=== PATIENT | female | born 1950 | race Caucasian/White ===

== ENCOUNTER 2016-03-14 15:09 | Emergency (ER) | payer MEDICAID ==
[~2016-03-14] VITALS: Wt 61.5 kg
[2016-03-14] MEDS ORDERED: BENA20TA48 PO (17:09)
[2016-03-14] MEDS ORDERED: GLIM2TAB47 PO (17:09)
[2016-03-14] MEDS ORDERED: GABA300C16 PO (17:09)
[2016-03-14] MEDS ORDERED: MTF1000T PO (17:09)
[2016-03-14] MEDS ORDERED: AZIT250T94 PO (17:09)
[2016-03-14] MEDS ORDERED: ACET500C5 PO (17:09)
[2016-03-14] MEDS ORDERED: D-ME473S18 PO (17:09)
--- NOTE | 2016-03-14 17:14 | ERD ---
ER Documentation Chief Complaint Date/Time DATE: 03/14/16 TIME: 17:12 Chief Complaint COUGH, FEVER, BODYPAINS, HEADACHE, ONSET 2 DAYS HPI This 65-year-old male complains of 3 day history of productive cough, subjective fever and body aches. She is also requesting a refill on her diabetes and hypertension medication. She has shortness of breath or chest pain , vomiting, abdominal pain ROS All systems reviewed and are negative except as per history of present illness. Medications Home Meds Active Scripts Acetaminophen* (Tylophen*) 500 Mg Capsule, 1 CAP PO Q6H Y for PAIN AND OR ELEVATED TEMP, #15 CAP Prov:ROYAL HADLEY MD 03/14/16 Dextromethorphan Hb-Promethazine Hcl (Promethazine DM Syrup) 473 Ml Syrup, 5 ML PO Q6H Y for COUGH, #4 OZ Prov:ROYAL HADLEY MD 03/14/16 Azithromycin* (Zithromax*) 250 Mg Tablet, 250 MG PO .ZPACK DIRECTED, #6 TAB TAKE 500 MG (2 TABS) THE FIRST DAY THEN 250 MG (1 TAB) DAYS 2-5 Prov:ROYAL HADLEY MD 03/14/16 Gabapentin* (Gabapentin*) 300 Mg Capsule, 300 MG PO TID, #90 CAP Prov:ROYAL HADLEY MD 03/14/16 Glimepiride* (Amaryl*) 2 Mg Tablet, 2 MG PO WITH BREAKFAST DINNE, #30 TAB Prov:ROYAL HADLEY MD 03/14/16 Metformin* (Glucophage*) 1,000 Mg Tablet, 1000 MG PO BID, #60 TAB Prov:ROYAL HADLEY MD 03/14/16 Benazepril Hcl* (Benazepril Hcl*) 20 Mg Tablet, 20 MG PO DAILY, #30 TAB Prov:ROYAL HADLEY MD 03/14/16 PMhx/Soc History of Surgery: No Anesthesia Reaction: No Hx Neurological Disorder: No Hx Respiratory Disorders: No Hx Cardiac Disorders: Yes (HTN) Hx Psychiatric Problems: No Hx Miscellaneous Medical Probl: Yes (DM) Hx Alcohol Use: No Hx Substance Use: No Hx Tobacco Use: No Smoking Status: Never smoker Physical Exam Vitals Vital Signs Date Time Temp Pulse Resp B/P Pulse Ox O2 Delivery O2 Flow Rate FiO2 03/14/16 15:19 98.6 92 18 180/77 97 Physical Exam Const: [] Alert, [id number]. Head: Atraumatic Eyes: Normal Conjunctiva ENT: Normal External Ears, Nose and Mouth. Neck: Full range of motion..~ No meningismus. Resp: Clear to auscultation bilaterally. Slight rhonchi without rales, wheezing. Cardio: Regular rate and rhythm, no murmurs Abd: Soft, non tender, non distended. Normal bowel sounds Skin: No petechiae or rashes Back: No midline or flank tenderness Ext: No cyanosis, or edema Neur: Awake and alert Psych: Normal Mood and Affect Procedures/MDM This patient presents with URI symptoms without evidence of hypoxemia, respiratory distress, sepsis. She has history of diabetes and hypertension as well and should follow-up with primary doctor for further evaluation and management. She was given prescription for Zithromax, promethazine and Tylenol for her URI and refills of her Glucophage, Amaryl and benazepril for her hypertension and diabetes. She will be given a prescription of her gabapentin as well. The patient was stable with no new complaints during the ER course. Clinically, there is no current evidence to suggest meningitis, sepsis, acute abdomen, pneumonia, acute coronary syndrome, pulmonary embolism, or any other emergent condition appearing to require further evaluation or hospitalization. The patient should certainly return for any new or worsening symptoms per the aftercare instructions. They should otherwise follow-up with her primary care doctor for reevaluation this week. Departure Diagnosis: Primary Impression: Hypertension Hypertension type: essential hypertension Qualified Code: I10 - Essential hypertension Additional Impressions: Upper respiratory infection URI type: unspecified URI Qualified Code: J06.9 - Upper respiratory tract infection, unspecified type Diabetes Diabetes mellitus type: type 2 Diabetes mellitus complication status: without complication Diabetes mellitus custodial insulin use: without long term acute care registered nurse use Qualified Code: E11.9 - Type 2 diabetes mellitus without complication , without long-term current use of insulin Condition: Stable Patient Instructions: Acute Bronchitis, High Blood Pressure (Hypertension), DIABETES, General Info Referrals: [facility] Usted se coronado hecho un examen mdico de control que le indica que no est en ary condicin que requiera tratamiento urgente en el Departamento de Emergencia. Un estudio ms profundo y el tratamiento de goldman condicin pueden esperar sin ningn riesgo hasta que usted sea atendida/o en el consultorio de goldman mdico o ary cl tiara. Es responsabilidad suya arreglar ary lety para el seguimiento del anayeli. MANEJO DE CONDICIONES NO URGENTES EN EL FUTURO 1) Si usted tiene un mdico de atencin primaria: Usted debera llamar a goldman mdico de atencin primaria antes de venir al departamento de emergencia. Despus de las horas de consultorio, goldman doctor o goldman asociado/a est disponible por telfono. El mdico o enfermero de ronak en el servicio telefnico puede asesorarle por jeremi medio para atender el problema, o anayeli contrario se puede programar ary lety. 2) Si usted no tiene un mdico de atencin primaria: Llame al mdico o clnica de referencia que aparece abajo [place] las horas de consultorio para hacer ary lety para que le vean. CLINICAS: [facility] [phone] [facility] [phone] [facility] [phone] [facility] [phone] [place] [phone] [facility] [address] [phone] [address] Additional Instructions: Cheque otro vez con goldman doctor primario en el proximo peña or regresa para mas o nueva simptomas. ROYAL HADLEY MD Mar 14, 2016 17:14
[2016-03-14 17:35] VITALS: BP 175/77; PULSE 88; RESP 18; TEMP 98.6
== END 2016-03-14 17:58 | disposition home or self-care (01) ==
LOC: FTE 15:09
DX: I10 Essential (primary) hypertension (principal); J06.9 Acute upper respiratory infection, unspecified; E11.9 Type 2 diabetes mellitus without complications; Z79.84 Long term (current) use of oral hypoglycemic drugs
CPT/HCPCS: 99284

== ENCOUNTER 2016-05-15 14:49 | Emergency (ER) | payer MEDICAID ==
[~2016-05-15] VITALS: Ht 157.5 cm; Wt 61.0 kg
[~2016-05-15 14:49] MED LIST: ACET500C5 PO; AZIT250T94 PO; BENA20TA48 PO; D-ME473S18 PO; GABA300C16 PO; GLIM2TAB47 PO; MTF1000T PO
[2016-05-15 14:54] VITALS: Ht 157.5 cm; Wt 61.0 kg
[2016-05-15] MEDS ORDERED: GLIM2TAB PO (15:51)
[2016-05-15] MEDS ORDERED: CEPH-443 PO (15:57)
[2016-05-15] MEDS ORDERED: BACTDS PO (16:01)
--- NOTE | 2016-05-15 17:12 | ERD ---
ER Documentation Chief Complaint Date/Time DATE: 05/15/16 TIME: 17:08 Chief Complaint rt leg injury , abrasion , fell on stairs HPI Patient is a 66-year-old female who presents to the ED with an abrasion on her right leg after sustaining an injury 3 days ago. She states that she fell on her stairs and scraped her leg. She denies hitting her head, passing out, blacking out or losing consciousness. She denies headache or dizziness. She denies pain in her feet, knees or hips. She states that she does not have difficulty walking and she does not have weakness. She states that she is here for a refill of 1 of her diabetes medications. She states that she only has 3 more pills left. She also states that she would like wound care for her leg. No other complaints. Denies polyuria, polydipsia or polyphagia. States that her sugars are within normal limits. ROS All systems reviewed and are negative except as per history of present illness. Medications Home Meds Active Scripts Sulfamethoxazole-Trimethoprim* (Bactrim* DS) 800-160 Mg Tab, 1 TAB PO BID for 5 Days, TAB Prov:HERMESTARIWALE LUGO PA-C 05/15/16 Cephalexin* (Keflex*) 500 Mg Capsule, 500 MG PO QID for 5 Days, CAP Prov:SHOTERESOTARIANWALE PA-C 05/15/16 Glimepiride* (Glimepiride*) 2 Mg Tablet, 2 MG PO WITH BREAKFAST for 30 Days, TAB Prov:SHOTERESOTARIANJOHNAZ PA-C 05/15/16 Acetaminophen* (Tylophen*) 500 Mg Capsule, 1 CAP PO Q6H Y for PAIN AND OR ELEVATED TEMP, #15 CAP Prov:ROYAL HADLEY MD 03/14/16 Dextromethorphan Hb-Promethazine Hcl (Promethazine DM Syrup) 473 Ml Syrup, 5 ML PO Q6H Y for COUGH, #4 OZ Prov:ROYAL HADLEY MD 03/14/16 Azithromycin* (Zithromax*) 250 Mg Tablet, 250 MG PO .ZPACK DIRECTED, #6 TAB TAKE 500 MG (2 TABS) THE FIRST DAY THEN 250 MG (1 TAB) DAYS 2-5 Prov:ROYAL HADLEY MD 03/14/16 Gabapentin* (Gabapentin*) 300 Mg Capsule, 300 MG PO TID, #90 CAP Prov:ROYAL HADLEY MD 03/14/16 Glimepiride* (Amaryl*) 2 Mg Tablet, 2 MG PO WITH BREAKFAST DINNE, #30 TAB Prov:ROYAL HADLEY MD 03/14/16 Metformin* (Glucophage*) 1,000 Mg Tablet, 1000 MG PO BID, #60 TAB Prov:ROYAL HADLEY MD 03/14/16 Benazepril Hcl* (Benazepril Hcl*) 20 Mg Tablet, 20 MG PO DAILY, #30 TAB Prov:ROYAL HADLEY MD 03/14/16 PMhx/Soc History of Surgery: No Anesthesia Reaction: No Hx Neurological Disorder: No Hx Respiratory Disorders: No Hx Cardiac Disorders: Yes (HTN) Hx Psychiatric Problems: No Hx Miscellaneous Medical Probl: Yes (DM) Hx Alcohol Use: No Hx Substance Use: No Hx Tobacco Use: No Physical Exam Vitals Vital Signs Date Time Temp Pulse Resp B/P Pulse Ox O2 Delivery O2 Flow Rate FiO2 05/15/16 14:54 98.3 90 18 176/78 99 Physical Exam GENERAL: Well-developed, well-nourished female. Appears in no acute distress. HEAD: Normocephalic, atraumatic. EYES: Pupils are equally reactive bilaterally. EOMs grossly intact. No conjunctival erythema. ENT: Moist mucous membranes. No uvula deviation. No kissing tonsils. No exudates. NECK: Supple. No lymphadenopathy or thyromegaly. No meningismus. negative kernig. negative brudinski. LUNG: Clear to auscultation bilaterally. No rhonchi, wheezing, rales or coarse breath sounds. HEART: Regular rate and rhythm. No murmurs, rubs or gallops. Extremities: Equal pulses bilaterally. No peripheral clubbing, cyanosis or edema. No unilateral leg swelling. Nontender to knee, ankle. No proximal fibular pain. Pulses intact bilaterally. No hip pain. NEUROLOGIC: Alert and oriented. Moving all four extremities. 5/5 strength in all extremities. Normal speech. Steady gait. SKIN: Normal color. Warm and dry. Right leg has abrasion with slight surrounding erythema. No drainage. No active bleeding. No ecchymosis. No step-offs or deformities. Capillary refill < 2 seconds Procedures/MDM ER COURSE: I kept the patient and/or family informed of laboratory and diagnostic imaging results throughout the emergency room course. PROCEDURES: wound dressing. tolerated well with no adverse reaction. MEDICAL DECISION MAKING: This is a 66-year-old female who presents with abrasion after sustaining a fall 3 days ago. Vital signs were reviewed. Patient is afebrile. Patient is not hypoxic. Patient is not toxic or ill-appearing. Patient has an abrasion to her right knee with slight cellulitis. Since patient is diabetic and there is slight erythema I will be treating the patient with antibiotics out patiently. I will also be filling her glimepiride. Low suspicion for necrotizing fasciitis , SJS, toxic epidermal necrolysis, Kawasaki, erythema multiforme, gangrene, scarlet fever, meningococcemia, sepsis, anaphylaxis, sepsis, deep space infection, or foreign body. I have low suspicion for DKA, HON K DISCHARGE: At this time, patient is stable for discharge and outpatient management with no new complaints during the ER course. Patient was sent home with Keflex, Bactrim and a refill of her glimepiride advised patient that she needs to follow-up with her primary care provider for diabetes management and prescription refills.. Patient will be discharged home with instructions to recheck for new or worsening symptoms such as fever, nausea, weakness, LOC and to follow up with primary care in the next 1-2 days. Patient was advised to return to the ER for any new or worsening symptoms. Plan was discussed and patient and/or family understands and agrees. Home instructions were given. Departure Diagnosis: Primary Impression: Abrasion Condition: Stable Patient Instructions: Abrasion Additional Instructions: Llame al doctor MAANA y devang ary NIMCO PARA DENTRO DE 1-2 ESPINOZA.Dgale a la secretaria que nosotros le instruimos hacer esta nimco.Avise o llame si goldman condicin se empeora antes de la nimco. Regresa aqui si peor o no mejor. WALE HICKMAN PA-C May 15, 2016 17:12
== END 2016-05-15 16:30 | disposition home or self-care (01) ==
LOC: FTE 14:49
DX: S80.811A Abrasion, right lower leg, initial encounter (principal); I10 Essential (primary) hypertension; E11.9 Type 2 diabetes mellitus without complications; W10.9XXA Fall (on) (from) unspecified stairs and steps, initial encounter; Y92.9 Unspecified place or not applicable; Z79.84 Long term (current) use of oral hypoglycemic drugs
CPT/HCPCS: 99284

== ENCOUNTER 2016-06-07 08:57 | Emergency (ER) | payer MEDICAID ==
[~2016-06-07] VITALS: Ht 157.5 cm; Wt 60.0 kg
[~2016-06-07 08:57] MED LIST changes: +BACTDS PO; +CEPH-443 PO; +GLIM2TAB PO
[2016-06-07 09:00] VITALS: Ht 157.5 cm; Wt 60.0 kg
[2016-06-07] MEDS ORDERED: BAC30OI TOP (09:34)
[2016-06-07 09:52] VITALS: BP 185/84; PULSE 94; RESP 20; TEMP 97.8
--- NOTE | 2016-06-07 11:11 | ERD ---
DATE OF SERVICE: 06/07/2016 HISTORY OF PRESENT ILLNESS: The patient is a 66-year-old female complaining of a healing wound on h er right alaniz. Patient fell 1 month ago. She sustained an abrasions to her right alaniz which she wa nted to have evaluated. She is diabetic and was concerned about possible infection. PAST MEDICAL HISTORY: Diabetes, non-insulin dependent. ALLERGIES TO MEDICATIONS: Denies. HOSPITALIZATIONS: Denies. SOCIAL HISTORY: Denies. REVIEW OF SYSTEMS: A 12-point review of systems was done. Refer to HPI for positives, all other sy stems negative. PHYSICAL EXAMINATION VITAL SIGNS: Temperature is 97.9, pulse 93, blood pressure is 112/74, respiratory rate 20, O2 satur ation 100% on room air. Pain intensity 8/10. GENERAL: The patient is well-appearing, well-nourished, in no acute distress. HEENT: Atraumatic. Conjunctivae are pink. Pupils equal, round, and reactive to light. There is no s cleral icterus. Tympanic membranes clear bilaterally. Oropharynx clear. No nystagmus or photophobia . CHEST: Clear to auscultation bilaterally. There are no rales, wheezes or rhonchi. HEART: Regular rate and rhythm. No murmurs, clicks, rubs or gallops. No S3 or S4. EXTREMITIES: Equal pulses bilaterally. There is no peripheral clubbing, cyanosis or edema. No focal swelling or erythema. Full range of motion. Grossly neurovascularly intact. SKIN: There is a healing abrasion noted to the right alaniz with no surrounding erythema, no fluctuan ce, no purulence, no streaking. DIAGNOSIS: Healing wound. MEDICAL DECISION MAKING: Patient does not have any signs of infection noted to the healing abrasion . I did not feel that there was indication for intervention at this time. Patient does not require antibiotic treatment. DISCHARGE: The patient is stable. Patient is told to continue cleaning wound with soap and water. I did write a prescription for bacitracin and patient was recommended to follow up with primary car e. The patient was told that it was a deep abrasion and will take some time to granulate in, but I did not feel there is any indication for debridement or suturing at this time. The patient is discharged stable. All other questions answered at time of discharge. Discharge sum chloé given at the time of departure. DISCHARGE MEDICATIONS: Patient given prescription for bacitracin. Dictated By: BA LEVINE for JASON IGNACIO/KULWINDER Conf#: [id number] DID#: [id number]
== END 2016-06-07 09:54 | disposition home or self-care (01) ==
LOC: FTE 08:57
DX: S80.811D Abrasion, right lower leg, subsequent encounter (principal); E11.9 Type 2 diabetes mellitus without complications; W19.XXXD Unspecified fall, subsequent encounter
CPT/HCPCS: 99283

== ENCOUNTER 2016-06-08 10:50 | Emergency (ER) | payer MEDICAID ==
[~2016-06-08 10:50] MED LIST changes: +BAC30OI TOP
== END 2016-06-08 11:30 | disposition left against medical advice (07) ==
LOC: E/R 10:50
DX: Z53.21 Procedure and treatment not carried out due to patient leaving prior to being seen by health care provider (principal)

== ENCOUNTER 2016-12-26 09:18 | Emergency (ER) | payer MEDICAID ==
[~2016-12-26] VITALS: Ht 160 cm; Wt 80.0 kg
[~2016-12-26 09:18] MED LIST changes: -BAC30OI TOP; +BACI28.34 TOP
[2016-12-26 09:20] VITALS: Ht 160 cm; Wt 80.0 kg
--- NOTE | 2016-12-26 10:42 | ERD ---
ER Documentation Chief Complaint Date/Time DATE: 12/26/16 TIME: 10:38 Chief Complaint has LEFT SHOULDER/AXILLA PAIN HPI 66-year-old female history of diabetes, shingles 2 years ago presents with left axillary left shoulder burning pain for 2 days. Patient states that she has had this before, she describes as sharp and burning and tender to touch, and painful when she moves her left shoulder. She has had constant pain without any presentation of rash. She has not had any chest pain, dizziness, nausea, diaphoresis with this. Denies trauma to the shoulder. ROS All systems reviewed and are negative except as per history of present illness. Medications Home Meds Active Scripts Tramadol HCl (Tramadol HCl) 50 Mg Tablet, 50 MG PO Q4 Y for PAIN, #20 TAB Prov:ERWIN COBOS PA-C 12/26/16 Acyclovir* (Zovirax*) 800 Mg Tablet, 800 MG PO 5 TIMES DAILY for 7 Days, TAB Prov:ERWIN COBOS PA-C 12/26/16 Bacitracin* (Bacitracin Zinc Oint*) 28.35 Gm Oint, 1 APPLIC TOP DAILY, #1 TUB APPLI TO Prov:RICK COLE PA-C 06/07/16 Sulfamethoxazole-Trimethoprim* (Bactrim* DS) 800-160 Mg Tab, 1 TAB PO BID for 5 Days, TAB Prov:WALE HICKMAN PA-C 05/15/16 Cephalexin* (Keflex*) 500 Mg Capsule, 500 MG PO QID for 5 Days, CAP Prov:WALE HICKMAN PA-C 05/15/16 Glimepiride* (Glimepiride*) 2 Mg Tablet, 2 MG PO WITH BREAKFAST for 30 Days, TAB Prov:WALE HICKMAN PA-C 05/15/16 Acetaminophen* (Tylophen*) 500 Mg Capsule, 1 CAP PO Q6H Y for PAIN AND OR ELEVATED TEMP, #15 CAP Prov:ROYAL HADLEY MD 03/14/16 Dextromethorphan Hb-Promethazine Hcl (Promethazine DM Syrup) 473 Ml Syrup, 5 ML PO Q6H Y for COUGH, #4 OZ Prov:ROYAL HADLEY MD 03/14/16 Azithromycin* (Zithromax*) 250 Mg Tablet, 250 MG PO .ZPACK DIRECTED, #6 TAB TAKE 500 MG (2 TABS) THE FIRST DAY THEN 250 MG (1 TAB) DAYS 2-5 Prov:ROYAL HADLEY MD 03/14/16 Gabapentin* (Gabapentin*) 300 Mg Capsule, 300 MG PO TID, #90 CAP Prov:ROYAL HADLEY MD 03/14/16 Glimepiride* (Amaryl*) 2 Mg Tablet, 2 MG PO WITH BREAKFAST DINNE, #30 TAB Prov:ROYAL HADLEY MD 03/14/16 Metformin* (Glucophage*) 1,000 Mg Tablet, 1000 MG PO BID, #60 TAB Prov:ROYAL HADLEY MD 03/14/16 Benazepril Hcl* (Benazepril Hcl*) 20 Mg Tablet, 20 MG PO DAILY, #30 TAB Prov:ROYAL HADLEY MD 03/14/16 Allergies Allergies: Coded Allergies: No Known Allergy (Unverified , 06/07/16) PMhx/Soc History of Surgery: No Anesthesia Reaction: No Hx Neurological Disorder: No Hx Respiratory Disorders: No Hx Cardiac Disorders: Yes (HTN) Hx Psychiatric Problems: No Hx Miscellaneous Medical Probl: Yes (DM) Hx Alcohol Use: No Hx Substance Use: No Hx Tobacco Use: No Smoking Status: Never smoker Physical Exam Vitals Vital Signs Date Time Temp Pulse Resp B/P Pulse Ox O2 Delivery O2 Flow Rate FiO2 12/26/16 09:20 98.1 94 18 150/78 99 Physical Exam General: Well-developed, well-nourished. The patient appears in no acute distress. HEENT: Head is normocephalic, atraumatic. No scleral icterus. Neck: Supple. Nontender. Lungs: Clear to auscultation. Normal air movement. Heart: Regular rate and rhythm. S1 and S2 are normal. No murmurs, gallops, or rubs. Abdomen: Soft, nontender, nondistended. Bowel sounds are normoactive. Extremities: Left shoulder is atraumatic, no rashes, patient has full range of motion, no warmth or erythema. She has tenderness to palpation in the left axilla, there is no abscess, no rashes. Neurologic: Alert and oriented 3. No focal deficits. Skin: Normal turgor. No rash or lesions. Results 24 hrs 12-lead EKG(interpreted by supervising physician): Dr. Ballard Rate/Rhythm: Normal Sinus Rhythm, rate of 85 QRS, ST, T-waves: No changes consistent w/ acute ischemia, no intervals, no dysrhythmias, no ectopy Impression: No evidence of ischemia or arrhythmia Procedures/MDM 66-year-old female presents to the ER with left-sided axillary pain, she describes the pain as burning, it is tender to palpation, and states that this pain is the same as 2 years ago when she developed shingles. I suspect that her presentation is most likely shingles given the tenderness to palpation, and the pain is reproduced when manipulating the shoulder. EKG also shows normal sinus rhythm without any ischemic changes. Pain is most likely shingles versus neuropathic pain, most consistent with peripheral neuropathy. There are no signs of any stroke symptoms, TIA. Other differentials considered include acute coronary syndrome however unlikely, additionally there is no evidence of skin changes, there is no abscess, no cellulitis, and no musculoskeletal injury , shoulder dislocation, no signs of it trauma to indicate fracture. Patient's blood pressure was elevated (>120/80) but appears stable without evidence of hypertension emergency or urgency. The patient was counseled about the risks of hypertension and urged to pursue outpatient monitoring and therapy within a week with their primary care physician. Departure Diagnosis: Primary Impression: Shoulder pain Condition: ERWIN Escalera PA-C Dec 26, 2016 10:42
[2016-12-26] MEDS ORDERED: TRAM50TA2 PO (10:50)
[2016-12-26] MEDS ORDERED: ACYC800T57 PO (10:50)
== END 2016-12-26 11:07 | disposition home or self-care (01) ==
LOC: FTE 09:18
DX: M25.512 Pain in left shoulder (principal); I10 Essential (primary) hypertension; E11.9 Type 2 diabetes mellitus without complications; Z79.84 Long term (current) use of oral hypoglycemic drugs
CPT/HCPCS: 93005; Z7502

== ENCOUNTER 2017-02-22 10:22 | Emergency (ER) | payer MEDICAID ==
[~2017-02-22] VITALS: Ht 160 cm; Wt 78.0 kg
[~2017-02-22 10:22] MED LIST changes: +ACYC800T57 PO; +TRAM50TA2 PO
[2017-02-22 10:25] VITALS: Ht 160 cm; Wt 78.0 kg
[2017-02-22] MEDS ORDERED: ONDANSETRON (ODT) 4 MG TAB ODT STA (12:52)
[2017-02-22] MEDS ORDERED: HYDROCODONE/APAP (5/325) TAB PO ONE (13:00)
[2017-02-22] MEDS ORDERED: NICARDipine HCL 30 MG CAPSULE PO ONE (13:00)
--- NOTE | 2017-02-22 13:18 | ERD ---
ER Documentation Chief Complaint Chief Complaint right leg pain x 3 days, off meds x 3 days, also refill meds HPI This is a 66-year-old Sudanese-speaking female. An aerial photograph interpreter was used. The patient has a history of diabetes, hypertension. The patient states that she has been out of her medications for 3 days. She also describes chronic peripheral neuropathy secondary to diabetes. She regularly has pain in her left lower extremity but has been expressing pain in the right lower extremity worsening around the thigh. She states the pain is kept her up at night. She denies any falls or trauma, no injury, no numbness or tingling. She denies any unilateral swelling, no abdominal pain or mid back pain. The patient states that she has been ambulatory. She does not know the name of any of her medications at the dosing of any of her medications. She only gets her medications refilled in the emergency department and does not have a primary care physician. The patient states that she takes 1 tablet for her pain 1 tablet for her high blood pressure and 1 tablet for her diabetes. ROS All systems reviewed and are negative except as per history of present illness. Medications Home Meds Active Scripts Gabapentin* (Gabapentin*) 300 Mg Capsule, 300 MG PO TID, #90 CAP Prov:ROYAL HADLEY MD 03/14/16 Glimepiride* (Amaryl*) 2 Mg Tablet, 2 MG PO WITH BREAKFAST DINNE, #30 TAB Prov:ROYAL HADLEY MD 03/14/16 Metformin* (Glucophage*) 1,000 Mg Tablet, 1000 MG PO BID, #60 TAB Prov:ROYAL HADLEY MD 03/14/16 Benazepril Hcl* (Benazepril Hcl*) 20 Mg Tablet, 20 MG PO DAILY, #30 TAB Prov:ROYAL HADLEY MD 03/14/16 Discontinued Scripts Tramadol HCl (Tramadol HCl) 50 Mg Tablet, 50 MG PO Q4 Y for PAIN, #20 TAB Prov:ERWIN COBOS PA-C 12/26/16 Acyclovir* (Zovirax*) 800 Mg Tablet, 800 MG PO 5 TIMES DAILY for 7 Days, TAB Prov:ERWIN COBOS PA-C 12/26/16 Bacitracin* (Bacitracin Zinc Oint*) 28.35 Gm Oint, 1 APPLIC TOP DAILY, #1 TUB APPLI TO Prov:RICK COLE PA-C 06/07/16 Sulfamethoxazole-Trimethoprim* (Bactrim* DS) 800-160 Mg Tab, 1 TAB PO BID for 5 Days, TAB Prov:WALE HICKMAN PA-C 05/15/16 Cephalexin* (Keflex*) 500 Mg Capsule, 500 MG PO QID for 5 Days, CAP Prov:WALE HICKMAN-Inessa 05/15/16 Glimepiride* (Glimepiride*) 2 Mg Tablet, 2 MG PO WITH BREAKFAST for 30 Days, TAB Prov:WALE HICKMAN PA-C 05/15/16 Acetaminophen* (Tylophen*) 500 Mg Capsule, 1 CAP PO Q6H Y for PAIN AND OR ELEVATED TEMP, #15 CAP Prov:ROYAL HADLEY MD 03/14/16 Dextromethorphan Hb-Promethazine Hcl (Promethazine DM Syrup) 473 Ml Syrup, 5 ML PO Q6H Y for COUGH, #4 OZ Prov:ROYAL HADLEY MD 03/14/16 Azithromycin* (Zithromax*) 250 Mg Tablet, 250 MG PO .ZPACK DIRECTED, #6 TAB TAKE 500 MG (2 TABS) THE FIRST DAY THEN 250 MG (1 TAB) DAYS 2-5 Prov:ROYAL HADLEY MD 03/14/16 Allergies Allergies: Coded Allergies: No Known Allergy (Unverified , 06/07/16) PMhx/Soc History of Surgery: No Anesthesia Reaction: No Hx Neurological Disorder: No Hx Respiratory Disorders: No Hx Cardiac Disorders: Yes (HTN) Hx Psychiatric Problems: No Hx Miscellaneous Medical Probl: Yes (DM) Hx Alcohol Use: No Hx Substance Use: No Hx Tobacco Use: No Smoking Status: Never smoker FmHx Family History: diabetes Physical Exam Vitals Vital Signs Date Time Temp Pulse Resp B/P Pulse Ox O2 Delivery O2 Flow Rate FiO2 02/22/17 10:25 98.2 90 18 234/102 99 Physical Exam General: Well developed, well nourished, no acute distress Head: Normocephalic, atraumatic. Eyes: Pupils equally reactive, EOM intact ENT: Moist mucous membranes Neck: Supple, no lymphadenopathy Respiratory: Lungs clear bilaterally, no distress Cardiovascular: RRR, no murmurs, rubs, or gallops Abdominal: Soft, non-tender, non-distended, no peritoneal signs : Deferred MSK: Bilateral lower extremities with evidence of chronic venous insufficiency with venous stasis dermatitis, no significant unilateral swelling, very slight pitting edema around the ankles with 2+ dorsalis pedis and posterior tibial pulses. Mild soft tissue tenderness along the right thigh with soft compartments. No bony abnormalities. Neurologic: Alert and oriented, moving all extremities, normal speech, no focal weakness, no cerebellar signs Skin: No rash Psych: Normal mood Results 24 hrs Current Medications Medications (Trade) Dose Ordered Sig/Leonel Route PRN Reason Start Time Stop Time Status Last Admin Dose Admin Nicardipine HCl (Cardene) 30 mg ONCE ONCE PO 02/22/17 13:00 02/22/17 13:01 DC 02/22/17 13:55 Acetaminophen/ Hydrocodone Bitart ([place] (5/325)) 1 tab ONCE ONCE PO 02/22/17 13:00 02/22/17 13:01 DC 02/22/17 13:55 Ondansetron HCl (Zofran Odt) 4 mg ONCE STAT ODT 02/22/17 12:52 02/22/17 12:53 DC 02/22/17 12:52 Procedures/MDM Lower extremity duplex of the right leg negative for DVT per radiology LAB INTERPRETATION: Patient did not stay for her Accu-Chek MEDICAL DECISION MAKING: The patient is in the emergency room today for multiple issues that appear to be mostly primary care issues. The patient is unsure of which medication she takes, she only knows how many pills she takes. She does not know the names or dosing. She is not receiving primary care medicine she is only coming to emergency room's. I advised her that this is a significant issue and a significant danger to her. The patient absolutely needs to establish a primary care physician to get these issues under control. Patient's leg pain appears to be consistent with her chronic diabetic neuropathy. The patient has not been taking her gabapentin for 3 days. I have a very low pretest probability for DVT but I believe a duplex would be appropriate. The patient has no signs or symptoms concerning for acute vascular event such as thromboembolic process or dissection. No evidence of lumbar radiculopathy. Soft compartments no evidence of rhabdomyolysis. No evidence of fracture. The patient states that she thinks she is taking something to thin her blood but she is not sure. She does not recognize any of the names of anticoagulant such as Coumadin, warfarin, Xarelto etc. She thinks may be this is not accurate but is unsure. She states "just look in the record ". Reviewing the patient's electronic medical record there is no history of the patient requiring anticoagulant or having a disease process requiring anticoagulant. I am only able to see that the patient has been listed to be taking gabapentin, tramadol, benazepril, metformin in several sulfonylureas. However, the patient states that she only takes 1 pill for each disease process. I believe the safest thing would be to refill her prescriptions for gabapentin, benazepril and metformin. ER COURSE: The patient was given 30 mg of p.o. cardene. No evidence of DVT. Unfortunately the patient did not wait for reassessment of her blood pressure, she did not wait for an Accu-Chek and she left without receiving her prescriptions. I am unsure why this occurred but we looked for the family and the cannot be found. The patient eloped prior to completion of care in the emergency department. DISPOSITION PLAN: Patient eloped Outpatient referral: [None required] Discharge Medications: Gabapentin 300 mg 3 times daily Benazepril 20 mg once daily Metformin 1000 mg twice daily *patient did not receive because she left prior to receiving discharge paperwork Departure Diagnosis: Primary Impression: Asymptomatic hypertension Additional Impressions: Myalgia Diabetic neuropathy Diabetes mellitus type: type 2 Diabetes mellitus complication detail: diabetic polyneuropathy Qualified Code: E11.42 - Diabetic polyneuropathy associated with type 2 diabetes mellitus Noncompliance with medication regimen Condition: Stable RUDOLPH DANG MD Feb 22, 2017 13:18 RUDOLPH DANG MD Feb 22, 2017 13:18
--- NOTE | 2017-02-22 13:28 | RADRPT ---
PROCEDURE: US Lower extremity Venous. CLINICAL INDICATION: Pain and swelling TECHNIQUE: Multiple sonographic images of the right lower extremity deep venous system was obtaine d utilizing grayscale, color-flow, compressive sonography and doppler imaging with augmentation. Th e images were reviewed on a PACS workstation. COMPARISON: None. FINDINGS: There is normal compressibility and flow within the right common femoral, deep femoral, superficial femoral and popliteal veins. Normal respiratory variation and augmentation is seen. There is normal color flow and compressibility of right posterior tibial and peroneal veins IMPRESSION: No sonographic evidence for right lower extremity deep venous thrombosis. RPTAT: HH .Humberto Man MD, MD Date Time Electronically viewed and signed by .Humberto Man MD, on 02/22/2017 13:27 .W/
[2017-02-22] MEDS ORDERED: SOD CHLORIDE 0.9% 1,000 ML IV STA (15:57)
[2017-02-22 16:38] LABS: BASOPHILS % 0.5 % (0.0-2.0); EOSINOPHILS # 0.2 10^3/ul (0.0-0.5); EOSINOPHILS % 2.3 % (0.0-7.0); HEMATOCRIT 30.4 % (37.0-47.0); HEMOGLOBIN 10.5 g/dl (12.0-16.0); LYMPHOCYTES # 2.3 10^3/ul (0.8-2.9); LYMPHOCYTES % 29.6 % (15.0-51.0); MEAN CORPUSCULAR HEMOGLOBIN 30.1 pg (29.0-33.0); MEAN CORPUSCULAR HGB CONC 34.5 g/dl (32.0-37.0); MEAN CORPUSCULAR VOLUME 87.1 fl (82.0-101.0); MEAN PLATELET VOLUME 11.1 fl (7.4-10.4); MONOCYTE # 0.5 10^3/ul (0.3-0.9); MONOCYTES % 6.2 % (0.0-11.0); NEUTROPHIL # 4.8 10^3/ul (1.6-7.5); NEUTROPHILS % 61.3 % (39.0-77.0); PLATELET COUNT 308 10^3/UL (140-415); RED BLOOD COUNT 3.49 10^6/ul (4.20-5.40); RED CELL DISTRIBUTION WIDTH 13.1 % (11.5-14.5); WHITE BLOOD COUNT 7.9 10^3/ul (4.8-10.8)
[2017-02-22 17:12] LABS: CALCIUM 8.9 mg/dl (8.4-10.2); CREATININE 1.02 mg/dl (0.44-1.00)
[2017-02-22] MEDS ORDERED: GABA300C16 PO (17:47)
[2017-02-22] MEDS ORDERED: MTF1000T PO (17:47)
[2017-02-22] MEDS ORDERED: BENA20TA48 PO (17:47)
[2017-02-22 18:08] VITALS: BP 139/85; PULSE 70; RESP 18; TEMP 97.9
== END 2017-02-22 18:12 | disposition home or self-care (01) ==
LOC: E/R 10:22
DX: I10 Essential (primary) hypertension (principal); E11.42 Type 2 diabetes mellitus with diabetic polyneuropathy; M79.1 Myalgia; Z79.84 Long term (current) use of oral hypoglycemic drugs; Z91.14 Patient's other noncompliance with medication regimen
CPT/HCPCS: 80048; 82962; 85025; 93971; J7030; Z7502; Z7610

== ENCOUNTER 2017-03-27 15:03 | Emergency (ER) | END 2017-03-27 17:28 | disposition left against medical advice (07) ==

== ENCOUNTER 2017-03-28 08:40 | Emergency (ER) | END 2017-03-28 16:00 | disposition left against medical advice (07) ==

== ENCOUNTER 2017-10-19 16:29 | Emergency (ER) | END 2017-10-19 20:40 | disposition home or self-care (01) ==

== ENCOUNTER 2018-03-20 08:10 | Emergency (ER) | payer MEDICAID ==
[~2018-03-20] VITALS: Ht 152.4 cm; Wt 65.4 kg
[~2018-03-20 08:10] MED LIST changes: -ACET500C5 PO; -ACYC800T57 PO; -AZIT250T94 PO; -BACI28.34 TOP; +BACITUD TOP; -BACTDS PO; +BENA20TA4 PO; -BENA20TA48 PO; -CEPH-443 PO; -D-ME473S18 PO; -GLIM2TAB PO
[2018-03-20 08:14] VITALS: Ht 152.4 cm; Wt 65.4 kg
[2018-03-20] MEDS ORDERED: NICARDipine HCL 30 MG CAPSULE PO ONE (09:00)
[2018-03-20] MEDS ORDERED: BENA20TA4 PO (10:31)
[2018-03-20] MEDS ORDERED: MTF1000T PO (10:31)
[2018-03-20] MEDS ORDERED: GLIM2TAB PO (10:31)
[2018-03-20 10:45] VITALS: BP 179/89; PULSE 89; RESP 20
--- NOTE | 2018-03-20 11:31 | ERD ---
ER Documentation Chief Complaint Chief Complaint "i might have swallowed something when i was sleeping" HPI She is a 67-year-old female with hypertension who presents with a feeling like she swallowed a foreign body. She ran out of her hypertension and diabetes medicines as well. She said that while she was sleeping last night she might of swallowed something. She does not know what it would have been. Upon review of old medical records this is the patient's 10th visit to the ER since 2017. She has had no treatment as of yet. ROS All systems reviewed and are negative except as per history of present illness. Medications Home Meds Active Scripts Benazepril Hcl* (Benazepril Hcl*) 20 Mg Tablet, 20 MG PO DAILY for 30 Days, TAB Prov:ARMANDO DONOVAN MD 03/20/18 Metformin* (Glucophage*) 1,000 Mg Tablet, 1000 MG PO BID for 30 Days, TAB Prov:ARMANDO DONOVAN MD 03/20/18 Glimepiride* (Glimepiride*) 2 Mg Tablet, 2 MG PO WITH BREAKFAST DINNE for 30 Days, TAB Prov:ARMANDO DONOVAN MD 03/20/18 Benazepril Hcl* (Benazepril Hcl*) 20 Mg Tablet, 20 MG PO DAILY, #30 TAB Prov:RUDOLPH DANG MD 02/22/17 Metformin* (Glucophage*) 1,000 Mg Tablet, 1000 MG PO BID, #60 TAB Prov:RUDOLPH DANG MD 02/22/17 Gabapentin* (Gabapentin*) 300 Mg Capsule, 300 MG PO TID, #90 CAP Prov:ROYAL HADLEY MD 03/14/16 Glimepiride* (Amaryl*) 2 Mg Tablet, 2 MG PO WITH BREAKFAST DINNE, #30 TAB Prov:ROYAL HADLEY MD 03/14/16 Discontinued Scripts Bacitracin* (Bacitracin Oint (UD)*) 1 Applic Oint, 1 APPLIC TOP ONCE PRN for BID, #10 PKT APPLY TO Prov:DARIN REDDY PA-C 10/19/17 Tramadol HCl (Tramadol HCl) 50 Mg Tablet, 50 MG PO Q4 PRN for PAIN, #20 TAB Prov:DARIN REDDY PA-C 10/19/17 Gabapentin* (Gabapentin*) 300 Mg Capsule, 300 MG PO TID, #90 CAP Prov:RUDOLPH DANG MD 02/22/17 Metformin* (Glucophage*) 1,000 Mg Tablet, 1000 MG PO BID, #60 TAB Prov:ROYAL HADLEY MD 03/14/16 Benazepril Hcl* (Benazepril Hcl*) 20 Mg Tablet, 20 MG PO DAILY, #30 TAB Prov:ROYAL HADLEY MD 03/14/16 Allergies Allergies: Coded Allergies: No Known Allergy (Unverified , 06/07/16) PMhx/Soc History of Surgery: No Anesthesia Reaction: No Hx Neurological Disorder: No Hx Respiratory Disorders: No Hx Cardiac Disorders: Yes (HTN) Hx Psychiatric Problems: No Hx Miscellaneous Medical Probl: Yes (DM) Hx Alcohol Use: No Hx Substance Use: No Hx Tobacco Use: No Smoking Status: Never smoker FmHx Family History: diabetes Physical Exam Vitals Vital Signs Date Temp Pulse Resp B/P (MAP) Pulse Ox O2 O2 Flow FiO2 Time Delivery Rate 03/20/18 89 20 179/89 99 Room Air 10:45 (119) 03/20/18 89 20 179/89 99 Room Air 09:00 (119) 03/20/18 97.6 85 20 239/104 100 08:14 (149) Physical Exam Const: No acute distress Head: Atraumatic Eyes: Normal Conjunctiva ENT: Normal External Ears, Nose and Mouth. Neck: Full range of motion. No meningismus. Resp: Clear to auscultation bilaterally Cardio: Regular rate and rhythm, no murmurs Abd: Soft, non tender, non distended. Normal bowel sounds Skin: No petechiae or rashes Back: No midline or flank tenderness Ext: No cyanosis, or edema Neur: Awake and alert Psych: Normal Mood and Affect Results 24 hrs Current Medications Medications Dose Sig/Leonel Start Time Status Last (Trade) Ordered Route PRN Stop Time Admin Dose Reason Admin Nicardipine 30 mg ONCE ONCE 03/20/18 DC 03/20/18 HCl PO 09:00 03/20/18 09:00 (Cardene) 09:01 Procedures/MDM Chest x-ray negative for foreign body per radiology. Patient is a 67-year-old female who presents with a foreign body sensation. T here is no foreign body on x-ray that can be seen. Her blood pressure was elevated and she was given Cardene. She will be given a prescription for hypertension and diabetes medications as she is out of them. She can follow-up with her primary doctor within 2-3 days. She can return for any worsening symptoms. Departure Diagnosis: Primary Impression: HTN (hypertension) Hypertension type: essential hypertension Qualified Codes: I10 - Essential (primary) hypertension Condition: Fair Patient Instructions: High Blood Pressure (Hypertension) Referrals: Your doctor Additional Instructions: Llame al doctor MAANA y devang ary NIMCO PARA DENTRO DE 1-2 ESPINOZA.Dgale a la secretaria que nosotros le instruimos hacer esta nimco.Avise o llame si goldman condicin se empeora antes de la nimco. Regresa aqui si peor o no mejor. ARMANDO DONOVAN MD Mar 20, 2018 11:31
== END 2018-03-20 10:56 | disposition home or self-care (01) ==
LOC: E/R 08:10
DX: I10 Essential (primary) hypertension (principal); E11.9 Type 2 diabetes mellitus without complications; Z79.84 Long term (current) use of oral hypoglycemic drugs
CPT/HCPCS: 71045; Z7502; Z7610

== ENCOUNTER 2018-07-01 09:22 | Inpatient (IN) | payer MEDICAID ==
[~2018-07-01] VITALS: Ht 149.9 cm; Wt 70.5 kg
[~2018-07-01 09:22] MED LIST changes: -BACITUD TOP; +GLIM2TAB PO; -TRAM50TA2 PO
--- NOTE | 2018-07-01 12:37 | ERD ---
ER Documentation Chief Complaint Chief Complaint FACE/LEG SWELLING X 8 DAYS HPI This is 68-year-old female with a history of hypertension who is here because of 8 days of facial swelling and lower extremity swelling with easy fatigability when she walks with some mild dyspnea on exertion. No orthopnea. No chest pain. She says she has good urine output. No chest pain no cough no fever no history of liver or kidney disease in the past other than a kidney stone ROS All systems reviewed and are negative except as per history of present illness. Medications Home Meds Active Scripts Benazepril Hcl* (Benazepril Hcl*) 20 Mg Tablet, 20 MG PO DAILY for 30 Days, TAB Prov:ARMANDO DONOVAN MD 03/20/18 Metformin* (Glucophage*) 1,000 Mg Tablet, 1000 MG PO BID for 30 Days, TAB Prov:ARMANDO DONOVAN MD 03/20/18 Glimepiride* (Glimepiride*) 2 Mg Tablet, 2 MG PO WITH BREAKFAST DINNE for 30 Days, TAB Prov:ARMANDO DONOVAN MD 03/20/18 Benazepril Hcl* (Benazepril Hcl*) 20 Mg Tablet, 20 MG PO DAILY, #30 TAB Prov:RUDOLPH DANG MD 02/22/17 Metformin* (Glucophage*) 1,000 Mg Tablet, 1000 MG PO BID, #60 TAB Prov:RUDOLPH DANG MD 02/22/17 Gabapentin* (Gabapentin*) 300 Mg Capsule, 300 MG PO TID, #90 CAP Prov:ROYAL HADLEY MD 03/14/16 Glimepiride* (Amaryl*) 2 Mg Tablet, 2 MG PO WITH BREAKFAST DINNE, #30 TAB Prov:ROYAL HADLEY MD 03/14/16 Allergies Allergies: Coded Allergies: No Known Allergy (Unverified , 06/07/16) PMhx/Soc History of Surgery: No Anesthesia Reaction: No Hx Neurological Disorder: No Hx Respiratory Disorders: No Hx Cardiac Disorders: Yes (HTN) Hx Psychiatric Problems: No Hx Miscellaneous Medical Probl: Yes (DM) Hx Alcohol Use: No Hx Substance Use: No Hx Tobacco Use: No FmHx Family History: No coronary disease Physical Exam Vitals Vital Signs Date Temp Pulse Resp B/P (MAP) Pulse Ox O2 O2 Flow FiO2 Time Delivery Rate 07/01/18 72 17 195/75 100 Room Air 12:44 (115) 07/01/18 98.1 84 18 201/86 98 09:29 (124) Physical Exam Const: Well-developed, well-nourished Head: Atraumatic, normocephalic Eyes: Normal Conjunctiva, PERRLA, EOMI, normal sclera, no nystagmus ENT: Normal External Ears, Nose and Mouth, moist mucus membranes, bit of a subramanian face but I do not know her baseline. Neck: Full range of motion. No meningismus, no lymphadenopathy. Resp: Clear to auscultation bilaterally, no wheezing, rhonchi, rales Cardio: Regular rate and rhythm, no murmurs, S1 S2 present Abd: Soft, non tender x 4, non distended. Normal bowel sounds, no guarding or rebound, no pulsitile abdominal masses or bruits Skin: No petechiae or rashes, no ecchymosis , no maculopapular rash Back: No midline or flank tenderness Ext: No cyanosis, +2 edema, FROM x 4, normal inspection, neurovascularly intact x 4 Neur: Awake and alert, STR 5/5 x 4, sensation intact x 4, no focal findings, cerebellum intact Psych: Normal Mood and Affect Result Diagram: 07/01/18 1243 07/01/18 1243 Results 24 hrs Laboratory Tests Test 07/01/18 12:43 White Blood Count 8.9 10^3/ul Red Blood Count 3.49 10^6/ul Hemoglobin 9.7 g/dl Hematocrit 30.5 % Mean Corpuscular Volume 87.4 fl Mean Corpuscular Hemoglobin 27.8 pg Mean Corpuscular Hemoglobin Concent 31.8 g/dl Red Cell Distribution Width 13.2 % Platelet Count 333 10^3/UL Mean Platelet Volume 10.0 fl Immature Granulocytes % 0.200 % Neutrophils % 58.2 % Lymphocytes % 32.0 % Monocytes % 6.1 % Eosinophils % 2.9 % Basophils % 0.6 % Nucleated Red Blood Cells % 0.0 /100WBC Immature Granulocytes # 0.020 10^3/ul Neutrophils # 5.2 10^3/ul Lymphocytes # 2.9 10^3/ul Monocytes # 0.5 10^3/ul Eosinophils # 0.3 10^3/ul Basophils # 0.1 10^3/ul Nucleated Red Blood Cells # 0.0 10^3/ul Sodium Level 140 mmol/L Potassium Level 5.6 mmol/L Chloride Level 109 mmol/L Carbon Dioxide Level 24 mmol/L Anion Gap 7 Blood Urea Nitrogen 34 mg/dl Creatinine 1.49 mg/dl Est Glomerular Filtrat Rate mL/min 35 mL/min Glucose Level 226 mg/dl Calcium Level 9.2 mg/dl Total Bilirubin 0.4 mg/dl Direct Bilirubin 0.00 mg/dl Indirect Bilirubin 0.4 mg/dl Aspartate Amino Transf (AST/SGOT) 14 IU/L Alanine Aminotransferase (ALT/SGPT) < 6 IU/L Alkaline Phosphatase 113 IU/L Troponin I < 0.012 ng/ml B-Type Natriuretic Peptide 304 PG/ML Total Protein 8.4 g/dl Albumin 3.9 g/dl Globulin 4.50 g/dl Albumin/Globulin Ratio 0.86 Procedures/MDM MR #: [id number] DOS: 07/01/18 1235 Ordering MD: SHAYNA PHAM DO Location: E/R Room/Bed: PROCEDURE: XR Chest. CLINICAL INDICATION: Chest pain TECHNIQUE: Single frontal view of the chest was obtained COMPARISON: None FINDINGS: The heart is enlarged. The thoracic aorta is calcified. The lungs are clear. There is no pleural effusion or pneumothorax. RPTAT: AA IMPRESSION: Mild cardiomegaly. Calcified aorta consistent with atherosclerotic disease. .Austin Robins MD, MD Date Time Electronically viewed and signed by .Austin Robins MD, on 07/01/2018 13:01 .S/ CC: SHAYNA PHAM DO [id number] Treat her with the hyperkalemic cocktail here. Will admit for potassium correction, echo probably, correct the prerenal azotemia. Departure Diagnosis: Primary Impression: Hyperkalemia Additional Impressions: Pedal edema Prerenal azotemia Condition: Stable SHAYNA PHAM A. DO Jul 01, 2018 12:37
[2018-07-01] MEDS ORDERED: ONDANSETRON 4 MG INJ IV PRN (14:30)
[2018-07-01] MEDS ORDERED: ACETAMINOPHEN 325 MG TAB PO PRN (14:30)
--- NOTE | 2018-07-01 16:43 | HP ---
Date/Time of Note Date/Time of Note DATE: 07/01/18 TIME: 16:39 Assessment/Plan VTE Prophylaxis SCD applied (from Nsg): Yes Pharmacological prophylaxis: heparin Lines/Catheters IV Catheter Type (from Nrsg): Saline Lock Assessment/Plan Hospital Course This is a 68-year-old female with a history of hypertension, CKD 2, and diabetes type 2 who presents with complaint of swelling in her face that occurs only when she wakes up in the morning as well as swelling in her feet -Does not appear to have any symptoms of allergic reaction to cause facial swelling or angioedema. Does not have any new meds that she is taking. She does have very high blood pressures and CKD which raises the question of fluid retention but unclear to me why this would occur only in the morning -We will check a TTE Hypertension: -Patient does not know what her home medications are. She says her family will bring them into the hospital. We will need to add to her current regimen as her pressure is out of control CKD with mild hyperkalemia -Monitor Diabetes type 2: -Is on bolus insulin Can likely be discharged tomorrow Result Diagram: 07/01/18 1243 07/01/18 1243 Results 24hrs Laboratory Tests Test 07/01/18 12:43 White Blood Count 8.9 Red Blood Count 3.49 L Hemoglobin 9.7 L Hematocrit 30.5 L Mean Corpuscular Volume 87.4 Mean Corpuscular Hemoglobin 27.8 L Mean Corpuscular Hemoglobin Concent 31.8 L Red Cell Distribution Width 13.2 Platelet Count 333 Mean Platelet Volume 10.0 Immature Granulocytes % 0.200 Neutrophils % 58.2 Lymphocytes % 32.0 Monocytes % 6.1 Eosinophils % 2.9 Basophils % 0.6 Nucleated Red Blood Cells % 0.0 Immature Granulocytes # 0.020 Neutrophils # 5.2 Lymphocytes # 2.9 Monocytes # 0.5 Eosinophils # 0.3 Basophils # 0.1 Nucleated Red Blood Cells # 0.0 Sodium Level 140 Potassium Level 5.6 H Chloride Level 109 Carbon Dioxide Level 24 Anion Gap 7 Blood Urea Nitrogen 34 H Creatinine 1.49 H Est Glomerular Filtrat Rate mL/min 35 L Glucose Level 226 H Calcium Level 9.2 Total Bilirubin 0.4 Direct Bilirubin 0.00 Indirect Bilirubin 0.4 Aspartate Amino Transf (AST/SGOT) 14 L Alanine Aminotransferase (ALT/SGPT) < 6 L Alkaline Phosphatase 113 Troponin I < 0.012 B-Type Natriuretic Peptide 304 H Total Protein 8.4 H Albumin 3.9 Globulin 4.50 H Albumin/Globulin Ratio 0.86 HPI/ROS Admit Date/Time Admit Date/Time Hx of Present Illness 68-year-old female with a history of diabetes, CKD 2, and hypertension who presents with complaint of facial swelling and feet swelling Patient says that for the last 1 week she wakes up in the morning her face is swollen. It resolves shortly thereafter. Also notices that her feet swell. She denies any other symptoms. No itching no joint pains no rash. No shortness of breath. No cough. No chest pains or palpitation. Only facial swelling that resolves after she wakes up and foot swelling. Currently she is asymptomatic at rest ROS Constitutional: no complaints, improved Eyes: no complaints ENT: no complaints Respiratory: no complaints Cardiovascular: no complaints Gastrointestinal: no complaints Genitourinary: no complaints Musculoskeletal: no complaints Skin: no complaints Neurologic: no complaints Endocrine: no complaints Lymphatic: no complaints Psychological: no complaints, nl mood/affect Immunologic: no complaints PMH/Family/Social Past Medical History Medical History: diabetes, hypertension, renal disease Medications Current Medications Ondansetron HCl (Zofran Inj) 4 mg BRIDGE ORDER PRN IV NAUSEA/VOMITING; Start 07/01/18 at 14:30; Stop 07/02/18 at 14:29 Acetaminophen (Tylenol Tab) 650 mg ER BRIDGE PRN PO .MILD PAIN 1-3 OR TEMP; Start 07/01/18 at 14:30; Stop 07/02/18 at 14:29 Coded Allergies: No Known Allergy (Unverified , 06/07/16) Past Surgical History Past Surgical Hx: no surgical history Family History Significant Family History: no pertinent family hx Social History Alcohol Use: none Smoking Status: Never smoker Drug Use: none Exam/Review of Systems Vital Signs Vitals Vital Signs Date Temp Pulse Resp B/P (MAP) Pulse Ox O2 O2 Flow FiO2 Time Delivery Rate 07/01/18 72 17 195/75 100 Room Air 12:44 (115) 07/01/18 98.1 09:29 Exam Exam Well-appearing and in no acute distress Face appears grossly normal without any swelling No oral lesions. No neck adenopathy Neck veins are flat Regular rate and rhythm Lungs clear bilaterally Perhaps very trace pedal edema. Ankles normal. Full range of motion. No signs of inflammation TESS RUIZ MD Jul 01, 2018 16:43
[2018-07-01] MEDS ORDERED: NACL 0.9% 3 ML SYG IV SCH (17:00)
[2018-07-01] MEDS ORDERED: DEXTROSE 50% 50 ML SYRINGE IV PRN ×4 (17:00)
[2018-07-01] MEDS ORDERED: GLUCOSE GEL 15 GRAM TUBE BUCCAL PRN ×2 (17:00)
[2018-07-01] MEDS ORDERED: GLUCAGON 1 MG INJ IM PRN ×2 (17:00)
[2018-07-01] MEDS ORDERED: GLUCOSE GEL 15 GRAM TUBE PO PRN ×4 (17:00)
[2018-07-01] MEDS ORDERED: OXYCODONE/ACETAMINOPHEN (5/325) TAB PO PRN (17:00)
[2018-07-01] MEDS ORDERED: AMLO-147 PO (17:06)
[2018-07-01] MEDS ORDERED: LISI10TA2 PO (17:06)
[2018-07-01] MEDS: FUROSEMIDE 20 MG INJ IV SCH (19:09)
[2018-07-01] MEDS ORDERED: hydrALAzine 20 MG INJ IV ONE (19:30)
[2018-07-01 20:00] VITALS: BP 164/70; PULSE 97; RESP 18
[2018-07-01 20:11] VITALS: Ht 149.9 cm; Wt 70.5 kg
[2018-07-01] MEDS: HEPARIN 5,000 UNIT/1 ML VIAL SC SCH (21:19)
[2018-07-01] MEDS: INSULIN ASPART [NOVOLOG] 3 ML PEN SC SCH ×2 (21:35→21:36)
[2018-07-01] MEDS: INSULIN GLARGINE [LANTus] (100 UNITS/ML) SYG SC SCH (21:35)
[2018-07-02 02:00] VITALS: BP 161/72; PULSE 83; RESP 18
[2018-07-02] MEDS: FUROSEMIDE 20 MG INJ IV SCH ×2 (05:47→17:28)
[2018-07-02] MEDS: INSULIN ASPART [NOVOLOG] 3 ML PEN SC SCH ×7 (08:00→20:12)
[2018-07-02] MEDS: HEPARIN 5,000 UNIT/1 ML VIAL SC SCH ×2 (08:08→20:13)
[2018-07-02 08:56] VITALS: BP 163/68; PULSE 78; RESP 18
--- NOTE | 2018-07-02 12:58 | PN ---
Date/Time of Note Date/Time of Note DATE: 07/02/18 TIME: 12:55 Assessment/Plan VTE Prophylaxis Risk score (from Ns)>0 risk: 6 SCD applied (from [facility] [place] Yes Pharmacological prophylaxis: other Pharm contraindication: other Lines/Catheters IV Catheter Type (from [facility]): Saline Lock Assessment/Plan Assessment/Plan 1. Facial swelling, likely benazepril related angioedema, no GELY inhibitors 2. HTN, resume norvasc 3. DM, newly started on insulin on this admission, DM education 4. CKD, stage 3, follow up with BMP 5. DVT prophylaxis: SCDs Result Diagram: 07/02/1852607/02/18526 Results 24hrs Laboratory Tests Test 07/01/18 18:52 07/01/18 21:16 07/02/18 01:59 07/02/18 05:27 POC Venous Lactate 0.8 Bedside Glucose 220 185 White Blood Count 7.0 # Red Blood Count 3.11 L Hemoglobin 8.6 L Hematocrit 27.2 L Mean Corpuscular 87.5 Volume Mean Corpuscular 27.7 L Hemoglobin Mean Corpuscular 31.6 L Hemoglobin Concent Red Cell 13.6 Distribution Width Platelet Count 316 Mean Platelet Volume 10.5 H Immature 0.300 Granulocytes % Neutrophils % 62.8 Lymphocytes % 28.1 Monocytes % 6.1 Eosinophils % 2.0 Basophils % 0.7 Nucleated Red Blood 0.0 Cells % Immature 0.020 Granulocytes # Neutrophils # 4.4 Lymphocytes # 2.0 Monocytes # 0.4 Eosinophils # 0.1 Basophils # 0.1 Nucleated Red Blood 0.0 Cells # Sodium Level 144 Potassium Level 4.9 Chloride Level 110 Carbon Dioxide Level 26 Anion Gap 8 Blood Urea Nitrogen 38 H Creatinine 1.60 H Est Glomerular 32 L Filtrat Rate mL/min Glucose Level 148 # Hemoglobin A1c 9.0 H Calcium Level 8.9 Total Bilirubin 0.3 Direct Bilirubin 0.00 Indirect Bilirubin 0.3 Aspartate Amino 14 L Transf (AST/SGOT) Alanine < 6 L Aminotransferase (AL T/SGPT) Alkaline Phosphatase 90 Total Protein 7.0 # Albumin 3.3 Globulin 3.70 H Albumin/Globulin 0.89 Ratio Test 07/02/18 08:03 07/02/18 12:19 Bedside Glucose 111 123 Subjective 24 Hr Interval Summary Free Text/Dictation no edema or facial swelling Exam/Review of Systems Exam Vitals Vital Signs Date Temp Pulse Resp B/P (MAP) Pulse Ox O2 O2 Flow FiO2 Time Delivery Rate 07/02/18 98.8 78 18 163/68 97 08:56 (99) 07/01/18 Room Air 19:39 Intake and Output 07/01/18 07/01/18 07/02/18 1515:00 23:00 07:00 IntakeIntake Total 100 ml 240 ml BalanceBalance 100 ml 240 ml Constitutional: alert, oriented, well developed Psych: no complaints, nl mood/affect Head: normocephalic, atraumatic Eyes: nl conjunctiva, EOMI, nl lids ENMT: nl external ears & nose, nl lips & teeth, nl nasal mucosa & septum Neck: supple, non-tender Respiratory: clear to auscultation, normal air movement; No congested cough, No crackles/rales, No diminished breath sounds, No intercostal retraction, No labored breathing, No respirations, No tactile fremit us, No wheezing, No other Cardiovascular: regular rate and rhythm, nl pulses; No bruits, No diastolic murmur, No edema, No gallop, No irregular rhythm, No jugular venous distention (JVD), No murmurs/extra sounds, No rub, No systolic murmur, No S3, No S4, No other Gastrointestinal: soft, nl liver, spleen, non-tender Musculoskeletal: nl extremities to inspection Extremities: normal pulses; No calf tenderness, No cyanosis, No clubbing, No edema, No pitting pedal edema, No palpable cord, No tenderness, No other Neurological: DAMAGE CUTTER II-XII intact, nl mental status, nl speech, nl strength Skin: nl turgor Results Results 24hrs Laboratory Tests Test 07/01/18 18:52 07/01/18 21:16 07/02/18 01:59 07/02/18 05:27 POC Venous Lactate 0.8 Bedside Glucose 220 185 White Blood Count 7.0 # Red Blood Count 3.11 L Hemoglobin 8.6 L Hematocrit 27.2 L Mean Corpuscular 87.5 Volume Mean Corpuscular 27.7 L Hemoglobin Mean Corpuscular 31.6 L Hemoglobin Concent Red Cell 13.6 Distribution Width Platelet Count 316 Mean Platelet Volume 10.5 H Immature 0.300 Granulocytes % Neutrophils % 62.8 Lymphocytes % 28.1 Monocytes % 6.1 Eosinophils % 2.0 Basophils % 0.7 Nucleated Red Blood 0.0 Cells % Immature 0.020 Granulocytes # Neutrophils # 4.4 Lymphocytes # 2.0 Monocytes # 0.4 Eosinophils # 0.1 Basophils # 0.1 Nucleated Red Blood 0.0 Cells # Sodium Level 144 Potassium Level 4.9 Chloride Level 110 Carbon Dioxide Level 26 Anion Gap 8 Blood Urea Nitrogen 38 H Creatinine 1.60 H Est Glomerular 32 L Filtrat Rate mL/min Glucose Level 148 # Hemoglobin A1c 9.0 H Calcium Level 8.9 Total Bilirubin 0.3 Direct Bilirubin 0.00 Indirect Bilirubin 0.3 Aspartate Amino 14 L Transf (AST/SGOT) Alanine < 6 L Aminotransferase (AL T/SGPT) Alkaline Phosphatase 90 Total Protein 7.0 # Albumin 3.3 Globulin 3.70 H Albumin/Globulin 0.89 Ratio Test 07/02/18 08:03 07/02/18 12:19 Bedside Glucose 111 123 Medications Medication Current Medications Ondansetron HCl (Zofran Inj) 4 mg BRIDGE ORDER PRN IV NAUSEA/VOMITING; Start 07/01/18 at 14:30; Stop 07/02/18 at 14:29 Acetaminophen (Tylenol Tab) 650 mg ER BRIDGE PRN PO .MILD PAIN 1-3 OR TEMP; Start 07/01/18 at 14:30; Stop 07/02/18 at 14:29 IV Flush (NS 3 ml) 3 ml PER PROTOCOL IV ; Start 07/01/18 at 17:00 Oxycodone/ Acetaminophen (Percocet (5/ 325)) 2 tab Q6H PRN PO .SEVERE PAIN 7-10 Last administered on 07/01/18at 19:25; Admin Dose 2 TAB; Start 07/01/18 at 17:00 Heparin Sodium (Porcine) (Heparin (5000 Units/1ml)) 5,000 unit Q12 SC Last administered on 07/02/18at 08:08; Admin Dose 5,000 UNIT; Start 07/01/18 at 21:00 Insulin Glargine (Lantus) 15 units DAILY@2000 SC Last administered on 07/01/18at 21:35; Admin Dose 15 UNITS; Start 07/01/18 at 20:00 Insulin Aspart (Novolog Insulin Pen) 4 unit WITH MEALS SC Last administered on 07/02/18at 12:21; Admin Dose 4 UNIT; Start 07/01/18 at 18:00 Insulin Aspart (Novolog Insulin Pen) NOVOLOG *MILD* ALGORITHM WITH MEALS BEDTIME SC Last administered on 07/01/18at 21:35; Admin Dose 1 UNIT; Start 07/01/18 at 18:00 Furosemide (Lasix) 20 mg BID DIURETICS IV Last administered on 07/02/18at 05:47; Admin Dose 20 MG; Start 07/01/18 at 18:00 Carvedilol (Coreg) 6.25 mg BID PO Last administered on 07/02/18at 08:07; Admin Dose 6.25 MG; Start 07/01/18 at 21:00 Miscellaneous Information 1 ea NOTE XX ; Start 07/01/18 at 17:00 Glucose (Glutose) 15 gm Q15M PRN PO DECREASED GLUCOSE; Start 07/01/18 at 17:00 Glucose (Glutose) 22.5 gm Q15M PRN PO DECREASED GLUCOSE; Start 07/01/18 at 17:00 Dextrose (D50w Syringe) 25 ml Q15M PRN IV DECREASED GLUCOSE; Start 07/01/18 at 17:00 Dextrose (D50w Syringe) 50 ml Q15M PRN IV DECREASED GLUCOSE; Start 07/01/18 at 17:00 Glucagon (Glucagen) 1 mg Q15M PRN IM DECREASED GLUCOSE; Start 07/01/18 at 17:00 Glucose (Glutose) 15 gm Q15M PRN BUCCAL DECREASED GLUCOSE; Start 07/01/18 at 17:00 Miscellaneous Information 1 ea NOTE XX ; Start 07/01/18 at 17:00 Glucose (Glutose) 15 gm Q15M PRN PO DECREASED GLUCOSE; Start 07/01/18 at 17:00 Glucose (Glutose) 22.5 gm Q15M PRN PO DECREASED GLUCOSE; Start 07/01/18 at 17:00 Dextrose (D50w Syringe) 25 ml Q15M PRN IV DECREASED GLUCOSE; Start 07/01/18 at 17:00 Dextrose (D50w Syringe) 50 ml Q15M PRN IV DECREASED GLUCOSE; Start 07/01/18 at 17:00 Glucagon (Glucagen) 1 mg Q15M PRN IM DECREASED GLUCOSE; Start 07/01/18 at 17:00 Glucose (Glutose) 15 gm Q15M PRN BUCCAL DECREASED GLUCOSE; Start 07/01/18 at 17:00 Amlodipine Besylate (Norvasc) 10 mg DAILY PO ; Start 07/02/18 at 13:00 JIMMIE KLEIN MD Jul 02, 2018 12:58
[2018-07-02 14:00] VITALS: BP 167/69; PULSE 78; RESP 18
[2018-07-02] MEDS: AMLODIPINE 10 MG TAB PO SCH (14:38)
[2018-07-02 15:36] VITALS: BP 148/67; PULSE 81; RESP 18
[2018-07-02 19:52] VITALS: BP 149/70; PULSE 76; RESP 18
--- NOTE | 2018-07-02 20:01 | RADRPT ---
Echocardiogram Report Patient Name: TEETEE IVANatient ID: [id number] : 1950 (68y 3m)Study Date: 07/02/2018 7:21:14 AM Gender: FAccession #: [id number] Tech: CA Location: Ref.Physician: TESS RUIZ Height(Cm): BSA: Weight(Kg): Quality: GoodAccount #: Procedures: Echocardiographic Report: Transthoracic echocardiogram with complete 2D, M-Mode, and doppler examination. Indications: Congestive Heart Failure. Measurements: 2D/M Mode Doppler Measurement Value Normal Range Measurement Value Normal Range LVIDd 2D 4.3 [ 3.8 - 5.2 ] cm AV Peak Noble 1.8 [ 100.0 - 170.0 ] cm/sec LVIDs 2D 3.2 [ 2.2 - 3.5 ] cm AV Peak PG 12.0 [ 2.0 - 9.0 ] mmHg LVPWd 2D 1.4 [ 0.6 - 0.9 ] cm LVOT Peak Noble 1.0 [ 70.0 - 110.0 ] cm/sec IVSd 2D 1.4 [ 0.6 - 0.9 ] cm LVOT Peak PG 4.0 [ 2.0 - 6.0 ] mmHg IVS/LVPW 2D 1.0 ratio MV E Peak Noble 0.8 [ 60.0 - 130.0 ] cm/sec AoR Diam 2D 2.5 [ 2.3 - 3.1 ] cm MV A Peak Noble 0.9 [ 100.0 - 120.0 ] cm/sec LA/Ao 2D 1 ratio MV E/A 0.9 [ 0.8 - 1.5 ] ratio LA Dimen 2D 3.2 [ 2.7 - 3.8 ] cm MV Decel Time 162 [ 104 - 258 ] msec Lat E` Noble 0.1 [ 10.0 - 15.0 ] cm/sec MV E/A 0.9 [ 0.8 - 1.5 ] ratio TR Peak Noble 1.9 [ 100.0 - 280.0 ] cm/sec TR Peak PG 15.0 mmHg RVSP 18.0 [ 10.0 - 36.0 ] mmHg RA Pressure 3.0 mmHg Findings: Left Ventricle: Normal left ventricular systolic function. Normal left ventricular cavity size. Moderate concentric left ventricular hypertrophy. Ejection fraction is visually estimated at 65 %. Tissue Doppler/Mitral Doppler indices are consistent with impaired relaxation (Stage I diastolic dysfunction). Right Ventricle: Normal right ventricular size. Normal right ventricular systolic function. Left Atrium: The left atrium is normal in size. Right Atrium: The right atrium is normal in size. Mitral Valve: Normal appearance of the mitral valve. Mild mitral annular calcification. Trace mitral regurgitation. Aortic Valve: No hemodynamically significant aortic stenosis by doppler. Aortic cusps appear mildly calcified. Trace to mild aortic valve regurgitation. Tricuspid Valve: Normal appearance and function of the tricuspid valve with trace physiologic regurgitation. Normal right ventricular systolic pressure. Pulmonic Valve: Pulmonic valve not well visualized. Pericardium: Normal pericardium with no significant pericardial effusion. Aorta: Normal aortic root. IVC: Normal size and normal respiratory collapse consistent with normal right atrial pressure. Conclusions: Moderate concentric left ventricular hypertrophy with normal systolic function. Grade 1 diastolic dysfunction. Trace mitral regurgitation. Trace-mild aortic regurgitation, with calcified leaflets. Trace tricuspid regurgitation and normal pulmonary pressures. Electronically Signed By: Kaylin Werner 2018-07-02 20:00:56 PDT
[2018-07-02] MEDS: INSULIN GLARGINE [LANTus] (100 UNITS/ML) SYG SC SCH (20:13)
[2018-07-03 01:43] VITALS: BP 132/63; PULSE 73; RESP 18
[2018-07-03] MEDS: FUROSEMIDE 20 MG INJ IV SCH (05:36)
[2018-07-03 07:57] VITALS: BP 145/65; PULSE 69; RESP 18
[2018-07-03] MEDS: INSULIN ASPART [NOVOLOG] 3 ML PEN SC SCH ×7 (08:00→20:01)
[2018-07-03] MEDS: AMLODIPINE 10 MG TAB PO SCH (08:35)
[2018-07-03] MEDS: HEPARIN 5,000 UNIT/1 ML VIAL SC SCH ×2 (08:38→20:07)
--- NOTE | 2018-07-03 11:39 | PN ---
Date/Time of Note Date/Time of Note DATE: 07/03/18 TIME: 11:37 Assessment/Plan VTE Prophylaxis Risk score (from Ns)>0 risk: 6 [place] [facility] [place] Pharmacological prophylaxis: other Pharm contraindication: low risk/ambulating Lines[facility] Assessment/Plan Assessment/Plan 1. Facial swelling, benazepril related angioedema, no GELY inhibitors 2. HTN, resume norvasc, increase coreg 3. DM, newly started on insulin on this admission, DM education 4. Acute on CKD, stage 3, worsening, stop lasix, IVF, follow up with BMP 5. DVT prophylaxis: SCDs Result Diagram: 07/03/1852207/03/18522 Results 24hrs Laboratory Tests Test 07/02/18 12:19 07/02/18 17:27 07/02/18 20:10 07/03/18 05:23 Bedside Glucose 123 147 112 White Blood Count 7.7 Red Blood Count 3.33 L Hemoglobin 9.3 L Hematocrit 30.0 L Mean Corpuscular 90.1 Volume Mean Corpuscular 27.9 L Hemoglobin Mean Corpuscular 31.0 L Hemoglobin Concent Red Cell 13.7 Distribution Width Platelet Count 291 Mean Platelet Volume 10.5 H Immature 0.300 Granulocytes % Neutrophils % 55.1 Lymphocytes % 34.8 Monocytes % 7.0 Eosinophils % 2.2 Basophils % 0.6 Nucleated Red Blood 0.0 Cells % Immature 0.020 Granulocytes # Neutrophils # 4.2 Lymphocytes # 2.7 Monocytes # 0.5 Eosinophils # 0.2 Basophils # 0.1 Nucleated Red Blood 0.0 Cells # Sodium Level 144 Potassium Level 4.7 Chloride Level 111 H Carbon Dioxide Level 28 Anion Gap 5 Blood Urea Nitrogen 43 H Creatinine 1.99 H Est Glomerular 25 L Filtrat Rate mL/min Glucose Level 84 # Calcium Level 9.2 Test 07/03/18 08:23 Bedside Glucose 81 Subjective 24 Hr Interval Summary Free Text/Dictation no edema or swelling Exam/Review of Systems Exam Vitals Vital Signs Date Temp Pulse Resp B/P (MAP) Pulse Ox O2 O2 Flow FiO2 Time Delivery Rate 07/03/18 98.2 69 18 145/65 96 07:57 (91) 07/02/18 Room Air 15:36 Intake and Output 4/07/02/18 07/03/18 1515:00 23:00 07:00 IntakeIntake Total 720 ml 480 ml BalanceBalance 720 ml 480 ml Constitutional: alert, oriented, well developed, obese Psych: no complaints, nl mood/affect Head: normocephalic, atraumatic Eyes: nl conjunctiva, EOMI, nl lids, PERRL ENMT: nl external ears & nose, nl lips & teeth, nl nasal mucosa & septum Neck: supple, non-tender Respiratory: clear to auscultation, normal air movement; No congested cough, No crackles/rales, No diminished breath sounds, No inte rcostal retraction, No labored breathing, No respirations, No tactile fremitus, No wheezing, No other Cardiovascular: regular rate and rhythm, nl pulses Gastrointestinal: soft, nl liver, spleen, non-tender Musculoskeletal: nl extremities to inspection Extremities: normal pulses; No calf tenderness, No cyanosis, No clubbing, No edema, No pitting pedal edema, No palpable cord, No tenderness, No other Neurological: VP COMPLIANCE II-XII intact, nl mental status, nl speech, nl strength Results Results 24hrs Laboratory Tests Test 07/02/18 12:19 07/02/18 17:27 07/02/18 20:10 07/03/18 05:23 Bedside Glucose 123 147 112 White Blood Count 7.7 Red Blood Count 3.33 L Hemoglobin 9.3 L Hematocrit 30.0 L Mean Corpuscular 90.1 Volume Mean Corpuscular 27.9 L Hemoglobin Mean Corpuscular 31.0 L Hemoglobin Concent Red Cell 13.7 Distribution Width Platelet Count 291 Mean Platelet Volume 10.5 H Immature 0.300 Granulocytes % Neutrophils % 55.1 Lymphocytes % 34.8 Monocytes % 7.0 Eosinophils % 2.2 Basophils % 0.6 Nucleated Red Blood 0.0 Cells % Immature 0.020 Granulocytes # Neutrophils # 4.2 Lymphocytes # 2.7 Monocytes # 0.5 Eosinophils # 0.2 Basophils # 0.1 Nucleated Red Blood 0.0 Cells # Sodium Level 144 Potassium Level 4.7 Chloride Level 111 H Carbon Dioxide Level 28 Anion Gap 5 Blood Urea Nitrogen 43 H Creatinine 1.99 H Est Glomerular 25 L Filtrat Rate mL/min Glucose Level 84 # Calcium Level 9.2 Test 07/03/18 08:23 Bedside Glucose 81 Medications Medication Current Medications IV Flush (NS 3 ml) 3 ml PER PROTOCOL IV ; Start 07/01/18 at 17:00 Oxycodone/ Acetaminophen (Percocet (5/ 325)) 2 tab Q6H PRN PO .SEVERE PAIN 7-10 Last administered on 07/01/18at 19:25; Admin Dose 2 TAB; Start 07/01/18 at 17:00 Heparin Sodium (Porcine) (Heparin (5000 Units/1ml)) 5,000 unit Q12 SC Last administered on 07/03/18at 08:38; Admin Dose 5,000 UNIT; Start 07/01/18 at 21:00 Insulin Glargine (Lantus) 15 units DAILY@2000 SC Last administered on 07/02/18at 20:13; Admin Dose 15 UNITS; Start 07/01/18 at 20:00 Insulin Aspart (Novolog Insulin Pen) 4 unit WITH MEALS SC Last administered on 07/03/18at 08:37; Admin Dose 4 UNIT; Start 07/01/18 at 18:00 Insulin Aspart (Novolog Insulin Pen) NOVOLOG *MILD* ALGORITHM WITH MEALS BEDTIME SC Last administered on 07/02/18at 17:30; Admin Dose 1 UNIT; Start 07/01/18 at 18:00 Miscellaneous Information 1 ea NOTE XX ; Start 07/01/18 at 17:00 Glucose (Glutose) 15 gm Q15M PRN PO DECREASED GLUCOSE; Start 07/01/18 at 17:00 Glucose (Glutose) 22.5 gm Q15M PRN PO DECREASED GLUCOSE; Start 07/01/18 at 17: 00 Dextrose (D50w Syringe) 25 ml Q15M PRN IV DECREASED GLUCOSE; Start 07/01/18 at 17:00 Dextrose (D50w Syringe) 50 ml Q15M PRN IV DECREASED GLUCOSE; Start 07/01/18 at 17:00 Glucagon (Glucagen) 1 mg Q15M PRN IM DECREASED GLUCOSE; Start 07/01/18 at 17:00 Glucose (Glutose) 15 gm Q15M PRN BUCCAL DECREASED GLUCOSE; Start 07/01/18 at 17:00 Miscellaneous Information 1 ea NOTE XX ; Start 07/01/18 at 17:00 Glucose (Glutose) 15 gm Q15M PRN PO DECREASED GLUCOSE; Start 07/01/18 at 17:00 Glucose (Glutose) 22.5 gm Q15M PRN PO DECREASED GLUCOSE; Start 07/01/18 at 17:00 Dextrose (D50w Syringe) 25 ml Q15M PRN IV DECREASED GLUCOSE; Start 07/01/18 at 17:00 Dextrose (D50w Syringe) 50 ml Q15M PRN IV DECREASED GLUCOSE; Start 07/01/18 at 17:00 Glucagon (Glucagen) 1 mg Q15M PRN IM DECREASED GLUCOSE; Start 07/01/18 at 17:00 Glucose (Glutose) 15 gm Q15M PRN BUCCAL DECREASED GLUCOSE; Start 07/01/18 at 17 :00 Amlodipine Besylate (Norvasc) 10 mg DAILY PO Last administered on 07/03/18at 08:35; Admin Dose 10 MG; Start 07/02/18 at 13:00 Carvedilol (Coreg) 12.5 mg BID PO ; Start 07/03/18 at 21:00; Status UNV Sodium Chloride 1,000 ml @ 75 mls/hr [id number] IV ; Start 07/03/18 at 12:00; Status JIMMIE MILTON MD Jul 03, 2018 11:39
[2018-07-03] MEDS: SOD CHLORIDE 0.45% 1,000 ML IV SCH (12:28)
[2018-07-03 13:56] VITALS: BP 143/65; PULSE 71; RESP 16
[2018-07-03 19:50] VITALS: BP 141/65; PULSE 69; RESP 17
[2018-07-03] MEDS: INSULIN GLARGINE [LANTus] (100 UNITS/ML) SYG SC SCH (20:08)
[2018-07-04 02:10] VITALS: BP 147/68; PULSE 74; RESP 20
[2018-07-04] MEDS: SOD CHLORIDE 0.45% 1,000 ML IV SCH ×3 (02:13→17:26)
[2018-07-04 08:00] VITALS: BP 148/66; PULSE 71; RESP 18
[2018-07-04] MEDS: INSULIN ASPART [NOVOLOG] 3 ML PEN SC SCH ×7 (08:00→21:00)
[2018-07-04] MEDS: AMLODIPINE 10 MG TAB PO SCH (08:12)
[2018-07-04] MEDS: HEPARIN 5,000 UNIT/1 ML VIAL SC SCH ×2 (08:12→20:57)
--- NOTE | 2018-07-04 12:43 | PN ---
Date/Time of Note Date/Time of Note DATE: 07/04/18 TIME: 12:40 Assessment/Plan VTE Prophylaxis Risk score (from Nsg)>0 risk: 5 SCD applied (from Ns): Yes Pharmacological prophylaxis: other Pharm contraindication: low risk/ambulating Lines/Catheters IV Catheter Type (from Nrsg): Peripheral IV Assessment/Plan Assessment/Plan 1. Facial swelling, benazepril related angioedema, resolved, no GELY inhibitors 2. HTN, better controlled 3. DM, newly started on insulin on this admission, needs to set up outpatient insulin, patient does not have insurance coverage now 4. Acute on CKD, stage 3, worsening, stop lasix, IVF, follow up with BMP 5. 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 Result Diagram: 07/03/18 0523 07/04/18 0550 Results 24hrs Laboratory Tests Test 07/03/18 17:58 07/03/18 19:57 07/04/18 05:50 07/04/18 08:03 Bedside Glucose 89 104 73 Sodium Level 141 Potassium Level 5.0 Chloride Level 109 Carbon Dioxide Level 27 Anion Gap 5 Blood Urea Nitrogen 50 H Creatinine 1.89 H Est Glomerular 27 L Filtrat Rate mL/min Glucose Level 76 Calcium Level 8.8 Subjective 24 Hr Interval Summary Free Text/Dictation no event Exam/Review of Systems Exam Vitals Vital Signs Date Temp Pulse Resp B/P (MAP) Pulse Ox O2 O2 Flow FiO2 Time Delivery Rate 07/04/18 97.9 71 18 148/66 96 Room Air 08:00 (93) Intake and Output 07/03/18 07/03/18 07/04/18 1515:00 23:00 07:00 IntakeIntake Total 1775 ml 450 ml BalanceBalance 1775 ml 450 ml Constitutional: alert, oriented, well developed, obese Psych: no complaints, nl mood/affect Head: normocephalic, atraumatic Eyes: nl conjunctiva, EOMI, nl lids, PERRL ENMT: nl external ears & nose, nl lips & teeth, nl nasal mucosa & septum Neck: supple, non-tender Respiratory: clear to auscultation, normal air movement; No congested cough, No crackles/rales, No diminished breath sounds, No intercostal retraction, No labored breathing, No respirations, No tactile fremitus, No wheezing, No other Cardiovascular: regular rate and rhythm, nl pulses; No bruits, No diastolic murmur, No edema, No gallop, No irregular rhythm, No jugular venous distention (JVD), No murmurs/extra sounds, No rub, No systolic murmur, No S3, No S4, No other Gastrointestinal: soft, nl liver, spleen, non-tender Musculoskeletal: nl extremities to inspection Extremities: normal pulses; No calf tenderness, No cyanosis, No clubbing, No edema, No pitting pedal edema, No palpable cord, No tenderness, No other Neurological: COLLECTION SYSTEMS TECHNICIAN II-XII intact, nl mental status, nl speech, nl strength Results Results 24hrs Laboratory Tests Test 07/03/18 17:58 07/03/18 19:57 07/04/18 05:50 07/04/18 08:03 Bedside Glucose 89 104 73 Sodium Level 141 Potassium Level 5.0 Chloride Level 109 Carbon Dioxide Level 27 Anion Gap 5 Blood Urea Nitrogen 50 H Creatinine 1.89 H Est Glomerular 27 L Filtrat Rate mL/min Glucose Level 76 Calcium Level 8.8 Medications Medication Current Medications IV Flush (NS 3 ml) 3 ml PER PROTOCOL IV ; Start 07/01/18 at 17:00 Oxycodone/ Acetaminophen (Percocet (5/ 325)) 2 tab Q6H PRN PO .SEVERE PAIN 7-10 Last administered on 07/01/18at 19:25; Admin Dose 2 TAB; Start 07/01/18 at 17:00 Heparin Sodium (Porcine) (Heparin (5000 Units/1ml)) 5,000 unit Q12 SC Last administered on 07/04/18 08:12; Admin Dose 5,000 UNIT; Start 07/01/18 at 21:00 Insulin Glargine (Lantus) 15 units DAILY@2000 SC Last administered on 07/03/18 20:08; Admin Dose 15 UNITS; Start 07/01/18 at 20:00 Insulin Aspart (Novolog Insulin Pen) 4 unit WITH MEALS SC Last administered on 07/04/18 12:13; Admin Dose 4 UNIT; Start 07/01/18 at 18:00 Insulin Aspart (Novolog Insulin Pen) NOVOLOG *MILD* ALGORITHM WITH MEALS BEDTIME SC Last administered on 07/03/18 12:30; Admin Dose 1 UNIT; Start 07/01/18 at 18:00 Miscellaneous Information 1 ea NOTE XX ; Start 07/01/18 at 17:00 Glucose (Glutose) 15 gm Q15M PRN PO DECREASED GLUCOSE; Start 07/01/18 at 17:00 Glucose (Glutose) 22.5 gm Q15M PRN PO DECREASED GLUCOSE; Start 07/01/18 at 17:00 Dextrose (D50w Syringe) 25 ml Q15M PRN IV DECREASED GLUCOSE; Start 07/01/18 at 17:00 Dextrose (D50w Syringe) 50 ml Q15M PRN IV DECREASED GLUCOSE; Start 07/01/18 at 17:00 Glucagon (Glucagen) 1 mg Q15M PRN IM DECREASED GLUCOSE; Start 07/01/18 at 17:00 Glucose (Glutose) 15 gm Q15M PRN BUCCAL DECREASED GLUCOSE; Start 07/01/18 at 17:00 Miscellaneous Information 1 ea NOTE XX ; Start 07/01/18 at 17:00 Glucose (Glutose) 15 gm Q15M PRN PO DECREASED GLUCOSE; Start 07/01/18 at 17:00 Glucose (Glutose) 22.5 gm Q15M PRN PO DECREASED GLUCOSE; Start 07/01/18 at 17:00 Dextrose (D50w Syringe) 25 ml Q15M PRN IV DECREASED GLUCOSE; Start 07/01/18 at 17:00 Dextrose (D50w Syringe) 50 ml Q15M PRN IV DECREASED GLUCOSE; Start 07/01/18 at 17:00 Glucagon (Glucagen) 1 mg Q15M PRN IM DECREASED GLUCOSE; Start 07/01/18 at 17:00 Glucose (Glutose) 15 gm Q15M PRN BUCCAL DECREASED GLUCOSE; Start 07/01/18 at 17:00 Amlodipine Besylate (Norvasc) 10 mg DAILY PO Last administered on 07/04/18at 08:12; Admin Dose 10 MG; Start 07/02/18 at 13:00 Carvedilol (Coreg) 12.5 mg BID PO Last administered on 07/04/18at 08:12; Admin Dose 12.5 MG; Start 07/03/18 at 21:00 Sodium Chloride 1,000 ml @ 75 mls/hr [id number] IV Last administered on 07/04/18at 02:13; Admin Dose 75 MLS/HR; Start 07/03/18 at 12:00 JIMMIE KLEIN MD Jul 04, 2018 12:42
[2018-07-04 14:00] VITALS: BP 145/65; PULSE 70; RESP 17
[2018-07-04 20:00] VITALS: BP 144/63; PULSE 65; RESP 18
[2018-07-04] MEDS: INSULIN GLARGINE [LANTus] (100 UNITS/ML) SYG SC SCH (20:58)
[2018-07-05 02:00] VITALS: BP 153/68; PULSE 73; RESP 18
[2018-07-05] MEDS: SOD CHLORIDE 0.45% 1,000 ML IV SCH ×2 (07:09→22:14)
[2018-07-05 07:50] VITALS: BP 144/64; PULSE 68; RESP 18
[2018-07-05] MEDS: INSULIN ASPART [NOVOLOG] 3 ML PEN SC SCH ×7 (08:00→21:00)
[2018-07-05] MEDS: HEPARIN 5,000 UNIT/1 ML VIAL SC SCH ×2 (08:38→21:04)
[2018-07-05] MEDS: AMLODIPINE 10 MG TAB PO SCH (08:39)
--- NOTE | 2018-07-05 13:32 | PN ---
Date/Time of Note Date/Time of Note DATE: 07/05/18 TIME: 13:30 Assessment/Plan VTE Prophylaxis Risk score (from Ns)>0 risk: 4 SCD applied (from Ns): Yes Pharmacological prophylaxis: other Pharm contraindication: low risk/ambulating Lines/Catheters IV Catheter Type (from Nrsg): Peripheral IV Assessment/Plan Assessment/Plan 1. Facial swelling, benazepril related angioedema, resolved, no GELY inhibitors 2. HTN, better controlled 3. DM, newly started on insulin on this admission, needs to set up outpatient insulin, patient does not have insurance coverage now 4. Acute on CKD, stage 3, improving, follow up with BMP 5. 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 Result Diagram: 07/03/18 0523 07/05/18 0622 Results 24hrs Laboratory Tests Test 07/04/18 17:25 07/04/18 20:49 07/05/18 06:22 07/05/18 08:00 Bedside Glucose 159 112 83 Sodium Level 139 Potassium Level 4.9 Chloride Level 107 Carbon Dioxide Level 24 Anion Gap 8 Blood Urea Nitrogen 50 H Creatinine 1.66 H Est Glomerular 31 L Filtrat Rate mL/min Glucose Level 86 Calcium Level 8.4 Test 07/05/18 12:08 Bedside Glucose 102 Subjective 24 Hr Interval Summary Free Text/Dictation no event Exam/Review of Systems Exam Vitals Vital Signs Date Temp Pulse Resp B/P (MAP) Pulse Ox O2 O2 Flow FiO2 Time Delivery Rate 07/05/18 98.1 68 18 144/64 98 Room Air 07:50 (90) Intake and Output 07/04/18 07/04/18 07/05/18 1414:59 22:59 06:59 IntakeIntake Total 240 ml 950 ml BalanceBalance 240 ml 950 ml Constitutional: alert, oriented, well developed, obese Psych: no complaints, nl mood/affect Head: normocephalic, atraumatic Eyes: nl conjunctiva, EOMI, nl lids, PERRL ENMT: nl external ears & nose, nl lips & teeth, nl nasal mucosa & septum Neck: supple, non-tender Respiratory: clear to auscultation, normal air movement; No congested cough, No crackles/rales, No diminished breath sounds, No intercostal retraction, No labored breathing, No respirations, No tactile fremitus, No wheezing, No other Cardiovascular: regular rate and rhythm, nl pulses; No bruits, No diastolic murmur, No edema, No gallop, No irregular rhythm, No jugular venous distention (JVD), No murmurs/extra sounds, No rub, No systolic murmur, No S3, No S4, No other Gastrointestinal: soft, nl liver, spleen, non-tender Musculoskeletal: nl extremities to inspection Extremities: normal pulses; No calf tenderness, No cyanosis, No clubbing, No edema, No pitting pedal edema, No palpable cord, No tenderness, No other 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, nl mental status, nl speech, nl strength Results Results 24hrs Laboratory Tests Test 07/04/18 17:25 07/04/18 20:49 07/05/18 06:22 07/05/18 08:00 Bedside Glucose 159 112 83 Sodium Level 139 Potassium Level 4.9 Chloride Level 107 Carbon Dioxide Level 24 Anion Gap 8 Blood Urea Nitrogen 50 H Creatinine 1.66 H Est Glomerular 31 L Filtrat Rate mL/min Glucose Level 86 Calcium Level 8.4 Test 07/05/18 12:08 Bedside Glucose 102 Medications Medication Current Medications IV Flush (NS 3 ml) 3 ml PER PROTOCOL IV ; Start 07/01/18 at 17:00 Oxycodone/ Acetaminophen (Percocet (5/ 325)) 2 tab Q6H PRN PO .SEVERE PAIN 7-10 Last administered on 07/01/18at 19:25; Admin Dose 2 TAB; Start 07/01/18 at 17:00 Heparin Sodium (Porcine) (Heparin (5000 Units/1ml)) 5,000 unit Q12 SC Last administered on 07/05/18at 08:38; Admin Dose 5,000 UNIT; Start 07/01/18 at 21:00 Insulin Aspart (Novolog Insulin Pen) 4 unit WITH MEALS SC Last administered on 07/05/18at 12:12; Admin Dose 4 UNIT; Start 07/01/18 at 18:00 Insulin Aspart (Novolog Insulin Pen) NOVOLOG *MILD* ALGORITHM WITH MEALS BEDTIME SC Last administered on 07/04/18at 17:27; Admin Dose 1 UNIT; Start 07/01/18 at 18:00 Miscellaneous Information 1 ea NOTE XX ; Start 07/01/18 at 17:00 Glucose (Glutose) 15 gm Q15M PRN PO DECREASED GLUCOSE; Start 07/01/18 at 17:00 Glucose (Glutose) 22.5 gm Q15M PRN PO DECREASED GLUCOSE; Start 07/01/18 at 17:00 Dextrose (D50w Syringe) 25 ml Q15M PRN IV DECREASED GLUCOSE; Start 07/01/18 at 17:00 Dextrose (D50w Syringe) 50 ml Q15M PRN IV DECREASED GLUCOSE; Start 07/01/18 at 17:00 Glucagon (Glucagen) 1 mg Q15M PRN IM DECREASED GLUCOSE; Start 07/01/18 at 17:00 Glucose (Glutose) 15 gm Q15M PRN BUCCAL DECREASED GLUCOSE; Start 07/01/18 at 17:00 Miscellaneous Information 1 ea NOTE XX ; Start 07/01/18 at 17:00 Glucose (Glutose) 15 gm Q15M PRN PO DECREASED GLUCOSE; Start 07/01/18 at 17:00 Glucose (Glutose) 22.5 gm Q15M PRN PO DECREASED GLUCOSE; Start 07/01/18 at 17:00 Dextrose (D50w Syringe) 25 ml Q15M PRN IV DECREASED GLUCOSE; Start 07/01/18 at 17:00 Dextrose (D50w Syringe) 50 ml Q15M PRN IV DECREASED GLUCOSE; Start 07/01/18 at 17:00 Glucagon (Glucagen) 1 mg Q15M PRN IM DECREASED GLUCOSE; Start 07/01/18 at 17:00 Glucose (Glutose) 15 gm Q15M PRN BUCCAL DECREASED GLUCOSE; Start 07/01/18 at 17:00 Amlodipine Besylate (Norvasc) 10 mg DAILY PO Last administered on 07/05/18at 08:39; Admin Dose 10 MG; Start 07/02/18 at 13:00 Carvedilol (Coreg) 12.5 mg BID PO Last administered on 07/05/18at 08:39; Admin Dose 12.5 MG; Start 07/03/18 at 21:00 Sodium Chloride 1,000 ml @ 75 mls/hr [id number] IV Last administered on 07/05/18at 07:09; Admin Dose 75 MLS/HR; Start 07/03/18 at 12:00 Insulin Glargine (Lantus) 14 units DAILY@2000 SC Last administered on 07/04/18at 20:58; Admin Dose 14 UNITS; Start 07/04/18 at 20:00 JIMMIE KLEIN MD Jul 05, 2018 13:31
[2018-07-05 14:25] VITALS: BP 150/90; PULSE 73; RESP 16
[2018-07-05 20:00] VITALS: BP 158/70; PULSE 72; RESP 18
[2018-07-05] MEDS: INSULIN GLARGINE [LANTus] (100 UNITS/ML) SYG SC SCH (21:05)
[2018-07-06 02:00] VITALS: BP 120/54; PULSE 68; RESP 18
[2018-07-06 07:50] VITALS: BP 132/89; PULSE 67; RESP 16
[2018-07-06] MEDS: INSULIN ASPART [NOVOLOG] 3 ML PEN SC SCH ×4 (08:00→11:56)
[2018-07-06] MEDS: HEPARIN 5,000 UNIT/1 ML VIAL SC SCH (08:37)
[2018-07-06] MEDS: AMLODIPINE 10 MG TAB PO SCH (08:38)
[2018-07-06] MEDS: SOD CHLORIDE 0.45% 1,000 ML IV SCH (10:54)
[2018-07-06] MEDS ORDERED: CARV12.579 PO (13:41)
[2018-07-06] MEDS ORDERED: Insulin Glargine SC (13:41)
--- NOTE | 2018-07-06 13:48 | DS ---
Date/Time of Note Date/Time of Note DATE: 07/06/18 TIME: 13:42 Discharge Summary Admission/Discharge Info Admit Date/Time Jul 03, 2018 at 11:30 Discharge Date/Time Discharge Diagnosis 1. Facial swelling, benazepril related angioedema, resolved, no GELY inhibitors 2. HTN, controlled 3. DM, lantus, follow up with PCP 4. Acute on CKD, stage 3, stable, follow up with PCP Patient Condition: Stable Hospital Course 68 years old female with HTN and DM on benazepril came in with facial swelling that is considered GELY inhibitor related angioedema. Benazepril is stopped on admission, no facial swelling there after. Patient was taking metformin and amaryl for DM but HbA1c is 9 and meformin is not appropriate due to renal failure. Patient is started on lantus that has controlled her blood glucose well. I will keep her on lantus 12 units daily and have her follow up with PCP to adjust the dosage. Hypertension is well controlled with norvasc and coreg. BUN/Cr were 43/1.99 on 07/03/2018, down to 54/1.71 on 07/06/2018, considered chronic, from diabetic nephropathy. Home Meds Active Scripts [Insulin Glargine] 100 UNITS/ML SOLN No Conflict Check, 12 UNITS SC DAILY@2000 for 30 Days Prov:JIMMIE KLEIN MD 07/06/18 Carvedilol* (Carvedilol*) 12.5 Mg Tablet, 12.5 MG PO BID for 30 Days, TAB Prov:JIMMIE KLEIN MD 07/06/18 Gabapentin* (Gabapentin*) 300 Mg Capsule, 300 MG PO TID, #90 CAP Prov:ROYAL HADLEY MD 03/14/16 Reported Medications Amlodipine Besylate* (Amlodipine Besylate*) 10 Mg Tablet, 10 MG PO DAILY, #30 TAB 07/01/18 Discontinued Reported Medications Lisinopril* (Lisinopril*) 10 Mg Tablet, 10 MG PO DAILY, #30 TAB 07/01/18 Discontinued Scripts Benazepril Hcl* (Benazepril Hcl*) 20 Mg Tablet, 20 MG PO DAILY for 30 Days, TAB Prov:ARMANDO DONOVAN MD 03/20/18 Metformin* (Glucophage*) 1,000 Mg Tablet, 1000 MG PO BID, #60 TAB Prov:RUDOLPH DANG MD 02/22/17 Glimepiride* (Amaryl*) 2 Mg Tablet, 2 MG PO WITH BREAKFAST DINNE, #30 TAB Prov:ROYAL HADLEY MD 03/14/16 Metformin* (Glucophage*) 1,000 Mg Tablet, 1000 MG PO BID for 30 Days, TAB Prov:ARMANDO DONOVAN MD 03/20/18 Glimepiride* (Glimepiride*) 2 Mg Tablet, 2 MG PO WITH BREAKFAST DINNE for 30 Days, TAB Prov:ARMANDO DONOVAN MD 03/20/18 Benazepril Hcl* (Benazepril Hcl*) 20 Mg Tablet, 20 MG PO DAILY, #30 TAB Prov:RUDOLPH DANG MD 02/22/17 Follow-up Plan PCP in one week Primary Care Provider Care Physician No Primary Pending Labs Laboratory Tests Test 07/05/18 17:30 07/05/18 20:59 07/06/18 06:01 07/06/18 08:07 Bedside 129 88 67 Glucose mg/dL (70-220) mg/dL (70-220) mg/dL (70-220) Sodium Level 140 mmol/L (135-14 4) Potassium 5.1 Level mmol/L (3.5-5. 1) Chloride Level 112 mmol/L (97-110 ) Carbon Dioxide 23 Level mmol/L (21-31) Anion Gap 5 (5-13) Blood Urea 54 Nitrogen mg/dl (7-20) Creatinine 1.71 mg/dl (0.44-1. 00) Est Glomerular 30 Filtrat mL/min (>60) Rate mL/min Glucose Level 78 mg/dl (70-220) Calcium Level 8.6 mg/dl (8.4-10. 2) Test 07/06/18 08:33 07/06/18 08:55 07/06/18 11:54 Bedside 97 106 97 Glucose mg/dL (70-220) mg/dL (70-220) mg/dL (70-220) JIMMIE KLEIN MD Jul 06, 2018 13:48
[2018-07-06 14:18] VITALS: BP 146/65; PULSE 61; RESP 18
== END 2018-07-06 16:22 | disposition home or self-care (01) | DRG 916 ==
LOC: E/R 09:22 → PP2 14:24 → SUATTDRO 16:25 → OBSVTOIN 07-03 11:30
PROVIDERS: ADMIT Internal Medicine; ATTEND Internal Medicine
DX: T78.3XXA Angioneurotic edema, initial encounter (principal); N17.9 Acute kidney failure, unspecified; T46.4X5A Adverse effect of angiotensin-converting-enzyme inhibitors, initial encounter; E87.5 Hyperkalemia; E11.22 Type 2 diabetes mellitus with diabetic chronic kidney disease; I12.9 Hypertensive chronic kidney disease with stage 1 through stage 4 chronic kidney disease, or unspecified chronic kidney disease; N18.3 Chronic kidney disease, stage 3 (moderate); Z79.84 Long term (current) use of oral hypoglycemic drugs
CPT/HCPCS: 36415; 71045; 76775; 80048; 80053; 82962; 83036; 83605; 83880; 84484; 85025; 93005; 93306; G0378; J0360; J1644; J1815; J1940

== ENCOUNTER 2018-07-10 16:13 | Inpatient (IN) | payer MEDICAID ==
[~2018-07-10] VITALS: Ht 152.4 cm; Wt 68.0 kg
[~2018-07-10 16:13] MED LIST changes: +AMLO-147 PO; -BENA20TA4 PO; +CARV12.579 PO; -GLIM2TAB PO; -GLIM2TAB47 PO; +Insulin Glargine SC; -MTF1000T PO
[2018-07-10 16:36] VITALS: Ht 152.4 cm; Wt 68.0 kg
[2018-07-10] MEDS ORDERED: NA PHOSPHATE/BIPHOS 133 ML ENEMA PR ONE (18:30)
--- NOTE | 2018-07-10 19:02 | ERD ---
ER Documentation Chief Complaint Chief Complaint no bm in 4 days HPI 68-year-old female who is here because she has no bowel movement for 4 days. Patient has a history of stage III renal failure she was admitted to the hospital here about 10 days ago. She was admitted for hyperkalemia with renal insufficiency. She was having swelling to her face and extremities. The face swelling was thought to be due to GELY inhibitor angioedema which apparently resolved once her GELY inhibitor was stopped. Family is here stating that the sw elling in her face is back and she is having some swelling to her ankles and lower shins bilaterally. No shortness of breath chest pain fever ROS All systems reviewed and are negative except as per history of present illness. Medications Home Meds Active Scripts [Insulin Glargine] 100 UNITS/ML SOLN No Conflict Check, 12 UNITS SC DAILY@1999 for 30 Days Prov:JIMMIE KLEIN MD 07/06/18 Carvedilol* (Carvedilol*) 12.5 Mg Tablet, 12.5 MG PO BID for 30 Days, TAB Prov:JIMMIE KLEIN MD 07/06/18 Gabapentin* (Gabapentin*) 300 Mg Capsule, 300 MG PO TID, #90 CAP Prov:ROYAL HADLEY MD 03/14/16 Reported Medications Amlodipine Besylate* (Amlodipine Besylate*) 10 Mg Tablet, 10 MG PO DAILY, #30 TAB 07/01/18 Discontinued Reported Medications Lisinopril* (Lisinopril*) 10 Mg Tablet, 10 MG PO DAILY, #30 TAB 07/01/18 Discontinued Scripts Benazepril Hcl* (Benazepril Hcl*) 20 Mg Tablet, 20 MG PO DAILY for 30 Days, TAB Prov:ARMANDO DONOVAN MD 03/20/18 Metformin* (Glucophage*) 1,000 Mg Tablet, 1000 MG PO BID, #60 TAB Prov:RUDOLPH DANG MD 02/22/17 Glimepiride* (Amaryl*) 2 Mg Tablet, 2 MG PO WITH BREAKFAST DINNE, #30 TAB Prov:ROYAL HADLEY MD 03/14/16 Allergies Allergies: Coded Allergies: No Known Allergy (Unverified , 07/01/18) PMhx/Soc History of Surgery: Yes (Tubal ligation ) Anesthesia Reaction: No Hx Neurological Disorder: No Hx Respiratory Disorders: No Hx Cardiac Disorders: Yes (HTN) Hx Psychiatric Problems: No Hx Miscellaneous Medical Probl: Yes (DM) Hx Alcohol Use: No Hx Substance Use: No Hx Tobacco Use: No Smoking Status: Never smoker FmHx Family History: No coronary disease Physical Exam Vitals Vital Signs Date Temp Pulse Resp B/P (MAP) Pulse Ox O2 O2 Flow FiO2 Time Delivery Rate 07/10/18 63 16 161/74 95 Room Air 18:44 (103) 07/10/18 97.9 62 18 153/65 97 16:36 (94) Physical Exam Const: Well-developed, well-nourished Head: Atraumatic, normocephalic Eyes: Normal Conjunctiva, PERRLA, EOMI, normal sclera, no nystagmus ENT: Normal External Ears, Nose and Mouth, moist mucus membranes. Neck: Full range of motion. No meningismus, no lymphadenopathy. Resp: Clear to auscultation bilaterally, no wheezing, rhonchi, rales Cardio: Regular rate and rhythm, no murmurs, S1 S2 present Abd: Soft, non tender x 4, non distended. Normal bowel sounds, no guarding or rebound, no pulsitile abdominal masses or bruits Skin: No petechiae or rashes, no ecchymosis , no maculopapular rash Back: No midline or flank tenderness Ext: No cyanosis, edema to both ankles and distal shins, FROM x 4, normal inspection, neurovascularly intact x 4 Neur: Awake and alert, STR 5/5 x 4, sensation intact x 4, no focal findings, cerebellum intact Psych: Normal Mood and Affect Result Diagram: 07/10/18182007/10/18 1821 Results 24 hrs Laboratory Tests Test 07/10/18 18:21 White Blood Count 10.2 10^3/ul Red Blood Count 2.93 10^6/ul Hemoglobin 8.3 g/dl Hematocrit 25.4 % Mean Corpuscular Volume 86.7 fl Mean Corpuscular Hemoglobin 28.3 pg Mean Corpuscular Hemoglobin Concent 32.7 g/dl Red Cell Distribution Width 13.4 % Platelet Count 283 10^3/UL Mean Platelet Volume 10.9 fl Immature Granulocytes % 0.300 % Neutrophils % 75.2 % Lymphocytes % 13.5 % Monocytes % 9.0 % Eosinophils % 1.5 % Basophils % 0.5 % Nucleated Red Blood Cells % 0.0 /100WBC Immature Granulocytes # 0.030 10^3/ul Neutrophils # 7.6 10^3/ul Lymphocytes # 1.4 10^3/ul Monocytes # 0.9 10^3/ul Eosinophils # 0.2 10^3/ul Basophils # 0.1 10^3/ul Nucleated Red Blood Cells # 0.0 10^3/ul Sodium Level 133 mmol/L Potassium Level 6.6 mmol/L Chloride Level 104 mmol/L Carbon Dioxide Level 21 mmol/L Anion Gap 8 Blood Urea Nitrogen 65 mg/dl Creatinine 1.78 mg/dl Est Glomerular Filtrat Rate mL/min 29 mL/min Glucose Level 131 mg/dl Calcium Level 9.5 mg/dl B-Type Natriuretic Peptide 762 PG/ML Current Medications Medications Dose Sig/Leonel Start Time Status Last (Trade) Ordered Route PRN Stop Time Admin Dose Reason Admin Sodium 133 ml ONCE ONCE 07/10/18 DC 07/10/18 Biphosphate/ MO 18:30 19:10 Sodium 07/10/18 18:31 Phosphate (Fleet Enema) Sodium 30 gm ONCE STAT 07/10/18 DC Polystyrene PO 19:14 Sulfonate 07/10/18 19:16 (Kayexelate 15 Gm Kit (Powder+Sorbi ira)) Sodium 50 ml ONCE STAT 07/10/18 DC Bicarbonate IV 19:14 (Na Bicarb 07/10/18 19:16 8.4% Syg) Insulin 10 unit ONCE STAT 07/10/18 DC Human IVP 19:14 Regular 07/10/18 19:16 (Humulin R) Dextrose 50 ml ONCE ONCE 07/10/18 (D50w IV 19:30 Syringe) 07/10/18 19:31 Dextrose ONCE PRN 07/10/18 (D50w IV DECREASED 19:30 Syringe) GLUCOSE Procedures/MDM The patient was given a Fleet enema and had a large bowel movement with success. The patient does show an elevated potassium of 6.6. She does also show wo rsening of her renal condition. She is given the hyperkalemia cocktail of insulin, sodium bicarb, D50 W. We will have to readmit her back in the hospital for hyperkalemia and renal insufficiency this worse. Critical Care Time: 30 minutes Treatments/Evaluations: Close monitoring and treatment of unstable vital signs, cardiorespiratory, and neurologic status, while maintaining tight balance of fluid, respiratory, and cardiac interventions. This time includes discussing the case with the patient and the patient's family. This time does not include all procedures stated elsewhere in this record. This time also includes reviewing old records, labs and radiological studies. This time includes examining and re- examining the patient. Additionally, this time also includes arranging care with admitting and consulting physicians. Departure Diagnosis: Primary Impression: Hyperkalemia Additional Impressions: Renal insufficiency Constipation Constipation type: unspecified constipation type Qualified Codes: K59.00 - Constipation, unspecified Condition: Stable SHAYNA PHAM DO Jul 10, 2018 19:02
[2018-07-10] MEDS ORDERED: INSULIN REGULAR, HUMAN 100 UNIT/1 ML 3ML VIAL IVP STA (19:14)
[2018-07-10] MEDS ORDERED: NA BICARBONATE 8.4% 50 ML SYG IV STA (19:14)
[2018-07-10] MEDS ORDERED: SODIUM POLYSTYRENE 15 GM KIT (POWDER + SORBITOL) PO STA (19:14)
[2018-07-10] MEDS ORDERED: DEXTROSE 50% 50 ML SYRINGE IV ONE (19:30)
[2018-07-10] MEDS ORDERED: DEXTROSE 50% 50 ML SYRINGE IV PRN ×3 (19:30→22:30)
[2018-07-10] MEDS ORDERED: ACETAMINOPHEN 325 MG TAB PO PRN ×2 (20:00→21:30)
[2018-07-10] MEDS ORDERED: ONDANSETRON 4 MG INJ IV PRN (20:00)
[2018-07-10] MEDS ORDERED: LORAZEPAM 2 MG INJ IV ONE (20:30)
--- NOTE | 2018-07-10 21:14 | HP ---
Date/Time of Note Date/Time of Note DATE: 07/10/18 TIME: 21:13 Assessment/Plan VTE Prophylaxis SCD applied (from Nsg): Yes Pharmacological prophylaxis: NA/contraindicated Pharm contraindication: low risk/ambulating Lines/Catheters IV Catheter Type (from Nrsg): Saline Lock Assessment/Plan Hospital Course This 68-year-old female being admitted to the telemetry floor for: #1 hyperkalemia: Etiology possibly secondary to underlying chronic kidney disease, reabsorption from GI tract secondary to constipation, diet. Patient did receive treatment in the emergency department with insulin, Kayexalate, albuterol. Repeat BMP showed a potassium of 5.7. We will give her another treatment with insulin and dextrose along with albuterol. Recent renal ultrasound did not show any acute ab normalities. We will check an aldosterone level. Will consult nephrology . #2 Anasarca: Patient does have bilateral lower extremity swelling, she also reports swelling of the face. Originally this was thought to be secondary to angioedema from previous GELY inhibitor use. We will check a urinalysis, microscopic UA. Patient does have an elevated BNP as well check an echocardiogram. #3 constipation: Patient's abdomen is a distended but it is soft. X-ray does show fecal filled colon. Will patient on bowel regimen. We will check a TSH. #5 elevated BNP: We will check echocardiogram #6 acute on chronic kidney disease: We will check urinalysis, avoid nephrotoxic agents. Avoid NSAIDs. Will check urinalysis, microscopic UA. Consult nephrology. #7 diabetes mellitus: Insulin sliding scale, resume home Lantus, #8 normocytic anemia: No signs of bleeding, continue to monitor, further work-up as outpatient #9 hypertension: Resume patient's home blood pressure medications, #10 DVT and GI prophylaxis: SCDs, no GI prophylaxis indicated Further treatment strategy will be implemented as per the clinical course. Result Diagram: 07/10/18 1821 07/10/18 1821 Results 24hrs Laboratory Tests Test 07/10/18 18:21 White Blood Count 10.2 # Red Blood Count 2.93 L Hemoglobin 8.3 L Hematocrit 25.4 L Mean Corpuscular Volume 86.7 Mean Corpuscular Hemoglobin 28.3 L Mean Corpuscular Hemoglobin Concent 32.7 Red Cell Distribution Width 13.4 Platelet Count 283 Mean Platelet Volume 10.9 H Immature Granulocytes % 0.300 Neutrophils % 75.2 Lymphocytes % 13.5 L Monocytes % 9.0 Eosinophils % 1.5 Basophils % 0.5 Nucleated Red Blood Cells % 0.0 Immature Granulocytes # 0.030 Neutrophils # 7.6 H Lymphocytes # 1.4 Monocytes # 0.9 Eosinophils # 0.2 Basophils # 0.1 Nucleated Red Blood Cells # 0.0 Sodium Level 133 L Potassium Level 6.6 *H Chloride Level 104 Carbon Dioxide Level 21 Anion Gap 8 Blood Urea Nitrogen 65 H Creatinine 1.78 H Est Glomerular Filtrat Rate mL/min 29 L Glucose Level 131 Calcium Level 9.5 B-Type Natriuretic Peptide 762 H HPI/ROS Admit Date/Time Admit Date/Time Hx of Present Illness cc: constipation x 4 days This is a 68-year-old female who is here because she has no bowel movement for 4 days. Patient has a history of stage III renal failure she was admitted to the hospital here about 10 days ago. She was admitted for hyperkalemia with renal insufficiency. She was having swelling to her face and extremities. The face swelling was thought to be due to GELY inhibitor angioedema which apparently resolved once her GELY inhibitor was stopped. Family is here stating that the swelling in her face is back and she is having some swelling to her ankles and lower shins bilaterally. No shortness of breath chest pain fever. Allergies: NKDA Medications: See MEENAKSHI Const: As per HPI Eyes : No pain discharge or redness or change in visual acuity ENT: No pain, sore throat, congestion, congestion, dysphagia or discharge Respiratory: No shortness of breath, cough, sputum, wheezing, or pleuritic pain Cardiovascular: No chest pain, palpitation, PND, or edema GI : As per HPI Genitourinary: No dysuria, hematuria, flank pain , discharge or CVA tenderness Musculoskeletal: No joint pain, back pain, neck pain, restricted range of motion in neck or joints Skin: As per HPI Neuro: No headache, dizziness, syncope, seizure, focal weakness Endocrine: No polyuria, polydipsia, temperature intolerance Psych: No hallucination, depression, anxiety or suicidal ideation PMH/Family/Social Past Medical History diabetes mellitus, CKD 2, hypertension Medications Current Medications Dextrose (D50w Syringe) ONCE PRN IV DECREASED GLUCOSE; Start 07/10/18 at 19:30 Ondansetron HCl (Zofran Inj) 4 mg ER BRIDGE PRN IV NAUSEA/VOMITING; Start 07/10/18 at 20:00; Stop 07/11/18 at 19:59 Acetaminophen (Tylenol Tab) 650 mg ER BRIDGE PRN PO .MILD PAIN 1-3 OR TEMP; Start 07/10/18 at 20:00; Stop 07/11/18 at 19:59 Coded Allergies: No Known Allergy (Unverified , 07/01/18) Past Surgical History Past Surgical Hx: no surgical history Family History Significant Family History: no pertinent family hx Social History Alcohol Use: none Smoking Status: Never smoker Drug Use: none Exam/Review of Systems Vital Signs Vitals Vital Signs Date Temp Pulse Resp B/P (MAP) Pulse Ox O2 O2 Flow FiO2 Time Delivery Rate 07/10/18 76 21 158/61 95 Nasal 3.0 20:19 (93) Cannula 07/10/18 97.9 16:36 Exam Exam General: Patient currently lying in bed in no acute distress. HEENT: Atraumatic, normocephalic. The pupils are equal, round and reactive. Extraocular motor are intact Neck: Supple with full range of motion. No rigidity or meningismus Chest: Nontender Lungs: Clear to auscultation bilaterally no crackles rales or wheezing Heart: Normal S1-S2, Regular rhythm and rate. No murmur, S3, or S4 Abdomen: Soft , nontender, distended abdomen, bowel sounds are present. No guarding no rebound tenderness , Extremities: Bilateral lower extremity nonpitting edema Neurologic: Normal mental status, speech normal, cranial nerves II through XII are intact, motor and sensory are intact, no focal weakness Additional Comments PROCEDURE: XR Chest 1 View. CLINICAL INDICATION: Chest pain. TECHNIQUE: Single view of the chest was obtained. COMPARISON: None. FINDINGS: Mediastinum: Heart size within normal limits. Calcified atherosclerosis in the aorta. Lungs: Diffuse mild interstitial prominence in both lungs. Scattered atelectasis in both lungs. No consolidations. No pneumothorax. Osseous structures: Intact. Osteopenia. Degenerative changes in the shoulders. Other: None. IMPRESSION: Calcified atherosclerosis in the aorta. Diffuse mild interstitial prominence in both lungs. Interstitial prominence could be chronic or reflect mild interstitial edema. Scattered atelectasis in both lungs. Elevated right hemidiaphragm. RPTAT: AA .Héctor Orozco MD, MD Date Time Electronically viewed and signed by .Héctor Orozco MD, MD on 07/10/2018 21:00 .P/ CC: SHAYNA PHAM DO [id number] PROCEDURE: Renal US. CLINICAL INDICATION: Abnormal renal function TECHNIQUE: Multiple sonographic images of the kidneys were obtained. The images were reviewed on a PACS workstation. COMPARISON: No prior studies are available for comparison. FINDINGS: Both kidneys are normal in echogenicity. There is normal renal cortical thickness without focal thinning or scarring. No solid renal masses are identified. There is no evidence of renal calculi or obstructive uropathy. The right kidney measures 8.6 cm, and the left kidney measures 9.8 cm. Spot images of the pelvis demonstrating decompressed bladder IMPRESSION: 1. Unremarkable renal ultrasound. No evidence of renal calculi or obstructive uropathy RPTAT: HH .Humberto Man MD, MD Date Time Electronically viewed and signed by .Humberto Man MD, MD on 07/03/2018 13:51 .W/ CC: JIMMIE KLEIN MD [id number] PROCEDURE: XR Abdomen. CLINICAL INDICATION: Abdominal pain TECHNIQUE: Single frontal abdomen x-ray was obtained. COMPARISON: None. FINDINGS: The bowel gas pattern is normal. The colon is fecal filled. There is no evidence of bowel obstruction. There are no abnormal calcifications overlying the urinary tracts. The osseus structures are unremarkable. RPTAT: AA IMPRESSION: Fecal filled colon. .Austin Robins MD, Date Time Electronically viewed and signed by .Austin Robins MD, MD on 07/10/2018 22:07 .S/ CC: CARLOS MALCOLM [id number] CARLOS MALCOLM Jul 10, 2018 21:13
[2018-07-10] MEDS ORDERED: NACL 0.9% 3 ML SYG IV SCH (21:30)
[2018-07-10] MEDS ORDERED: ONDANSETRON 4 MG TAB PO PRN (21:30)
[2018-07-10] MEDS ORDERED: BISACODYL (EC) 5 MG TAB PO PRN (21:30)
[2018-07-10] MEDS ORDERED: DOCUSATE SODIUM 100 MG CAP PO PRN (21:30)
[2018-07-10] MEDS ORDERED: GLUCOSE GEL 15 GRAM TUBE BUCCAL PRN (22:30)
[2018-07-10] MEDS ORDERED: GLUCAGON 1 MG INJ IM PRN (22:30)
[2018-07-10] MEDS ORDERED: GLUCOSE GEL 15 GRAM TUBE PO PRN ×2 (22:30)
--- NOTE | 2018-07-10 23:04 | QN ---
Documentation Comment Observation Note: Time: 4 hours Family Hx: Negative for diabetes Evaluation: Multiple exams showed improving symptoms and no evidence of clinical decompensation. ARMANDO DONOVAN MD Jul 10, 2018 23:04
[2018-07-11] VITALS (9 sets, daily range): BP systolic 155–182; BP diastolic 69–96; PULSE 71–87; RESP 16–20
[2018-07-11] MEDS ORDERED: POLYETHYLENE GLYCOL 17 GM PACKET PO ONE
[2018-07-11] MEDS ORDERED: DOCUSATE SODIUM 100 MG CAP PO ONE
[2018-07-11] MEDS ORDERED: SOD CHLORIDE 0.9% 250 ML IV ONE
[2018-07-11] MEDS ORDERED: ALBUTEROL 0.083% (NEB) 2.5 MG/3 ML AMP HHN STA (02:28)
[2018-07-11] MEDS ORDERED: INSULIN REGULAR, HUMAN 100 UNIT/1 ML 3ML VIAL IVP STA (02:28)
[2018-07-11] MEDS ORDERED: DEXTROSE 50% 50 ML SYRINGE IV PRN (02:30)
[2018-07-11] MEDS: ACCU-CHEK XX SCH (03:55)
[2018-07-11] MEDS: DOCUSATE SODIUM 100 MG CAP PO SCH ×2 (08:09→20:25)
[2018-07-11] MEDS: AMLODIPINE 10 MG TAB PO SCH (08:09)
[2018-07-11] MEDS: GABAPENTIN 300 MG CAP PO SCH ×3 (08:09→20:25)
[2018-07-11] MEDS: POLYETHYLENE GLYCOL 17 GM PACKET PO SCH ×2 (08:10→20:25)
[2018-07-11] MEDS ORDERED: BISACODYL 30 ML ENEMA PR ONE (09:00)
[2018-07-11] MEDS ORDERED: FUROSEMIDE 20 MG INJ IV ONE (09:30)
--- NOTE | 2018-07-11 09:50 | CONS ---
DATE OF ADMISSION: 07/10/2018 DATE OF CONSULTATION: 07/11/2018 TYPE OF CONSULTATION: Nephrology. REASON FOR CONSULTATION: Hyperkalemia, acute kidney injury. PHYSICIAN REQUESTING CONSULT: Dr. Malcolm. HISTORY OF PRESENT ILLNESS: This is a 68-year-old female with past medical history of chronic kidney disease with previous baseline creatinines between 1.5 to 1.7 mg/dL, history of diabetes, history of hypertension who presents to [facility] with constipation. The patient recently w as admitted to the [facility] with acute angioedema due to GELY inhibitor. The henri ent's symptoms have resolved. The patient since discharge was doing well until the last several days , which patient had increased lower extremity edema and swelling. As a result, she came back to the [facility]. Upon arrival, the patient was noted to be hyperkalemic with a potassiu m level of 6.6. The patient in the emergency room was given Kayexalate, calcium gluconate, insulin a nd admitted to telemetry for evaluation. In terms of patient's renal history, the patient has underlying history of chronic kidney disease wit h previous baseline creatinines around 1.5 mg/dL. The patient has longstanding diabetes. The patien t denies any episodes of hemoptysis, hematemesis, hematochezia, any rashes. The patient does admit t o having frothy urine. PAST MEDICAL HISTORY: History of chronic kidney disease, history of hypertension, history of diabete s. PAST SURGICAL HISTORY: Reviewed. ALLERGIES: THE PATIENT IS ALLERGIC TO GELY INHIBITOR. FAMILY HISTORY: No family history of kidney disease. SOCIAL HISTORY: She does not drink, smoke or do drugs. MEDICATIONS: The patient's medications have been reviewed. REVIEW OF SYSTEMS: A 14-point review of systems was conducted. Pertinent positives stated in HPI, o therwise negative. PHYSICAL EXAMINATION: VITAL SIGNS: Blood pressure is 182/82, respirations 18, pulse 85, temperature 97.5. HEENT: Head is normocephalic. NECK: Supple. HEART: Regular rate. LUNGS: Show diminished breath sounds at the base. ABDOMEN: Soft, nontender to palpation without rebound or guarding. EXTREMITIES: Negative for clubbing, cyanosis. Positive edema. DERMATOLOGIC: No rashes. MUSCULOSKELETAL: No joint effusion. NEUROLOGIC: No focal deficits. MEDICATIONS: Reviewed. LABORATORY DATA: From 07/11/2018 shows sodium 139, potassium 4.5, BUN 59, creatinine 1.55. IMAGING STUDIES: Reviewed. ASSESSMENT AND PLAN: This is a 68-year-old female who presents with: 1. Nonoliguric acute kidney injury on top of chronic kidney disease stage III with previous baseline creatinine of 1.5 to 1.7 mg/dL. Etiology of acute kidney injury is concerning for diabetic nephropa thy. Other possibilities such as tubular injury and interstitial nephritis are consideration. Plan at this point is to do a full evaluation. We will check UA with microanalysis, check urine electroly sonia, quantify patient's proteinuria. Check renal ultrasound. We would recommend to continue current treatment plan, supportive care, renally dose all medicines. Defer any GELY inhibitor or ARB at this time. 2. Volume overload. Etiology is concerning for possible nephrotic syndrome. Also, other possibilit ies including congestive heart failure exacerbation is a consideration. Plan is to check a urinalysi s. We will check urine protein creatinine ratio, urine albumin creatinine ratio. We will consider c hecking 2D echo. We will continue the patient on diuretic therapy, low dose. Monitor electrolytes, a nd renal function closely. 3. Hyperkalemia. Etiology is secondary to acute kidney injury, possibly in conjunction with a dieta ry indiscretion. The possibility of a type 4 RTA is less likely as the patient has no evidence of ac idosis. Plan is to continue to monitor potassium levels closely. Continue low-potassium diet. 4. Anemia. Monitor hemoglobin and hematocrit levels. 5. Mineral bone disorder. Monitor calcium and phosphorus levels. Check PTH, vitamin D25 levels. 6. Constipation. Continue current bowel regimen. 7. Diabetes. Continue current insulin regimen. 8. Hypertension. Continue current blood pressure regimen. We will start the patient on diuretic th erapy and monitor closely. Thank you, Dr. Malcolm, for this interesting consult. It will be a pleasure to follow the patient wi th you throughout the hospital course. Dictated By: MILLY GARZA DO NR/NTS Conf#: [id number] DID#: [id number] CC: CARLOS MALCOLM MD;*EndCC*
--- NOTE | 2018-07-11 10:33 | PN ---
Date/Time of Note Date/Time of Note DATE: 07/11/18 TIME: 10:33 Assessment/Plan VTE Prophylaxis Risk score (from Ns)>0 risk: 4 SCD applied (from Ns): Yes Pharmacological prophylaxis: NA/contraindicated Pharm contraindication: anticoag not tolerated Lines/Catheters IV [facility]from [facility] Saline Lock Urinary Cath still in place: No Assessment/Plan Hospital Course SUBJECTIVE: Complains of abdominal distention. OBJECTIVE: Physical Exam General: Adequately build 68 year-old female lying in bed in no apparent distress. HEENT: Normocephalic, atraumatic. Eyes: Anicteric sclerae, conjunctivae clear. ENT: Nasal septum midline, oral mucosa moist. Neck: Obese with increased neck circumference.. Respiratory: Bilaterally diminished breath sounds. No use of accessory muscles of respiration. No adventitious breath sounds. Cardiovascular: S1, S2 heard. Regular rate and rhythm. Abdomen: Nontender. Distended. Bowel sounds positive in all 4 quadrants. Genitourinary: Deferred. Extremities: No cyanosis, no clubbing. Peripheral pulses palpable. B/L lower extremity 1+ pitting edema Neurologic: Cranial nerves II through XII grossly intact. The patient is awake, alert, and oriented. Skin: Normal skin turgor. No skin rashes. Labs & Vitals per chart ASSESSMENT & PLAN This is a 68-year-old female with comorbidities including diabetes mellitus, chronic kidney disease, and hypertension who came to the emergency room with chief complaint of constipation. The patient was noticed to have underlying hyperkalemia (potassium was 6.6) in the emergency room. The patient underwent a KUB that was showing fecal filled colon. The patient was admitted to inpatient setting for further treatment and evaluation. 1. Hyperkalemia. -Etiology probably secondary to worsening renal function. -Status post potassium exchange resin and insulin IV. -Low potassium diet. -Being followed by nephrology. 2. Acute on chronic kidney disease. -Being followed by nephrology. -Avoid nephrotoxic medications. 3. Constipation. -KUB showed fecal filled colon. -Continue bowel regimen. 4. Diabetes mellitus. -Monitor blood sugar levels closely (hypoglycemic episodes). -Once blood sugars are appropriate, start sliding scale insulin. 5. Hypertension. -Continue antihypertensives. 6. Diabetic neuropathy. -Continue gabapentin. 7. Normocytic anemia. -Most probably anemia of chronic kidney disease -Monitor H&H closely. 8. Anasarca. -Etiology unclear. -Recently was taken off GELY inhibitors for ?angioedema. -Urine studies pending. -Management as per nephrology. 9. Fluids, electrolytes, and nutrition. -Carbohydrate controlled diet. 10. DVT prophylaxis. -Bilateral SCDs. 11. Plan. -Continue to monitor renal function closely. -Continue bowel regimen. The patient was seen in collaboration with Dr. Finney. Result Diagram: 07/11/18 0616 07/11/18 0616 Results 24hrs Laboratory Tests Test 07/10/18 18:21 07/10/18 22:39 07/11/18 03:54 07/11/18 06:16 White Blood Count 10.2 # 9.7 Red Blood Count 2.93 L 2.79 L Hemoglobin 8.3 L 7.8 L Hematocrit 25.4 L 23.9 L Mean Corpuscular 86.7 85.7 Volume Mean Corpuscular 28.3 L 28.0 L Hemoglobin Mean Corpuscular 32.7 32.6 Hemoglobin Concent Red Cell Distribution 13.4 13.3 Width Platelet Count 283 282 Mean Platelet Volume 10.9 H 11.4 H Immature Granulocytes 0.300 0.300 % Neutrophils % 75.2 74.3 Lymphocytes % 13.5 L 14.2 L Monocytes % 9.0 9.9 Eosinophils % 1.5 0.9 Basophils % 0.5 0.4 Nucleated Red Blood 0.0 0.0 Cells % Immature Granulocytes 0.030 0.030 # Neutrophils # 7.6 H 7.2 Lymphocytes # 1.4 1.4 Monocytes # 0.9 1.0 H Eosinophils # 0.2 0.1 Basophils # 0.1 0.0 Nucleated Red Blood 0.0 0.0 Cells # Sodium Level 133 L 136 139 Potassium Level 6.6 *H 5.7 H 4.5 Chloride Level 104 105 108 Carbon Dioxide Level 21 22 22 Anion Gap 8 9 9 Blood Urea Nitrogen 65 H 65 H 59 H Creatinine 1.78 H 1.71 H 1.55 H Est Glomerular Filtrat 29 L 30 L 33 L Rate mL/min Glucose Level 131 124 45 #*L Calcium Level 9.5 9.3 9.0 B-Type Natriuretic 762 H Peptide Bedside Glucose 117 Osmolality 298 H Magnesium Level 2.7 H Total Bilirubin 0.4 Direct Bilirubin 0.00 Indirect Bilirubin 0.4 Aspartate Amino 21 Transf (AST/SGOT) Alanine 20 Aminotransferase (ALT/ SGPT) Alkaline Phosphatase 100 Total Protein 7.6 Albumin 3.6 Globulin 4.00 H Albumin/Globulin Ratio 0.90 Thyroid Stimulating 1.610 Hormone (TSH) Test 07/11/18 07:39 07/11/18 08:14 Bedside Glucose 43 *L 73 Exam/Review of Systems Exam Vitals Vital Signs Date Temp Pulse Resp B/P (MAP) Pulse Ox O2 O2 Flow FiO2 Time Delivery Rate 07/11/18 71 08:08 07/11/18 97.7 18 182/82 98 Room Air 07:50 (115) 07/11/18 21 04:38 07/11/18 3.0 00:45 Intake and Output 07/10/18 07/10/18 07/11/18 1515:00 23:00 07:00 IntakeIntake Total 550 ml BalanceBalance 550 ml Results Results 24hrs Laboratory Tests Test 07/10/18 18:21 07/10/18 22:39 07/11/18 03:54 07/11/18 06:16 White Blood Count 10.2 # 9.7 Red Blood Count 2.93 L 2.79 L Hemoglobin 8.3 L 7.8 L Hematocrit 25.4 L 23.9 L Mean Corpuscular 86.7 85.7 Volume Mean Corpuscular 28.3 L 28.0 L Hemoglobin Mean Corpuscular 32.7 32.6 Hemoglobin Concent Red Cell Distribution 13.4 13.3 Width Platelet Count 283 282 Mean Platelet Volume 10.9 H 11.4 H Immature Granulocytes 0.300 0.300 % Neutrophils % 75.2 74.3 Lymphocytes % 13.5 L 14.2 L Monocytes % 9.0 9.9 Eosinophils % 1.5 0.9 Basophils % 0.5 0.4 Nucleated Red Blood 0.0 0.0 Cells % Immature Granulocytes 0.030 0.030 # Neutrophils # 7.6 H 7.2 Lymphocytes # 1.4 1.4 Monocytes # 0.9 1.0 H Eosinophils # 0.2 0.1 Basophils # 0.1 0.0 Nucleated Red Blood 0.0 0.0 Cells # Sodium Level 133 L 136 139 Potassium Level 6.6 *H 5.7 H 4.5 Chloride Level 104 105 108 Carbon Dioxide Level 21 22 22 Anion Gap 8 9 9 Blood Urea Nitrogen 65 H 65 H 59 H Creatinine 1.78 H 1.71 H 1.55 H Est Glomerular Filtrat 29 L 30 L 33 L Rate mL/min Glucose Level 131 124 45 #*L Calcium Level 9.5 9.3 9.0 B-Type Natriuretic 762 H Peptide Bedside Glucose 117 Osmolality 298 H Magnesium Level 2.7 H Total Bilirubin 0.4 Direct Bilirubin 0.00 Indirect Bilirubin 0.4 Aspartate Amino 21 Transf (AST/SGOT) Alanine 20 Aminotransferase (ALT/ SGPT) Alkaline Phosphatase 100 Total Protein 7.6 Albumin 3.6 Globulin 4.00 H Albumin/Globulin Ratio 0.90 Thyroid Stimulating 1.610 Hormone (TSH) Test 07/11/18 07:39 07/11/18 08:14 Bedside Glucose 43 *L 73 Medications Medication Current Medications Dextrose (D50w Syringe) ONCE PRN IV DECREASED GLUCOSE; Start 07/10/18 at 19:30 Ondansetron HCl (Zofran Inj) 4 mg ER BRIDGE PRN IV NAUSEA/VOMITING; Start 07/10/18 at 20:00; Stop 07/11/18 at 19:59 Amlodipine Besylate (Norvasc) 10 mg DAILY PO Last administered on 07/11/18at 08:09; Admin Dose 10 MG; Start 07/11/18 at 09:00 Carvedilol (Coreg) 12.5 mg BID PO Last administered on 07/11/18at 08:10; Admin Dose 12.5 MG; Start 07/10/18 at 21:30 Gabapentin (Neurontin) 300 mg TID PO Last administered on 07/11/18at 08:09; Admin Dose 300 MG; Start 07/11/18 at 09:00 IV Flush (NS 3 ml) 3 ml PER PROTOCOL IV ; Start 07/10/18 at 21:30 Ondansetron HCl (Zofran Tab) 4 mg Q6H PRN PO NAUSEA/VOMITING; Start 07/10/18 at 21:30 Acetaminophen (Tylenol Tab) 650 mg Q6H PRN PO .PAIN 1-3 OR TEMP; Start 07/10/18 at 21:30 Docusate Sodium (Colace) 100 mg Q12H PRN PO .CONSTIPATION; Start 07/10/18 at 21:30 Bisacodyl (Dulcolax) 5 mg DAILY PRN PO .CONSTIPATION; Start 07/10/18 at 21:30 Diagnostic Test (Pha) (Accu-Chek) 1 ea 02 XX Last administered on 07/11/18at 03:55; Admin Dose 1 EA; Start 07/11/18 at 02:00 Insulin Glargine (Lantus) 12 units DAILY@2000 SC ; Start 07/11/18 at 20:00 Miscellaneous Information 1 ea NOTE XX ; Start 07/10/18 at 22:30 Glucose (Glutose) 15 gm Q15M PRN PO DECREASED GLUCOSE; Start 07/10/18 at 22:30 Glucose (Glutose) 22.5 gm Q15M PRN PO DECREASED GLUCOSE; Start 07/10/18 at 22:30 Dextrose (D50w Syringe) 25 ml Q15M PRN IV DECREASED GLUCOSE; Start 07/10/18 at 22:30 Dextrose (D50w Syringe) 50 ml Q15M PRN IV DECREASED GLUCOSE; Start 07/10/18 at 22:30 Glucagon (Glucagen) 1 mg Q15M PRN IM DECREASED GLUCOSE; Start 07/10/18 at 22:30 Glucose (Glutose) 15 gm Q15M PRN BUCCAL DECREASED GLUCOSE; Start 07/10/18 at 22:30 Docusate Sodium (Colace) 200 mg BID PO Last administered on 07/11/18at 08:09; Admin Dose 200 MG; Start 07/11/18 at 09:00 Polyethylene Glycol (Miralax) 17 gm BID PO Last administered on 07/11/18at 08:10; Admin Dose 17 GM; Start 07/11/18 at 09:00 MINA VASQUEZ NP July 11, 2018 10:33
[2018-07-11] MEDS: INSULIN ASPART [NOVOLOG] 3 ML PEN SC SCH ×3 (12:05→20:24)
[2018-07-11] MEDS ORDERED: MAGNESIUM CITRATE 300 ML BTL PO ONE (15:00)
[2018-07-11] MEDS: hydrALAzine 20 MG INJ IV PRN ×2 (16:34→20:32)
[2018-07-11] MEDS ORDERED: INSULIN GLARGINE [LANTus] (100 UNITS/ML) SYG SC SCH (20:00)
[2018-07-11] MEDS ORDERED: INSULIN GLARGINE 12 UNIT SC SCH (20:00)
[2018-07-12] VITALS (12 sets, daily range): BP systolic 132–166; BP diastolic 61–72; PULSE 66–80; RESP 18–20
[2018-07-12] MEDS: ACCU-CHEK XX SCH (02:00)
[2018-07-12] MEDS: DOCUSATE SODIUM 100 MG CAP PO SCH ×2 (08:03→20:13)
[2018-07-12] MEDS: POLYETHYLENE GLYCOL 17 GM PACKET PO SCH ×2 (08:03→20:13)
[2018-07-12] MEDS: GABAPENTIN 300 MG CAP PO SCH ×3 (08:05→20:13)
[2018-07-12] MEDS: AMLODIPINE 10 MG TAB PO SCH (08:05)
[2018-07-12] MEDS: INSULIN ASPART [NOVOLOG] 3 ML PEN SC SCH ×4 (08:10→20:42)
[2018-07-12] MEDS ORDERED: FUROSEMIDE 40 MG INJ IV SCH (09:30)
--- NOTE | 2018-07-12 10:20 | PN ---
Date/Time of Note Date/Time of Note DATE: 07/12/18 TIME: 10:17 Assessment/Plan VTE Prophylaxis Risk score (from Ns)>0 risk: 2 SCD applied (from [facility]): No SCD contraindicated: other Pharmacological prophylaxis: NA/contraindicated Pharm contraindication: anticoag not tolerated Lines/Catheters IV C[facility]from [facility] Saline Lock Urinary Cath still in place: No Assessment/Plan Hospital Course SUBJECTIVE: Denies any abdominal distention. OBJECTIVE: Physical Exam General: Adequately build 68 year-old female lying in bed in no apparent distress. HEENT: Normocephalic, atraumatic. Eyes: Anicteric sclerae, conjunctivae clear. ENT: Nasal septum midline, oral mucosa moist. Neck: Obese with increased neck circumference.. Respiratory: Bilaterally diminished breath sounds. No use of accessory muscles of respiration. No adventitious breath sounds. Cardiovascular: S1, S2 heard. Regular rate and rhythm. Abdomen: Nontender. Distended. Bowel sounds positive in all 4 quadrants. Genitourinary: Deferred. Extremities: No cyanosis, no clubbing. Peripheral pulses palpable. B/L lower extremity 1+ pitting edema Neurologic: Cranial nerves II through XII grossly intact. The patient is awake, alert, and oriented. Skin: Normal skin turgor. No skin rashes. Labs & Vitals per chart ASSESSMENT & PLAN This is a 68-year-old female with comorbidities including diabetes mellitus, chronic kidney disease, and hypertension who came to the emergency room with chief complaint of constipation. The patient was noticed to have underlying hyperkalemia (potassium was 6.6) in the emergency room. The patient underwent a KUB that was showing fecal filled colon. The patient was admitted to inpatient setting for further treatment and evaluation. 1. Hyperkalemia. -Etiology probably secondary to worsening renal function. -Status post potassium exchange resin and insulin IV. -Low potassium diet. -Being followed by nephrology. 2. Acute on chronic kidney disease. -Being followed by nephrology. -Avoid nephrotoxic medications. 3. Constipation. -KUB showed fecal filled colon. -Continue bowel regimen. -Largely resolved. 4. Diabetes mellitus. -Hemoglobin A1c 8.3. -Continue sliding scale insulin. -Add basal insulin. 5. Hypertension. -Continue antihypertensives. 6. Diabetic neuropathy. -Continue gabapentin. 7. Normocytic anemia. -Most probably anemia of chronic kidney disease -Monitor H&H closely. 8. Anasarca. -Etiology unclear. -Recently was taken off GELY inhibitors for ?angioedema. -Management as per nephrology. 9. Fluids, electrolytes, and nutrition. -Carbohydrate controlled diet. 10. DVT prophylaxis. -Bilateral SCDs. 11. Plan. -Continue to monitor renal function closely. -Continue bowel regimen. The patient was seen in collaboration with Dr. Finney. Result Diagram: 07/12/1858 07/12/1858 Results 24hrs Laboratory Tests Test 07/11/18 10:47 07/11/18 12:00 07/11/18 13:45 07/11/18 17:12 Bedside Glucose 256 H 280 H 266 H Urine Osmolality 230 L Urine Random Creatinine 13.22 L Urine Random Sodium 70 Urine Random Potassium 13.4 L Urine Total Protein 48.0 H Test 07/11/18 20:24 07/12/18 05:58 07/12/18 08:04 Bedside Glucose 152 142 White Blood Count 10.6 Red Blood Count 2.62 L Hemoglobin 7.4 L Hematocrit 22.5 L Mean Corpuscular Volume 85.9 Mean Corpuscular 28.2 L Hemoglobin Mean Corpuscular 32.9 Hemoglobin Concent Red Cell Distribution 13.6 Width Platelet Count 269 Mean Platelet Volume 11.3 H Immature Granulocytes % 0.500 H Neutrophils % 73.1 Lymphocytes % 16.4 Monocytes % 9.2 Eosinophils % 0.4 Basophils % 0.4 Nucleated Red Blood 0.0 Cells % Immature Granulocytes # 0.050 H Neutrophils # 7.8 H Lymphocytes # 1.7 Monocytes # 1.0 H Eosinophils # 0.0 Basophils # 0.0 Nucleated Red Blood 0.0 Cells # Sodium Level 137 Potassium Level 4.5 Chloride Level 101 Carbon Dioxide Level 27 Anion Gap 9 Blood Urea Nitrogen 54 H Creatinine 1.75 H Est Glomerular Filtrat 29 L Rate mL/min Glucose Level 155 # Calcium Level 8.6 Phosphorus Level 4.6 Magnesium Level 2.8 H Iron Level < 10 L Total Iron Binding 313 Capacity Percent Iron Saturation Ferritin 41.8 Triglycerides Level 65 Cholesterol Level 202 H LDL Cholesterol, 154 Calculated HDL Cholesterol 35 Cholesterol/HDL Ratio 5.7 Exam/Review of Systems Exam Vitals Vital Signs Date Temp Pulse Resp B/P (MAP) Pulse Ox O2 O2 Flow FiO2 Time Delivery Rate 07/12/18 78 08:00 07/12/18 97.5 18 146/65 98 Nasal 2.0 07:30 (92) Cannula 07/11/18 21 04:38 Intake and Output 07/11/18 07/11/18 07/12/18 1515:00 23:00 07:00 IntakeIntake Total 900 ml 600 ml OutputOutput Total 900 ml BalanceBalance 0 ml 600 ml Results Results 24hrs Laboratory Tests Test 07/11/18 10:47 07/11/18 12:00 07/11/18 13:45 07/11/18 17:12 Bedside Glucose 256 H 280 H 266 H Urine Osmolality 230 L Urine Random Creatinine 13.22 L Urine Random Sodium 70 Urine Random Potassium 13.4 L Urine Total Protein 48.0 H Test 07/11/18 20:24 07/12/18 05:58 07/12/18 08:04 Bedside Glucose 152 142 White Blood Count 10.6 Red Blood Count 2.62 L Hemoglobin 7.4 L Hematocrit 22.5 L Mean Corpuscular Volume 85.9 Mean Corpuscular 28.2 L Hemoglobin Mean Corpuscular 32.9 Hemoglobin Concent Red Cell Distribution 13.6 Width Platelet Count 269 Mean Platelet Volume 11.3 H Immature Granulocytes % 0.500 H Neutrophils % 73.1 Lymphocytes % 16.4 Monocytes % 9.2 Eosinophils % 0.4 Basophils % 0.4 Nucleated Red Blood 0.0 Cells % Immature Granulocytes # 0.050 H Neutrophils # 7.8 H Lymphocytes # 1.7 Monocytes # 1.0 H Eosinophils # 0.0 Basophils # 0.0 Nucleated Red Blood 0.0 Cells # Sodium Level 137 Potassium Level 4.5 Chloride Level 101 Carbon Dioxide Level 27 Anion Gap 9 Blood Urea Nitrogen 54 H Creatinine 1.75 H Est Glomerular Filtrat 29 L Rate mL/min Glucose Level 155 # Calcium Level 8.6 Phosphorus Level 4.6 Magnesium Level 2.8 H Iron Level < 10 L Total Iron Binding 313 Capacity Percent Iron Saturation Ferritin 41.8 Triglycerides Level 65 Cholesterol Level 202 H LDL Cholesterol, 154 Calculated HDL Cholesterol 35 Cholesterol/HDL Ratio 5.7 Medications Medication Current Medications Dextrose (D50w Syringe) ONCE PRN IV DECREASED GLUCOSE; Start 07/10/18 at 19:30 Amlodipine Besylate (Norvasc) 10 mg DAILY PO Last administered on 07/12/18at 08:05; Admin Dose 10 MG; Start 07/11/18 at 09:00 Carvedilol (Coreg) 12.5 mg BID PO Last administered on 07/12/18at 08:05; Admin Dose 12.5 MG; Start 07/10/18 at 21:30 Gabapentin (Neurontin) 300 mg TID PO Last administered on 07/12/18at 08:05; Admin Dose 300 MG; Start 07/11/18 at 09:00 IV Flush (NS 3 ml) 3 ml PER PROTOCOL IV ; Start 07/10/18 at 21:30 Ondansetron HCl (Zofran Tab) 4 mg Q6H PRN PO NAUSEA/VOMITING; Start 07/10/18 at 21:30 Acetaminophen (Tylenol Tab) 650 mg Q6H PRN PO .PAIN 1-3 OR TEMP; Start 07/10/18 at 21:30 Docusate Sodium (Colace) 100 mg Q12H PRN PO .CONSTIPATION; Start 07/10/18 at 21:30 Bisacodyl (Dulcolax) 5 mg DAILY PRN PO .CONSTIPATION; Start 07/10/18 at 21:30 Diagnostic Test (Pha) (Accu-Chek) 1 ea 02 XX Last administered on 07/11/18at 03:55; Admin Dose 1 EA; Start 07/11/18 at 02:00 Miscellaneous Information 1 ea NOTE XX ; Start 07/10/18 at 22:30 Glucose (Glutose) 15 gm Q15M PRN PO DECREASED GLUCOSE; Start 07/10/18 at 22:30 Glucose (Glutose) 22.5 gm Q15M PRN PO DECREASED GLUCOSE; Start 07/10/18 at 22:30 Dextrose (D50w Syringe) 25 ml Q15M PRN IV DECREASED GLUCOSE; Start 07/10/18 at 22:30 Dextrose (D50w Syringe) 50 ml Q15M PRN IV DECREASED GLUCOSE; Start 07/10/18 at 22:30 Glucagon (Glucagen) 1 mg Q15M PRN IM DECREASED GLUCOSE; Start 07/10/18 at 22:30 Glucose (Glutose) 15 gm Q15M PRN BUCCAL DECREASED GLUCOSE; Start 07/10/18 at 22:30 Docusate Sodium (Colace) 200 mg BID PO Last administered on 07/11/18at 08:09; Admin Dose 200 MG; Start 07/11/18 at 09:00 Polyethylene Glycol (Miralax) 17 gm BID PO Last administered on 07/11/18at 20:25; Admin Dose 17 GM; Start 07/11/18 at 09:00 Insulin Aspart (Novolog Insulin Pen) NOVOLOG *MILD* ALGORITHM WITH MEALS BEDTIME SC Last administered on 07/12/18at 08:10; Admin Dose 1 UNIT; Start 07/11/18 at 11:50 Hydralazine HCl (Apresoline) 10 mg Q6H PRN IV SBP>160 Last administered on 07/11/18at 20:32; Admin Dose 10 MG; Start 07/11/18 at 16:30 Furosemide (Lasix) 20 mg DAILY IV ; Start 07/13/18 at 09:00 Furosemide (Lasix) 40 mg DAILY IV Last administered on 07/12/18at 09:32; Admin Dose 40 MG; Start 07/12/18 at 09:30; Stop 07/12/18 at 16:30 MINA VASQUEZ NP July 12, 2018 10:20
--- NOTE | 2018-07-12 10:34 | PN ---
DATE: 07/12/2018 SUBJECTIVE: The patient is stable. Patient did have diarrhea overnight. No other events noted. OBJECTIVE: VITAL SIGNS: Blood pressure is 146/65, pulse 75, respirations 18, temperature 97.5. HEENT: Head is normocephalic. NECK: Supple. HEART: Regular rate. LUNGS: Show diminished breath sounds at the base. ABDOMEN: Soft, nontender to palpation without rebound or guarding. EXTREMITIES: Negative for clubbing, cyanosis, no edema. DERMATOLOGIC: No rashes. MUSCULOSKELETAL: No joint effusion. NEUROLOGIC: No change in exam. MEDICATIONS: The patient's medications have been reviewed. LABORATORY DATA: Has been reviewed. IMAGING STUDIES: Have been reviewed. ASSESSMENT AND PLAN: 1. Nonoliguric acute kidney injury on top of chronic kidney disease stage III with previous baseline creatinine 1.5 and 1.7 mg/dL. Etiology of IBRAHIMA is secondary to hemodynamics. Renal function appears to be stabilizing around a creatinine of 1.5 to 1.7 mg/dL. At this point, would continue current bigg atment plans, supportive care, renally dose all meds. 2. Chronic kidney disease stage III secondary to diabetic nephropathy. The patient has noted a neph rotic range proteinuria. The patient's urinary protein creatinine ratio is approximately 3.6 grams p er gram of creatinine. Recommendation at this point would be to continue to treat acute kidney injur y as stated above. I would consider starting the patient on GELY inhibitor ARB once the renal function has stabilized. Would also consider serological workup as the patient has underlying nephrotic rang e proteinuria, although a primary glomerulopathy is less likely. 3. Volume overload. Etiology is likely secondary to medications, possible calcium channel effect. Would consider 2D echo to evaluate for ejection fraction. Otherwise, continue current treatment plan s, supportive care, renally dose all meds. Will start patient on low-dose diuretic therapy. 4. Hyperkalemia secondary to acute kidney injury, resolved. 5. Anemia. Monitor hemoglobin and hematocrit levels. 6. Mineral bone disorder. Monitor calcium and phosphorus levels. 7. Constipation, resolved. 8. Diabetes. Continue current insulin regimen. 9. Hypertension. Continue current blood pressure regimen. Dictated By: MILLY URBANO/KULWINDER Conf#: [id number] DID#: [id number] CC: CARLOS MALCOLM MD;*[facility]*
[2018-07-12] MEDS: INSULIN GLARGINE [LANTus] (100 UNITS/ML) SYG SC SCH (20:42)
[2018-07-13] VITALS (9 sets, daily range): BP systolic 130–153; BP diastolic 62–69; PULSE 64–73; RESP 15–20
[2018-07-13] MEDS: ACCU-CHEK XX SCH (02:14)
[2018-07-13] MEDS: hydrALAzine 20 MG INJ IV PRN (02:32)
[2018-07-13] MEDS: INSULIN ASPART [NOVOLOG] 3 ML PEN SC SCH ×4 (07:57→21:49)
[2018-07-13] MEDS: AMLODIPINE 10 MG TAB PO SCH (08:43)
[2018-07-13] MEDS: GABAPENTIN 300 MG CAP PO SCH ×3 (08:43→20:49)
[2018-07-13] MEDS: DOCUSATE SODIUM 100 MG CAP PO SCH ×2 (08:44→20:49)
[2018-07-13] MEDS: POLYETHYLENE GLYCOL 17 GM PACKET PO SCH ×2 (08:44→20:48)
[2018-07-13] MEDS ORDERED: FUROSEMIDE 20 MG INJ IV SCH (09:00)
--- NOTE | 2018-07-13 09:49 | PN ---
DATE: 07/13/2018 SUBJECTIVE: The patient is stable, no events overnight. No fevers, chills, nausea, or vomiting. OBJECTIVE: VITAL SIGNS: Blood pressure is 145/65, respirations 16, pulse 66, temperature 97.1. HEENT: Head is normocephalic. NECK: Supple. HEART: Regular rate. LUNGS: Show diminished breath sounds at the base. ABDOMEN: Soft, nontender to palpation without rebound or guarding. EXTREMITIES: Negative for clubbing, cyanosis, no edema. DERMATOLOGIC: No rashes. MUSCULOSKELETAL: No joint effusion. NEUROLOGIC: No change in exam. MEDICATIONS: Reviewed. LABORATORY DATA: Reviewed. ASSESSMENT AND PLAN: 1. Nonoliguric acute kidney injury on top of chronic kidney disease stage III with previous baseline creatinine of 1.5 to 1.7 mg/dL. Etiology of acute kidney injury is secondary to hemodynamics, diuretics. The patient's renal function declined in last 24 hours, likely due to diuretic therapy. Plan is to hold Lasix. We will continue to monitor renal function closely. Continue supportive care, renally dose all medications. 2. Chronic kidney disease stage III secondary to diabetic nephropathy. The patient has noted nephrotic range proteinuria. The patient is currently in acute kidney injury as stated above. We will continue current medical management. Continue disease factor modification. We would not give any GELY inhibitor or ARB at this time as the patient has had allergic reaction. 3. Volume overload. Etiology may be secondary to medications, calcium channel effect, questionable heart failure. The patient is clinically improved with diuretic therapy. We will hold Lasix at this time in the setting of worsening renal function. Monitor closely. 3. Hyperkalemia, resolved. 4. Anemia with iron deficiency. Start iv iron. Give one dose of epogen. Continue to monitor hemoglobin and hematocrit levels. 5. Mineral bone disorder, monitor calcium and phosphorus levels. 6. Constipation, resolved. 7. Diabetes. Continue current insulin regimen. 8. Hypertension. Continue current blood pressure regimen. Dictated By: MILLY GARZA DO NR/NTS Conf#: [id number] DID#: [id number] CC: CARLOS MALCOLM MD;*EndCC* MTDD
--- NOTE | 2018-07-13 10:37 | PN ---
Date/Time of Note Date/Time of Note DATE: 07/13/18 TIME: 10:33 Assessment/Plan VTE Prophylaxis Risk score (from Ns)>0 risk: 3 SCD applied (from [facility]): No SCD contraindicated: other Pharmacological prophylaxis: NA/contraindicated Pharm contraindication: renal impairment Lines/Catheters IV [facility]ter Type (from [facility]): [place] Urinary Cath still in place: No Assessment/Plan Hospital Course SUBJECTIVE: Denies any abdominal distention. Continues to complain of dyspnea. OBJECTIVE: Physical Exam General: Adequately build 68 year-old female lying in bed in no apparent distress. HEENT: Normocephalic, atraumatic. Eyes: Anicteric sclerae, conjunctivae clear. ENT: Nasal septum midline, oral mucosa moist. Neck: Obese with increased neck circumference.. Respiratory: Bilaterally diminished breath sounds. No use of accessory muscles of respiration. Bibasilar rales. Cardiovascular: S1, S2 heard. Regular rate and rhythm. Abdomen: Nontender. Distended. Bowel sounds positive in all 4 quadrants. Genitourinary: Deferred. Extremities: No cyanosis, no clubbing. Peripheral pulses palpable. B/L lower extremity 1+ pitting edema Neurologic: Cranial nerves II through XII grossly intact. The patient is awake, alert, and oriented. Skin: Normal skin turgor. No skin rashes. Labs & Vitals per chart ASSESSMENT & PLAN This is a 68-year-old female with comorbidities including diabetes mellitus, chronic kidney disease, and hypertension who came to the emergency room with chief complaint of constipation. The patient was noticed to have underlying hyperkalemia (potassium was 6.6) in the emergency room. The patient underwent a KUB that was showing fecal filled colon. The patient was admitted to inpatient setting for further treatment and evaluation. 1. Hyperkalemia. -Resolved. -Etiology probably secondary to worsening renal function. -Status post potassium exchange resin and insulin IV. -Low potassium diet. -Being followed by nephrology. 2. Acute on chronic kidney disease. -Being followed by nephrology. -Avoid nephrotoxic medications. 3. Constipation. -KUB showed fecal filled colon. -Continue bowel regimen. -Largely resolved. 4. Diabetes mellitus. -Hemoglobin A1c 8.3. -Continue sliding scale insulin. -Add basal insulin. 5. Hypertension. -Continue antihypertensives. 6. Diabetic neuropathy. -Continue gabapentin. 7. Normocytic anemia. -Most probably anemia of chronic kidney disease. -Monitor H&H closely. -Start iron supplements. -Epogen as per nephrology. -Obtain stool for OB. 8. Anasarca. -Etiology unclear. -Recently was taken off GELY inhibitors for ?angioedema. -Management (diuresis) as per nephrology. 9. Fluids, electrolytes, and nutrition. -Carbohydrate controlled diet. 10. DVT prophylaxis. -Bilateral SCDs. 11. Plan. -Continue to monitor renal function closely. -Start iron supplements. -Transfer to Med/Surg. The patient was seen in collaboration with Dr. Finney. Result Diagram: 07/13/18 0652 07/13/18 0652 Results 24hrs Laboratory Tests Test 07/12/18 11:37 07/12/18 16:26 07/12/18 20:12 07/13/18 02:00 Bedside Glucose 178 247 H 243 H 189 Test 07/13/18 06:52 07/13/18 07:53 White Blood Count 9.9 Red Blood Count 2.54 L Hemoglobin 7.2 L Hematocrit 22.1 L Mean Corpuscular Volume 87.0 Mean Corpuscular 28.3 L Hemoglobin Mean Corpuscular 32.6 Hemoglobin Concent Red Cell Distribution 13.4 Width Platelet Count 263 Mean Platelet Volume 11.3 H Immature Granulocytes % 0.300 Neutrophils % 68.8 Lymphocytes % 19.4 Monocytes % 10.1 Eosinophils % 1.0 Basophils % 0.4 Nucleated Red Blood 0.0 Cells % Immature Granulocytes # 0.030 Neutrophils # 6.8 Lymphocytes # 1.9 Monocytes # 1.0 H Eosinophils # 0.1 Basophils # 0.0 Nucleated Red Blood 0.0 Cells # Sodium Level 133 L Potassium Level 4.9 Chloride Level 97 Carbon Dioxide Level 27 Anion Gap 9 Blood Urea Nitrogen 61 H Creatinine 2.10 H Est Glomerular Filtrat 24 L Rate mL/min Glucose Level 144 Calcium Level 8.1 L Phosphorus Level 4.8 Magnesium Level 3.1 H Bedside Glucose 163 Exam/Review of Systems Exam Vitals Vital Signs Date Temp Pulse Resp B/P (MAP) Pulse Ox O2 O2 Flow FiO2 Time Delivery Rate 07/13/18 Nasal 1.0 09:00 Cannula 07/13/18 66 08:07 07/13/18 97.1 16 145/65 98 07:32 (91) 07/11/18 21 04:38 Intake and Output 07/12/18 07/12/18 07/13/18 1515:00 23:00 07:00 IntakeIntake Total 900 ml 400 ml BalanceBalance 900 ml 400 ml Results Results 24hrs Laboratory Tests Test 07/12/18 11:37 07/12/18 16:26 07/12/18 20:12 07/13/18 02:00 Bedside Glucose 178 247 H 243 H 189 Test 07/13/18 06:52 07/13/18 07:53 White Blood Count 9.9 Red Blood Count 2.54 L Hemoglobin 7.2 L Hematocrit 22.1 L Mean Corpuscular Volume 87.0 Mean Corpuscular 28.3 L Hemoglobin Mean Corpuscular 32.6 Hemoglobin Concent Red Cell Distribution 13.4 Width Platelet Count 263 Mean Platelet Volume 11.3 H Immature Granulocytes % 0.300 Neutrophils % 68.8 Lymphocytes % 19.4 Monocytes % 10.1 Eosinophils % 1.0 Basophils % 0.4 Nucleated Red Blood 0.0 Cells % Immature Granulocytes # 0.030 Neutrophils # 6.8 Lymphocytes # 1.9 Monocytes # 1.0 H Eosinophils # 0.1 Basophils # 0.0 Nucleated Red Blood 0.0 Cells # Sodium Level 133 L Potassium Level 4.9 Chloride Level 97 Carbon Dioxide Level 27 Anion Gap 9 Blood Urea Nitrogen 61 H Creatinine 2.10 H Est Glomerular Filtrat 24 L Rate mL/min Glucose Level 144 Calcium Level 8.1 L Phosphorus Level 4.8 Magnesium Level 3.1 H Bedside Glucose 163 Medications Medication Current Medications Dextrose (D50w Syringe) ONCE PRN IV DECREASED GLUCOSE; Start 07/10/18 at 19:30 Amlodipine Besylate (Norvasc) 10 mg DAILY PO Last administered on 07/13/18at 08:43; Admin Dose 10 MG; Start 07/11/18 at 09:00 Carvedilol (Coreg) 12.5 mg BID PO Last administered on 07/13/18at 08:43; Admin Dose 12.5 MG; Start 07/10/18 at 21:30 Gabapentin (Neurontin) 300 mg TID PO Last administered on 07/13/18at 08:43; Admin Dose 300 MG; Start 07/11/18 at 09:00 IV Flush (NS 3 ml) 3 ml PER PROTOCOL IV ; Start 07/10/18 at 21:30 Ondansetron HCl (Zofran Tab) 4 mg Q6H PRN PO NAUSEA/VOMITING; Start 07/10/18 at 21:30 Acetaminophen (Tylenol Tab) 650 mg Q6H PRN PO .PAIN 1-3 OR TEMP; Start 07/10/18 at 21:30 Docusate Sodium (Colace) 100 mg Q12H PRN PO .CONSTIPATION; Start 07/10/18 at 21:30 Bisacodyl (Dulcolax) 5 mg DAILY PRN PO .CONSTIPATION; Start 07/10/18 at 21:30 Diagnostic Test (Pha) (Accu-Chek) 1 ea 02 XX Last administered on 07/13/18at 02:14; Admin Dose 1 EA; Start 07/11/18 at 02:00 Miscellaneous Information 1 ea NOTE XX ; Start 07/10/18 at 22:30 Glucose (Glutose) 15 gm Q15M PRN PO DECREASED GLUCOSE; Start 07/10/18 at 22:30 Glucose (Glutose) 22.5 gm Q15M PRN PO DECREASED GLUCOSE; Start 07/10/18 at 22:30 Dextrose (D50w Syringe) 25 ml Q15M PRN IV DECREASED GLUCOSE; Start 07/10/18 at 22:30 Dextrose (D50w Syringe) 50 ml Q15M PRN IV DECREASED GLUCOSE; Start 07/10/18 at 22:30 Glucagon (Glucagen) 1 mg Q15M PRN IM DECREASED GLUCOSE; Start 07/10/18 at 22:30 Glucose (Glutose) 15 gm Q15M PRN BUCCAL DECREASED GLUCOSE; Start 07/10/18 at 22:30 Docusate Sodium (Colace) 200 mg BID PO Last administered on 07/13/18at 08:44; Admin Dose 200 MG; Start 07/11/18 at 09:00 Polyethylene Glycol (Miralax) 17 gm BID PO Last administered on 07/13/18 08:44; Admin Dose 17 GM; Start 07/11/18 at 09:00 Insulin Aspart (Novolog Insulin Pen) NOVOLOG *MILD* ALGORITHM WITH MEALS BEDTIME SC Last administered on 07/13/18at 07:57; Admin Dose 1 UNIT; Start 07/11/18 at 11:50 Hydralazine HCl (Apresoline) 10 mg Q6H PRN IV SBP>160 Last administered on 07/13at 02:32; Admin Dose 10 MG; Start 07/11/18 at 16:30 Insulin Glargine (Lantus) 10 units DAILY@2000 SC Last administered on 07/12/18at 20:42; Admin Dose 10 UNITS; Start 07/12/18 at 20:00 MINA VASQUEZ NP July 13, 2018 10:37
[2018-07-13] MEDS ORDERED: EPOETIN ALFA-EPBX (NON-ESRD 10,000 UNIT/ML VIAL SC ONE (11:00)
[2018-07-13] MEDS ORDERED: SOD FERRIC GLUC COMPLX 125 MG in SOD CHLORIDE 0.9% 100 ML IVPB SCH (13:00)
[2018-07-13] MEDS: INSULIN GLARGINE [LANTus] (100 UNITS/ML) SYG SC SCH (21:49)
[2018-07-14] MEDS: ACCU-CHEK XX SCH (01:25)
[2018-07-14 02:00] VITALS: BP 126/60; PULSE 60; RESP 18
[2018-07-14 08:00] VITALS: BP 144/76; PULSE 84; RESP 18
[2018-07-14] MEDS: INSULIN ASPART [NOVOLOG] 3 ML PEN SC SCH ×4 (08:00→21:57)
[2018-07-14] MEDS: DOCUSATE SODIUM 100 MG CAP PO SCH ×2 (08:11→20:39)
[2018-07-14] MEDS: AMLODIPINE 10 MG TAB PO SCH (08:12)
[2018-07-14] MEDS: GABAPENTIN 300 MG CAP PO SCH ×3 (08:12→20:39)
[2018-07-14] MEDS ORDERED: SOD CHLORIDE 0.9% 250 ML IV* ONE (08:52)
[2018-07-14] MEDS: POLYETHYLENE GLYCOL 17 GM PACKET PO SCH ×2 (08:57→20:40)
[2018-07-14] MEDS ORDERED: CEPASTAT LOZENGE MT PRN (09:00)
--- NOTE | 2018-07-14 10:59 | PN ---
Date/Time of Note Date/Time of Note DATE: 07/14/18 TIME: 10:59 Objective Vitals Vital Signs Date Temp Pulse Resp B/P (MAP) Pulse Ox O2 O2 Flow FiO2 Time Delivery Rate 07/14/18 Nasal 1.0 09:33 Cannula 07/14/18 98.4 84 18 144/76 96 08:00 (98) 07/11/18 21 04:38 Intake and Output 07/13/18 07/13/18 07/14/18 1515:00 23:00 07:00 IntakeIntake Total 1140 ml BalanceBalance 1140 ml Results Result Diagram: 07/14/18 0437 07/14/18 0437 Medications Medications Current Medications Dextrose (D50w Syringe) ONCE PRN IV DECREASED GLUCOSE; Start 07/10/18 at 19:30 Amlodipine Besylate (Norvasc) 10 mg DAILY PO Last administered on 07/14/18 08:12; Admin Dose 10 MG; Start 07/11/18 at 09:00 Carvedilol (Coreg) 12.5 mg BID PO Last administered on 07/14/18at 08:12; Admin Dose 12.5 MG; Start 07/10/18 at 21:30 Gabapentin (Neurontin) 300 mg TID PO Last administered on 07/14/18 08:12; Admin Dose 300 MG; Start 07/11/18 at 09:00 IV Flush (NS 3 ml) 3 ml PER PROTOCOL IV ; Start 07/10/18 at 21:30 Ondansetron HCl (Zofran Tab) 4 mg Q6H PRN PO NAUSEA/VOMITING; Start 07/10/18 at 21:30 Acetaminophen (Tylenol Tab) 650 mg Q6H PRN PO .PAIN 1-3 OR TEMP; Start 07/10/18 at 21:30 Docusate Sodium (Colace) 100 mg Q12H PRN PO .CONSTIPATION; Start 07/10/18 at 21:30 Bisacodyl (Dulcolax) 5 mg DAILY PRN PO .CONSTIPATION Last administered on 07/13/18at 17:40; Admin Dose 5 MG; Start 07/10/18 at 21:30 Diagnostic Test (Pha) (Accu-Chek) 1 ea 02 XX Last administered on 07/13/18at 02:14; Admin Dose 1 EA; Start 07/11/18 at 02:00 Miscellaneous Information 1 ea NOTE XX ; Start 07/10/18 at 22:30 Glucose (Glutose) 15 gm Q15M PRN PO DECREASED GLUCOSE; Start 07/10/18 at 22:30 Glucose (Glutose) 22.5 gm Q15M PRN PO DECREASED GLUCOSE; Start 07/10/18 at 22:30 Dextrose (D50w Syringe) 25 ml Q15M PRN IV DECREASED GLUCOSE; Start 07/10/18 at 22:30 Dextrose (D50w Syringe) 50 ml Q15M PRN IV DECREASED GLUCOSE; Start 07/10/18 at 22:30 Glucagon (Glucagen) 1 mg Q15M PRN IM DECREASED GLUCOSE; Start 07/10/18 at 22:30 Glucose (Glutose) 15 gm Q15M PRN BUCCAL DECREASED GLUCOSE; Start 07/10/18 at 22:30 Docusate Sodium (Colace) 200 mg BID PO Last administered on 07/14/18at 08:11; Admin Dose 200 MG; Start 07/11/18 at 09:00 Polyethylene Glycol (Miralax) 17 gm BID PO Last administered on 07/14/18at 08:57; Admin Dose 17 GM; Start 07/11/18 at 09:00 Insulin Aspart (Novolog Insulin Pen) NOVOLOG *MILD* ALGORITHM WITH MEALS BEDTIME SC Last administered on 07/13/18at 21:49; Admin Dose 1 UNIT; Start 07/11/18 at 11:50 Hydralazine HCl (Apresoline) 10 mg Q6H PRN IV SBP>160 Last administered on 07/13/18 02:32; Admin Dose 10 MG; Start 07/11/18 at 16:30 Insulin Glargine (Lantus) 10 units DAILY@2000 SC Last administered on 07/13/18 21:49; Admin Dose 10 UNITS; Start 07/12/18 at 20:00 Ferric Sodium Gluconate Complex 125 mg/Sodium Chloride 100 ml @ 100 mls/hr DAILY@1300 IVPB Last administered on 07/13/18at 13:26; Admin Dose 100 MLS/HR; Start 07/13/18 at 13:00; Status Hold Phenol (Cepastat Lozenge) 1 lozenge Q2H PRN MT SORE THROAT; Start 07/14/18 at 09 :00 VTE Prophylaxis Risk score (from Nsg)>0 risk: 4 SCD applied (from Nsg): Yes Lines/Catheters IV Catheter Type: Taylor in Place: No Assessment/Plan Hospital Course Subjective Patient still has not had a good bowel movement, still complaining of some throat irritation Objective Physical exam General: Patient is laying in bed and answers questions appropriately Mentation: Patient is alert and oriented 4, Head: Normocephalic atraumatic Eyes: EOMI, pupils reactive to light Neck: Supple, nontender, midline Respiratory: Clear to auscultation bilaterally Cardiovascular: regular rate, no obvious murmurs Gastrointestinal: non-tender to palpation, bowel sounds heard.mildly distended, nontender Neurological: Moves all extremities spontaneously Skin: No new skin lesions ASSESSMENT & PLAN This is a 68-year-old female with comorbidities including diabetes mellitus, chr onic kidney disease, and hypertension who came to the emergency room with chief complaint of constipation. The patient was noticed to have underlying hyperkalemia (potassium was 6.6) in the emergency room. The patient underwent a KUB that was showing fecal filled colon. The patient was admitted to inpatient setting for further treatment and evaluation. 1. Hyperkalemia. -Resolved. -Etiology probably secondary to worsening renal function. -Status post potassium exchange resin and insulin IV. -Low potassium diet. -Being followed by nephrology. 2. Acute on chronic kidney disease., Mild worsening today -Being followed by nephrology. -Avoid nephrotoxic medications. 3. Constipation. -KUB showed fecal filled colon. -Continue bowel regimen. -Largely resolved. Continue bowel regimen 4. Diabetes mellitus. -Hemoglobin A1c 8.3. -Continue sliding scale insulin. -Add basal insulin. 5. Hypertension. -Continue antihypertensives. 6. Diabetic neuropathy. -Continue gabapentin. 7. Normocytic anemia. -Most probably anemia of chronic kidney disease. -Monitor H&H closely. -Start iron supplements. -Epogen as per nephrology. -Obtain stool for OB. -Transfuse as needed, 1 unit transfused so far 8. Anasarca. -Etiology unclear. -Recently was taken off GELY inhibitors for ?angioedema. -Management (diuresis) as per nephrology. 9. Fluids, electrolytes, and nutrition. -Carbohydrate controlled diet. 10. DVT prophylaxis. -Bilateral SCDs. 11. Plan. -Monitor for improvement in renal function, watch hemoglobin AYAKA COBOS July 14, 2018 10:59
--- NOTE | 2018-07-14 12:19 | CONS ---
Assessment/Plan Assessment/Plan Hospital Course (Demo Recall) 1. Nonoliguric acute kidney injury on top of chronic kidney disease stage III with previous baseline creatinine of 1.5 to 1.7 mg/dL. Etiology of acute kidney injury is secondary to hemodynamics, diuretics. last lasix was 07/13. hold further lasix at this time. check urine studies. We will continue to monitor renal function closely. Continue supportive care, renally dose all medications. 2. Chronic kidney disease stage III secondary to diabetic nephropathy. The patient has noted nephrotic range proteinuria. The patient is currently in acute kidney injury as stated above. We will continue current medical management. Continue disease factor modification. We would not give any GELY inhibitor or ARB at this time as the patient has had allergic reaction. 3. Volume overload. Etiology may be secondary to medications, calcium channel effect, questionable heart failure. The patient is clinically improved with diuretic therapy. We will hold Lasix at this time in the setting of worsening renal function. Monitor closely. 3. Hyperkalemia, resolved. 4. Anemia with iron deficiency. IV iron. s/p epogen. ontinue to monitor hemoglobin and hematocrit levels. 5. Mineral bone disorder, monitor calcium and phosphorus levels. 6. Constipation, resolved. 7. Diabetes. Continue current insulin regimen. 8. Hypertension. Continue current blood pressure regimen. Consultation Date/Type/Reason Admit Date/Time Jul 10, 2018 at 19:45 Initial Consult Date Date/Time of Note DATE: 07/14/18 TIME: 12:17 24 HR Interval Summary Free Text/Dictation denies shortness of breath, n/v or urinary issues d/w rn gen nad cv rrr pulm ctab abd soft, nd, nt +bs ext: no edema Exam/Review of Systems Exam Vitals Vital Signs Date Temp Pulse Resp B/P (MAP) Pulse Ox O2 O2 Flow FiO2 Time Delivery Rate 07/14/18 Nasal 1.0 09:33 Cannula 07/14/18 98.4 84 18 144/76 96 08:00 (98) 07/11/18 21 04:38 Intake and Output 07/13/18 07/13/18 07/14/18 1515:00 23:00 07:00 IntakeIntake Total 1140 ml BalanceBalance 1140 ml Results Result Diagram: 07/14/18 0437 07/14/18 0437 Results 24hrs Laboratory Tests Test 07/13/18 17:35 07/13/18 21:43 07/14/18 01:24 07/14/18 04:37 Bedside Glucose 170 201 153 White Blood Count 8.9 Red Blood Count 2.42 L Hemoglobin 6.8 *L Hematocrit 20.8 L Mean Corpuscular Volume 86.0 Mean Corpuscular 28.1 L Hemoglobin Mean Corpuscular 32.7 Hemoglobin Concent Red Cell Distribution 13.1 Width Platelet Count 269 Mean Platelet Volume 11.4 H Immature Granulocytes % 0.300 Neutrophils % 69.8 Lymphocytes % 17.5 Monocytes % 10.9 Eosinophils % 1.2 Basophils % 0.3 Nucleated Red Blood 0.0 Cells % Immature Granulocytes # 0.030 Neutrophils # 6.2 Lymphocytes # 1.6 Monocytes # 1.0 H Eosinophils # 0.1 Basophils # 0.0 Nucleated Red Blood 0.0 Cells # Sodium Level 130 L Potassium Level 4.6 Chloride Level 95 L Carbon Dioxide Level 26 Anion Gap 9 Blood Urea Nitrogen 69 H Creatinine 2.26 H Est Glomerular Filtrat 22 L Rate mL/min Glucose Level 100 # Calcium Level 8.3 L Phosphorus Level 5.7 H Magnesium Level 3.2 H Test 07/14/18 08:09 07/14/18 12:04 Bedside Glucose 108 187 Medications Medication Current Medications Dextrose (D50w Syringe) ONCE PRN IV DECREASED GLUCOSE; Start 07/10/18 at 19:30 Amlodipine Besylate (Norvasc) 10 mg DAILY PO Last administered on 07/14/18at 08:12; Admin Dose 10 MG; Start 07/11/18 at 09:00 Carvedilol (Coreg) 12.5 mg BID PO Last administered on 07/14/18at 08:12; Admin Dose 12.5 MG; Start 07/10/18 at 21:30 Gabapentin (Neurontin) 300 mg TID PO Last administered on 07/14/18at 12:05; Admin Dose 300 MG; Start 07/11/18 at 09:00 IV Flush (NS 3 ml) 3 ml PER PROTOCOL IV ; Start 07/10/18 at 21:30 Ondansetron HCl (Zofran Tab) 4 mg Q6H PRN PO NAUSEA/VOMITING; Start 07/10/18 at 21:30 Acetaminophen (Tylenol Tab) 650 mg Q6H PRN PO .PAIN 1-3 OR TEMP; Start 07/10/18 at 21:30 Docusate Sodium (Colace) 100 mg Q12H PRN PO .CONSTIPATION; Start 07/10/18 at 21:30 Bisacodyl (Dulcolax) 5 mg DAILY PRN PO .CONSTIPATION Last administered on 07/13/18at 17:40; Admin Dose 5 MG; Start 07/10/18 at 21:30 Diagnostic Test (Pha) (Accu-Chek) 1 ea 02 XX Last administered on 07/13/18at 02:14; Admin Dose 1 EA; Start 07/11/18 at 02:00 Miscellaneous Information 1 ea NOTE XX ; Start 07/10/18 at 22:30 Glucose (Glutose) 15 gm Q15M PRN PO DECREASED GLUCOSE; Start 07/10/18 at 22:30 Glucose (Glutose) 22.5 gm Q15M PRN PO DECREASED GLUCOSE; Start 07/10/18 at 22:30 Dextrose (D50w Syringe) 25 ml Q15M PRN IV DECREASED GLUCOSE; Start 07/10/18 at 22:30 Dextrose (D50w Syringe) 50 ml Q15M PRN IV DECREASED GLUCOSE; Start 07/10/18 at 22:30 Glucagon (Glucagen) 1 mg Q15M PRN IM DECREASED GLUCOSE; Start 07/10/18 at 22:30 Glucose (Glutose) 15 gm Q15M PRN BUCCAL DECREASED GLUCOSE; Start 07/10/18 at 22:30 Docusate Sodium (Colace) 200 mg BID PO Last administered on 07/14/18 08:11; Admin Dose 200 MG; Start 07/11/18 at 09:00 Polyethylene Glycol (Miralax) 17 gm BID PO Last administered on 07/14/18at 08:57; Admin Dose 17 GM; Start 07/11/18 at 09:00 Insulin Aspart (Novolog Insulin Pen) NOVOLOG *MILD* ALGORITHM WITH MEALS BEDTIME SC Last administered on 07/14/18 12:06; Admin Dose 2 UNIT; Start 07/11/18 at 11:50 Hydralazine HCl (Apresoline) 10 mg Q6H PRN IV SBP>160 Last administered on 07/13/18at 02:32; Admin Dose 10 MG; Start 07/11/18 at 16:30 Insulin Glargine (Lantus) 10 units DAILY@2000 SC Last administered on 07/13/18at 21:49; Admin Dose 10 UNITS; Start 07/12/18 at 20:00 Ferric Sodium Gluconate Complex 125 mg/Sodium Chloride 100 ml @ 100 mls/hr DAILY@1300 IVPB Last administered on 07/13/18at 13:26; Admin Dose 100 MLS/HR; Start 07/13/18 at 13:00; Status Hold Phenol (Cepastat Lozenge) 1 lozenge Q2H PRN MT SORE THROAT; Start 07/14/18 at 09:00 JUANITA COBOS MD July 14, 2018 12:18
[2018-07-14 14:00] VITALS: BP 136/72; PULSE 72; RESP 18
[2018-07-14 20:00] VITALS: BP 154/64; PULSE 62; RESP 18
[2018-07-14] MEDS: INSULIN GLARGINE [LANTus] (100 UNITS/ML) SYG SC SCH (20:49)
[2018-07-15 02:00] VITALS: BP 154/68; PULSE 66; RESP 18
[2018-07-15] MEDS: ACCU-CHEK XX SCH (02:25)
[2018-07-15] MEDS: INSULIN ASPART [NOVOLOG] 3 ML PEN SC SCH ×4 (08:00→21:11)
[2018-07-15 08:32] VITALS: BP 161/72; PULSE 61; RESP 19
[2018-07-15] MEDS: DOCUSATE SODIUM 100 MG CAP PO SCH ×2 (09:07→20:57)
[2018-07-15] MEDS: POLYETHYLENE GLYCOL 17 GM PACKET PO SCH ×2 (09:08→20:58)
[2018-07-15] MEDS: GABAPENTIN 300 MG CAP PO SCH ×3 (09:08→20:57)
[2018-07-15] MEDS: AMLODIPINE 10 MG TAB PO SCH (09:09)
[2018-07-15] MEDS ORDERED: LACTULOSE 30ML CUP PO PRN (09:30)
--- NOTE | 2018-07-15 09:38 | PN ---
Date/Time of Note Date/Time of Note DATE: 07/15/18 TIME: 09:35 Objective Vitals Vital Signs Date Temp Pulse Resp B/P (MAP) Pulse Ox O2 O2 Flow FiO2 Time Delivery Rate 07/15/18 97.3 61 19 161/72 94 08:32 (101) 07/14/18 Nasal 1.0 20:00 Cannula Intake and Output 07/14/18 07/14/18 07/15/18 1515:00 23:00 07:00 IntakeIntake Total 470 ml 800 ml 350 ml BalanceBalance 470 ml 800 ml 350 ml Results Result Diagram: 07/15/18 0602 07/15/18 0602 Medications Medications Current Medications Dextrose (D50w Syringe) ONCE PRN IV DECREASED GLUCOSE; Start 07/10/18 at 19:30 Amlodipine Besylate (Norvasc) 10 mg DAILY PO Last administered on 07/15/18at 09:09; Admin Dose 10 MG; Start 07/11/18 at 09:00 Carvedilol (Coreg) 12.5 mg BID PO Last administered on 07/15/18at 09:08; Admin Dose 12.5 MG; Start 07/10/18 at 21:30 Gabapentin (Neurontin) 300 mg TID PO Last administered on 07/15/18 09:08; Admin Dose 300 MG; Start 07/11/18 at 09:00 IV Flush (NS 3 ml) 3 ml PER PROTOCOL IV ; Start 07/10/18 at 21:30 Ondansetron HCl (Zofran Tab) 4 mg Q6H PRN PO NAUSEA/VOMITING; Start 07/10/18 at 21:30 Acetaminophen (Tylenol Tab) 650 mg Q6H PRN PO .PAIN 1-3 OR TEMP; Start 07/10/18 at 21:30 Docusate Sodium (Colace) 100 mg Q12H PRN PO .CONSTIPATION; Start 07/10/18 at 21:30 Bisacodyl (Dulcolax) 5 mg DAILY PRN PO .CONSTIPATION Last administered on 07/13/18at 17:40; Admin Dose 5 MG; Start 07/10/18 at 21:30 Diagnostic Test (Pha) (Accu-Chek) 1 ea 02 XX Last administered on 07/15/18at 02:25; Admin Dose 1 EA; Start 07/11/18 at 02:00 Miscellaneous Information 1 ea NOTE XX ; Start 07/10/18 at 22:30 Glucose (Glutose) 15 gm Q15M PRN PO DECREASED GLUCOSE; Start 07/10/18 at 22:30 Glucose (Glutose) 22.5 gm Q15M PRN PO DECREASED GLUCOSE; Start 07/10/18 at 22:30 Dextrose (D50w Syringe) 25 ml Q15M PRN IV DECREASED GLUCOSE; Start 07/10/18 at 22:30 Dextrose (D50w Syringe) 50 ml Q15M PRN IV DECREASED GLUCOSE; Start 07/10/18 at 22:30 Glucagon (Glucagen) 1 mg Q15M PRN IM DECREASED GLUCOSE; Start 07/10/18 at 22:30 Glucose (Glutose) 15 gm Q15M PRN BUCCAL DECREASED GLUCOSE; Start 07/10/18 at 22:30 Docusate Sodium (Colace) 200 mg BID PO Last administered on 07/15/18at 09:07; Admin Dose 200 MG; Start 07/11/18 at 09:00 Polyethylene Glycol (Miralax) 17 gm BID PO Last administered on 07/15/18at 09:08; Admin Dose 17 GM; Start 07/11/18 at 09:00 Insulin Aspart (Novolog Insulin Pen) NOVOLOG *MILD* ALGORITHM WITH MEALS BEDTIME SC Last administered on 07/14/18at 21:57; Admin Dose 1 UNIT; Start 07/11/18 at 11:50 Hydralazine HCl (Apresoline) 10 mg Q6H PRN IV SBP>160 Last administered on 07/13/18 02:32; Admin Dose 10 MG; Start 07/11/18 at 16:30 Insulin Glargine (Lantus) 10 units DAILY@2000 SC Last administered on 07/14/18at 20:49; Admin Dose 10 UNITS; Start 07/12/18 at 20:00 Ferric Sodium Gluconate Complex 125 mg/Sodium Chloride 100 ml @ 100 mls/hr DAILY@1300 IVPB Last administered on 07/13/18at 13:26; Admin Dose 100 MLS/HR; Start 07/13/18 at 13:00; Status Hold Phenol (Cepastat Lozenge) 1 lozenge Q2H PRN MT SORE THROAT; Start 07/14/18 at 09:00 Lactulose (Enulose) 20 gm DAILY PRN PO CONSTIPATION; Start 07/15/18 at 09:30 VTE Prophylaxis Risk score (from [facility])>0 risk: 4 SCD applied (from [facility]): Yes Lines/Catheters IV Catheter Type: Taylor in Place: No Assessment/Plan Hospital Course Subjective Patient still has not had a good bowel movement, facial swelling is still present, patient does complain of some irritation in her throat however no respiratory problems. Objective Physical exam General: Patient is laying in bed and answers questions appropriately Mentation: Patient is alert and oriented 4, Head: Normocephalic atraumatic Eyes: EOMI, pupils reactive to light, mild swelling to the eyelids Face: Mild swelling Neck: Supple, nontender, midline Respiratory: Clear to auscultation bilaterally Cardiovascular: regular rate, no obvious murmurs Gastrointestinal: non-tender to palpation, bowel sounds heard.mildly distended, nontender Neurological: Moves all extremities spontaneously Skin: No new skin lesions ASSESSMENT & PLAN This is a 68-year-old female with comorbidities including diabetes mellitus, chronic kidney disease, and hypertension who came to the emergency room with chief complaint of constipation. The patient was noticed to have underlying hyperkalemia (potassium was 6.6) in the emergency room. The patient underwent a KUB that was showing fecal filled colon. The patient was admitted to inpatient setting for further treatment and evaluation. Facial and neck swelling -No respiratory compromise, monitor closely -We will order CT of the head, face, neck -Also will order carotid ultrasound -We will need to touch base with nephrology as they have been following patient longer, patient has no swelling in the lower extremity and abdomen is likely mildly swollen secondary to fecal filled colon, will give laxatives, unknown etiology is why the face is been swollen at this time. 1. Hyperkalemia. -Resolved. -Etiology probably secondary to worsening renal function. -Status post potassium exchange resin and insulin IV. -Low potassium diet. -Being followed by nephrology. 2. Acute on chronic kidney disease., Mild worsening today -Being followed by nephrology. -Avoid nephrotoxic medications. 3. Constipation. -KUB showed fecal filled colon. -Continue bowel regimen. -Largely resolved. Continue bowel regimen 4. Diabetes mellitus. -Hemoglobin A1c 8.3. -Continue sliding scale insulin. -Add basal insulin. 5. Hypertension. -Continue antihypertensives. 6. Diabetic neuropathy. -Continue gabapentin. 7. Normocytic anemia. -Most probably anemia of chronic kidney disease. -Monitor H&H closely. -Start iron supplements. -Epogen as per nephrology. -Obtain stool for OB. -Transfuse as needed, 1 unit transfused so far 8. Anasarca. -Etiology unclear. -Recently was taken off GELY inhibitors for ?angioedema. -Management (diuresis) as per nephrology. 9. Fluids, electrolytes, and nutrition. -Carbohydrate controlled diet. 10. DVT prophylaxis. -Bilateral SCDs. 11. Plan. -Monitor for improvement in renal function, watch hemoglobin -Follow-up with CT scans. AYAKA COBOS July 15, 2018 09:38
--- NOTE | 2018-07-15 12:16 | CONS ---
Assessment/Plan Assessment/Plan Hospital Course (Demo Recall) 1. Nonoliguric acute kidney injury on top of chronic kidney disease stage III with previous baseline creatinine of 1.5 to 1.7 mg/dL. Etiology of acute kidney injury is secondary to hemodynamics, diuretics. last lasix was 07/13. hold further lasix at this time. renal function improving. We will continue to monitor renal function closely. Continue supportive care, renally dose all medications. 2. Chronic kidney disease stage III secondary to diabetic nephropathy. The patient has noted nephrotic range proteinuria. The patient is currently in acute kidney injury as stated above. We will continue current medical management. Continue disease factor modification. We would not give any GELY inhibitor or ARB at this time as the patient has had allergic reaction. 3. hyponatremia: hold diuretics. will check urine sodium and osmolality 3. Hyperkalemia, resolved. 4. Anemia with iron deficiency. IV iron. s/p epogen. ontinue to monitor hemoglobin and hematocrit levels. 5. Mineral bone disorder, monitor calcium and phosphorus levels. 6. Constipation, resolved. 7. Diabetes. Continue current insulin regimen. 8. Hypertension. Continue current blood pressure regimen. Consultation Date/Type/Reason Admit Date/Time Jul 10, 2018 at 19:45 Initial Consult Date Date/Time of Note DATE: 07/15/18 TIME: 12:15 24 HR Interval Summary Free Text/Dictation still feels swelling in face/neck denies shortness of breath, n/v urinating well without problems gen nad cv rrr pulm ctab abd soft, nd, nt +bs ext: no edema Exam/Review of Systems Exam Vitals Vital Signs Date Temp Pulse Resp B/P (MAP) Pulse Ox O2 O2 Flow FiO2 Time Delivery Rate 07/15/18 97.3 61 19 161/72 94 08:32 (101) 07/15/18 Nasal 1.0 08:00 Cannula Intake and Output 07/14/18 07/14/18 07/15/18 1515:00 23:00 07:00 IntakeIntake Total 470 ml 800 ml 350 ml BalanceBalance 470 ml 800 ml 350 ml Results Result Diagram: 07/15/18 0602 07/15/18 0602 Results 24hrs Laboratory Tests Test 07/14/18 13:29 07/14/18 17:25 07/14/18 20:37 07/15/18 02:03 Urine Random 130.50 Creatinine Urine Random Sodium < 13 L Bedside Glucose 170 215 130 Test 07/15/18 06:02 07/15/18 06:29 07/15/18 08:24 White Blood Count 9.4 Red Blood Count 2.97 #L Hemoglobin 8.6 #L Hematocrit 25.5 #L Mean Corpuscular 85.9 Volume Mean Corpuscular 29.0 Hemoglobin Mean Corpuscular 33.7 Hemoglobin Concent Red Cell 13.4 Distribution Width Platelet Count 293 Mean Platelet 11.5 H Volume Immature 0.400 Granulocytes % Neutrophils % 76.0 Lymphocytes % 13.0 L Monocytes % 9.6 Eosinophils % 0.7 Basophils % 0.3 Nucleated Red Blood 0.0 Cells % Immature 0.040 H Granulocytes # Neutrophils # 7.1 Lymphocytes # 1.2 Monocytes # 0.9 Eosinophils # 0.1 Basophils # 0.0 Nucleated Red Blood 0.0 Cells # Sodium Level 130 L Potassium Level 4.9 Chloride Level 95 L Carbon Dioxide 25 Level Anion Gap 10 Blood Urea Nitrogen 72 H Creatinine 2.02 H Est Glomerular 25 L Filtrat Rate mL/min Glucose Level 103 Calcium Level 8.5 Phosphorus Level 5.8 H Magnesium Level 3.4 H Lab Scanned Report BLOOD TRANSFUSION Bedside Glucose 121 Medications Medication Current Medications Dextrose (D50w Syringe) ONCE PRN IV DECREASED GLUCOSE; Start 07/10/18 at 19:30 Amlodipine Besylate (Norvasc) 10 mg DAILY PO Last administered on 07/15/18at 09:09; Admin Dose 10 MG; Start 07/11/18 at 09:00 Carvedilol (Coreg) 12.5 mg BID PO Last administered on 07/15/18at 09:08; Admin Dose 12.5 MG; Start 07/10/18 at 21:30 Gabapentin (Neurontin) 300 mg TID PO Last administered on 07/15/18at 09:08; Admin Dose 300 MG; Start 07/11/18 at 09:00 IV Flush (NS 3 ml) 3 ml PER PROTOCOL IV ; Start 07/10/18 at 21:30 Ondansetron HCl (Zofran Tab) 4 mg Q6H PRN PO NAUSEA/VOMITING; Start 07/10/18 at 21:30 Acetaminophen (Tylenol Tab) 650 mg Q6H PRN PO .PAIN 1-3 OR TEMP; Start 07/10/18 at 21:30 Docusate Sodium (Colace) 100 mg Q12H PRN PO .CONSTIPATION; Start 07/10/18 at 21:30 Bisacodyl (Dulcolax) 5 mg DAILY PRN PO .CONSTIPATION Last administered on 07/13/18 17:40; Admin Dose 5 MG; Start 07/10/18 at 21:30 Diagnostic Test (Pha) (Accu-Chek) 1 ea 02 XX Last administered on 07/15/18 02:25; Admin Dose 1 EA; Start 07/11/18 at 02:00 Miscellaneous Information 1 ea NOTE XX ; Start 07/10/18 at 22:30 Glucose (Glutose) 15 gm Q15M PRN PO DECREASED GLUCOSE; Start 07/10/18 at 22:30 Glucose (Glutose) 22.5 gm Q15M PRN PO DECREASED GLUCOSE; Start 07/10/18 at 22:30 Dextrose (D50w Syringe) 25 ml Q15M PRN IV DECREASED GLUCOSE; Start 07/10/18 at 22:30 Dextrose (D50w Syringe) 50 ml Q15M PRN IV DECREASED GLUCOSE; Start 07/10/18 at 22:30 Glucagon (Glucagen) 1 mg Q15M PRN IM DECREASED GLUCOSE; Start 07/10/18 at 22:30 Glucose (Glutose) 15 gm Q15M PRN BUCCAL DECREASED GLUCOSE; Start 07/10/18 at 22:30 Docusate Sodium (Colace) 200 mg BID PO Last administered on 07/15/18 09:07; Admin Dose 200 MG; Start 07/11/18 at 09:00 Polyethylene Glycol (Miralax) 17 gm BID PO Last administered on 07/15/18 09:08; Admin Dose 17 GM; Start 07/11/18 at 09:00 Insulin Aspart (Novolog Insulin Pen) NOVOLOG *MILD* ALGORITHM WITH MEALS BEDTIME SC Last administered on 07/14/18 21:57; Admin Dose 1 UNIT; Start 07/11/18 at 11:50 Hydralazine HCl (Apresoline) 10 mg Q6H PRN IV SBP>160 Last administered on 07/13/18 02:32; Admin Dose 10 MG; Start 07/11/18 at 16:30 Insulin Glargine (Lantus) 10 units DAILY@2000 SC Last administered on 5/4/19at 20:49; Admin Dose 10 UNITS; Start 07/12/18 at 20:00 Ferric Sodium Gluconate Complex 125 mg/Sodium Chloride 100 ml @ 100 mls/hr DAILY@1300 IVPB Last administered on 07/13/18at 13:26; Admin Dose 100 MLS/HR; Start 07/13/18 at 13:00; Status Hold Phenol (Cepastat Lozenge) 1 lozenge Q2H PRN MT SORE THROAT; Start 07/14/18 at 09:00 Lactulose (Enulose) 20 gm DAILY PRN PO CONSTIPATION; Start 07/15/18 at 09:30 JUANITA COBOS MD July 15, 2018 12:16
[2018-07-15 14:24] VITALS: BP 138/72; PULSE 54; RESP 19
[2018-07-15 20:00] VITALS: BP 158/77; PULSE 60; RESP 18
[2018-07-15] MEDS: INSULIN GLARGINE [LANTus] (100 UNITS/ML) SYG SC SCH (20:18)
[2018-07-16] VITALS (9 sets, daily range): BP systolic 142–181; BP diastolic 64–73; PULSE 48–64; RESP 16–20
[2018-07-16] MEDS: ACCU-CHEK XX SCH (02:00)
[2018-07-16] MEDS: INSULIN ASPART [NOVOLOG] 3 ML PEN SC SCH ×4 (08:00→20:16)
[2018-07-16] MEDS: POLYETHYLENE GLYCOL 17 GM PACKET PO SCH ×2 (08:23→20:18)
[2018-07-16] MEDS: DOCUSATE SODIUM 100 MG CAP PO SCH ×2 (08:23→20:17)
[2018-07-16] MEDS: GABAPENTIN 300 MG CAP PO SCH ×3 (08:25→20:17)
[2018-07-16] MEDS: AMLODIPINE 10 MG TAB PO SCH (08:25)
--- NOTE | 2018-07-16 10:38 | PN ---
DATE: 07/16/2018 SUBJECTIVE: The patient is stable, no events overnight. No fevers, chills, nausea, or vomiting. OBJECTIVE: VITAL SIGNS: Blood pressure is 147/71, pulse 48, respirations 16, temperature 98.0. HEENT: Head is normocephalic. NECK: Supple. HEART: Regular rate. LUNGS: Show diminished breath sounds at the base. ABDOMEN: Soft, nontender to palpation without rebound or guarding. EXTREMITIES: Negative for clubbing, cyanosis. Trace edema. DERMATOLOGIC: No rashes. MUSCULOSKELETAL: No joint effusion. NEUROLOGIC: No change in exam. MEDICATIONS: Reviewed. LABORATORY DATA: From 07/16/2018 was reviewed. ASSESSMENT AND PLAN: 1. Nonoliguric acute kidney injury on top of chronic kidney disease stage III with previous baseline creatinine of 1.5 to 1.3 mg/dL. Etiology of acute kidney injury is secondary to hemodynamics, diure tics. The patient's last diuretics have been held. Renal function is slowly improving. Continue cu rrent treatment plans, supportive care, renally dose all medicines. 2. Chronic kidney disease, stage III, likely secondary to diabetic nephropathy. The patient has nep hrotic range proteinuria. The patient is currently in acute kidney injury as stated above. Continue current medical management. Continue disease factor modification. Defer any GELY inhibitor or ARB a t this time due to the patient's allergic reaction. 3. Hypernatremia. Continue to monitor. Hold diuretic therapy. Limit free water intake. 4. Hyperkalemia, resolved. 5. Anemia with iron deficiency. The patient is on IV iron. We will continue to monitor hemoglobin and hematocrit levels. 6. Mineral bone disorder, monitor calcium and phosphorus levels. 7. Constipation, resolved. 8. Diabetes. Continue current insulin regimen. 9. Hypertension. Continue current blood pressure regimen. Dictated By: MILLY GARZA DO NR/NTS Conf#: [id number] DID#: [id number] CC: CARLOS MALCOLM MD; AYAKA COBOS MD;*End*
[2018-07-16] MEDS: PIPER-TAZO 2.25 GM (PMX) 50 ML IVPB SCH ×3 (12:03→23:54)
--- NOTE | 2018-07-16 13:33 | PN ---
Date/Time of Note Date/Time of Note DATE: 07/16/18 TIME: 13:29 Objective Vitals Vital Signs Date Temp Pulse Resp B/P (MAP) Pulse Ox O2 O2 Flow FiO2 Time Delivery Rate 07/16/18 97.3 58 18 151/69 92 Room Air 13:23 (96) 07/16/18 1.0 13:15 Intake and Output 07/15/18 07/15/18 07/16/18 1515:00 23:00 07:00 IntakeIntake Total 480 ml 200 ml 120 ml BalanceBalance 480 ml 200 ml 120 ml Results Result Diagram: 07/16/1852207/16/18522 Medications Medications Current Medications Dextrose (D50w Syringe) ONCE PRN IV DECREASED GLUCOSE; Start 07/10/18 at 19:30 Amlodipine Besylate (Norvasc) 10 mg DAILY PO Last administered on 07/16/18 08:25; Admin Dose 10 MG; Start 07/11/18 at 09:00 Carvedilol (Coreg) 12.5 mg BID PO Last administered on 07/15/18at 20:57; Admin Dose 12.5 MG; Start 07/10/18 at 21:30 Gabapentin (Neurontin) 300 mg TID PO Last administered on 07/16/18 12:10; Admin Dose 300 MG; Start 07/11/18 at 09:00 IV Flush (NS 3 ml) 3 ml PER PROTOCOL IV ; Start 07/10/18 at 21:30 Ondansetron HCl (Zofran Tab) 4 mg Q6H PRN PO NAUSEA/VOMITING; Start 07/10/18 at 21:30 Acetaminophen (Tylenol Tab) 650 mg Q6H PRN PO .PAIN 1-3 OR TEMP Last administered on 07/16/18at 02:06; Admin Dose 650 MG; Start 07/10/18 at 21:30 Docusate Sodium (Colace) 100 mg Q12H PRN PO .CONSTIPATION; Start 07/10/18 at 21:30 Bisacodyl (Dulcolax) 5 mg DAILY PRN PO .CONSTIPATION Last administered on 07/13/18 17:40; Admin Dose 5 MG; Start 07/10/18 at 21:30 Diagnostic Test (Pha) (Accu-Chek) 1 ea 02 XX Last administered on 07/15/18 02:2 5; Admin Dose 1 EA; Start 07/11/18 at 02:00 Miscellaneous Information 1 ea NOTE XX ; Start 07/10/18 at 22:30 Glucose (Glutose) 15 gm Q15M PRN PO DECREASED GLUCOSE; Start 07/10/18 at 22:30 Glucose (Glutose) 22.5 gm Q15M PRN PO DECREASED GLUCOSE; Start 07/10/18 at 22:30 Dextrose (D50w Syringe) 25 ml Q15M PRN IV DECREASED GLUCOSE; Start 07/10/18 at 22:30 Dextrose (D50w Syringe) 50 ml Q15M PRN IV DECREASED GLUCOSE; Start 07/10/18 at 22:30 Glucagon (Glucagen) 1 mg Q15M PRN IM DECREASED GLUCOSE; Start 07/10/18 at 22:30 Glucose (Glutose) 15 gm Q15M PRN BUCCAL DECREASED GLUCOSE; Start 07/10/18 at 22:30 Docusate Sodium (Colace) 200 mg BID PO Last administered on 07/15/18 20:57; Admin Dose 200 MG; Start 07/11/18 at 09:00 Polyethylene Glycol (Miralax) 17 gm BID PO Last administered on 07/15/18 20:58; Admin Dose 17 GM; Start 07/11/18 at 09:00 Insulin Aspart (Novolog Insulin Pen) NOVOLOG *MILD* ALGORITHM WITH MEALS BEDTIME SC Last administered on 07/16/18 12:07; Admin Dose 1 UNIT; Start 07/11 at 11:50 Hydralazine HCl (Apresoline) 10 mg Q6H PRN IV SBP>160 Last administered on 07/13/18at 02:32; Admin Dose 10 MG; Start 07/11/18 at 16:30 Insulin Glargine (Lantus) 10 units DAILY@2000 SC Last administered on 07/15/18 20:18; Admin Dose 10 UNITS; Start 07/12/18 at 20:00 Ferric Sodium Gluconate Complex 125 mg/Sodium Chloride 100 ml @ 100 mls/hr DAILY@1300 IVPB Last administered on 07/13/18 13:26; Admin Dose 100 MLS/HR; Start 07/13/18 at 13:00; Status Hold Phenol (Cepastat Lozenge) 1 lozenge Q2H PRN MT SORE THROAT; Start 07/14/18 at 09:00 Lactulose (Enulose) 20 gm DAILY PRN PO CONSTIPATION Last administered on 07/15/18at 20:57; Admin Dose 20 GM; Start 07/15/18 at 09:30 Piperacillin Sod/ Tazobactam Sod 50 ml @ 200 mls/hr Q6 IVPB Last administered on 07/16/18at 12:03; Admin Dose 200 MLS/HR; Start 07/16/18 at 12:00 VTE Prophylaxis Risk score (from [facility])>0 risk: 4 SCD applied (from [facility]): Yes Lines/Catheters IV Catheter Type: Taylor in Place: No Assessment/Plan Hospital Course Subjective Patient had bowel movement yesterday, facial swelling persists Objective Physical exam General: Patient is laying in bed and answers questions appropriately Mentation: Patient is alert and oriented 4, Head: Normocephalic atraumatic Eyes: EOMI, pupils reactive to light, mild swelling to the eyelids Face: Mild swelling Neck: Supple, nontender, midline, mildly swollen, with palpation of small mass Respiratory: Clear to auscultation bilaterally Cardiovascular: regular rate, no obvious murmurs Gastrointestinal: non-tender to palpation, bowel sounds heard.mildly distended, nontender Neurological: Moves all extremities spontaneously Skin: No new skin lesions ASSESSMENT & PLAN This is a 68-year-old female with comorbidities including diabetes mellitus, chronic kidney disease, and hypertension who came to the emergency room with chief complaint of constipation. The patient was noticed to have underlying hyperkalemia (potassium was 6.6) in the emergency room. The patient underwent a KUB that was showing fecal filled colon. The patient was admitted to inpatient setting for further treatment and evaluation. Facial and neck swelling -No respiratory compromise, monitor closely -CT showing salivary stones in the submandibular gland bilaterally and cellulitis with possible retropharyngeal abscess which likely is the cause of patient's facial swelling, [place]-IV antibiotic, broad-spectrum, infectious disease consulted -Follow-up with MRI -Ear nose and throat physician, Dr. Alston also consulted Carotid stenosis abnormality -Found on ultrasound, -Follow-up with MRA Hyperkalemia. -Resolved. -Etiology probably secondary to worsening renal function. -Status post potassium exchange resin and insulin IV. -Low potassium diet. -Being followed by nephrology. Acute on chronic kidney disease., -Being followed by nephrology. -Avoid nephrotoxic medications. Constipation. -KUB showed fecal filled colon. -Continue bowel regimen. -Largely resolved. Continue bowel regimen Diabetes mellitus. -Hemoglobin A1c 8.3. -Continue sliding scale insulin. -Add basal insulin. Hypertension. -Continue antihypertensives. Diabetic neuropathy. -Continue gabapentin. Normocytic anemia. -Most probably anemia of chronic kidney disease. -Monitor H&H closely. -Start iron supplements. -Epogen as per nephrology. -Obtain stool for OB. -Transfuse as needed, 1 unit transfused so far Questionable anasarca. -Patient has no lower extremity swelling and abdominal distention has improved after large bowel movement, swelling is mostly limited to the face which is secondary to above cellulitis. 9. Fluids, electrolytes, and nutrition. -Carbohydrate controlled diet. 10. DVT prophylaxis. -Bilateral SCDs. 11. Plan. -ID and ENT consultation pending, continue antibiotics. AYAKA COBOS July 16, 2018 13:33
--- NOTE | 2018-07-16 16:25 | CONS ---
DATE OF ADMISSION: 07/10/2018 DATE OF CONSULTATION: 07/16/2018 TYPE OF CONSULTATION: Infectious Disease. REASON FOR CONSULTATION: Antibiotic management. HISTORY OF PRESENT ILLNESS: Nicci Linares is a 68-year-old female who was brought in with chief compl aint of no bowel movement for 4 days. She has a history of stage III renal failure and was admitted here 10 days ago for hyperkalemia and renal insufficiency. She also had swelling of her face and ext remities which was thought to be due to an GELY inhibitor and angioedema secondary to that. This reso lved once the GELY inhibitor was stopped. PAST SURGICAL HISTORY: Tubal ligation. She also has a history of hypertension and diabetes. FAMILY HISTORY: Noncontributory. SOCIAL HISTORY: She does not smoke, drink or abuse drugs. ALLERGIES: NONE TO PENICILLIN, SULFA OR FOODS. MEDICATIONS: Per chart. REVIEW OF SYSTEMS: As per HPI. PHYSICAL EXAMINATION: GENERAL: The patient is well-developed, well-nourished female who is awake, responsive, in no acute distress. VITAL SIGNS: Stable. She is afebrile. SKIN: Without generalized rash. HEENT: Within normal limits. NECK: Supple. LYMPH NODES: None palpable. CHEST: Decreased breath sounds at the bases. HEART: Without murmur or gallop. ABDOMEN: Soft and nontender, without organosplenomegaly or masses. EXTREMITIES: Without cyanosis, clubbing, or edema. RECTAL AND GENITAL: Deferred. NEUROLOGICAL: No focal neurological abnormality. HOSPITAL COURSE: On admission, her white count was 10.2, H and H of 8.3 and 25.4, platelet count 283 ,000. BUN and creatinine 65/1.78. HOSPITAL COURSE: The patient was admitted with hyperkalemia, potassium of 6.6. She is anemic, 8.3 a nd 25.4. She had some renal insufficiency. She was seen by the hospitalist with for abdominal diste ntion and a KUB showed fecal filled colon. On the 4th, white count was 8.9. She was seen by Dr. Zabrina thayer. He felt she had diminished breath sounds at the bases today with trace edema, nonoliguric acut e renal failure or insufficiency, baseline 1.5 to 1.3. The patient is currently on Zosyn. CT scan o f the face was done and showed stranding of subcutaneous fat of the submandibular, submental space, p ossibly reflecting cellulitis without evidence of abscess. Punctate submandibular gland calcificatio ns suggests sialolithiasis, acute upon chronic left maxillary sinusitis with mild chronic appearing b ilateral frontal, ethmoid, sphenoid and right maxillary sinus disease. A soft tissue CT scan of the neck showed reactive lymphadenitis of the jugulodigastric chain lymph nodes stranding of the submandi bular and submental fat concerning for cellulitis. The patient is also to be seen by an ear, nose and throat who are treating her for cellulitis and pos sible abscess, although there is no evidence from my perspective of abscess formation. I will dictat e my findings to the hospitalist. Dictated By: HELEN DODSON MD, JD/KULWINDER Conf#: [id number] DID#: [id number]
[2018-07-16] MEDS: INSULIN GLARGINE [LANTus] (100 UNITS/ML) SYG SC SCH (20:24)
[2018-07-17] VITALS (10 sets, daily range): BP systolic 135–156; BP diastolic 67–78; PULSE 52–62; RESP 18–19
[2018-07-17] MEDS: ACCU-CHEK XX SCH (01:48)
[2018-07-17] MEDS: PIPER-TAZO 2.25 GM (PMX) 50 ML IVPB SCH ×4 (05:56→23:54)
[2018-07-17] MEDS: INSULIN ASPART [NOVOLOG] 3 ML PEN SC SCH ×4 (07:55→20:33)
[2018-07-17] MEDS: POLYETHYLENE GLYCOL 17 GM PACKET PO SCH ×2 (08:13→20:32)
[2018-07-17] MEDS: GABAPENTIN 300 MG CAP PO SCH ×3 (08:13→20:32)
[2018-07-17] MEDS: AMLODIPINE 10 MG TAB PO SCH (08:13)
[2018-07-17] MEDS: DOCUSATE SODIUM 100 MG CAP PO SCH ×2 (08:14→20:31)
--- NOTE | 2018-07-17 09:33 | PN ---
DATE: 07/17/2018 SUBJECTIVE: The patient was transferred from med/surg to telemetry due to bradycardia. Overnight, p atient was stable. No other events noted. OBJECTIVE: VITAL SIGNS: Blood pressure is 154/70, pulse 72, respirations 18, temperature 97.5. HEENT: Head is normocephalic. NECK: Supple. HEART: Regular rate. LUNGS: Show diminished breath sounds at the base. ABDOMEN: Soft, nontender to palpation without rebound or guarding. EXTREMITIES: Negative for clubbing, cyanosis, edema. DERMATOLOGIC: No rashes. MUSCULOSKELETAL: No joint effusion. NEUROLOGIC: No change in exam. MEDICATIONS: Reviewed. LABORATORY DATA: Has been reviewed. ASSESSMENT AND PLAN: 1. Nonoliguric acute kidney injury on top of chronic kidney disease stage 3 with previous baseline c reatinine of 1.3 to 1.5 mg/dL. Etiology is secondary to hemodynamics, diuretics. The patient's haily l function has been fluctuating, appears to be stabilizing around a creatinine of 2.0 mg/dL. At this point, continue current treatment plans, supportive care, renally dose all meds. 2. Chronic kidney disease, stage 3, likely secondary to diabetic nephropathy. The patient's nephrot ic range proteinuria. The patient is currently had an acute kidney injury . Continue medical m anagement. Continue disease factor modifications. Defer any GELY inhibitor and ARB due to patient's ALLERGIC REACTION to GELY inhibitor in the past. 3. Hyponatremia, etiology secondary to acute kidney injury causing decreased free water urinary excr etion. The patient is in place with free water restriction 1 liter daily. Continue to monitor. 4. Hyperkalemia, resolved. 5. Anemia, iron deficiency. Continue IV iron. 6. Mineral bone disorder. Monitor calcium and phosphorus levels. 7. Arrhythmia. Continue to monitor on telemetry. Consider cardiology evaluation. 8. Constipation, resolved. 9. Diabetes. Continue current insulin regimen. 10. Hypertension. 11. Questionable retropharyngeal abscess. The patient has noted facial swelling, currently on broad spectrum antibiotics, continue to monitor. Follow up with ENT. Follow up with Infectious Disease. The patient's CT scan of the face was reviewed. Continue to monitor. Dictated By: MILLY URBANO/KULWINDER Conf#: [id number] [facility]#: [id number] CC: CARLOS MALCOLM MD;*End*
--- NOTE | 2018-07-17 13:46 | CONS ---
DATE OF ADMISSION: 07/10/2018 DATE OF CONSULTATION: HISTORY OF PRESENT ILLNESS: Ms. Linares is a 68-year-old female admitted with renal insufficiency an d high potassium level. ENT was consulted to evaluate the submandibular gland stones and possible re tropharyngeal abscess. PHYSICAL EXAMINATION: The patient is not complaining of any pain when swallowing. She has no pain i n the neck when the ears, nose and throat exam was performed. The septum is mildly deviated to the r ight. Mucosa without erythema or edema. Oral cavity and oropharynx showed tongue and mouth normal. Oropharynx is clear. Tonsils are 2+ and soft palate is ptotic, but no lesions are seen nor is there any retropharyngeal fullness noted. The neck reveals no tenderness and no significant evidence of a collection, nor is there any redness of the overlying skin. DIAGNOSTIC DATA: The patient then had an endoscopy performed. This was done through the left nasal cavity. The nasopharynx shows mild bit of adenoid. The base of tongue is symmetric. The vallecula is open. Epiglottis is normal. Vocal cords are moving well. There are no lesions. The airways are excellent. There is no retropharyngeal fullness at all. I will discuss my findings with the hospitalist. If there are any questions or concerns, please feel free to recall at any time. Dictated By: AYAKA LEWIS MD DM/NTS Conf#: [id number] DID#: [id number] CC: AYAKA COBOS MD; CARLOS MALCOLM MD;*EndCC*
--- NOTE | 2018-07-17 14:09 | CONS ---
Assessment/Plan Assessment/Plan Hospital Course (Demo Recall) Patient is alert looks comfortable swelling is better today she is in no distress able to eat. WBC 7.5 no shift no bands BUN 70 creatinine 2.22 Microbiology: Blood cultures negative CT of the brain on admission revealed no acute intracranial findings. Ethmoid and left ethmoid sinus fluid. Facial CT revealed no evidence of abscess punctate submandibular gland calcification suggests sialolithiasis. Acute on chronic left maxillary sinusitis. Please see full report in the chart. Chest x-ray revealed no pneumonia Antimicrobials: Patient is on Zosyn Physical examination: Well-developed elderly woman who is alert in no distress. Head atraumatic normocephalic sclera nonicteric neck is obese chest rise symmetrical breath sounds diminished bases heart S1-S2 abdomen soft bowel sounds present extremities without cyanosis Assessment: 1. Acute on chronic sinusitis with facial and neck swelling, ENT on case, recommendations noted 2. Acute on chronic kidney disease 3. Diabetes 4. Hypertension Plan: Patient is doing better, continue antibiotics Consultation Date/Type/Reason Admit Date/Time Jul 10, 2018 at 19:45 Initial Consult Date Reason for Consultation id Date/Time of Note DATE: 07/17/18 TIME: 14:09 Exam/Review of Systems Exam Vitals Vital Signs Date Temp Pulse Resp B/P (MAP) Pulse Ox O2 O2 Flow FiO2 Time Delivery Rate 07/17/18 98.1 57 19 135/78 99 Nasal 2.5 11:37 (97) Cannula Intake and Output 07/16/18 07/16/18 07/17/18 1515:00 23:00 07:00 IntakeIntake Total 320 ml 1300 ml 500 ml OutputOutput Total 200 ml BalanceBalance 120 ml 1300 ml 500 ml Results Result Diagram: 07/17/18 0702 07/17/18 0702 Results 24hrs Laboratory Tests Test 07/16/18 17:17 07/16/18 20:11 07/17/18 07:02 07/17/18 07:52 Bedside Glucose 103 120 61 L White Blood Count 7.5 Red Blood Count 2.70 L Hemoglobin 7.8 L Hematocrit 23.8 L Mean Corpuscular Volume 88.1 Mean Corpuscular 28.9 L Hemoglobin Mean Corpuscular 32.8 Hemoglobin Concent Red Cell Distribution 13.6 Width Platelet Count 318 Mean Platelet Volume 11.3 H Immature Granulocytes % 0.300 Neutrophils % 72.6 Lymphocytes % 14.5 L Monocytes % 10.8 Eosinophils % 1.3 Basophils % 0.5 Nucleated Red Blood 0.0 Cells % Immature Granulocytes # 0.020 Neutrophils # 5.5 Lymphocytes # 1.1 Monocytes # 0.8 Eosinophils # 0.1 Basophils # 0.0 Nucleated Red Blood 0.0 Cells # Sodium Level 129 L Potassium Level 4.8 Chloride Level 93 L Carbon Dioxide Level 26 Anion Gap 10 Blood Urea Nitrogen 70 H Creatinine 2.22 H Est Glomerular Filtrat 22 L Rate mL/min Glucose Level 54 #L Calcium Level 8.3 L Phosphorus Level 6.2 H Magnesium Level 3.5 H Test 07/17/18 08:36 07/17/18 12:19 Bedside Glucose 129 137 Medications Medication Current Medications Dextrose (D50w Syringe) ONCE PRN IV DECREASED GLUCOSE; Start 07/10/18 at 19:30 Gabapentin (Neurontin) 300 mg TID PO Last administered on 07/17/18at 12:18; Admin Dose 300 MG; Start 07/11/18 at 09:00 IV Flush (NS 3 ml) 3 ml PER PROTOCOL IV ; Start 07/10/18 at 21:30 Ondansetron HCl (Zofran Tab) 4 mg Q6H PRN PO NAUSEA/VOMITING; Start 07/10/18 at 21:30 Acetaminophen (Tylenol Tab) 650 mg Q6H PRN PO .PAIN 1-3 OR TEMP Last administered on 07/16/18at 02:06; Admin Dose 650 MG; Start 07/10/18 at 21:30 Docusate Sodium (Colace) 100 mg Q12H PRN PO .CONSTIPATION; Start 07/10/18 at 21:30 Bisacodyl (Dulcolax) 5 mg DAILY PRN PO .CONSTIPATION Last administered on 07/13/18at 17:40; Admin Dose 5 MG; Start 07/10/18 at 21:30 Diagnostic Test (Pha) (Accu-Chek) 1 ea 02 XX Last administered on 07/15/18at 02:25; Admin Dose 1 EA; Start 07/11/18 at 02:00 Miscellaneous Information 1 ea NOTE XX ; Start 07/10/18 at 22:30 Glucose (Glutose) 15 gm Q15M PRN PO DECREASED GLUCOSE; Start 07/10/18 at 22:30 Glucose (Glutose) 22.5 gm Q15M PRN PO DECREASED GLUCOSE; Start 07/10/18 at 22:30 Dextrose (D50w Syringe) 25 ml Q15M PRN IV DECREASED GLUCOSE; Start 07/10/18 at 22:30 Dextrose (D50w Syringe) 50 ml Q15M PRN IV DECREASED GLUCOSE; Start 07/10/18 at 22:30 Glucagon (Glucagen) 1 mg Q15M PRN IM DECREASED GLUCOSE; Start 07/10/18 at 22:30 Glucose (Glutose) 15 gm Q15M PRN BUCCAL DECREASED GLUCOSE; Start 07/10/18 at 22:30 Docusate Sodium (Colace) 200 mg BID PO Last administered on 07/17/18 08:14; Admin Dose 200 MG; Start 07/11/18 at 09:00 Polyethylene Glycol (Miralax) 17 gm BID PO Last administered on 07/17/18 08:13; Admin Dose 17 GM; Start 07/11/18 at 09:00 Insulin Aspart (Novolog Insulin Pen) NOVOLOG *MILD* ALGORITHM WITH MEALS BEDTIME SC Last administered on 07/16/18 12:07; Admin Dose 1 UNIT; Start 07/11/18 at 11:50 Hydralazine HCl (Apresoline) 10 mg Q6H PRN IV SBP>160 Last administered on 07/13/18 02:32; Admin Dose 10 MG; Start 07/11/18 at 16:30 Insulin Glargine (Lantus) 10 units DAILY@2000 SC Last administered on 07/16/18 20:24; Admin Dose 10 UNITS; Start 07/12/18 at 20:00 Ferric Sodium Gluconate Complex 125 mg/Sodium Chloride 100 ml @ 100 mls/hr DA SOWMYA@1300 IVPB Last administered on 07/13/18 13:26; Admin Dose 100 MLS/HR; Start 07/13/18 at 13:00; Status Hold Phenol (Cepastat Lozenge) 1 lozenge Q2H PRN MT SORE THROAT; Start 07/14/18 at 09:00 Lactulose (Enulose) 20 gm DAILY PRN PO CONSTIPATION Last administered on 07/15/18at 20:57; Admin Dose 20 GM; Start 07/15/18 at 09:30 Piperacillin Sod/ Tazobactam Sod 50 ml @ 200 mls/hr Q6 IVPB Last administered on 07/17/18at 12:19; Admin Dose 200 MLS/HR; Start 07/16/18 at 12:00 Carvedilol (Coreg) 6.125 mg BID PO ; Start 07/17/18 at 21:00 Nifedipine (Procardia Xl) 60 mg DAILY PO ; Start 07/18/18 at 09:00 ANGELICA ENGEL NP July 17, 2018 14:09
--- NOTE | 2018-07-17 14:14 | PN ---
Date/Time of Note Date/Time of Note DATE: 07/17/18 TIME: 14:11 Objective Vitals Vital Signs Date Temp Pulse Resp B/P (MAP) Pulse Ox O2 O2 Flow FiO2 Time Delivery Rate 07/17/18 98.1 57 19 135/78 99 Nasal 2.5 11:37 (97) Cannula Intake and Output 07/16/18 07/16/18 07/17/18 1515:00 23:00 07:00 IntakeIntake Total 320 ml 1300 ml 500 ml OutputOutput Total 200 ml BalanceBalance 120 ml 1300 ml 500 ml Results Result Diagram: 07/17/18 0702 07/17/18 07 Medications Medications Current Medications Dextrose (D50w Syringe) ONCE PRN IV DECREASED GLUCOSE; Start 07/10/18 at 19:30 Gabapentin (Neurontin) 300 mg TID PO Last administered on 07/17/18at 12:18; Admin Dose 300 MG; Start 07/11/18 at 09:00 IV Flush (NS 3 ml) 3 ml PER PROTOCOL IV ; Start 07/10/18 at 21:30 Ondansetron HCl (Zofran Tab) 4 mg Q6H PRN PO NAUSEA/VOMITING; Start 07/10/18 at 21:30 Acetaminophen (Tylenol Tab) 650 mg Q6H PRN PO .PAIN 1-3 OR TEMP Last adm inistered on 07/16/18at 02:06; Admin Dose 650 MG; Start 07/10/18 at 21:30 Docusate Sodium (Colace) 100 mg Q12H PRN PO .CONSTIPATION; Start 07/10/18 at 21:30 Bisacodyl (Dulcolax) 5 mg DAILY PRN PO .CONSTIPATION Last administered on 07/13/18at 17:40; Admin Dose 5 MG; Start 07/10/18 at 21:30 Diagnostic Test (Pha) (Accu-Chek) 1 ea 02 XX Last administered on 07/15/18at 02:25; Admin Dose 1 EA; Start 07/11/18 at 02:00 Miscellaneous Information 1 ea NOTE XX ; Start 07/10/18 at 22:30 Glucose (Glutose) 15 gm Q15M PRN PO DECREASED GLUCOSE; Start 07/10/18 at 22:30 Glucose (Glutose) 22.5 gm Q15M PRN PO DECREASED GLUCOSE; Start 07/10/18 at 22:30 Dextrose (D50w Syringe) 25 ml Q15M PRN IV DECREASED GLUCOSE; Start 07/10/18 at 22:30 Dextrose (D50w Syringe) 50 ml Q15M PRN IV DECREASED GLUCOSE; Start 07/10/18 at 22:30 Glucagon (Glucagen) 1 mg Q15M PRN IM DECREASED GLUCOSE; Start 07/10/18 at 22:30 Glucose (Glutose) 15 gm Q15M PRN BUCCAL DECREASED GLUCOSE; Start 07/10/18 at 22:30 Docusate Sodium (Colace) 200 mg BID PO Last administered on 07/17/18 08:14; Admin Dose 200 MG; Start 07/11/18 at 09:00 Polyethylene Glycol (Miralax) 17 gm BID PO Last administered on 07/17/18 08:13; Admin Dose 17 GM; Start 07/11/18 at 09:00 Insulin Aspart (Novolog Insulin Pen) NOVOLOG *MILD* ALGORITHM WITH MEALS BEDTIME SC Last administered on 07/16/18 12:07; Admin Dose 1 UNIT; Start 07/11/18 at 11:50 Hydralazine HCl (Apresoline) 10 mg Q6H PRN IV SBP>160 Last administered on 07/13/18 02:32; Admin Dose 10 MG; Start 07/11/18 at 16:30 Insulin Glargine (Lantus) 10 units DAILY@2000 SC Last administered on 07/16/18 20:24; Admin Dose 10 UNITS; Start 07/12/18 at 20:00 Ferric Sodium Gluconate Complex 125 mg/Sodium Chloride 100 ml @ 100 mls/hr DAILY@1300 IVPB Last administered on 07/13/18 13:26; Admin Dose 100 MLS/HR; S tart 07/13/18 at 13:00; Status Hold Phenol (Cepastat Lozenge) 1 lozenge Q2H PRN MT SORE THROAT; Start 07/14/18 at 09:00 Lactulose (Enulose) 20 gm DAILY PRN PO CONSTIPATION Last administered on 07/15/18 20:57; Admin Dose 20 GM; Start 07/15/18 at 09:30 Piperacillin Sod/ Tazobactam Sod 50 ml @ 200 mls/hr Q6 IVPB Last administered on 07/17/18 12:19; Admin Dose 200 MLS/HR; Start 07/16/18 at 12:00 Carvedilol (Coreg) 6.125 mg BID PO ; Start 07/17/18 at 21:00 Nifedipine (Procardia Xl) 60 mg DAILY PO ; Start 07/18/18 at 09:00 VTE Prophylaxis Risk score (from [facility])>0 risk: 3 SCD applied (from [facility]): Yes Lines/Catheters IV Catheter Type: Taylor in Place: No Assessment/Plan Hospital Course Subjective Patient still has facial swelling, no shortness of breath. Objective Physical exam General: Patient is laying in bed and answers questions appropriately Mentation: Patient is alert and oriented 4, Head: Normocephalic atraumatic Eyes: EOMI, pupils reactive to light, Face: Mild swelling Neck: Supple, nontender, midline, mildly swollen, with palpation of small hardened area Respiratory: Clear to auscultation bilaterally Cardiovascular: regular rate, no obvious murmurs Gastrointestinal: non-tender to palpation, bowel sounds heard.mildly distended, nontender Neurological: Moves all extremities spontaneously Skin: No new skin lesions ASSESSMENT & PLAN This is a 68-year-old female with comorbidities including diabetes mellitus, chronic kidney disease, and hypertension who came to the emergency room with chief complaint of constipation. The patient was noticed to have underlying hyperkalemia (potassium was 6.6) in the emergency room. The patient underwent a KUB that was showing fecal filled colon. The patient was admitted to inpatient setting for further treatment and evaluation. Facial and neck swelling 2/2 facial cellulitis -No respiratory compromise, monitor closely -CT showing salivary stones in the submandibular gland bilaterally and cellulitis with possible retropharyngeal abscess which likely is the cause of patient's facial swelling, -IV antibiotic, broad-spectrum, infectious disease consulted -Follow-up with MRI, done but not resulted -Ear nose and throat physician, Dr. Wlyie also consulted, upon scope ear nose and throat physician did not see any retropharyngeal fullness to indicate abscess or even a target if abscess is present. salivary stones -conservative tx per ENT -abx -very small and calcifications not obstructive per ENT Carotid stenosis abnormality, only on ultrasound -Found on ultrasound, -MRA not showing any carotid stenosis Hyperkalemia. -Resolved. -Etiology probably secondary to worsening renal function. -Status post potassium exchange resin and insulin IV. -Being followed by nephrology. Acute on chronic kidney disease., -Being followed by nephrology. -Avoid nephrotoxic medications. Constipation. -KUB showed fecal filled colon. -Continue bowel regimen. -Largely resolved. Continue bowel regimen Diabetes mellitus. -Hemoglobin A1c 8.3. -Continue sliding scale insulin. -Add basal insulin. Hypertension. -Continue antihypertensives. Diabetic neuropathy. -Continue gabapentin. Normocytic anemia. -Most probably anemia of chronic kidney disease. -Monitor H&H closely. -Start iron supplements. -Epogen as per nephrology. -Obtain stool for OB. -Transfuse as needed, 1 unit transfused so far Questionable anasarca. -Patient has no lower extremity swelling and abdominal distention has improved after large bowel movement, swelling is mostly limited to the face which is secondary to above cellulitis. 9. Fluids, electrolytes, and nutrition. -Carbohydrate controlled diet. 10. DVT prophylaxis. -Bilateral SCDs. 11. Plan. -cont abx. AYAKA COBOS July 17, 2018 14:14
--- NOTE | 2018-07-17 16:01 | RADRPT ---
Vent Rate: 55 bpm RR Interval: 1080 msec MO Interval: 174 msec QRS Duration: 89 msec QT Interval: 459 msec QTC Interval: 442 msec P-R-T [place]: 55 - 46 - 52 degrees Sinus rhythm...normal P axis, V-rate 50- 99 Electronically Signed By: Uziel Zhao
[2018-07-17] MEDS: INSULIN GLARGINE [LANTus] (100 UNITS/ML) SYG SC SCH (20:31)
[2018-07-18] VITALS (13 sets, daily range): BP systolic 145–185; BP diastolic 63–79; PULSE 59–73; RESP 18–20
[2018-07-18] MEDS: ACCU-CHEK XX SCH (02:43)
[2018-07-18] MEDS: PIPER-TAZO 2.25 GM (PMX) 50 ML IVPB SCH ×3 (05:26→12:06)
[2018-07-18] MEDS: INSULIN ASPART [NOVOLOG] 3 ML PEN SC SCH ×4 (07:55→21:37)
[2018-07-18] MEDS: POLYETHYLENE GLYCOL 17 GM PACKET PO SCH ×2 (08:10→20:54)
[2018-07-18] MEDS: DOCUSATE SODIUM 100 MG CAP PO SCH ×2 (08:10→20:53)
[2018-07-18] MEDS: GABAPENTIN 300 MG CAP PO SCH ×3 (08:11→20:54)
--- NOTE | 2018-07-18 08:49 | PN ---
DATE: 07/18/2018 SUBJECTIVE: The patient is lethargic but stable. No acute events noted overnight. No hemoptysis, h ematemesis or hematochezia. OBJECTIVE: VITAL SIGNS: Blood pressure is 163/70, respiratory rate 20, pulse 62, temperature 98.0. HEENT: Head is normocephalic. NECK: Supple. HEART: Regular rate. LUNGS: Show diminished breath sounds at the base. ABDOMEN: Soft, nontender to palpation without rebound or guarding. EXTREMITIES: Negative for clubbing, cyanosis. Trace edema. DERMATOLOGIC: No rashes. MUSCULOSKELETAL: No joint effusions. NEUROLOGIC: No change in exam. MEDICATIONS: The patient's medications have been reviewed. LABORATORY DATA: Shows sodium 131, potassium 4.6, BUN 69, creatinine 2.47, phosphorus 6.3, magnesium 3.5. White count 8.8, hemoglobin 8.1, platelet count is 349. ASSESSMENT AND PLAN: 1. Nonoliguric acute kidney injury on top of chronic kidney disease stage III with previous baseline creatinine around 1.3 to 1.5 mg/dL. Etiology of acute kidney injury is initially felt to be seconda ry to hemodynamics, diuretic therapy. Renal function, however, has declined in the last 48 hours, co ncerning for possible tubular injury. Acute intraglomerular process is a consideration. Plan at this point is to repeat UA with microanalysis. Will evaluate the urine under microscopy. Will check uri ne electrolytes. Would continue current treatment plan, avoid hemodynamic fluctuations. Continue goldman pportive care, renally dose all meds. No immediate need for renal replacement therapy. 2. Chronic kidney disease, stage III, likely secondary to diabetic nephropathy. The patient has nep hrotic range proteinuria. The patient is currently in acute kidney injury as stated above. Continue current disease factor modification, monitor closely. 3. Hypernatremia secondary to acute kidney injury causing decreased free water urinary excretion. C ontinue free water restriction. Sodium levels have been stable. 5. Hyperkalemia, resolved. 6. Anemia with iron deficiency. Continue IV iron. 7. Mineral bone disorder. Monitor calcium and phosphorus levels. 8. Hypertension. Blood pressure remains elevated, will increase Procardia to 60 mg p.o. b.i.d. Def er GELY inhibitor or ARB as the patient has had an allergic reaction. 9. Constipation, resolved. 10. Diabetes. Continue current insulin regimen. 11. Facial fullness. Questionable retropharyngeal abscess. The patient was seen by ENT. No eviden ce of abscess. Continue to monitor. Continue current antibiotic therapy. The patient is hypophosph atemic. Will start patient on phosphate binders and vitamin D analogs. 12. Hypermagnesemia secondary to acute kidney injury. Continue to monitor. Dictated By: MILLY GARZA DO NR/NTS Conf#: [id number] DID#: [id number] CC: CARLOS MALCOLM MD; AYAKA COBOS MD;*EndCC*
[2018-07-18] MEDS ORDERED: NIFEdipine (XL) 60 MG TAB PO SCH (09:00)
[2018-07-18] MEDS: NIFEdipine (XL) 60 MG TAB PO SCH ×2 (09:00→20:53)
[2018-07-18] MEDS: CHOLECALCIFEROL 1,000 UNIT TAB PO SCH (09:04)
[2018-07-18] MEDS: hydrALAzine 20 MG INJ IV PRN (12:05)
--- NOTE | 2018-07-18 13:56 | CONS ---
Assessment/Plan Assessment/Plan Hospital Course (Demo Recall) Patient is alert feels better nad Microbiology: Blood cultures negative CT of the brain on admission revealed no acute intracranial findings. Ethmoid and left ethmoid sinus fluid. Facial CT revealed no evidence of abscess punctate submandibular gland calcification suggests sialolithiasis. Acute on chronic left maxillary sinusitis. Please see full report in the chart. Chest x-ray revealed no pneumonia Antimicrobials: Zosyn Physical examination: Well-developed elderly woman who is alert in no distress. Head atraumatic normocephalic sclera nonicteric neck is obese chest rise symme trical breath sounds diminished bases heart S1-S2 abdomen soft bowel sounds present extremities without cyanosis Assessment: 1. Acute on chronic sinusitis with facial and neck swelling==> resolving 2. Acute on chronic kidney disease 3. Diabetes 4. Hypertension Plan: Patient is doing better, ok dc on oral Augmentin for 7 more days Consultation Date/Type/Reason Admit Date/Time Jul 10, 2018 at 19:45 Initial Consult Date Type of Consult id Date/Time of Note DATE: 07/18/18 TIME: 13:55 Exam/Review of Systems Exam Vitals Vital Signs Date Temp Pulse Resp B/P (MAP) Pulse Ox O2 O2 Flow FiO2 Time Delivery Rate 07/18/18 70 13:07 07/18/18 97.5 20 165/79 99 Nasal 11:26 (107) Cannula 07/18/18 2.0 08:23 Intake and Output 07/17/18 07/17/18 07/18/18 1515:00 23:00 07:00 IntakeIntake Total 800 ml 400 ml BalanceBalance 800 ml 400 ml Results Result Diagram: 07/18/18 0555 07/18/18 0555 Results 24hrs Laboratory Tests Test 07/17/18 16:58 07/17/18 20:25 07/18/18 02:22 07/18/18 05:55 Bedside Glucose 168 185 159 White Blood Count 8.0 Red Blood Count 2.80 L Hemoglobin 8.1 L Hematocrit 24.4 L Mean Corpuscular Volume 87.1 Mean Corpuscular 28.9 L Hemoglobin Mean Corpuscular 33.2 Hemoglobin Concent Red Cell Distribution 13.7 Width Platelet Count 349 Mean Platelet Volume 10.9 H Immature Granulocytes % 0.400 Neutrophils % 67.0 Lymphocytes % 17.8 Monocytes % 11.8 H Eosinophils % 2.4 Basophils % 0.6 Nucleated Red Blood 0.0 Cells % Immature Granulocytes # 0.030 Neutrophils # 5.4 Lymphocytes # 1.4 Monocytes # 0.9 Eosinophils # 0.2 Basophils # 0.1 Nucleated Red Blood 0.0 Cells # Sodium Level 131 L Potassium Level 4.6 Chloride Level 96 L Carbon Dioxide Level 26 Anion Gap 9 Blood Urea Nitrogen 69 H Creatinine 2.47 H Est Glomerular Filtrat 20 L Rate mL/min Glucose Level 112 # Calcium Level 7.9 L Phosphorus Level 6.3 H Magnesium Level 3.5 H Test 07/18/18 08:09 07/18/18 12:01 Bedside Glucose 96 150 Medications Medication Current Medications Dextrose (D50w Syringe) ONCE PRN IV DECREASED GLUCOSE; Start 07/10/18 at 19:30 Gabapentin (Neurontin) 300 mg TID PO Last administered on 07/18/18at 08:11; Admin Dose 300 MG; Start 07/11/18 at 09:00 IV Flush (NS 3 ml) 3 ml PER PROTOCOL IV ; Start 07/10/18 at 21:30 Ondansetron HCl (Zofran Tab) 4 mg Q6H PRN PO NAUSEA/VOMITING; Start 07/10/18 at 21:30 Acetaminophen (Tylenol Tab) 650 mg Q6H PRN PO .PAIN 1-3 OR TEMP Last administered on 07/16/18at 02:06; Admin Dose 650 MG; Start 07/10/18 at 21:30 Docusate Sodium (Colace) 100 mg Q12H PRN PO .CONSTIPATION; Start 07/10/18 at 21:30 Bisacodyl (Dulcolax) 5 mg DAILY PRN PO .CONSTIPATION Last administered on 07/13/18at 17:40; Admin Dose 5 MG; Start 07/10/18 at 21:30 Diagnostic Test (Pha) (Accu-Chek) 1 ea 02 XX Last administered on 07/18/18at 02:43; Admin Dose 1 EA; Start 07/11/18 at 02:00 Miscellaneous Information 1 ea NOTE XX ; Start 07/10/18 at 22:30 Glucose (Glutose) 15 gm Q15M PRN PO DECREASED GLUCOSE; Start 07/10/18 at 22:30 Glucose (Glutose) 22.5 gm Q15M PRN PO DECREASED GLUCOSE; Start 07/10/18 at 22:30 Dextrose (D50w Syringe) 25 ml Q15M PRN IV DECREASED GLUCOSE; Start 07/10/18 at 22:30 Dextrose (D50w Syringe) 50 ml Q15M PRN IV DECREASED GLUCOSE; Start 07/10/18 at 22:30 Glucagon (Glucagen) 1 mg Q15M PRN IM DECREASED GLUCOSE; Start 07/10/18 at 22:30 Glucose (Glutose) 15 gm Q15M PRN BUCCAL DECREASED GLUCOSE; Start 07/10/18 at 22:30 Docusate Sodium (Colace) 200 mg BID PO Last administered on 07/17/18 20:31; A dmin Dose 200 MG; Start 07/11/18 at 09:00 Polyethylene Glycol (Miralax) 17 gm BID PO Last administered on 07/17/18 20:32; Admin Dose 17 GM; Start 07/11/18 at 09:00 Insulin Aspart (Novolog Insulin Pen) NOVOLOG *MILD* ALGORITHM WITH MEALS BEDTIME SC Last administered on 07/18/18 13:06; Admin Dose 1 UNIT; Start 07/11/18 at 11:50 Hydralazine HCl (Apresoline) 10 mg Q6H PRN IV SBP>160 Last administered on 07/18/18 12:05; Admin Dose 10 MG; Start 07/11/18 at 16:30 Insulin Glargine (Lantus) 10 units DAILY@2000 SC Last administered on 07/17/18 20:31; Admin Dose 10 UNITS; Start 07/12/18 at 20:00 Ferric Sodium Gluconate Complex 125 mg/Sodium Chloride 100 ml @ 100 mls/hr DAILY@1300 IVPB Last administered on 07/13/18 13:26; Admin Dose 100 MLS/HR; Start 07/13/18 at 13:00; Status Hold Phenol (Cepastat Lozenge) 1 lozenge Q2H PRN MT SORE THROAT; Start 07/14/18 at 09:00 Lactulose (Enulose) 20 gm DAILY PRN PO CONSTIPATION Last administered on 07/15/18 20:57; Admin Dose 20 GM; Start 07/15/18 at 09:30 Piperacillin Sod/ Tazobactam Sod 50 ml @ 200 mls/hr Q6 IVPB Last administered on 5/8/19at 12:06; Admin Dose 200 MLS/HR; Start 07/16/18 at 12:00 Carvedilol (Coreg) 6.125 mg BID PO ; Start 07/17/18 at 21:00 Nifedipine (Procardia Xl) 60 mg BID PO ; Start 07/18/18 at 09:00 Cholecalciferol (Vitamin D) 1,000 unit DAILY PO Last administered on 07/18/18at 09:04; Admin Dose 1,000 UNIT; Start 07/18/18 at 09:00 ANGELICA ENGEL NP July 18, 2018 13:56
--- NOTE | 2018-07-18 15:02 | PN ---
Date/Time of Note Date/Time of Note DATE: 07/18/18 TIME: 15:01 Objective Vitals Vital Signs Date Temp Pulse Resp B/P (MAP) Pulse Ox O2 O2 Flow FiO2 Time Delivery Rate 07/18/18 70 13:07 07/18/18 97.5 20 165/79 99 Nasal 11:26 (107) Cannula 07/18/18 2.0 08:23 Intake and Output 07/17/18 07/17/18 07/18/18 1515:00 23:00 07:00 IntakeIntake Total 800 ml 400 ml BalanceBalance 800 ml 400 ml Results Result Diagram: 07/18/18 0555 07/18/18 0555 Medications Medications Current Medications Dextrose (D50w Syringe) ONCE PRN IV DECREASED GLUCOSE; Start 07/10/18 at 19:30 Gabapentin (Neurontin) 300 mg TID PO Last administered on 07/18/18at 14:10; Admin Dose 300 MG; Start 07/11/18 at 09:00 IV Flush (NS 3 ml) 3 ml PER PROTOCOL IV ; Start 07/10/18 at 21:30 Ondansetron HCl (Zofran Tab) 4 mg Q6H PRN PO NAUSEA/VOMITING; Start 07/10/18 at 21:30 Acetaminophen (Tylenol Tab) 650 mg Q6H PRN PO .PAIN 1-3 OR TEMP Last administered on 07/16/18 02:06; Admin Dose 650 MG; Start 07/10/18 at 21:30 Docusate Sodium (Colace) 100 mg Q12H PRN PO .CONSTIPATION; Start 07/10/18 at 21:30 Bisacodyl (Dulcolax) 5 mg DAILY PRN PO .CONSTIPATION Last administered on 07/13/18 17:40; Admin Dose 5 MG; Start 07/10/18 at 21:30 Diagnostic Test (Pha) (Accu-Chek) 1 ea 02 XX Last administered on 07/18/18at 02:43; Admin Dose 1 EA; Start 07/11/18 at 02:00 Miscellaneous Information 1 ea NOTE XX ; Start 07/10/18 at 22:30 Glucose (Glutose) 15 gm Q15M PRN PO DECREASED GLUCOSE; Start 07/10/18 at 22:30 Glucose (Glutose) 22.5 gm Q15M PRN PO DECREASED GLUCOSE; Start 07/10/18 at 22:30 Dextrose (D50w Syringe) 25 ml Q15M PRN IV DECREASED GLUCOSE; Start 07/10/18 at 22:30 Dextrose (D50w Syringe) 50 ml Q15M PRN IV DECREASED GLUCOSE; Start 07/10/18 at 22:30 Glucagon (Glucagen) 1 mg Q15M PRN IM DECREASED GLUCOSE; Start 07/10/18 at 22:30 Glucose (Glutose) 15 gm Q15M PRN BUCCAL DECREASED GLUCOSE; Start 07/10/18 at 22:30 Docusate Sodium (Colace) 200 mg BID PO Last administered on 07/17/18 20:31; Admin Dose 200 MG; Start 07/11/18 at 09:00 Polyethylene Glycol (Miralax) 17 gm BID PO Last administered on 07/17/18 20:32; Admin Dose 17 GM; Start 07/11/18 at 09:00 Insulin Aspart (Novolog Insulin Pen) NOVOLOG *MILD* ALGORITHM WITH MEALS B EDTIME SC Last administered on 07/18/18 13:06; Admin Dose 1 UNIT; Start 07/11/18 at 11:50 Hydralazine HCl (Apresoline) 10 mg Q6H PRN IV SBP>160 Last administered on 07/18/18 12:05; Admin Dose 10 MG; Start 07/11/18 at 16:30 Insulin Glargine (Lantus) 10 units DAILY@2000 SC Last administered on 07/17/18 20:31; Admin Dose 10 UNITS; Start 07/12/18 at 20:00 Ferric Sodium Gluconate Complex 125 mg/Sodium Chloride 100 ml @ 100 mls/hr DAILY@1300 IVPB Last administered on 07/13/18 13:26; Admin Dose 100 MLS/HR; Start 07/13/18 at 13:00; Status Hold Phenol (Cepastat Lozenge) 1 lozenge Q2H PRN MT SORE THROAT; Start 07/14/18 at 09:00 Lactulose (Enulose) 20 gm DAILY PRN PO CONSTIPATION Last administered on 07/15/18 20:57; Admin Dose 20 GM; Start 07/15/18 at 09:30 Piperacillin Sod/ Tazobactam Sod 50 ml @ 200 mls/hr Q6 IVPB Last administered on 5/8/19at 12:06; Admin Dose 200 MLS/HR; Start 07/16/18 at 12:00 Carvedilol (Coreg) 6.125 mg BID PO ; Start 07/17/18 at 21:00 Nifedipine (Procardia Xl) 60 mg BID PO ; Start 07/18/18 at 09:00 Cholecalciferol (Vitamin D) 1,000 unit DAILY PO Last administered on 07/18/18at 09:04; Admin Dose 1,000 UNIT; Start 07/18/18 at 09:00 VTE Prophylaxis Risk score (from Ns)>0 risk: 4 SCD applied (from [facility] [place], [place]): Yes Lines/Catheters IV Catheter Type: Taylor in Place: No Assessment/Plan Hospital Course Subjective Patient's swelling has nearly completely resolved, doing well. Objective Physical exam General: Patient is laying in bed and answers questions appropriately Mentation: Patient is alert and oriented 4, Head: Normocephalic atraumatic Eyes: EOMI, pupils reactive to light, Face: Mild swelling Neck: Supple, nontender, midline, Respiratory: Clear to auscultation bilaterally Cardiovascular: regular rate, no obvious murmurs Gastrointestinal: non-tender to palpation, bowel sounds heard.mildly distended, nontender Neurological: Moves all extremities spontaneously Skin: No new skin lesions ASSESSMENT & PLAN This is a 68-year-old female with comorbidities including diabetes mellitus, chronic kidney disease, and hypertension who came to the emergency room with chief complaint of constipation. The patient was noticed to have underlying hyperkalemia (potassium was 6.6) in the emergency room. The patient underwent a KUB that was showing fecal filled colon. The patient was admitted to inpatient setting for further treatment and evaluation. Facial and neck swelling 2/2 facial cellulitis, resolving -No respiratory compromise, monitor closely -CT showing salivary stones in the submandibular gland bilaterally and cellulitis with possible retropharyngeal abscess which likely is the cause of patient's facial swelling, -IV antibiotic to switch to orals now infectious disease consulted -Follow-up with MRI, done but not resulted -Ear nose and throat physician, Dr. Wylie also consulted, upon scope ear nose and throat physician did not see any retropharyngeal fullness to indicate abscess or even a target if abscess is present. salivary stones -conservative tx per ENT -abx -very small and calcifications not obstructive per ENT Carotid stenosis abnormality, only on ultrasound -Found on ultrasound, -MRA not showing any carotid stenosis Hyperkalemia. -Resolved. -Etiology probably secondary to worsening renal function. -Status post potassium exchange resin and insulin IV. -Being followed by nephrology. Acute on chronic kidney disease., -Being followed by nephrology. -Avoid nephrotoxic medications. -worsening Constipation. -KUB showed fecal filled colon. -Continue bowel regimen. -Largely resolved. Continue bowel regimen Diabetes mellitus. -Hemoglobin A1c 8.3. -Continue sliding scale insulin. -Add basal insulin. Hypertension. -Continue antihypertensives. Diabetic neuropathy. -Continue gabapentin. Normocytic anemia. -Most probably anemia of chronic kidney disease. -Monitor H&H closely. -Start iron supplements. -Epogen as per nephrology. -Transfuse as needed, 1 unit transfused so far Questionable anasarca. -Patient has no lower extremity swelling and abdominal distention has improved after large bowel movement, swelling is mostly limited to the face which is secondary to above cellulitis. 9. Fluids, electrolytes, and nutrition. -Carbohydrate controlled diet. 10. DVT prophylaxis. -Bilateral SCDs. 11. Plan. -cont abx. -nephrology recs for AYAKA BIRCH July 18, 2018 15:02
[2018-07-18] MEDS: AMOXICILLIN/CLAV 875 MG TAB PO SCH (20:54)
[2018-07-18] MEDS: INSULIN GLARGINE [LANTus] (100 UNITS/ML) SYG SC SCH (21:37)
[2018-07-19] VITALS (13 sets, daily range): BP systolic 136–174; BP diastolic 65–74; PULSE 57–70; RESP 16–20
[2018-07-19] MEDS: ACCU-CHEK XX SCH (02:00)
[2018-07-19] MEDS: hydrALAzine 20 MG INJ IV PRN (02:48)
[2018-07-19] MEDS: INSULIN ASPART [NOVOLOG] 3 ML PEN SC SCH ×4 (07:44→21:24)
[2018-07-19] MEDS: NIFEdipine (XL) 60 MG TAB PO SCH ×2 (08:37→20:39)
[2018-07-19] MEDS: AMOXICILLIN/CLAV 875 MG TAB PO SCH ×2 (08:37→20:39)
[2018-07-19] MEDS: GABAPENTIN 300 MG CAP PO SCH ×3 (08:37→20:39)
[2018-07-19] MEDS: CHOLECALCIFEROL 1,000 UNIT TAB PO SCH (08:37)
[2018-07-19] MEDS: DOCUSATE SODIUM 100 MG CAP PO SCH ×2 (08:38→20:38)
[2018-07-19] MEDS: POLYETHYLENE GLYCOL 17 GM PACKET PO SCH ×2 (08:38→20:38)
[2018-07-19] MEDS: SOD CHLORIDE 0.9% 1,000 ML IV SCH (09:12)
--- NOTE | 2018-07-19 09:29 | PN ---
DATE: 07/19/2018 SUBJECTIVE: The patient is stable. No acute events noted overnight. No hemoptysis, hematemesis or hematochezia. OBJECTIVE: VITAL SIGNS: Blood pressure is 147/65, respirations 18, pulse 66, temperature 98.4. HEENT: Head is normocephalic. NECK: Supple. HEART: Regular rate. LUNGS: Show diminished breath sounds at the base. ABDOMEN: Soft, nontender to palpation without rebound or guarding. EXTREMITIES: Negative for clubbing, cyanosis. Trace edema. DERMATOLOGIC: No rashes. MUSCULOSKELETAL: No joint effusion. NEUROLOGIC: No change in exam. MEDICATIONS: Reviewed. LABORATORY DATA: Reviewed. Urinalysis was reviewed. ASSESSMENT AND PLAN: 1. Nonoliguric acute kidney injury with previous baseline creatinine around 1.3 to 1.5 mg/dL. Etiol ogy of acute kidney injury is initially felt to be secondary to hemodynamics possible volume depletio n. The patient's renal function continues to decline. A repeat urinalysis shows FENa less than 1%, consistent with prerenal state. Although clinically appears euvolemic. Plan at this point is to giv e the patient a fluid challenge. We will start patient on normal saline 75 mL/hour. We will monitor renal function closely, monitor vitals and blood pressure and volume status closely. We will repeat renal ultrasound for reevaluation. We will also consider a renal arterial ultrasound to evaluate fo r any signs of renal artery stenosis. 2. Chronic kidney disease, stage III, etiology is secondary to diabetic neuropathy. The patient has nephrotic range proteinuria, currently in acute kidney injury as stated above. Continue current bigg atment plan and monitor closely. 3. Hyponatremia secondary to decreased free water urinary excretion. Continue to limit free water i ntake. Monitor sodium levels closely. 4. Anemia with iron deficiency. Continue IV iron. Monitor hemoglobin and hematocrit levels. 5. Mineral bone disorder. Monitor calcium and phosphorus levels. 6. Hypertension, blood pressure controlled. Monitor renal function closely on IV fluids. 7. Diabetes. Continue current insulin regimen. 8. Facial fullness. The patient's imaging studies were reviewed and was followed by ENT. Roxy lofton ce of abscess. Continue to monitor. 9. Hypermagnesemia Secondary to acute kidney injury. Continue to monitor. Dictated By: MILLY URBANO/KULWINDER Conf#: [id number] [facility]#: [id number] CC: CARLOS MALCOLM MD; AYAKA COBOS MD;*[facility]*
--- NOTE | 2018-07-19 12:16 | PN ---
Date/Time of Note Date/Time of Note DATE: 07/19/18 TIME: 12:15 Objective Vitals Vital Signs Date Temp Pulse Resp B/P (MAP) Pulse Ox O2 O2 Flow FiO2 Time Delivery Rate 07/19/18 97.8 63 20 148/65 94 Nasal 11:31 (92) Cannula 07/19/18 2.0 03:27 Intake and Output 07/18/18 07/18/18 07/19/18 1515:00 23:00 07:00 IntakeIntake Total 50 ml 480 ml BalanceBalance 50 ml 480 ml Results Result Diagram: 07/19/1862507/19/18625 Medications Medications Current Medications Gabapentin (Neurontin) 300 mg TID PO Last administered on 07/19/18at 08:37; Admin Dose 300 MG; Start 07/11/18 at 09:00 IV Flush (NS 3 ml) 3 ml PER PROTOCOL IV ; Start 07/10/18 at 21:30 Ondansetron HCl (Zofran Tab) 4 mg Q6H PRN PO NAUSEA/VOMITING; Start 07/10/18 at 21:30 Acetaminophen (Tylenol Tab) 650 mg Q6H PRN PO .PAIN 1-3 OR TEMP Last a dministered on 07/16/18at 02:06; Admin Dose 650 MG; Start 07/10/18 at 21:30 Docusate Sodium (Colace) 100 mg Q12H PRN PO .CONSTIPATION; Start 07/10/18 at 21:30 Bisacodyl (Dulcolax) 5 mg DAILY PRN PO .CONSTIPATION Last administered on 07/13/18at 17:40; Admin Dose 5 MG; Start 07/10/18 at 21:30 Diagnostic Test (Pha) (Accu-Chek) 1 ea 02 XX Last administered on 07/18/18at 02:43; Admin Dose 1 EA; Start 07/11/18 at 02:00 Miscellaneous Information 1 ea NOTE XX ; Start 07/10/18 at 22:30 Glucose (Glutose) 15 gm Q15M PRN PO DECREASED GLUCOSE; Start 07/10/18 at 22:30 Glucose (Glutose) 22.5 gm Q15M PRN PO DECREASED GLUCOSE; Start 07/10/18 at 22:30 Dextrose (D50w Syringe) 25 ml Q15M PRN IV DECREASED GLUCOSE; Start 07/10/18 at 22:30 Dextrose (D50w Syringe) 50 ml Q15M PRN IV DECREASED GLUCOSE; Start 07/10/18 at 22:30 Glucagon (Glucagen) 1 mg Q15M PRN IM DECREASED GLUCOSE; Start 07/10/18 at 22:30 Glucose (Glutose) 15 gm Q15M PRN BUCCAL DECREASED GLUCOSE; Start 07/10/18 at 22:30 Docusate Sodium (Colace) 200 mg BID PO Last administered on 07/18/18 20:53; Admin Dose 200 MG; Start 07/11/18 at 09:00 Polyethylene Glycol (Miralax) 17 gm BID PO Last administered on 07/18/18 20:54; Admin Dose 17 GM; Start 07/11/18 at 09:00 Insulin Aspart (Novolog Insulin Pen) NOVOLOG *MILD* ALGORITHM WITH MEALS BEDTIME SC Last administered on 07/19/18 12:11; Admin Dose 1 UNIT; Start 07/11/18 at 11:50 Hydralazine HCl (Apresoline) 10 mg Q6H PRN IV SBP>160 Last administered on 07/19/18 02:48; Admin Dose 10 MG; Start 07/11/18 at 16:30 Insulin Glargine (Lantus) 10 units DAILY@2000 SC Last administered on 07/18/18 21:37; Admin Dose 10 UNITS; Start 07/12/18 at 20:00 Ferric Sodium Gluconate Complex 125 mg/Sodium Chloride 100 ml @ 100 mls/hr DAILY@1300 IVPB Last administered on 07/13/18 13:26; Admin Dose 100 MLS/HR; Start 07/13/18 at 13:00; Status Hold Phenol (Cepastat Lozenge) 1 lozenge Q2H PRN MT SORE THROAT; Start 07/14/18 at 09:00 Lactulose (Enulose) 20 gm DAILY PRN PO CONSTIPATION Last administered on 9at 20:57; Admin Dose 20 GM; Start 07/15/18 at 09:30 Carvedilol (Coreg) 6.125 mg BID PO Last administered on 07/18/18 20:54; Admin Dose 6.125 MG; Start 07/17/18 at 21:00 Nifedipine (Procardia Xl) 60 mg BID PO Last administered on 5/9/19at 08:37; Admin Dose 60 MG; Start 07/18/18 at 09:00 Cholecalciferol (Vitamin D) 1,000 unit DAILY PO Last administered on 07/19/18 08:37; Admin Dose 1,000 UNIT; Start 07/18/18 at 09:00 Amoxicillin/ Clavulanate Potassium (Augmentin) 875 mg BID PO Last administered on 07/19/18 08:37; Admin Dose 875 MG; Start 07/18/18 at 21:00 Sodium Chloride 1,000 ml @ 50 mls/hr Q20H IV Last administered on 07/19/18 09:12; Admin Dose 50 MLS/HR; Start 07/19/18 at 08:30 Famotidine (Pepcid) 20 mg DAILY PO ; Start 07/19/18 at 11:30 VTE [place] [facility] [place]: 4 [place] [facility] [place] Yes Lines/Catheters IV Catheter Type: Taylor in Place: No Assessment/Plan Hospital Course Subjective Patient's swelling has nearly completely resolved, doing well. Objective Physical exam General: Patient is laying in bed and answers questions appropriately Mentation: Patient is alert and oriented 4, Head: Normocephalic atraumatic Eyes: EOMI, pupils reactive to light, Face: Mild swelling Neck: Supple, nontender, midline, Respiratory: Clear to auscultation bilaterally Cardiovascular: regular rate, no obvious murmurs Gastrointestinal: non-tender to palpation, bowel sounds heard.mildly distended, nontender Neurological: Moves all extremities spontaneously Skin: No new skin lesions ASSESSMENT & PLAN This is a 68-year-old female with comorbidities including diabetes mellitus, chronic kidney disease, and hypertension who came to the emergency room with chief complaint of constipation. The patient was noticed to have underlying hyperkalemia (potassium was 6.6) in the emergency room. The patient underwent a KUB that was showing fecal filled colon. The patient was admitted to inpatient setting for further treatment and evaluation. Facial and neck swelling 2/2 facial cellulitis, resolving -No respiratory compromise, monitor closely -CT showing salivary stones in the submandibular gland bilaterally and cellulitis with possible retropharyngeal abscess which likely is the cause of patient's facial swelling, -IV antibiotic to switch to orals now infectious disease consulted -Follow-up with MRI, noted, very small fluid collection -Ear nose and throat physician, Dr. Wylie also consulted, upon scope ear nose and throat physician did not see any retropharyngeal fullness to indicate abscess or even a target if abscess is present. Notified ENT about MRI, no need for further intervention per ear nose and throat physician, continue antibiotics. salivary stones -conservative tx per ENT -abx -very small and calcifications not obstructive per ENT Carotid stenosis abnormality, only on ultrasound -Found on ultrasound, -MRA not showing any carotid stenosis Hyperkalemia. -Resolved. -Etiology probably secondary to worsening renal function. -Status post potassium exchange resin and insulin IV. -Being followed by nephrology. Acute on chronic kidney disease., -Being followed by nephrology. -Avoid nephrotoxic medications. -Arterial study pending -worsening Constipation. -KUB showed fecal filled colon. -Continue bowel regimen. -Largely resolved. Continue bowel regimen Diabetes mellitus. -Hemoglobin A1c 8.3. -Continue sliding scale insulin. -Add basal insulin. Hypertension. -Continue antihypertensives. Diabetic neuropathy. -Continue gabapentin. Normocytic anemia. -Most probably anemia of chronic kidney disease. -Monitor H&H closely. -Start iron supplements. -Epogen as per nephrology. -Transfuse as needed, 1 unit transfused so far Questionable anasarca. -Patient has no lower extremity swelling and abdominal distention has improved after large bowel movement, swelling is mostly limited to the face which is secondary to above cellulitis. Fluids, electrolytes, and nutrition. -Carbohydrate controlled diet. DVT prophylaxis. -Bilateral SCDs. Plan. -cont abx. -nephrology recs for AYAKA BIRCH July 19, 2018 12:16
--- NOTE | 2018-07-19 12:22 | CONS ---
Assessment/Plan Assessment/Plan Hospital Course (Demo Recall) All noted, n acute changes, looks comfortable Microbiology: Blood cultures negative CT of the brain on admission revealed no acute intracranial findings. Ethmoid and left ethmoid sinus fluid. Facial CT revealed no evidence of abscess punctate submandibular gland calcification suggests sialolithiasis. Acute on chronic left maxillary sinusitis. Please see full report in the chart. Chest x-ray revealed no pneumonia Antimicrobials: Zosyn Physical examination: Well-developed elderly woman who is alert in no distress. Head atraumatic normocephalic sclera nonicteric neck is obese chest rise symmetrical breath sounds diminished bases heart S1-S2 abdomen soft bowel sounds present extremities without cyanosis Assessment: 1. Acute on chronic sinusitis with facial and neck swelling==> resolving 2. Acute on chronic kidney disease 3. Diabetes 4. Hypertension Plan: Stable, s/p Zosyn, started on Augmentin, f/u renal rec-s Consultation Date/Type/Reason Admit Date/Time Jul 10, 2018 at 19:45 Initial Consult Date Type of Consult id Date/Time of Note DATE: 07/19/18 TIME: 12:18 Exam/Review of Systems Exam Vitals Vital Signs Date Temp Pulse Resp B/P (MAP) Pulse Ox O2 O2 Flow FiO2 Time Delivery Rate 07/19/18 97.8 63 20 148/65 94 Nasal 11:31 (92) Cannula 07/19/18 2.0 03:27 Intake and Output 07/18/18 07/18/18 07/19/18 1515:00 23:00 07:00 IntakeIntake Total 50 ml 480 ml BalanceBalance 50 ml 480 ml Results Result Diagram: 07/19/18 0626 07/19/18 0626 Results 24hrs Laboratory Tests Test 07/18/18 17:44 07/18/18 20:51 07/19/18 02:52 07/19/18 06:26 Bedside Glucose 183 208 136 White Blood Count 9.5 Red Blood Count 2.94 L Hemoglobin 8.4 L Hematocrit 26.0 L Mean Corpuscular Volume 88.4 Mean Corpuscular 28.6 L Hemoglobin Mean Corpuscular 32.3 Hemoglobin Concent Red Cell Distribution 14.1 Width Platelet Count 367 Mean Platelet Volume 10.4 Immature Granulocytes % 0.400 Neutrophils % 72.8 Lymphocytes % 14.5 L Monocytes % 9.6 Eosinophils % 2.0 Basophils % 0.7 Nucleated Red Blood 0.0 Cells % Immature Granulocytes # 0.040 H Neutrophils # 6.9 Lymphocytes # 1.4 Monocytes # 0.9 Eosinophils # 0.2 Basophils # 0.1 Nucleated Red Blood 0.0 Cells # Sodium Level 133 L Potassium Level 4.6 Chloride Level 98 Carbon Dioxide Level 26 Anion Gap 9 Blood Urea Nitrogen 64 H Creatinine 2.55 H Est Glomerular Filtrat 19 L Rate mL/min Glucose Level 118 Calcium Level 8.2 L Phosphorus Level 5.9 H Magnesium Level 3.6 H Test 07/19/18 07:43 07/19/18 11:48 Bedside Glucose 119 178 Medications Medication Current Medications Gabapentin (Neurontin) 300 mg TID PO Last administered on 07/19/18at 08:37; Admin Dose 300 MG; Start 07/11/18 at 09:00 IV Flush (NS 3 ml) 3 ml PER PROTOCOL IV ; Start 07/10/18 at 21:30 Ondansetron HCl (Zofran Tab) 4 mg Q6H PRN PO NAUSEA/VOMITING; Start 07/10/18 at 21:30 Acetaminophen (Tylenol Tab) 650 mg Q6H PRN PO .PAIN 1-3 OR TEMP Last administered on 07/16/18at 02:06; Admin Dose 650 MG; Start 07/10/18 at 21:30 Docusate Sodium (Colace) 100 mg Q12H PRN PO .CONSTIPATION; Start 07/10/18 at 21:30 Bisacodyl (Dulcolax) 5 mg DAILY PRN PO .CONSTIPATION Last administered on 07/13/18at 17:40; Admin Dose 5 MG; Start 07/10/18 at 21:30 Diagnostic Test (Pha) (Accu-Chek) 1 ea 02 XX Last administered on 07/18/18at 02:43; Admin Dose 1 EA; Start 07/11/18 at 02:00 Miscellaneous Information 1 ea NOTE XX ; Start 07/10/18 at 22:30 Glucose (Glutose) 15 gm Q15M PRN PO DECREASED GLUCOSE; Start 07/10/18 at 22:30 Glucose (Glutose) 22.5 gm Q15M PRN PO DECREASED GLUCOSE; Start 07/10/18 at 22:30 Dextrose (D50w Syringe) 25 ml Q15M PRN IV DECREASED GLUCOSE; Start 07/10/18 at 22:30 Dextrose (D50w Syringe) 50 ml Q15M PRN IV DECREASED GLUCOSE; Start 07/10/18 at 22:30 Glucagon (Glucagen) 1 mg Q15M PRN IM DECREASED GLUCOSE; Start 07/10/18 at 22:30 Glucose (Glutose) 15 gm Q15M PRN BUCCAL DECREASED GLUCOSE; Start 07/10/18 at 22:30 Docusate Sodium (Colace) 200 mg BID PO Last administered on 07/18/18 20:53; Admin Dose 200 MG; Start 07/11/18 at 09:00 Polyethylene Glycol (Miralax) 17 gm BID PO Last administered on 07/18/18 20:54; Admin Dose 17 GM; Start 07/11/18 at 09:00 Insulin Aspart (Novolog Insulin Pen) NOVOLOG *MILD* ALGORITHM WITH MEALS BEDTIME SC Last administered on 07/19/18 12:11; Admin Dose 1 UNIT; Start 07/11/18 at 11:50 Hydralazine HCl (Apresoline) 10 mg Q6H PRN IV SBP>160 Last administered on 02:48; Admin Dose 10 MG; Start 07/11/18 at 16:30 Insulin Glargine (Lantus) 10 units DAILY@2000 SC Last administered on 07/18/18 21:37; Admin Dose 10 UNITS; Start 07/12/18 at 20:00 Ferric Sodium Gluconate Complex 125 mg/Sodium Chloride 100 ml @ 100 mls/hr DAILY@1300 IVPB Last administered on 07/13/18 13:26; Admin Dose 100 MLS/HR; Start 07/13/18 at 13:00; Status Hold Phenol (Cepastat Lozenge) 1 lozenge Q2H PRN MT SORE THROAT; Start 07/14/18 at 09:00 Lactulose (Enulose) 20 gm DAILY PRN PO CONSTIPATION Last administered on 07/15/18 20:57; Admin Dose 20 GM; Start 07/15/18 at 09:30 Carvedilol (Coreg) 6.125 mg BID PO Last administered on 07/18/18 20:54; Admin Dose 6.125 MG; Start 07/17/18 at 21:00 Nifedipine (Procardia Xl) 60 mg BID PO Last administered on 07/19/18 08:37; Admin Dose 60 MG; Start 07/18/18 at 09:00 Cholecalciferol (Vitamin D) 1,000 unit DAILY PO Last administered on 07/19/18 08:37; Admin Dose 1,000 UNIT; Start 07/18/18 at 09:00 Amoxicillin/ Clavulanate Potassium (Augmentin) 875 mg BID PO Last administered on 07/19/18 08:37; Admin Dose 875 MG; Start 07/18/18 at 21:00 Sodium Chloride 1,000 ml @ 50 mls/hr Q20H IV Last administered on 07/19/18 09:12; Admin Dose 50 MLS/HR; Start 07/19/18 at 08:30 Famotidine (Pepcid) 20 mg DAILY PO ; Start 07/19/18 at 11:30 ANGELICA ENGEL NP July 19, 2018 12:22
[2018-07-19] MEDS: FAMOTIDINE 20 MG TAB PO SCH (12:43)
[2018-07-19] MEDS: INSULIN GLARGINE [LANTus] (100 UNITS/ML) SYG SC SCH (21:23)
[2018-07-20] VITALS (12 sets, daily range): BP systolic 141–176; BP diastolic 67–92; PULSE 56–68; RESP 18–22
[2018-07-20] MEDS: ACCU-CHEK XX SCH (02:22)
[2018-07-20] MEDS: SOD CHLORIDE 0.9% 1,000 ML IV SCH (04:04)
[2018-07-20] MEDS: INSULIN ASPART [NOVOLOG] 3 ML PEN SC SCH ×4 (07:55→21:00)
--- NOTE | 2018-07-20 08:34 | PN ---
DATE: 07/20/2018 SUBJECTIVE: The patient is stable, no events overnight. Urinary output has increased. OBJECTIVE: VITAL SIGNS: Blood pressure is 163/70, pulse 82, respiration 18, temperature 97.4. HEENT: Head is normocephalic. NECK: Supple. HEART: Regular rate. LUNGS: Show diminished breath sounds at the base. ABDOMEN: Soft, nontender to palpation without rebound or guarding. EXTREMITIES: Negative for clubbing, cyanosis, no edema. DERMATOLOGIC: No rashes. MUSCULOSKELETAL: No joint effusion. NEUROLOGIC: No change in exam. MEDICATIONS: The patient's medications are reviewed. LABORATORY DATA: From 07/20/2018 has been reviewed. Imaging studies were reviewed. The patient's renal arterial Doppler ultrasound shows normal renal echogenicity without hydronephrosis, bilateral renal arteries not very well visualized, normal resistive indices less likely for renal artery stenosis. ASSESSMENT AND PLAN: 1. Nonoliguric acute kidney injury with previous baseline creatinine around 1.3 to 1.5 mg/dL. Etiology of acute kidney injury was initially felt to be secondary to hemodynamics. The patient's renal function, however further declined possibly due hemodynamics, acute tubular necrosis. Patient's renal function has stabilized in the last 48 hours with IV hydration. A renal arterial ultrasound was also performed that showed no evidence of renal artery stenosis. At this point, would continue current medical management, will discontinue IV hydration. Continue supportive care, renally dose all meds. The patient may be entering a maintenance phase of acute kidney injury. No immediate need for renal replacement therapy. 2. Chronic kidney disease, stage III, with a history of diabetic nephropathy. The patient has nephrotic range proteinuria. Currently, the patient is in acute injury as stated above. Continue disease factor modification. Continue current treatment plan. 3. Hyponatremia secondary to acute kidney injury. Continue to monitor and limit free water intake. 4. Anemia. Continue to monitor hemoglobin and hematocrit levels. 5. Mineral bone disorder. The patient is hyperphosphatemic secondary to acute kidney injury. Continue to monitor. Will start patient on phosphate binders. 6. Hypermagnesemia secondary to acute kidney injury. Continue to monitor. 7. Hypertension. Continue current blood pressure regimen, will deescalate IV fluids. 8. Diabetes. Continue current insulin regimen. 9. Facial fullness. The patient is status post imaging studies status post ENT evaluation, no evidence of abscess. Continue to monitor. Dictated By: MILLY URBANO/KULWINDER Conf#: [id number] DID#: [id number] CC: CARLOS MALCOLM MD;*EndCC* MTDD
[2018-07-20] MEDS: POLYETHYLENE GLYCOL 17 GM PACKET PO SCH ×2 (09:00→21:40)
[2018-07-20] MEDS: DOCUSATE SODIUM 100 MG CAP PO SCH ×2 (09:00→21:39)
[2018-07-20] MEDS: CHOLECALCIFEROL 1,000 UNIT TAB PO SCH (09:17)
[2018-07-20] MEDS: GABAPENTIN 300 MG CAP PO SCH (09:17)
[2018-07-20] MEDS: FAMOTIDINE 20 MG TAB PO SCH (09:17)
[2018-07-20] MEDS: AMOXICILLIN/CLAV 875 MG TAB PO SCH ×2 (09:17→21:38)
[2018-07-20] MEDS: NIFEdipine (XL) 60 MG TAB PO SCH ×2 (09:19→21:40)
[2018-07-20] MEDS ORDERED: ALBUTEROL/IPRATROPIUM (NEB) 3 ML AMP HHN PRN (11:00)
--- NOTE | 2018-07-20 11:51 | PN ---
Date/Time of Note Date/Time of Note DATE: 07/20/18 TIME: 11:48 Objective Vitals Vital Signs Date Temp Pulse Resp B/P (MAP) Pulse Ox O2 O2 Flow FiO2 Time Delivery Rate 07/20/18 97.6 62 18 176/79 100 11:25 (111) 07/20/18 2.0 10:51 07/20/18 Nasal 07:39 Cannula Intake and Output 07/19/18 07/19/18 07/20/18 1515:00 23:00 07:00 IntakeIntake Total 400 ml 300 ml 350 ml BalanceBalance 400 ml 300 ml 350 ml Results Result Diagram: 07/20/18 0559 07/20/18 0559 Medications Medications Current Medications IV Flush (NS 3 ml) 3 ml PER PROTOCOL IV ; Start 07/10/18 at 21:30 Ondansetron HCl (Zofran Tab) 4 mg Q6H PRN PO NAUSEA/VOMITING; Start 07/10/18 at 21:30 Acetaminophen (Tylenol Tab) 650 mg Q6H PRN PO .PAIN 1-3 OR TEMP Last administered on 07/16/18at 02:06; Admin Dose 650 MG; Start 07/10/18 at 21:30 Docusate Sodium (Colace) 100 mg Q12H PRN PO .CONSTIPATION; Start 07/10/18 at 21:30 Bisacodyl (Dulcolax) 5 mg DAILY PRN PO .CONSTIPATION Last administered on 07/13/18at 17:40; Admin Dose 5 MG; Start 07/10/18 at 21:30 Diagnostic Test (Pha) (Accu-Chek) 1 ea 02 XX Last administered on 07/20/18at 02:22; Admin Dose 1 EA; Start 07/11/18 at 02:00 Miscellaneous Information 1 ea NOTE XX ; Start 07/10/18 at 22:30 Glucose (Glutose) 15 gm Q15M PRN PO DECREASED GLUCOSE; Start 07/10/18 at 22:30 Glucose (Glutose) 22.5 gm Q15M PRN PO DECREASED GLUCOSE; Start 07/10/18 at 22:30 Dextrose (D50w Syringe) 25 ml Q15M PRN IV DECREASED GLUCOSE; Start 07/10/18 at 22:30 Dextrose (D50w Syringe) 50 ml Q15M PRN IV DECREASED GLUCOSE; Start 07/10/18 at 22:30 Glucagon (Glucagen) 1 mg Q15M PRN IM DECREASED GLUCOSE; Start 07/10/18 at 22:30 Glucose (Glutose) 15 gm Q15M PRN BUCCAL DECREASED GLUCOSE; Start 07/10/18 at 22:30 Docusate Sodium (Colace) 200 mg BID PO Last administered on 07/19/18 20:38; Admin Dose 200 MG; Start 07/11/18 at 09:00 Polyethylene Glycol (Miralax) 17 gm BID PO Last administered on 07/19/18 20:38; Admin Dose 17 GM; Start 07/11/18 at 09:00 Insulin Aspart (Novolog Insulin Pen) NOVOLOG *MILD* ALGORITHM WITH MEALS BEDTIME SC Last administered on 07/19/18 21:24; Admin Dose 1 UNIT; Start 07/11 at 11:50 Hydralazine HCl (Apresoline) 10 mg Q6H PRN IV SBP>160 Last administered on 07/19/18 02:48; Admin Dose 10 MG; Start 07/11/18 at 16:30 Insulin Glargine (Lantus) 10 units DAILY@2000 SC Last administered on 07/19/18 21:23; Admin Dose 10 UNITS; Start 07/12/18 at 20:00 Ferric Sodium Gluconate Complex 125 mg/Sodium Chloride 100 ml @ 100 mls/hr DAILY@1300 IVPB Last administered on 07/13/18 13:26; Admin Dose 100 MLS/HR; Start 07/13/18 at 13:00; Status Hold Phenol (Cepastat Lozenge) 1 lozenge Q2H PRN MT SORE THROAT; Start 07/14/18 at 09:00 Lactulose (Enulose) 20 gm DAILY PRN PO CONSTIPATION Last administered on 07/15/18 20:57; Admin Dose 20 GM; Start 07/15/18 at 09:30 Nifedipine (Procardia Xl) 60 mg BID PO Last administered on 07/20/18 09:19; Admin Dose 60 MG; Start 07/18/18 at 09:00 Cholecalciferol (Vitamin D) 1,000 unit DAILY PO Last administered on 07/20/18 09:17; Admin Dose 1,000 UNIT; Start 07/18/18 at 09:00 Amoxicillin/ Clavulanate Potassium (Augmentin) 875 mg BID PO Last administered on 07/20/18at 09:17; Admin Dose 875 MG; Start 07/18/18 at 21:00 Famotidine (Pepcid) 20 mg DAILY PO Last administered on 07/20/18at 09:17; Admin Dose 20 MG; Start 07/19/18 at 11:30 Carvedilol (Coreg) 6.25 mg BID PO Last administered on 07/20/18at 09:26; Admin Dose 6.25 MG; Start 07/20/18 at 09:30 Gabapentin (Neurontin) 100 mg DAILY PO ; Start 07/21/18 at 09:00 Albuterol/ Ipratropium (Duoneb) 3 ml Q6HWA RESP THERAPY HHN ; Start 07/20/18 at 14:00 Albuterol/ Ipratropium (Duoneb) 3 ml Q2H RESP THERAPY PRN HHN shortness of breath; Start 07/20/18 at 11:00 Budesonide (Pulmicort (Neb)) 0.5 mg BID RESP THERAPY HHN ; Start 07/20/18 at 11:00 VTE Prophylaxis Risk score (from Ns)>0 risk: 3 SCD applied (from [facility]): Yes Lines/Catheters IV Catheter Type: Taylor in Place: No Assessment/Plan Hospital Course Subjective Patient becoming more hypoxic without nasal cannula, also episode of confusion this morning and hallucination, still some mild confusion Objective Physical exam General: Patient is laying in bed and answers questions appropriately, however very sleepy Mentation: Patient is alert and oriented x2, Head: Normocephalic atraumatic Eyes: EOMI, pupils reactive to light, Face: Mild swelling Neck: Supple, nontender, midline, Respiratory: Clear to auscultation bilaterally Cardiovascular: regular rate, no obvious murmurs Gastrointestinal: non-tender to palpation, bowel sounds heard.mildly distended, nontender Neurological: Moves all extremities spontaneously Skin: No new skin lesions ASSESSMENT & PLAN This is a 68-year-old female with comorbidities including diabetes mellitus, chronic kidney disease, and hypertension who came to the emergency room with chief complaint of constipation. The patient was noticed to have underlying hyperkalemia (potassium was 6.6) in the emergency room. The patient underwent a KUB that was showing fecal filled colon. The patient was admitted to inpatient setting for further treatment and evaluation. Acute hypoxic respiratory distress -Likely secondary to volume overload, patient received IV fluids for recent acute kidney injury -BNP has increased -Chest x-ray pending - after speaking with nephrology, will try one-time low-dose Lasix -DuoNeb's, budesonide -ABG done, noted Altered mental status -Possibly due to above hypoxia however cannot rule out other etiology -CT head pending -ABG done -Monitor Facial and neck swelling 2/2 facial cellulitis, resolved -No respiratory compromise, monitor closely -CT showing salivary stones in the submandibular gland bilaterally and cellulitis with possible retropharyngeal abscess which likely is the cause of patient's facial swelling, -IV antibiotic to switch to orals now infectious disease consulted -Follow-up with MRI, noted, very small fluid collection -Ear nose and throat physician, Dr. Wylie also consulted, upon scope ear nose and throat physician did not see any retropharyngeal fullness to indicate abscess or even a target if abscess is present. Notified ENT about MRI, no need for further intervention per ear nose and throat physician, continue antibiotics. salivary stones -conservative tx per ENT -abx -very small and calcifications not obstructive per ENT Carotid stenosis abnormality, only on ultrasound -Found on ultrasound, -MRA not showing any carotid stenosis Hyperkalemia. -Resolved. -Etiology probably secondary to worsening renal function. -Status post potassium exchange resin and insulin IV. -Being followed by nephrology. Acute on chronic kidney disease., -Being followed by nephrology. -Avoid nephrotoxic medications. -Arterial study pending -worsening Constipation. -KUB showed fecal filled colon. -Continue bowel regimen. -Largely resolved. Continue bowel regimen Diabetes mellitus. -Hemoglobin A1c 8.3. -Continue sliding scale insulin. -Add basal insulin. Hypertension. -Continue antihypertensives. Diabetic neuropathy. -Continue gabapentin. Normocytic anemia. -Most probably anemia of chronic kidney disease. -Monitor H&H closely. -Continue iron supplements. -Epogen as per nephrology. -Transfuse as needed, 1 unit transfused so far Questionable anasarca. -Patient has no lower extremity swelling and abdominal distention has improved after large bowel movement, swelling is mostly limited to the face which is secondary to above cellulitis. Fluids, electrolytes, and nutrition. -Carbohydrate controlled diet. DVT prophylaxis. -Bilateral SCDs. Plan. -cont abx. -nephrology recs for IBRAHIMA -Work-up altered mental status AYAKA COBOS July 20, 2018 11:51
[2018-07-20] MEDS: hydrALAzine 20 MG INJ IV PRN (11:58)
[2018-07-20] MEDS ORDERED: FUROSEMIDE 20 MG INJ IV ONE (12:00)
--- NOTE | 2018-07-20 13:37 | CONS ---
Assessment/Plan Assessment/Plan Hospital Course (Demo Recall) Alert, feels good, no fevers Microbiology: Blood cultures negative CT of the brain on admission revealed no acute intracranial findings. Ethmoid and left ethmoid sinus fluid. Facial CT revealed no evidence of abscess punctate submandibular gland calcification suggests sialolithiasis. Acute on chronic left maxillary sinusitis. Please see full report in the chart. Chest x-ray revealed no pneumonia Antimicrobials: Augmentin Physical examination: Well-developed elderly woman who is alert in no distress. Head atraumatic normocephalic sclera nonicteric neck is obese chest rise symmet rical breath sounds diminished bases heart S1-S2 abdomen soft bowel sounds present extremities without cyanosis Assessment: 1. Acute on chronic sinusitis with facial and neck swelling==> resolving 2. Acute on chronic kidney disease 3. Diabetes 4. Hypertension Plan: Remains stable, continue abx for 6 more days, f/u renal rec-s Consultation Date/Type/Reason Admit Date/Time Jul 10, 2018 at 19:45 Initial Consult Date Type of Consult id Date/Time of Note DATE: 07/20/18 TIME: 13:36 Exam/Review of Systems Exam Vitals Vital Signs Date Temp Pulse Resp B/P (MAP) Pulse Ox O2 O2 Flow FiO2 Time Delivery Rate 07/20/18 97.6 62 18 176/79 100 11:25 (111) 07/20/18 2.0 10:51 07/20/18 Nasal 07:39 Cannula Intake and Output 07/19/18 07/19/18 07/20/18 1515:00 23:00 07:00 IntakeIntake Total 400 ml 300 ml 350 ml BalanceBalance 400 ml 300 ml 350 ml Results Result Diagram: 07/20/18 0559 07/20/18 0559 Results 24hrs Laboratory Tests Test 07/19/18 17:17 07/19/18 20:37 07/20/18 02:18 07/20/18 05:59 Bedside Glucose 183 199 99 White Blood Count 10.7 Red Blood Count 2.93 L Hemoglobin 8.4 L Hematocrit 25.9 L Mean Corpuscular 88.4 Volume Mean Corpuscular 28.7 L Hemoglobin Mean Corpuscular 32.4 Hemoglobin Concen t Red Cell 14.4 Distribution Width Platelet Count 359 Mean Platelet 9.8 Volume Immature 0.400 Granulocytes % Neutrophils % 75.5 Lymphocytes % 12.9 L Monocytes % 8.8 Eosinophils % 1.8 Basophils % 0.6 Nucleated Red 0.0 Blood Cells % Immature 0.040 H Granulocytes # Neutrophils # 8.1 H Lymphocytes # 1.4 Monocytes # 0.9 Eosinophils # 0.2 Basophils # 0.1 Nucleated Red 0.0 Blood Cells # Sodium Level 134 L Potassium Level 4.5 Chloride Level 100 Carbon Dioxide 25 Level Anion Gap 9 Blood Urea 60 H Nitrogen Creatinine 2.42 H Est Glomerular 20 L Filtrat Rate mL/min Glucose Level 74 # Calcium Level 8.3 L Phosphorus Level 5.9 H Magnesium Level 3.6 H B-Type 2040 H Natriuretic Peptide Test 07/20/18 08:06 07/20/18 11:00 07/20/18 11:57 Bedside Glucose 81 177 Blood Gas Blood arterial Specimen Source Arterial Blood 07/20/2018 11:14: Date Drawn 33 AM Arterial Blood pH 7.343 L (Temp corrected) Arterial Blood 42.2 pCO2 (Temp correct) Arterial Blood 74.8 L pO2 (Temp corrected) Arterial Blood 22.4 HCO3 Arterial Blood -3.1 L Base Excess Arterial Blood 94.4 L Oxygen Saturation Lee Test ACCEPTAB Arterial Blood Left Radial Gas Puncture Site Arterial 0.3 Blood Carboxyhemo globin Arterial Blood 0.1 Methemoglobin Blood Gas A-a O2 24.4 H Differential Oxyhemoglobin 94.0 Percent Blood Gas 37.0 Temperature Blood Gas ROOM AIR Modality FiO2 21.0 Blood Gas TM Notified Whom Blood Gas 07/20/2018 11:21: Notified Time 59 AM Medications Medication Current Medications IV Flush (NS 3 ml) 3 ml PER PROTOCOL IV ; Start 07/10/18 at 21:30 Ondansetron HCl (Zofran Tab) 4 mg Q6H PRN PO NAUSEA/VOMITING; Start 07/10/18 at 21:30 Acetaminophen (Tylenol Tab) 650 mg Q6H PRN PO .PAIN 1-3 OR TEMP Last administered on 07/16/18at 02:06; Admin Dose 650 MG; Start 07/10/18 at 21:30 Docusate Sodium (Colace) 100 mg Q12H PRN PO .CONSTIPATION; Start 07/10/18 at 21:30 Bisacodyl (Dulcolax) 5 mg DAILY PRN PO .CONSTIPATION Last administered on 07/13/18at 17:40; Admin Dose 5 MG; Start 07/10/18 at 21:30 Diagnostic Test (Pha) (Accu-Chek) 1 ea 02 XX Last administered on 07/20/18at 02:22; Admin Dose 1 EA; Start 07/11/18 at 02:00 Miscellaneous Information 1 ea NOTE XX ; Start 07/10/18 at 22:30 Glucose (Glutose) 15 gm Q15M PRN PO DECREASED GLUCOSE; Start 07/10/18 at 22:30 Glucose (Glutose) 22.5 gm Q15M PRN PO DECREASED GLUCOSE; Start 07/10/18 at 22:30 Dextrose (D50w Syringe) 25 ml Q15M PRN IV DECREASED GLUCOSE; Start 07/10/18 at 22:30 Dextrose (D50w Syringe) 50 ml Q15M PRN IV DECREASED GLUCOSE; Start 07/10/18 at 22:30 Glucagon (Glucagen) 1 mg Q15M PRN IM DECREASED GLUCOSE; Start 07/10/18 at 22:30 Glucose (Glutose) 15 gm Q15M PRN BUCCAL DECREASED GLUCOSE; Start 07/10/18 at 2 2:30 Docusate Sodium (Colace) 200 mg BID PO Last administered on 07/19/18at 20:38; Admin Dose 200 MG; Start 07/11/18 at 09:00 Polyethylene Glycol (Miralax) 17 gm BID PO Last administered on 07/19/18 20:38; Admin Dose 17 GM; Start 07/11/18 at 09:00 Insulin Aspart (Novolog Insulin Pen) NOVOLOG *MILD* ALGORITHM WITH MEALS BEDTIME SC Last administered on 07/20/18at 12:07; Admin Dose 1 UNIT; Start at 11:50 Hydralazine HCl (Apresoline) 10 mg Q6H PRN IV SBP>160 Last administered on 07/20/18at 11:58; Admin Dose 10 MG; Start 07/11/18 at 16:30 Insulin Glargine (Lantus) 10 units DAILY@2000 SC Last administered on 07/19/18 21:23; Admin Dose 10 UNITS; Start 07/12/18 at 20:00 Ferric Sodium Gluconate Complex 125 mg/Sodium Chloride 100 ml @ 100 mls/hr DAILY@1300 IVPB Last administered on 07/13/18at 13:26; Admin Dose 100 MLS/HR; Start 07/13/18 at 13:00; Status Hold Phenol (Cepastat Lozenge) 1 lozenge Q2H PRN MT SORE THROAT; Start 07/14/18 at 09:00 Lactulose (Enulose) 20 gm DAILY PRN PO CONSTIPATION Last administered on 07/15/18 20:57; Admin Dose 20 GM; Start 07/15/18 at 09:30 Nifedipine (Procardia Xl) 60 mg BID PO Last administered on 07/20/18 09:19; Admin Dose 60 MG; Start 07/18/18 at 09:00 Cholecalciferol (Vitamin D) 1,000 unit DAILY PO Last administered on 07/20/18 09:17; Admin Dose 1,000 UNIT; Start 07/18/18 at 09:00 Amoxicillin/ Clavulanate Potassium (Augmentin) 875 mg BID PO Last administered on 07/20/18 09:17; Admin Dose 875 MG; Start 07/18/18 at 21:00 Famotidine (Pepcid) 20 mg DAILY PO Last administered on 07/20/18 09:17; Admin Dose 20 MG; Start 07/19/18 at 11:30 Carvedilol (Coreg) 6.25 mg BID PO Last administered on 07/20/18 09:26; Admin Dose 6.25 MG; Start 07/20/18 at 09:30 Gabapentin (Neurontin) 100 mg DAILY PO ; Start 07/21/18 at 09:00 Albuterol/ Ipratropium (Duoneb) 3 ml Q6HWA RESP THERAPY HHN ; Start 07/20/18 at 14:00 Albuterol/ Ipratropium (Duoneb) 3 ml Q2H RESP THERAPY PRN HHN shortness of breath; Start 07/20/18 at 11:00 Budesonide (Pulmicort (Neb)) 0.5 mg BID RESP THERAPY HHN ; Start 07/20/18 at 11:00 ANGELICA ENGEL NP July 20, 2018 13:37
[2018-07-20] MEDS: BUDESONIDE (NEB) 0.5MG/2ML AMP HHN SCH ×2 (13:57→19:33)
[2018-07-20] MEDS: ALBUTEROL/IPRATROPIUM (NEB) 3 ML AMP HHN SCH ×2 (13:58→19:32)
[2018-07-20] MEDS: INSULIN GLARGINE [LANTus] (100 UNITS/ML) SYG SC SCH (22:06)
[2018-07-20] MEDS: FLUTICASONE 0.05% 16 GM NAS SPRAY NASAL SCH (22:16)
[2018-07-21] VITALS (9 sets, daily range): BP systolic 134–145; BP diastolic 59–72; PULSE 54–64; RESP 18–21
[2018-07-21] MEDS ORDERED: LORAZEPAM 2 MG INJ IV ONE (00:30)
[2018-07-21] MEDS: ACCU-CHEK XX SCH (01:48)
[2018-07-21] MEDS: INSULIN ASPART [NOVOLOG] 3 ML PEN SC SCH ×4 (07:55→21:00)
[2018-07-21] MEDS: ALBUTEROL/IPRATROPIUM (NEB) 3 ML AMP HHN SCH ×3 (08:31→19:23)
[2018-07-21] MEDS: BUDESONIDE (NEB) 0.5MG/2ML AMP HHN SCH ×2 (08:31→19:23)
[2018-07-21] MEDS: FLUTICASONE 0.05% 16 GM NAS SPRAY NASAL SCH ×2 (09:00→21:10)
[2018-07-21] MEDS: AMOXICILLIN/CLAV 875 MG TAB PO SCH (10:21)
[2018-07-21] MEDS: DOCUSATE SODIUM 100 MG CAP PO SCH ×2 (10:21→21:09)
[2018-07-21] MEDS: GABAPENTIN 100 MG CAP PO SCH (10:21)
[2018-07-21] MEDS: POLYETHYLENE GLYCOL 17 GM PACKET PO SCH ×2 (10:21→21:10)
[2018-07-21] MEDS: FAMOTIDINE 20 MG TAB PO SCH (10:22)
[2018-07-21] MEDS: NIFEdipine (XL) 60 MG TAB PO SCH ×2 (10:22→21:11)
[2018-07-21] MEDS: CHOLECALCIFEROL 1,000 UNIT TAB PO SCH (10:22)
--- NOTE | 2018-07-21 11:54 | CONS ---
Assessment/Plan Assessment/Plan Hospital Course (Demo Recall) 1. Nonoliguric acute kidney injury with previous baseline creatinine around 1.3 to 1.5 mg/dL. Etiology of acute kidney injury was initially felt to be secondary to hemodynamics. The patient's renal function, however further declined possibly due hemodynamics, acute tubular necrosis. renal function did stabilize, now worse off of ivf. repeat urine studies. Continue supportive care, renally dose all meds. The patient may be entering a maintenance phase of acute kidney injury. No immediate need for renal replacement therapy. 2. Chronic kidney disease, stage III, with a history of diabetic nephropathy. The patient has nephrotic range proteinuria. Currently, the patient is in acute injury as stated above. Continue disease factor modification. Continue current treatment plan. 3. Hyponatremia secondary to acute kidney injury. Continue to monitor and limit free water intake. 4. Anemia. Continue to monitor hemoglobin and hematocrit levels. 5. Mineral bone disorder. The patient is hyperphosphatemic secondary to acute kidney injury. Continue to monitor. Will start patient on phosphate binders. 6. Hypermagnesemia secondary to acute kidney injury. Continue to monitor. 7. Hypertension. Continue current blood pressure regimen, will deescalate IV fluids. 8. Diabetes. Continue current insulin regimen. 9. Facial fullness. The patient is status post imaging studies status post ENT evaluation, no evidence of abscess. Continue to monitor. Consultation Date/Type/Reason Admit Date/Time Jul 10, 2018 at 19:45 Initial Consult Date Date/Time of Note DATE: 07/21/18 TIME: 11:53 24 HR Interval Summary Free Text/Dictation afebrile. no n/v, or shortness of breath gen nad cv rrr pulm ctab abd soft, nd, nt +bs ext: no edema Exam/Review of Systems Exam Vitals Vital Signs Date Temp Pulse Resp B/P (MAP) Pulse Ox O2 O2 Flow FiO2 Time Delivery Rate 07/21/18 56 08:52 07/21/18 3.0 08:34 07/21/18 20 98 Nasal 32 08:31 Cannula 07/21/18 98.0 135/72 07:22 (93) Intake and Output 07/20/18 07/20/18 07/21/18 1515:00 23:00 07:00 IntakeIntake Total 300 ml BalanceBalance 300 ml Results Result Diagram: 07/21/18 0533 07/21/18 0533 Results 24hrs Laboratory Tests Test 07/20/18 11:57 07/20/18 17:07 07/20/18 21:57 07/21/18 01:41 Bedside Glucose 177 232 H 178 163 Test 07/21/18 05:33 07/21/18 08:15 White Blood Count 10.2 Red Blood Count 3.02 L Hemoglobin 8.6 L Hematocrit 27.2 L Mean Corpuscular 90.1 Volume Mean Corpuscular 28.5 L Hemoglobin Mean Corpuscular 31.6 L Hemoglobin Concent Red Cell 14.4 Distribution Width Platelet Count 365 Mean Platelet Volume 9.9 Immature 0.500 H Granulocytes % Neutrophils % 84.5 H Lymphocytes % 6.7 L Monocytes % 7.1 Eosinophils % 0.6 Basophils % 0.6 Nucleated Red Blood 0.0 Cells % Immature 0.050 H Granulocytes # Neutrophils # 8.6 H Lymphocytes # 0.7 L Monocytes # 0.7 Eosinophils # 0.1 Basophils # 0.1 Nucleated Red Blood 0.0 Cells # Sodium Level 135 Potassium Level 4.9 Chloride Level 100 Carbon Dioxide Level 25 Anion Gap 10 Blood Urea Nitrogen 57 H Creatinine 2.73 H Est Glomerular 17 L Filtrat Rate mL/min Glucose Level 141 # Calcium Level 8.3 L Phosphorus Level 7.3 H Magnesium Level 3.7 H Bedside Glucose 120 Medications Medication Current Medications IV Flush (NS 3 ml) 3 ml PER PROTOCOL IV ; Start 07/10/18 at 21:30 Ondansetron HCl (Zofran Tab) 4 mg Q6H PRN PO NAUSEA/VOMITING; Start 07/10/18 at 21:30 Acetaminophen (Tylenol Tab) 650 mg Q6H PRN PO .PAIN 1-3 OR TEMP Last administered on 07/16/18at 02:06; Admin Dose 650 MG; Start 07/10/18 at 21:30 Docusate Sodium (Colace) 100 mg Q12H PRN PO .CONSTIPATION; Start 07/10/18 at 21:30 Bisacodyl (Dulcolax) 5 mg DAILY PRN PO .CONSTIPATION Last administered on 07/13/18at 17:40; Admin Dose 5 MG; Start 07/10/18 at 21:30 Diagnostic Test (Pha) (Accu-Chek) 1 ea 02 XX Last administered on 07/20/18at 02:22; Admin Dose 1 EA; Start 07/11/18 at 02:00 Miscellaneous Information 1 ea NOTE XX ; Start 07/10/18 at 22:30 Glucose (Glutose) 15 gm Q15M PRN PO DECREASED GLUCOSE; Start 07/10/18 at 22:30 Glucose (Glutose) 22.5 gm Q15M PRN PO DECREASED GLUCOSE; Start 07/10/18 at 22:30 Dextrose (D50w Syringe) 25 ml Q15M PRN IV DECREASED GLUCOSE; Start 07/10/18 at 22:30 Dextrose (D50w Syringe) 50 ml Q15M PRN IV DECREASED GLUCOSE; Start 07/10/18 at 22:30 Glucagon (Glucagen) 1 mg Q15M PRN IM DECREASED GLUCOSE; Start 07/10/18 at 22:30 Glucose (Glutose) 15 gm Q15M PRN BUCCAL DECREASED GLUCOSE; Start 07/10/18 at 22:30 Docusate Sodium (Colace) 200 mg BID PO Last administered on 07/21/18at 10:21; Admin Dose 200 MG; Start 07/11/18 at 09:00 Polyethylene Glycol (Miralax) 17 gm BID PO Last administered on 07/21/18 10:21; Admin Dose 17 GM; Start 07/11/18 at 09:00 Insulin Aspart (Novolog Insulin Pen) NOVOLOG *MILD* ALGORITHM WITH MEALS BEDTIME SC Last administered on 07/20/18at 17:11; Admin Dose 3 UNIT; Start 07/11/18 at 11:50 Hydralazine HCl (Apresoline) 10 mg Q6H PRN IV SBP>160 Last administered on 07/20/18at 11:58; Admin Dose 10 MG; Start 07/11/18 at 16:30 Insulin Glargine (Lantus) 10 units DAILY@2000 SC Last administered on 07/20/18 22:06; Admin Dose 10 UNITS; Start 07/12/18 at 20:00 Ferric Sodium Gluconate Complex 125 mg/Sodium Chloride 100 ml @ 100 mls/hr DAILY@1300 IVPB Last administered on 07/13/18 13:26; Admin Dose 100 MLS/HR; Start 07/13/18 at 13:00; Status Hold Phenol (Cepastat Lozenge) 1 lozenge Q2H PRN MT SORE THROAT; Start 07/14/18 at 09:00 Lactulose (Enulose) 20 gm DAILY PRN PO CONSTIPATION Last administered on 07/15/18 20:57; Admin Dose 20 GM; Start 07/15/18 at 09:30 Nifedipine (Procardia Xl) 60 mg BID PO Last administered on 07/21/18 10:22; Admin Dose 60 MG; Start 07/18/18 at 09:00 Cholecalciferol (Vitamin D) 1,000 unit DAILY PO Last administered on 07/21/18 10:22; Admin Dose 1,000 UNIT; Start 07/18/18 at 09:00 Amoxicillin/ Clavulanate Potassium (Augmentin) 875 mg BID PO Last administered on 07/21/18 10:21; Admin Dose 875 MG; Start 07/18/18 at 21:00 Famotidine (Pepcid) 20 mg DAILY PO Last administered on 07/21/18 10:22; Admin Dose 20 MG; Start 07/19/18 at 11:30 Carvedilol (Coreg) 6.25 mg BID PO Last administered on 07/21/18 10:21; Admin Dose 6.25 MG; Start 07/20/18 at 09:30 Gabapentin (Neurontin) 100 mg DAILY PO Last administered on 07/21/18 10:21; Admin Dose 100 MG; Start 07/21/18 at 09:00 Albuterol/ Ipratropium (Duoneb) 3 ml Q6HWA RESP THERAPY HHN Last administered on 07/21/18 08:31; Admin Dose 3 ML; Start 07/20/18 at 14:00 Albuterol/ Ipratropium (Duoneb) 3 ml Q2H RESP THERAPY PRN HHN shortness of breath; Start 07/20/18 at 11:00 Budesonide (Pulmicort (Neb)) 0.5 mg BID RESP THERAPY HHN Last administered on 07/21/18 08:31; Admin Dose 0.5 MG; Start 07/20/18 at 11:00 Fluticasone Propionate (Flonase 0.05% Nasal) 1 spray BID NASAL Last administered on 07/20/18 22:16; Admin Dose 1 SPRAY; Start 07/20/18 at 21:00 JUANITA COBOS MD July 21, 2018 11:54
[2018-07-21] MEDS ORDERED: PIPER-TAZO 2.25 GM (PMX) 50 ML IVPB SCH (13:00)
--- NOTE | 2018-07-21 13:17 | CONS ---
Assessment/Plan Assessment/Plan Hospital Course (Demo Recall) ID PROGRESS NOTE CURRENT ABX: DAY # => Augmentin => Changed to Zosyn IV today 07/21/18 0533 07/21/18 0533 24H INTERVAL SUMMARY * Resting comfortably, VSS, no fevers, NAD * Chart reviewed -- ABX changed to anti-pseudomonal IV due to concern acute left maxillary sinusitis MICRO/OTHER * 07/19/18>Microbiology: Blood cultures negative * MRI: 1. No substantial change in size of retropharyngeal fluid collection measures up to 1 cm in thickness at C3 level extending from C2 through C4.2. Diffuse subcutaneous edema in the lower face, neck and chest wall.3. Mildly enlarged lymph nodes bilaterally. 4. Small bilateral pleural effusions. * CT of the brain on admission revealed no acute intracranial findings. Ethmoid and left ethmoid sinus fluid. * Facial CT revealed Punctate submandibular gland calcification suggests sialolithiasis. Acute on chronic left maxillary sinusitis. Please see full report in the chart. * 07/15/[address] * 1. The exam is limited by the lack of intravenous contrast media, a retrop haryngeal collection possibly phlegmon or abscess is of concern estimated at approximately 6 cm in greatest cranial caudal dimension extending from the C1 ring to the C5 level. Consider follow-up evaluation with intravenous contrast or alternatively MRI of the neck. * 2. Reactive lymphadenitis of the jugulodigastric chain lymph nodes. * 3. Stranding of the submandibular and submental fat concerning for cellulitis. * 4. Bilateral pleural effusions with suggestion of air trapping and interstitial edema in the upper lung parenchyma. * Chest x-ray revealed no pneumonia PHYSICAL EXAMINATION: GENERAL: VSS, NAD, lethargic HEENT: AT, NC, anicteric, no facial erythema noted, bilateral puffy orbits NECK: Supple, (+)turkey neck appearance of lipohypertrophy CHEST: Equal chest rise bilaterally, without dyspnea on observation HEART: Pulse RRR ABDOMEN: Soft / NT EXTREMITIES: Warm, dry SKIN: No rash, no diaphoresis ID ASSESSMENT 68 yo F admit with: 1. Acute on chronic sinusitis 2. Facial edema cellulitis, sialolithiasis, w/neck swelling==> reactive lymphadenitis resolving * CT Neck/Face with concern acute=> Punctate submandibular gland calcification suggests sialolithiasis / a retropharyngeal collection possibly phlegmon or abscess 3. Acute on chronic kidney disease 4. Diabetes 5. Hypertension (-)MRSA Nares ABX ALLERGIES: KNDA INVASIVES: PIV CURRENT ABX: DAY # > ZOSYN ID RECOMMENDATIONS/PLAN: 1. Continue ZOSYN for acute facial cellulitis, sialolithiasis, retropharyngeal fluid collection (?) and acute maxillary sinusitis 2. Monitor renal fx == renal dose Zosyn 3. Swab nares for MRSA Consultation Date/Type/Reason Admit Date/Time Jul 10, 2018 at 19:45 Initial Consult Date Date/Time of Note DATE: 07/21/18 TIME: 13:16 Exam/Review of Systems Exam Vitals Vital Signs Date Temp Pulse Resp B/P (MAP) Pulse Ox O2 O2 Flow FiO2 Time Delivery Rate 07/21/18 56 08:52 07/21/18 3.0 08:34 07/21/18 20 98 Nasal 32 08:31 Cannula 07/21/18 98.0 135/72 07:22 (93) Intake and Output 07/20/18 07/20/18 07/21/18 1515:00 23:00 07:00 IntakeIntake Total 300 ml BalanceBalance 300 ml Results Result Diagram: 07/21/18 0533 07/21/18 0533 Results 24hrs Laboratory Tests Test 07/20/18 17:07 07/20/18 21:57 07/21/18 01:41 07/21/18 05:33 Bedside Glucose 232 H 178 163 White Blood Count 10.2 Red Blood Count 3.02 L Hemoglobin 8.6 L Hematocrit 27.2 L Mean Corpuscular 90.1 Volume Mean Corpuscular 28.5 L Hemoglobin Mean Corpuscular 31.6 L Hemoglobin Concent Red Cell 14.4 Distribution Width Platelet Count 365 Mean Platelet Volume 9.9 Immature 0.500 H Granulocytes % Neutrophils % 84.5 H Lymphocytes % 6.7 L Monocytes % 7.1 Eosinophils % 0.6 Basophils % 0.6 Nucleated Red Blood 0.0 Cells % Immature 0.050 H Granulocytes # Neutrophils # 8.6 H Lymphocytes # 0.7 L Monocytes # 0.7 Eosinophils # 0.1 Basophils # 0.1 Nucleated Red Blood 0.0 Cells # Sodium Level 135 Potassium Level 4.9 Chloride Level 100 Carbon Dioxide Level 25 Anion Gap 10 Blood Urea Nitrogen 57 H Creatinine 2.73 H Est Glomerular 17 L Filtrat Rate mL/min Glucose Level 141 # Calcium Level 8.3 L Phosphorus Level 7.3 H Magnesium Level 3.7 H Test 07/21/18 08:15 07/21/18 11:59 Bedside Glucose 120 115 Medications Medication Current Medications IV Flush (NS 3 ml) 3 ml PER PROTOCOL IV ; Start 07/10/18 at 21:30 Ondansetron HCl (Zofran Tab) 4 mg Q6H PRN PO NAUSEA/VOMITING; Start 07/10/18 at 21:30 Acetaminophen (Tylenol Tab) 650 mg Q6H PRN PO .PAIN 1-3 OR TEMP Last administered on 07/16/18at 02:06; Admin Dose 650 MG; Start 07/10/18 at 21:30 Docusate Sodium (Colace) 100 mg Q12H PRN PO .CONSTIPATION; Start 07/10/18 at 21:30 Bisacodyl (Dulcolax) 5 mg DAILY PRN PO .CONSTIPATION Last administered on 07/13/18at 17:40; Admin Dose 5 MG; Start 07/10/18 at 21:30 Diagnostic Test (Pha) (Accu-Chek) 1 ea 02 XX Last administered on 07/20/18at 02:22; Admin Dose 1 EA; Start 07/11/18 at 02:00 Miscellaneous Information 1 ea NOTE XX ; Start 07/10/18 at 22:30 Glucose (Glutose) 15 gm Q15M PRN PO DECREASED GLUCOSE; Start 07/10/18 at 22:30 Glucose (Glutose) 22.5 gm Q15M PRN PO DECREASED GLUCOSE; Start 07/10/18 at 22:30 Dextrose (D50w Syringe) 25 ml Q15M PRN IV DECREASED GLUCOSE; Start 07/10/18 at 22:30 Dextrose (D50w Syringe) 50 ml Q15M PRN IV DECREASED GLUCOSE; Start 07/10/18 at 22:30 Glucagon (Glucagen) 1 mg Q15M PRN IM DECREASED GLUCOSE; Start 07/10/18 at 22:30 Glucose (Glutose) 15 gm Q15M PRN BUCCAL DECREASED GLUCOSE; Start 07/10/18 at 22 :30 Docusate Sodium (Colace) 200 mg BID PO Last administered on 07/21/18at 10:21; Admin Dose 200 MG; Start 07/11/18 at 09:00 Polyethylene Glycol (Miralax) 17 gm BID PO Last administered on 07/21/18 1 0:21; Admin Dose 17 GM; Start 07/11/18 at 09:00 Insulin Aspart (Novolog Insulin Pen) NOVOLOG *MILD* ALGORITHM WITH MEALS BEDTIME SC Last administered on 07/20/18 17:11; Admin Dose 3 UNIT; Start 07/11 at 11:50 Hydralazine HCl (Apresoline) 10 mg Q6H PRN IV SBP>160 Last administered on 07/20/18 11:58; Admin Dose 10 MG; Start 07/11/18 at 16:30 Insulin Glargine (Lantus) 10 units DAILY@2000 SC Last administered on 07/20/18 22:06; Admin Dose 10 UNITS; Start 07/12/18 at 20:00 Ferric Sodium Gluconate Complex 125 mg/Sodium Chloride 100 ml @ 100 mls/hr DAILY@1300 IVPB Last administered on 07/13/18 13:26; Admin Dose 100 MLS/HR; Start 07/13/18 at 13:00; Status Hold Phenol (Cepastat Lozenge) 1 lozenge Q2H PRN MT SORE THROAT; Start 07/14/18 at 09:00 Lactulose (Enulose) 20 gm DAILY PRN PO CONSTIPATION Last administered on 07/15/18 20:57; Admin Dose 20 GM; Start 07/15/18 at 09:30 Nifedipine (Procardia Xl) 60 mg BID PO Last administered on 07/21/18 10:22; Admin Dose 60 MG; Start 07/18/18 at 09:00 Cholecalciferol (Vitamin D) 1,000 unit DAILY PO Last administered on 07/21/18 10:22; Admin Dose 1,000 UNIT; Start 07/18/18 at 09:00 Famotidine (Pepcid) 20 mg DAILY PO Last administered on 07/21/18 10:22; Admin Dose 20 MG; Start 07/19/18 at 11:30 Carvedilol (Coreg) 6.25 mg BID PO Last administered on 07/21/18 10:21; Admin Dose 6.25 MG; Start 07/20/18 at 09:30 Gabapentin (Neurontin) 100 mg DAILY PO Last administered on 07/21/18 10:21; Admin Dose 100 MG; Start 07/21/18 at 09:00 Albuterol/ Ipratropium (Duoneb) 3 ml Q6HWA RESP THERAPY HHN Last administered on 07/21/18 08:31; Admin Dose 3 ML; Start 07/20/18 at 14:00 Albuterol/ Ipratropium (Duoneb) 3 ml Q2H RESP THERAPY PRN HHN shortness of breath; Start 07/20/18 at 11:00 Budesonide (Pulmicort (Neb)) 0.5 mg BID RESP THERAPY HHN Last administered on 07/21/18 08:31; Admin Dose 0.5 MG; Start 07/20/18 at 11:00 Fluticasone Propionate (Flonase 0.05% Nasal) 1 spray BID NASAL Last administered on 07/20/18at 22:16; Admin Dose 1 SPRAY; Start 07/20/18 at 21:00 Piperacillin Sod/ Tazobactam Sod 50 ml @ 100 mls/hr Q6 IVPB ; Start 07/21/18 at 13:00 NELL JACQUES NP July 21, 2018 13:17
--- NOTE | 2018-07-21 14:11 | PN ---
Date/Time of Note Date/Time of Note DATE: 07/21/18 TIME: 14:09 Objective Vitals Vital Signs Date Temp Pulse Resp B/P (MAP) Pulse Ox O2 O2 Flow FiO2 Time Delivery Rate 07/21/18 62 13:31 07/21/18 20 95 Nasal 3.0 32 13:20 Cannula 07/21/18 98.0 135/72 07:22 (93) Intake and Output 07/20/18 07/20/18 07/21/18 1515:00 23:00 07:00 IntakeIntake Total 300 ml BalanceBalance 300 ml Results Result Diagram: 07/21/1833 07/21/1833 Medications Medications Current Medications IV Flush (NS 3 ml) 3 ml PER PROTOCOL IV ; Start 07/10/18 at 21:30 Ondansetron HCl (Zofran Tab) 4 mg Q6H PRN PO NAUSEA/VOMITING; Start 07/10/18 at 21:30 Acetaminophen (Tylenol Tab) 650 mg Q6H PRN PO .PAIN 1-3 OR TEMP Last administered on 07/16/18at 02:06; Admin Dose 650 MG; Start 07/10/18 at 21:30 Docusate Sodium (Colace) 100 mg Q12H PRN PO .CONSTIPATION; Start 07/10/18 at 21:30 Bisacodyl (Dulcolax) 5 mg DAILY PRN PO .CONSTIPATION Last administered on 07/13/18at 17:40; Admin Dose 5 MG; Start 07/10/18 at 21:30 Diagnostic Test (Pha) (Accu-Chek) 1 ea 02 XX Last administered on 07/20/18at 02:22; Admin Dose 1 EA; Start 07/11/18 at 02:00 Miscellaneous Information 1 ea NOTE XX ; Start 07/10/18 at 22:30 Glucose (Glutose) 15 gm Q15M PRN PO DECREASED GLUCOSE; Start 07/10/18 at 22:30 Glucose (Glutose) 22.5 gm Q15M PRN PO DECREASED GLUCOSE; Start 07/10/18 at 22:30 Dextrose (D50w Syringe) 25 ml Q15M PRN IV DECREASED GLUCOSE; Start 07/10/18 at 22:30 Dextrose (D50w Syringe) 50 ml Q15M PRN IV DECREASED GLUCOSE; Start 07/10/18 at 22:30 Glucagon (Glucagen) 1 mg Q15M PRN IM DECREASED GLUCOSE; Start 07/10/18 at 22:30 Glucose (Glutose) 15 gm Q15M PRN BUCCAL DECREASED GLUCOSE; Start 07/10/18 at 22:30 Docusate Sodium (Colace) 200 mg BID PO Last administered on 07/21/18 10:21; Admin Dose 200 MG; Start 07/11/18 at 09:00 Polyethylene Glycol (Miralax) 17 gm BID PO Last administered on 07/21/18 10:21; Admin Dose 17 GM; Start 07/11/18 at 09:00 Insulin Aspart (Novolog Insulin Pen) NOVOLOG *MILD* ALGORITHM WITH MEALS BEDTIME SC Last administered on 07/20/18 17:11; Admin Dose 3 UNIT; Start 07/11/18 at 11:50 Hydralazine HCl (Apresoline) 10 mg Q6H PRN IV SBP>160 Last administered on 07/20/18 11:58; Admin Dose 10 MG; Start 07/11/18 at 16:30 Insulin Glargine (Lantus) 10 units DAILY@2000 SC Last administered on 07/20/18 22:06; Admin Dose 10 UNITS; Start 07/12/18 at 20:00 Ferric Sodium Gluconate Complex 125 mg/Sodium Chloride 100 ml @ 100 mls/hr DAILY@1300 IVPB Last administered on 07/13/18 13:26; Admin Dose 100 MLS/HR; Start 07/13/18 at 13:00; Status Hold Phenol (Cepastat Lozenge) 1 lozenge Q2H PRN MT SORE THROAT; Start 07/14/18 at 09:00 Lactulose (Enulose) 20 gm DAILY PRN PO CONSTIPATION Last administered on 07/15/18 20:57; Admin Dose 20 GM; Start 07/15/18 at 09:30 Nifedipine (Procardia Xl) 60 mg BID PO Last administered on 07/21/18 10:22; Admin Dose 60 MG; Start 07/18/18 at 09:00 Cholecalciferol (Vitamin D) 1,000 unit DAILY PO Last administered on 07/21/18 10:22; Admin Dose 1,000 UNIT; Start 07/18/18 at 09:00 Famotidine (Pepcid) 20 mg DAILY PO Last administered on 07/21/18 10:22; Admin Dose 20 MG; Start 07/19/18 at 11:30 Carvedilol (Coreg) 6.25 mg BID PO Last administered on 07/21/18 10:21; Admin Dose 6.25 MG; Start 07/20/18 at 09:30 Gabapentin (Neurontin) 100 mg DAILY PO Last administered on 07/21/18 10:21; Admin Dose 100 MG; Start 07/21/18 at 09:00 Albuterol/ Ipratropium (Duoneb) 3 ml Q6HWA RESP THERAPY HHN Last administered on 07/21/18 13:20; Admin Dose 3 ML; Start 07/20/18 at 14:00 Albuterol/ Ipratropium (Duoneb) 3 ml Q2H RESP THERAPY PRN HHN shortness of breath; Start 07/20/18 at 11:00 Budesonide (Pulmicort (Neb)) 0.5 mg BID RESP THERAPY HHN Last administered on 07/21/18 08:31; Admin Dose 0.5 MG; Start 07/20/18 at 11:00 Fluticasone Propionate (Flonase 0.05% Nasal) 1 spray BID NASAL Last administered on 07/20/18 22:16; Admin Dose 1 SPRAY; Start 07/20/18 at 21:00 Piperacillin Sod/ Tazobactam Sod 50 ml @ 100 mls/hr Q6 IVPB Last administered on 07/21/18 13:18; Admin Dose 100 MLS/HR; Start 07/21/18 at 13:00 VTE Prophylaxis Risk score (from Ns)>0 risk: 3 SCD applied (from Ns): Yes Lines/Catheters IV Catheter Type: Taylor in Place: No Assessment/Plan Hospital Course Subjective Patient still having some hallucinations Objective Physical exam General: Patient is laying in bed and answers questions appropriately, however is hallucinating Mentation: Patient is alert and oriented x 3 with hallucinations Head: Normocephalic atraumatic Eyes: EOMI, pupils reactive to light, Face: Mild swelling Neck: Supple, nontender, midline, Respiratory: Clear to auscultation bilaterally Cardiovascular: regular rate, no obvious murmurs Gastrointestinal: non-tender to palpation, bowel sounds heard.mildly distended, nontender Neurological: Moves all extremities spontaneously Skin: No new skin lesions ASSESSMENT & PLAN This is a 68-year-old female with comorbidities including diabetes mellitus, chronic kidney disease, and hypertension who came to the emergency room with chief complaint of constipation. The patient was noticed to have underlying hyperkalemia (potassium was 6.6) in the emergency room. The patient underwent a KUB that was showing fecal filled colon. The patient was admitted to inpatient setting for further treatment and evaluation. Acute hypoxic respiratory distress, resolving -Likely secondary to volume overload, patient received IV fluids for recent acute kidney injury -BNP has increased -Chest x-ray noted for edema -Lasix given x1, hold off on further Lasix for now due to elevated creatinine -DuoNeb's, budesonide -ABG done, noted Altered mental status with hallucinations -Possibly due to worsening sinusitis, infection and elderly patients may be causing altered mental status, change Augmentin back to IV antibiotic. -CT head noted, worsening sinusitis -ABG done -Monitor Facial and neck swelling 2/2 facial cellulitis, resolved -No respiratory compromise, monitor closely -CT showing salivary stones in the submandibular gland bilaterally and cellulitis with possible retropharyngeal abscess which likely is the cause of patient's facial swelling, -Antibiotic per infectious disease -Follow-up with MRI, noted, very small fluid collection -Ear nose and throat physician, Dr. Wylie also consulted, upon scope ear nose and throat physician did not see any retropharyngeal fullness to indicate a bscess or even a target if abscess is present. Notified ENT about MRI, no need for further intervention per ear nose and throat physician, continue antibiotics. salivary stones -conservative tx per ENT -abx -very small and calcifications not obstructive per ENT Carotid stenosis abnormality, only on ultrasound -Found on ultrasound, -MRA not showing any carotid stenosis Hyperkalemia. -Resolved. -Etiology probably secondary to worsening renal function. -Status post potassium exchange resin and insulin IV. -Being followed by nephrology. Acute on chronic kidney disease., -Being followed by nephrology. -Avoid nephrotoxic medications. -Arterial study pending -worsening Constipation. -KUB showed fecal filled colon. -Continue bowel regimen. -Largely resolved. Continue bowel regimen Diabetes mellitus. -Hemoglobin A1c 8.3. -Continue sliding scale insulin. -Add basal insulin. Hypertension. -Continue antihypertensives. Diabetic neuropathy. -Continue gabapentin. Normocytic anemia. -Most probably anemia of chronic kidney disease. -Monitor H&H closely. -Continue iron supplements. -Epogen as per nephrology. -Transfuse as needed, 1 unit transfused so far Questionable anasarca. -Patient has no lower extremity swelling and abdominal distention has improved after large bowel movement, swelling is mostly limited to the face which is secondary to above cellulitis. Fluids, electrolytes, and nutrition. -Carbohydrate controlled diet. DVT prophylaxis. -Bilateral SCDs. Plan. -cont abx. -nephrology recs for IBRAHIMA -Work-up altered mental status AYAKA COBOS July 21, 2018 14:11
[2018-07-21] MEDS: PIPER-TAZO 2.25 GM (PMX) 50 ML IVPB SCH (21:12)
[2018-07-21] MEDS: INSULIN GLARGINE [LANTus] (100 UNITS/ML) SYG SC SCH (22:04)
[2018-07-22] VITALS (9 sets, daily range): BP systolic 121–162; BP diastolic 60–93; PULSE 62–73; RESP 18–19
[2018-07-22] MEDS: ACCU-CHEK XX SCH (02:00)
[2018-07-22] MEDS: PIPER-TAZO 2.25 GM (PMX) 50 ML IVPB SCH (05:27)
[2018-07-22] MEDS: INSULIN ASPART [NOVOLOG] 3 ML PEN SC SCH ×4 (07:55→20:55)
[2018-07-22] MEDS: ALBUTEROL/IPRATROPIUM (NEB) 3 ML AMP HHN SCH ×3 (08:12→19:30)
[2018-07-22] MEDS: BUDESONIDE (NEB) 0.5MG/2ML AMP HHN SCH ×2 (08:12→19:30)
[2018-07-22] MEDS: GABAPENTIN 100 MG CAP PO SCH (08:38)
[2018-07-22] MEDS: DOCUSATE SODIUM 100 MG CAP PO SCH ×2 (08:38→20:35)
[2018-07-22] MEDS: FAMOTIDINE 20 MG TAB PO SCH (08:38)
[2018-07-22] MEDS: NIFEdipine (XL) 60 MG TAB PO SCH ×2 (08:38→20:36)
[2018-07-22] MEDS: CHOLECALCIFEROL 1,000 UNIT TAB PO SCH (08:38)
[2018-07-22] MEDS: POLYETHYLENE GLYCOL 17 GM PACKET PO SCH (08:39)
[2018-07-22] MEDS: FLUTICASONE 0.05% 16 GM NAS SPRAY NASAL SCH ×2 (08:39→20:35)
--- NOTE | 2018-07-22 11:57 | PN ---
Date/Time of Note Date/Time of Note DATE: 07/22/18 TIME: 11:55 Objective Vitals Vital Signs Date Temp Pulse Resp B/P (MAP) Pulse Ox O2 O2 Flow FiO2 Time Delivery Rate 07/22/18 98.0 62 18 152/65 100 11:37 (94) 07/22/18 Nasal 2.0 08:45 Cannula 07/21/18 32 13:20 Intake and Output 07/21/18 07/21/18 07/22/18 1515:00 23:00 07:00 IntakeIntake Total 500 ml 450 ml BalanceBalance 500 ml 450 ml Results Result Diagram: 07/22/18 0555 07/22/18 0555 Medications Medications Current Medications IV Flush (NS 3 ml) 3 ml PER PROTOCOL IV ; Start 07/10/18 at 21:30 Ondansetron HCl (Zofran Tab) 4 mg Q6H PRN PO NAUSEA/VOMITING; Start 07/10/18 at 21:30 Acetaminophen (Tylenol Tab) 650 mg Q6H PRN PO .PAIN 1-3 OR TEMP Last administered on 07/16/18at 02:06; Admin Dose 650 MG; Start 07/10/18 at 21:30 Docusate Sodium (Colace) 100 mg Q12H PRN PO .CONSTIPATION; Start 07/10/18 at 21:30 Bisacodyl (Dulcolax) 5 mg DAILY PRN PO .CONSTIPATION Last administered on 07/13/18at 17:40; Admin Dose 5 MG; Start 07/10/18 at 21:30 Diagnostic Test (Pha) (Accu-Chek) 1 ea 02 XX Last administered on 07/20/18at 02:22; Admin Dose 1 EA; Start 07/11/18 at 02:00 Miscellaneous Information 1 ea NOTE XX ; Start 07/10/18 at 22:30 Glucose (Glutose) 15 gm Q15M PRN PO DECREASED GLUCOSE; Start 07/10/18 at 22:30 Glucose (Glutose) 22.5 gm Q15M PRN PO DECREASED GLUCOSE; Start 07/10/18 at 22:30 Dextrose (D50w Syringe) 25 ml Q15M PRN IV DECREASED GLUCOSE; Start 07/10/18 at 22:30 Dextrose (D50w Syringe) 50 ml Q15M PRN IV DECREASED GLUCOSE; Start 07/10/18 at 22:30 Glucagon (Glucagen) 1 mg Q15M PRN IM DECREASED GLUCOSE; Start 07/10/18 at 22:30 Glucose (Glutose) 15 gm Q15M PRN BUCCAL DECREASED GLUCOSE; Start 07/10/18 at 22:30 Docusate Sodium (Colace) 200 mg BID PO Last administered on 07/22/18 08:38; Admin Dose 200 MG; Start 07/11/18 at 09:00 Insulin Aspart (Novolog Insulin Pen) NOVOLOG *MILD* ALGORITHM WITH MEALS BEDTIME SC Last administered on 07/20/18 17:11; Admin Dose 3 UNIT; Start 07/11/18 at 11:50 Hydralazine HCl (Apresoline) 10 mg Q6H PRN IV SBP>160 Last administered on 07/20/18 11:58; Admin Dose 10 MG; Start 07/11/18 at 16:30 Insulin Glargine (Lantus) 10 units DAILY@2000 SC Last administered on 07/21/18 22:04; Admin Dose 10 UNITS; Start 07/12/18 at 20:00 Ferric Sodium Gluconate Complex 125 mg/Sodium Chloride 100 ml @ 100 mls/hr DAILY@1300 IVPB Last administered on 07/13/18 13:26; Admin Dose 100 MLS/HR; Start 07/13/18 at 13:00; Status Hold Phenol (Cepastat Lozenge) 1 lozenge Q2H PRN MT SORE THROAT; Start 07/14/18 at 09:00 Lactulose (Enulose) 20 gm DAILY PRN PO CONSTIPATION Last administered on 20:57; Admin Dose 20 GM; Start 07/15/18 at 09:30 Nifedipine (Procardia Xl) 60 mg BID PO Last administered on 07/22/18 08:38; Admin Dose 60 MG; Start 07/18/18 at 09:00 Cholecalciferol (Vitamin D) 1,000 unit DAILY PO Last administered on 07/22/18 08:38; Admin Dose 1,000 UNIT; Start 07/18/18 at 09:00 Carvedilol (Coreg) 6.25 mg BID PO Last administered on 07/22/18 08:39; Admin Dose 6.25 MG; Start 07/20/18 at 09:30 Albuterol/ Ipratropium (Duoneb) 3 ml Q6HWA RESP THERAPY HHN Last administered on 07/22/18at 08:12; Admin Dose 3 ML; Start 07/20/18 at 14:00 Albuterol/ Ipratropium (Duoneb) 3 ml Q2H RESP THERAPY PRN HHN shortness of breath; Start 07/20/18 at 11:00 Budesonide (Pulmicort (Neb)) 0.5 mg BID RESP THERAPY HHN Last administered on 07/22/18at 08:12; Admin Dose 0.5 MG; Start 07/20/18 at 11:00 Fluticasone Propionate (Flonase 0.05% Nasal) 1 spray BID NASAL Last administered on 07/22/18 08:39; Admin Dose 1 SPRAY; Start 07/20/18 at 21:00 Piperacillin Sod/ Tazobactam Sod 50 ml @ 100 mls/hr Q8 IVPB Last administered on 07/22/18at 05:27; Admin Dose 100 MLS/HR; Start 07/21/18 at 22:00 VTE Prophylaxis Risk score (from Ns)>0 risk: 7 SCD applied (from Ns): Yes Lines/Catheters IV Catheter Type: Taylor in Place: No Assessment/Plan Hospital Course Subjective Patient still having some hallucinations but significantly improved from yesterday Objective Physical exam General: Patient is laying in bed and answers questions appropriately, however there is some hallucinating Mentation: Patient is alert and oriented x 3 with hallucinations Head: Normocephalic atraumatic Eyes: EOMI, pupils reactive to light, Face: Mild swelling Neck: Supple, nontender, midline, Respiratory: Clear to auscultation bilaterally Cardiovascular: regular rate, no obvious murmurs Gastrointestinal: non-tender to palpation, bowel sounds heard.mildly distended, nontender Neurological: Moves all extremities spontaneously Skin: No new skin lesions ASSESSMENT & PLAN This is a 68-year-old female with comorbidities including diabetes mellitus, chronic kidney disease, and hypertension who came to the emergency room with chief complaint of constipation. The patient was noticed to have underlying hyperkalemia (potassium was 6.6) in the emergency room. The patient underwent a KUB that was showing fecal filled colon. The patient was admitted to inpatient setting for further treatment and evaluation. Acute hypoxic respiratory distress, resolving -Likely secondary to volume overload, patient received IV fluids for recent acute kidney injury -BNP has increased -Chest x-ray noted for edema -Lasix given x1, hold off on further Lasix for now due to elevated creatinine -DuoNeb's, budesonide -ABG done, noted Altered mental status with hallucinations, improving significantly -Possibly due to worsening sinusitis, infection and elderly patients may be causing altered mental status, change Augmentin back to IV antibiotic. -CT head noted, worsening sinusitis -ABG noted -Monitor Facial and neck swelling 2/2 facial cellulitis, resolved -No respiratory compromise, monitor closely -CT showing salivary stones in the submandibular gland bilaterally and cellulitis with possible retropharyngeal abscess which likely is the cause of patient's facial swelling, -Antibiotic per infectious disease -Follow-up with MRI, noted, very small fluid collection -Ear nose and throat physician, Dr. Wylie also consulted, upon scope ear nose and throat physician did not see any retropharyngeal fullness to indicate abscess or even a target if abscess is present. Notified ENT about MRI, no need for further intervention per ear nose and throat physician, continue antibiotics. salivary stones -conservative tx per ENT -abx -very small and calcifications not obstructive per ENT Carotid stenosis abnormality, only on ultrasound -Found on ultrasound, -MRA not showing any carotid stenosis Hyperkalemia. -Resolved. -Etiology probably secondary to worsening renal function. -Status post potassium exchange resin and insulin IV. -Being followed by nephrology. Acute on chronic kidney disease., -Being followed by nephrology. -Avoid nephrotoxic medications. -Arterial study noted, no stenosis -worsening, will take off any medications inadequately cleared by the kidney, will also insert Taylor catheter, patient urinating but there may be some component of retention Constipation. -KUB showed fecal filled colon. -Continue bowel regimen. -Largely resolved. Continue bowel regimen Diabetes mellitus. -Hemoglobin A1c 8.3. -Continue sliding scale insulin. -Add basal insulin. Hypertension. -Continue antihypertensives. Diabetic neuropathy. -Continue gabapentin. Normocytic anemia. -Most probably anemia of chronic kidney disease. -Monitor H&H closely. -Continue iron supplements. -Epogen as per nephrology. -Transfuse as needed, 1 unit transfused so far Questionable anasarca. -Patient has no lower extremity swelling and abdominal distention has improved after large bowel movement, swelling is mostly limited to the face which is secondary to above cellulitis. Fluids, electrolytes, and nutrition. -Carbohydrate controlled diet. DVT prophylaxis. -Bilateral SCDs. Plan. -cont abx. -Patient's renal function continues to worsen, avoid nephrotoxic drugs, nephrology recommendations appreciated. AYAKA COBOS July 22, 2018 11:57
--- NOTE | 2018-07-22 12:04 | CONS ---
Assessment/Plan Assessment/Plan Hospital Course (Demo Recall) 1. Nonoliguric acute kidney injury with previous baseline creatinine around 1.3 to 1.5 mg/dL. Etiology of acute kidney injury was initially felt to be secondary to hemodynamics and possible NSAID use. The patient's renal function, however further declined possibly due hemodynamics, acute tubular necrosis. renal function did stabilize, now worse s/p lasix. no lasix today. Continue supportive care, renally dose all meds. The patient may be entering a maintenance phase of acute kidney injury. No immediate need for renal replacement therapy. 2. Chronic kidney disease, stage III, with a history of diabetic nephropathy. The patient has nephrotic range proteinuria. Currently, the patient is in acute injury as stated above. Continue disease factor modification. Continue current treatment plan. 3. Hyponatremia secondary to acute kidney injury. Continue to monitor and limit free water intake. 4. Anemia. Continue to monitor hemoglobin and hematocrit levels. 5. Mineral bone disorder. The patient is hyperphosphatemic secondary to acute kidney injury. Continue to monitor. Will start patient on phosphate binders. 6. Hypermagnesemia secondary to acute kidney injury. Continue to monitor. 7. Hypertension. Continue current blood pressure regimen, will deescalate IV fluids. 8. Diabetes. Continue current insulin regimen. 9. Facial fullness. The patient is status post imaging studies status post ENT evaluation, no evidence of abscess. Continue to monitor. Consultation Date/Type/Reason Admit Date/Time Jul 10, 2018 at 19:45 Initial Consult Date Date/Time of Note DATE: 07/22/18 TIME: 12:03 24 HR Interval Summary Free Text/Dictation denies shortness of breath urinating without issues denies n /v gen nad cv rrr pulm ctab abd soft, nd ,nt +bs ext: no edema Exam/Review of Systems Exam Vitals Vital Signs Date Temp Pulse Resp B/P (MAP) Pulse Ox O2 O2 Flow FiO2 Time Delivery Rate 07/22/18 98.0 62 18 152/65 100 11:37 (94) 07/22/18 Nasal 2.0 08:45 Cannula 07/21/18 32 13:20 Intake and Output 07/21/18 07/21/18 07/22/18 1515:00 23:00 07:00 IntakeIntake Total 500 ml 450 ml BalanceBalance 500 ml 450 ml Results Result Diagram: 07/22/18 0555 07/22/18 0555 Results 24hrs Laboratory Tests Test 07/21/18 17:54 07/21/18 21:06 07/22/18 05:00 07/22/18 05:55 Bedside Glucose 130 153 Urine Random 50.79 Creatinine Urine Random Sodium 81 White Blood Count 10.4 Red Blood Count 2.90 L Hemoglobin 8.2 L Hematocrit 25.9 L Mean Corpuscular 89.3 Volume Mean Corpuscular 28.3 L Hemoglobin Mean Corpuscular 31.7 L Hemoglobin Concent Red Cell 14.4 Distribution Width Platelet Count 336 Mean Platelet Volume 10.0 Immature 0.400 Granulocytes % Neutrophils % 81.7 H Lymphocytes % 7.7 L Monocytes % 8.0 Eosinophils % 1.7 Basophils % 0.5 Nucleated Red Blood 0.0 Cells % Immature 0.040 H Granulocytes # Neutrophils # 8.5 H Lymphocytes # 0.8 Monocytes # 0.8 Eosinophils # 0.2 Basophils # 0.1 Nucleated Red Blood 0.0 Cells # Sodium Level 135 Potassium Level 4.5 Chloride Level 100 Carbon Dioxide Level 25 Anion Gap 10 Blood Urea Nitrogen 62 H Creatinine 3.00 H Est Glomerular 16 L Filtrat Rate mL/min Glucose Level 100 # Calcium Level 8.3 L Phosphorus Level 6.8 H Magnesium Level 3.5 H Test 07/22/18 08:09 Bedside Glucose 86 Medications Medication Current Medications IV Flush (NS 3 ml) 3 ml PER PROTOCOL IV ; Start 07/10/18 at 21:30 Ondansetron HCl (Zofran Tab) 4 mg Q6H PRN PO NAUSEA/VOMITING; Start 07/10/18 at 21:30 Acetaminophen (Tylenol Tab) 650 mg Q6H PRN PO .PAIN 1-3 OR TEMP Last administered on 07/16/18at 02:06; Admin Dose 650 MG; Start 07/10/18 at 21:30 Docusate Sodium (Colace) 100 mg Q12H PRN PO .CONSTIPATION; Start 07/10/18 at 21:30 Bisacodyl (Dulcolax) 5 mg DAILY PRN PO .CONSTIPATION Last administered on 07/13/18at 17:40; Admin Dose 5 MG; Start 07/10/18 at 21:30 Diagnostic Test (Pha) (Accu-Chek) 1 ea 02 XX Last administered on 07/20/18at 02:22; Admin Dose 1 EA; Start 07/11/18 at 02:00 Miscellaneous Information 1 ea NOTE XX ; Start 07/10/18 at 22:30 Glucose (Glutose) 15 gm Q15M PRN PO DECREASED GLUCOSE; Start 07/10/18 at 22:30 Glucose (Glutose) 22.5 gm Q15M PRN PO DECREASED GLUCOSE; Start 07/10/18 at 22:30 Dextrose (D50w Syringe) 25 ml Q15M PRN IV DECREASED GLUCOSE; Start 07/10/18 at 22:30 Dextrose (D50w Syringe) 50 ml Q15M PRN IV DECREASED GLUCOSE; Start 07/10/18 at 22:30 Glucagon (Glucagen) 1 mg Q15M PRN IM DECREASED GLUCOSE; Start 07/10/18 at 22:30 Glucose (Glutose) 15 gm Q15M PRN BUCCAL DECREASED GLUCOSE; Start 07/10/18 at 2 2:30 Docusate Sodium (Colace) 200 mg BID PO Last administered on 07/22/18at 08:38; Admin Dose 200 MG; Start 07/11/18 at 09:00 Insulin Aspart (Novolog Insulin Pen) NOVOLOG *MILD* ALGORITHM WITH MEALS B EDTIME SC Last administered on 07/20/18at 17:11; Admin Dose 3 UNIT; Start 07/11/18 at 11:50 Hydralazine HCl (Apresoline) 10 mg Q6H PRN IV SBP>160 Last administered on 07/20/18 11:58; Admin Dose 10 MG; Start 07/11/18 at 16:30 Insulin Glargine (Lantus) 10 units DAILY@2000 SC Last administered on 07/21/18at 22:04; Admin Dose 10 UNITS; Start 07/12/18 at 20:00 Ferric Sodium Gluconate Complex 125 mg/Sodium Chloride 100 ml @ 100 mls/hr DAILY@1300 IVPB Last administered on 07/13/18 13:26; Admin Dose 100 MLS/HR; Start 07/13/18 at 13:00; Status Hold Phenol (Cepastat Lozenge) 1 lozenge Q2H PRN MT SORE THROAT; Start 07/14/18 at 09:00 Lactulose (Enulose) 20 gm DAILY PRN PO CONSTIPATION Last administered on 07/15/18at 20:57; Admin Dose 20 GM; Start 07/15/18 at 09:30 Nifedipine (Procardia Xl) 60 mg BID PO Last administered on 07/22/18 08:38; Admin Dose 60 MG; Start 07/18/18 at 09:00 Cholecalciferol (Vitamin D) 1,000 unit DAILY PO Last administered on 07/22/18 08:38; Admin Dose 1,000 UNIT; Start 07/18/18 at 09:00 Carvedilol (Coreg) 6.25 mg BID PO Last administered on 07/22/18 08:39; Admin Dose 6.25 MG; Start 07/20/18 at 09:30 Albuterol/ Ipratropium (Duoneb) 3 ml Q6HWA RESP THERAPY HHN Last administered on 07/22/18 08:12; Admin Dose 3 ML; Start 07/20/18 at 14:00 Albuterol/ Ipratropium (Duoneb) 3 ml Q2H RESP THERAPY PRN HHN shortness of breath; Start 07/20/18 at 11:00 Budesonide (Pulmicort (Neb)) 0.5 mg BID RESP THERAPY HHN Last administered on 07/22/18 08:12; Admin Dose 0.5 MG; Start 07/20/18 at 11:00 Fluticasone Propionate (Flonase 0.05% Nasal) 1 spray BID NASAL Last administere d on 07/22/18 08:39; Admin Dose 1 SPRAY; Start 07/20/18 at 21:00 Piperacillin Sod/ Tazobactam Sod 50 ml @ 100 mls/hr Q8 IVPB Last administered on 07/22/18 05:27; Admin Dose 100 MLS/HR; Start 07/21/18 at 22:00 JUANITA COBOS MD July 22, 2018 12:04
--- NOTE | 2018-07-22 12:57 | CONS ---
Assessment/Plan Assessment/Plan Hospital Course (Demo Recall) ID PROGRESS NOTE CURRENT ABX: DAY # => Augmentin => Changed to Zosyn IV 24H INTERVAL SUMMARY * Overall improved -- she had visual hallucinations w/Augmentin in setting infection/hypoxia per discussion w/Dr. Blair improved now * Resting comfortably, VSS, no fevers, NAD * Worsening renal fx on Zosyn -- ABX changed to anti-pseudomonal IV due to concern acute left maxillary sinusitis MICRO/OTHER * 07/19/18>Microbiology: Blood cultures negative * MRI: 1. No substantial change in size of retropharyngeal fluid collection measures up to 1 cm in thickness at C3 level extending from C2 through C4.2. Diffuse subcutaneous edema in the lower face, neck and chest wall.3. Mildly enlarged lymph nodes bilaterally. 4. Small bilateral pleural effusions. * CT of the brain on admission revealed no acute intracranial findings. Ethmoid and left ethmoid sinus fluid. * Facial CT revealed Punctate submandibular gland calcification suggests sialolithiasis. Acute on chronic left maxillary sinusitis. Please see full report in the chart. * 07/15/[address] * 1. The exam is limited by the lack of intravenous contrast media, a retropharyngeal collection possibly phlegmon or abscess is of concern es timated at approximately 6 cm in greatest cranial caudal dimension extending from the C1 ring to the C5 level. Consider follow-up evaluation with intravenous contrast or alternatively MRI of the neck. * 2. Reactive lymphadenitis of the jugulodigastric chain lymph nodes. * 3. Stranding of the submandibular and submental fat concerning for cellulitis. * 4. Bilateral pleural effusions with suggestion of air trapping and interstitial edema in the upper lung parenchyma. * Chest x-ray revealed no pneumonia PHYSICAL EXAMINATION: GENERAL: VSS, NAD, lethargic HEENT: AT, NC, anicteric, no facial erythema noted, bilateral puffy orbits NECK: Supple, (+)turkey neck appearance of lipohypertrophy CHEST: Equal chest rise bilaterally, without dyspnea on observation HEART: Pulse RRR ABDOMEN: Soft / NT EXTREMITIES: Warm, dry SKIN: No rash, no diaphoresis ID ASSESSMENT 68 yo F admit with: 1. Acute on chronic sinusitis 2. Facial edema cellulitis, sialolithiasis, w/neck swelling==> reactive lymphadenitis resolving * CT Neck/Face with concern acute=> Punctate submandibular gland calcification suggests sialolithiasis / a retropharyngeal collection possibly phlegmon or abscess 3. Acute on chronic kidney disease 4. Diabetes 5. Hypertension (-)MRSA Nares ABX ALLERGIES: KNDA INVASIVES: PIV CURRENT ABX: DAY # > ZOSYN ID RECOMMENDATIONS/PLAN: 1. Worsning renal fx == change Zosyn to Merrem * Continue for acute facial cellulitis, sialolithiasis, retropharyngeal fluid collection (?small abscess) and acute maxillary sinusitis 2. Swab nares for MRSA Consultation Date/Type/Reason Admit Date/Time Jul 10, 2018 at 19:45 Initial Consult Date Date/Time of Note DATE: 07/22/18 TIME: 12:53 Exam/Review of Systems Exam Vitals Vital Signs Date Temp Pulse Resp B/P (MAP) Pulse Ox O2 O2 Flow FiO2 Time Delivery Rate 07/22/18 62 12:46 07/22/18 98.0 18 152/65 100 11:37 (94) 07/22/18 Nasal 2.0 08:45 Cannula 07/21/18 32 13:20 Intake and Output 07/21/18 07/21/18 07/22/18 1515:00 23:00 07:00 IntakeIntake Total 500 ml 450 ml BalanceBalance 500 ml 450 ml Results Result Diagram: 07/22/18 0555 07/22/18 0555 Results 24hrs Laboratory Tests Test 07/21/18 17:54 07/21/18 21:06 07/22/18 05:00 07/22/18 05:55 Bedside Glucose 130 153 Urine Random 50.79 Creatinine Urine Random Sodium 81 White Blood Count 10.4 Red Blood Count 2.90 L Hemoglobin 8.2 L Hematocrit 25.9 L Mean Corpuscular 89.3 Volume Mean Corpuscular 28.3 L Hemoglobin Mean Corpuscular 31.7 L Hemoglobin Concent Red Cell 14.4 Distribution Width Platelet Count 336 Mean Platelet Volume 10.0 Immature 0.400 Granulocytes % Neutrophils % 81.7 H Lymphocytes % 7.7 L Monocytes % 8.0 Eosinophils % 1.7 Basophils % 0.5 Nucleated Red Blood 0.0 Cells % Immature 0.040 H Granulocytes # Neutrophils # 8.5 H Lymphocytes # 0.8 Monocytes # 0.8 Eosinophils # 0.2 Basophils # 0.1 Nucleated Red Blood 0.0 Cells # Sodium Level 135 Potassium Level 4.5 Chloride Level 100 Carbon Dioxide Level 25 Anion Gap 10 Blood Urea Nitrogen 62 H Creatinine 3.00 H Est Glomerular 16 L Filtrat Rate mL/min Glucose Level 100 # Calcium Level 8.3 L Phosphorus Level 6.8 H Magnesium Level 3.5 H Test 07/22/18 08:09 07/22/18 11:58 Bedside Glucose 86 177 Medications Medication Current Medications IV Flush (NS 3 ml) 3 ml PER PROTOCOL IV ; Start 07/10/18 at 21:30 Ondansetron HCl (Zofran Tab) 4 mg Q6H PRN PO NAUSEA/VOMITING; Start 07/10/18 at 21:30 Acetaminophen (Tylenol Tab) 650 mg Q6H PRN PO .PAIN 1-3 OR TEMP Last administered on 07/16/18at 02:06; Admin Dose 650 MG; Start 07/10/18 at 21:30 Docusate Sodium (Colace) 100 mg Q12H PRN PO .CONSTIPATION; Start 07/10/18 at 21:30 Bisacodyl (Dulcolax) 5 mg DAILY PRN PO .CONSTIPATION Last administered on 07/13/18at 17:40; Admin Dose 5 MG; Start 07/10/18 at 21:30 Diagnostic Test (Pha) (Accu-Chek) 1 ea 02 XX Last administered on 07/20/18at 02:22; Admin Dose 1 EA; Start 07/11/18 at 02:00 Miscellaneous Information 1 ea NOTE XX ; Start 07/10/18 at 22:30 Glucose (Glutose) 15 gm Q15M PRN PO DECREASED GLUCOSE; Start 07/10/18 at 22:30 Glucose (Glutose) 22.5 gm Q15M PRN PO DECREASED GLUCOSE; Start 07/10/18 at 22:30 Dextrose (D50w Syringe) 25 ml Q15M PRN IV DECREASED GLUCOSE; Start 07/10/18 at 22:30 Dextrose (D50w Syringe) 50 ml Q15M PRN IV DECREASED GLUCOSE; Start 07/10/18 at 22:30 Glucagon (Glucagen) 1 mg Q15M PRN IM DECREASED GLUCOSE; Start 07/10/18 at 22:30 Glucose (Glutose) 15 gm Q15M PRN BUCCAL DECREASED GLUCOSE; Start 07/10/18 at 22:30 Docusate Sodium (Colace) 200 mg BID PO Last administered on 07/22/18 08:38; Admin Dose 200 MG; Start 07/11/18 at 09:00 Insulin Aspart (Novolog Insulin Pen) NOVOLOG *MILD* ALGORITHM WITH MEALS BEDTIME SC Last administered on 07/22/18 12:03; Admin Dose 1 UNIT; Start 07/11/18 at 11:50 Hydralazine HCl (Apresoline) 10 mg Q6H PRN IV SBP>160 Last administered on 07/20/18 11:58; Admin Dose 10 MG; Start 07/11/18 at 16:30 Insulin Glargine (Lantus) 10 units DAILY@2000 SC Last administered on 07/21/18 22:04; Admin Dose 10 UNITS; Start 07/12/18 at 20:00 Ferric Sodium Gluconate Complex 125 mg/Sodium Chloride 100 ml @ 100 mls/hr DAILY@1300 IVPB Last administered on 07/13/18 13:26; Admin Dose 100 MLS/HR; Start 07/13/18 at 13:00; Status Hold Phenol (Cepastat Lozenge) 1 lozenge Q2H PRN MT SORE THROAT; Start 07/14/18 at 09:00 Lactulose (Enulose) 20 gm DAILY PRN PO CONSTIPATION Last administered on 07/15/18 20:57; Admin Dose 20 GM; Start 07/15/18 at 09:30 Nifedipine (Procardia Xl) 60 mg BID PO Last administered on 07/22/18 08:38; Admin Dose 60 MG; Start 07/18/18 at 09:00 Cholecalciferol (Vitamin D) 1,000 unit DAILY PO Last administered on 07/22/18 08:38; Admin Dose 1,000 UNIT; Start 07/18/18 at 09:00 Carvedilol (Coreg) 6.25 mg BID PO Last administered on 07/22/18 08:39; Admin Dose 6.25 MG; Start 07/20/18 at 09:30 Albuterol/ Ipratropium (Duoneb) 3 ml Q6HWA RESP THERAPY HHN Last administered on 07/22/18 08:12; Admin Dose 3 ML; Start 07/20/18 at 14:00 Albuterol/ Ipratropium (Duoneb) 3 ml Q2H RESP THERAPY PRN HHN shortness of breath; Start 07/20/18 at 11:00 Budesonide (Pulmicort (Neb)) 0.5 mg BID RESP THERAPY HHN Last administered on 07/22/18at 08:12; Admin Dose 0.5 MG; Start 07/20/18 at 11:00 Fluticasone Propionate (Flonase 0.05% Nasal) 1 spray BID NASAL Last administered on 07/22/18at 08:39; Admin Dose 1 SPRAY; Start 07/20/18 at 21:00 Piperacillin Sod/ Tazobactam Sod 50 ml @ 100 mls/hr Q8 IVPB Last administered on 07/22/18at 05:27; Admin Dose 100 MLS/HR; Start 07/21/18 at 22:00 NELL JACQUES SKEIN WASHER July 22, 2018 12:57
[2018-07-22] MEDS: MEROPENEM 1 GM/50ML(PMX) 50 ML IVPB SCH ×2 (14:00→20:34)
[2018-07-22] MEDS: INSULIN GLARGINE [LANTus] (100 UNITS/ML) SYG SC SCH (20:55)
[2018-07-23] VITALS (9 sets, daily range): BP systolic 144–156; BP diastolic 65–70; PULSE 62–78; RESP 17–20
[2018-07-23] MEDS: ACCU-CHEK XX SCH (02:00)
[2018-07-23] MEDS: INSULIN ASPART [NOVOLOG] 3 ML PEN SC SCH ×4 (07:55→20:58)
[2018-07-23] MEDS: CHOLECALCIFEROL 1,000 UNIT TAB PO SCH (08:16)
[2018-07-23] MEDS: NIFEdipine (XL) 60 MG TAB PO SCH ×2 (08:25→20:58)
[2018-07-23] MEDS: MEROPENEM 1 GM/50ML(PMX) 50 ML IVPB SCH ×2 (08:26→20:55)
[2018-07-23] MEDS: FLUTICASONE 0.05% 16 GM NAS SPRAY NASAL SCH ×2 (08:29→23:00)
--- NOTE | 2018-07-23 08:46 | PN ---
DATE: 07/23/2018 SUBJECTIVE: The patient is stable. No acute events noted overnight. No chest pain. The patient re bennett on 2 liters nasal cannula. The patient's Taylor catheter is draining well. No reports of hallu cinations. OBJECTIVE: VITAL SIGNS: Blood pressure is 148/67, respiration 18, pulse 64, temperature 98.0. HEENT: Head is normocephalic. NECK: Supple. HEART: Regular rate. LUNGS: Show diminished breath sounds at the base. ABDOMEN: Soft, nontender to palpation without rebound or guarding. EXTREMITIES: Negative for clubbing, cyanosis, no edema. DERMATOLOGIC: No rashes. MUSCULOSKELETAL: No joint effusions. NEUROLOGIC: No change in exam. MEDICATIONS: Have been reviewed. LABORATORY DATA: Has been reviewed. ASSESSMENT AND PLAN: 1. Nonoliguric acute kidney injury with previous baseline creatinine 1.3 to 1.5 mg/dL. Etiology of acute kidney injury was initially felt to be secondary to hemodynamics. The patient's renal function ; however, has further declined possibly due to tubular injury. Renal function eventually stabilized ; however, has declined again after a course of diuretic therapy. At this point, would continue curr ent treatment plan. Would hold diuretic therapy. We will continue to monitor renal function closely . If renal function should further decline, would consider possible serological workup. Monitor alma sely. No immediate need for renal replacement therapy. 2. Chronic kidney disease, stage III, with a history of diabetic nephropathy. The patient noted to have nephrotic range proteinuria. The patient currently in acute kidney injury as stated. Continue disease factor modifications. Continue current treatment plan. 3. Hyponatremia secondary to acute kidney injury, improved. 4. Anemia. Monitor hemoglobin and hematocrit levels. 5. Mineral bone disorder, monitor calcium and phosphorus levels. Continue phosphate binders. 6. Hypermagnesemia secondary to acute kidney injury. Continue to monitor. 7. Hypertension. Continue current blood pressure regimen. 8. Diabetes. Continue current insulin regimen. 9. Facial and neck swelling improved. Continue to monitor. 10. Acute encephalopathy, unclear etiology. CT scan noted worsening sinusitis. ABG was reviewed. Continue current antibiotic regimen to treat underlying sinusitis. 11. Consider psychiatric evaluation. Dictated By: MILLY URBANO/KULWINDER Conf#: [id number] DID#: [id number] CC: CARLOS MALCOLM MD;*End*
[2018-07-23] MEDS: DOCUSATE SODIUM 100 MG CAP PO SCH ×2 (09:00→20:58)
[2018-07-23] MEDS: ALBUTEROL/IPRATROPIUM (NEB) 3 ML AMP HHN SCH ×3 (10:23→20:11)
[2018-07-23] MEDS: BUDESONIDE (NEB) 0.5MG/2ML AMP HHN SCH ×2 (10:24→20:11)
[2018-07-23] MEDS: SEVELAMER CARBONATE 800 MG TABLET PO SCH ×2 (12:11→17:44)
--- NOTE | 2018-07-23 13:49 | PN ---
Date/Time of Note Date/Time of Note DATE: 07/23/18 TIME: 13:45 Assessment/Plan VTE Prophylaxis Risk score (from Nsg)>0 risk: 5 SCD applied (from Nsg): Yes Pharmacological prophylaxis: heparin Lines/Catheters IV Catheter Type (from Nrsg): Saline Lock Urinary Cath still in place: Yes Reason Cath still needed: urinary retention Assessment/Plan Hospital Course bjective Physical exam General: Patient is laying in bed and answers questions appropriately, however there is some hallucinating Mentation: Patient is alert and oriented x 3 with hallucinations Head: Normocephalic atraumatic Eyes: EOMI, pupils reactive to light, Face: Mild swelling Neck: Supple, nontender, midline, Respiratory: Clear to auscultation bilaterally Cardiovascular: regular rate, no obvious murmurs Gastrointestinal: non-tender to palpation, bowel sounds heard.mildly distended, nontender Neurological: Moves all extremities spontaneously Skin: No new skin lesions ASSESSMENT & PLAN This is a 68-year-old female with comorbidities including diabetes mellitus, chronic kidney disease, and hypertension who came to the emergency room with chief complaint of constipation. The patient was noticed to have underlying hyperkalemia (potassium was 6.6) in the emergency room. The patient underwent a KUB that was showing fecal filled colon. The patient was admitted to inpatient setting for further treatment and evaluation. Acute hypoxic respiratory distress, resolving -Likely secondary to volume overload, patient received IV fluids for recent acute kidney injury -BNP has increased -Chest x-ray noted for edema -Lasix given x1, hold off on further Lasix for now due to elevated creatinine -DuoNeb's, budesonide -ABG done, noted Altered mental status with hallucinations, improving significantly -Possibly due to worsening sinusitis, infection and elderly patients may be causing altered mental status, change Augmentin back to IV antibiotic. -CT head noted, worsening sinusitis -ABG noted -Monitor Facial and neck swelling 2/2 facial cellulitis, resolved -No respiratory compromise, monitor closely -CT showing salivary stones in the submandibular gland bilaterally and cellulitis with possible retropharyngeal abscess which likely is the cause of patient's facial swelling, -Antibiotic per infectious disease -Follow-up with MRI, noted, very small fluid collection -Ear nose and throat physician, Dr. Wylie also consulted, upon scope ear nose and throat physician did not see any retropharyngeal fullness to indicate abscess or even a target if abscess is present. Notified ENT about MRI, no need for further intervention per ear nose and throat physician, continue antibiotic s. salivary stones -conservative tx per ENT -abx -very small and calcifications not obstructive per ENT Carotid stenosis abnormality, only on ultrasound -Found on ultrasound, -MRA not showing any carotid stenosis Hyperkalemia. -Resolved. -Etiology probably secondary to worsening renal function. -Status post potassium exchange resin and insulin IV. -Being followed by nephrology. Acute on chronic kidney disease., -Being followed by nephrology. -Avoid nephrotoxic medications. -Arterial study noted, no stenosis -worsening, will take off any medications inadequately cleared by the kidney, w ill also insert Taylor catheter, patient urinating but there may be some component of retention Constipation. -KUB showed fecal filled colon. -Continue bowel regimen. -Largely resolved. Continue bowel regimen Diabetes mellitus. -Hemoglobin A1c 8.3. -Continue sliding scale insulin. -Add basal insulin. Hypertension. -Continue antihypertensives. Diabetic neuropathy. -Continue gabapentin. Normocytic anemia. -Most probably anemia of chronic kidney disease. -Monitor H&H closely. -Continue iron supplements. -Epogen as per nephrology. -Transfuse as needed, 1 unit transfused so far Questionable anasarca. -Patient has no lower extremity swelling and abdominal distention has improved after large bowel movement, swelling is mostly limited to the face which is secondary to above cellulitis. Fluids, electrolytes, and nutrition. -Carbohydrate controlled diet. DVT prophylaxis. -Bilateral SCDs. Plan. -cont abx. -Patient's renal function continues to worsen, avoid nephrotoxic drugs, nephrolo gy recommendations appreciated. Result Diagram: 07/23/18 0550 07/23/18 0550 Results 24hrs Laboratory Tests Test 07/22/18 17:02 07/22/18 20:32 07/23/18 03:06 07/23/18 05:50 Bedside Glucose 179 204 107 White Blood Count 10.0 Red Blood Count 2.75 L Hemoglobin 7.9 L Hematocrit 24.7 L Mean Corpuscular 89.8 Volume Mean Corpuscular 28.7 L Hemoglobin Mean Corpuscular 32.0 Hemoglobin Concent Red Cell 14.3 Distribution Width Platelet Count 297 Mean Platelet Volume 9.5 Immature 0.300 Granulocytes % Neutrophils % 77.2 H Lymphocytes % 11.5 L Monocytes % 8.8 Eosinophils % 1.7 Basophils % 0.5 Nucleated Red Blood 0.0 Cells % Immature 0.030 Granulocytes # Neutrophils # 7.7 H Lymphocytes # 1.2 Monocytes # 0.9 Eosinophils # 0.2 Basophils # 0.1 Nucleated Red Blood 0.0 Cells # Sodium Level 135 Potassium Level 4.3 Chloride Level 101 Carbon Dioxide Level 24 Anion Gap 10 Blood Urea Nitrogen 61 H Creatinine 3.17 H Est Glomerular 15 L Filtrat Rate mL/min Glucose Level 76 Calcium Level 8.1 L Phosphorus Level 6.6 H Magnesium Level 3.5 H Test 07/23/18 07:57 07/23/18 12:11 Bedside Glucose 73 222 H Subjective 24 Hr Interval Summary Free Text/Dictation Mental status seems normal, no A/V hallucinations Facial/neck swelling resolved she says Exam/Review of Systems Exam Vitals Vital Signs Date Temp Pulse Resp B/P (MAP) Pulse Ox O2 O2 Flow FiO2 Time Delivery Rate 07/23/18 98.0 77 18 153/67 98 12:01 (95) 07/23/18 3.0 10:36 07/23/18 Nasal 10:35 Cannula 07/21/18 32 13:20 Intake and Output 07/22/18 07/22/18 07/23/18 1515:00 23:00 07:00 IntakeIntake Total 750 ml 240 ml OutputOutput Total 250 ml 200 ml BalanceBalance 500 ml 40 ml Results Results 24hrs Laboratory Tests Test 07/22/18 17:02 07/22/18 20:32 07/23/18 03:06 07/23/18 05:50 Bedside Glucose 179 204 107 White Blood Count 10.0 Red Blood Count 2.75 L Hemoglobin 7.9 L Hematocrit 24.7 L Mean Corpuscular 89.8 Volume Mean Corpuscular 28.7 L Hemoglobin Mean Corpuscular 32.0 Hemoglobin Concent Red Cell 14.3 Distribution Width Platelet Count 297 Mean Platelet Volume 9.5 Immature 0.300 Granulocytes % Neutrophils % 77.2 H Lymphocytes % 11.5 L Monocytes % 8.8 Eosinophils % 1.7 Basophils % 0.5 Nucleated Red Blood 0.0 Cells % Immature 0.030 Granulocytes # Neutrophils # 7.7 H Lymphocytes # 1.2 Monocytes # 0.9 Eosinophils # 0.2 Basophils # 0.1 Nucleated Red Blood 0.0 Cells # Sodium Level 135 Potassium Level 4.3 Chloride Level 101 Carbon Dioxide Level 24 Anion Gap 10 Blood Urea Nitrogen 61 H Creatinine 3.17 H Est Glomerular 15 L Filtrat Rate mL/min Glucose Level 76 Calcium Level 8.1 L Phosphorus Level 6.6 H Magnesium Level 3.5 H Test 07/23/18 07:57 07/23/18 12:11 Bedside Glucose 73 222 H Medications Medication Current Medications IV Flush (NS 3 ml) 3 ml PER PROTOCOL IV ; Start 07/10/18 at 21:30 Ondansetron HCl (Zofran Tab) 4 mg Q6H PRN PO NAUSEA/VOMITING; Start 07/10/18 at 21:30 Acetaminophen (Tylenol Tab) 650 mg Q6H PRN PO .PAIN 1-3 OR TEMP Last administered on 07/16/18at 02:06; Admin Dose 650 MG; Start 07/10/18 at 21:30 Docusate Sodium (Colace) 100 mg Q12H PRN PO .CONSTIPATION; Start 07/10/18 at 21:30 Bisacodyl (Dulcolax) 5 mg DAILY PRN PO .CONSTIPATION Last administered on 07/13/18at 17:40; Admin Dose 5 MG; Start 07/10/18 at 21:30 Miscellaneous Information 1 ea NOTE XX ; Start 07/10/18 at 22:30 Glucose (Glutose) 15 gm Q15M PRN PO DECREASED GLUCOSE; Start 07/10/18 at 22:30 Glucose (Glutose) 22.5 gm Q15M PRN PO DECREASED GLUCOSE; Start 07/10/18 at 22:30 Dextrose (D50w Syringe) 25 ml Q15M PRN IV DECREASED GLUCOSE; Start 07/10/18 at 22:30 Dextrose (D50w Syringe) 50 ml Q15M PRN IV DECREASED GLUCOSE; Start 07/10/18 at 22:30 Glucagon (Glucagen) 1 mg Q15M PRN IM DECREASED GLUCOSE; Start 07/10/18 at 22:30 Glucose (Glutose) 15 gm Q15M PRN BUCCAL DECREASED GLUCOSE; Start 07/10/18 at 22:30 Docusate Sodium (Colace) 200 mg BID PO Last administered on 07/22/18at 08:38; Admin Dose 200 MG; Start 07/11/18 at 09:00 Insulin Aspart (Novolog Insulin Pen) NOVOLOG *MILD* ALGORITHM WITH MEALS BEDTIME SC Last administered on 07/23/18 12:15; Admin Dose 3 UNIT; Start 07/11/18 at 11:50 Hydralazine HCl (Apresoline) 10 mg Q6H PRN IV SBP>160 Last administered on 07/20/18 11:58; Admin Dose 10 MG; Start 07/11/18 at 16:30 Insulin Glargine (Lantus) 10 units DAILY@2000 SC Last administered on 07/22/18 20:55; Admin Dose 10 UNITS; Start 07/12/18 at 20:00 Ferric Sodium Gluconate Complex 125 mg/Sodium Chloride 100 ml @ 100 mls/hr DAILY@1300 IVPB Last administered on 07/13/18 13:26; Admin Dose 100 MLS/HR; Start 07/13/18 at 13:00; Status Hold Phenol (Cepastat Lozenge) 1 lozenge Q2H PRN MT SORE THROAT; Start 07/14/18 at 09:00 Lactulose (Enulose) 20 gm DAILY PRN PO CONSTIPATION Last administered on 07/15/18 20:57; Admin Dose 20 GM; Start 07/15/18 at 09:30 Nifedipine (Procardia Xl) 60 mg BID PO Last administered on 07/23/18 08:25; Admin Dose 60 MG; Start 07/18/18 at 09:00 Cholecalciferol (Vitamin D) 1,000 unit DAILY PO Last administered on 07/23/18 08:16; Admin Dose 1,000 UNIT; Start 07/18/18 at 09:00 Carvedilol (Coreg) 6.25 mg BID PO Last administered on 07/23/18 08:18; Admin Dose 6.25 MG; Start 07/20/18 at 09:30 Albuterol/ Ipratropium (Duoneb) 3 ml Q6HWA RESP THERAPY HHN Last administered on 07/23/18 10:23; Admin Dose 3 ML; Start 07/20/18 at 14:00 Albuterol/ Ipratropium (Duoneb) 3 ml Q2H RESP THERAPY PRN HHN shortness of breath; Start 07/20/18 at 11:00 Budesonide (Pulmicort (Neb)) 0.5 mg BID RESP THERAPY HHN Last administered on 07/23/18 10:24; Admin Dose 0.5 MG; Start 07/20/18 at 11:00 Fluticasone Propionate (Flonase 0.05% Nasal) 1 spray BID NASAL Last administered on 07/23/18 08:29; Admin Dose 1 SPRAY; Start 07/20/18 at 21:00 Meropenem/Sodium Chloride 50 ml @ 100 mls/hr Q12 IVPB Last administered on 07/23/18 08:26; Admin Dose 100 MLS/HR; Start 07/22/18 at 13:30 Sevelamer Carbonate (Renvela) 800 mg WITH MEALS PO Last administered on 12:11; Admin Dose 800 MG; Start 07/23/18 at 11:50 TESS RUIZ MD July 23, 2018 13:49
--- NOTE | 2018-07-23 15:06 | CONS ---
Assessment/Plan Assessment/Plan Hospital Course (Demo Recall) Alert, feels good, no fevers Microbiology: Blood cultures negative CT of the brain on admission revealed no acute intracranial findings. Ethmoid and left ethmoid sinus fluid. Facial CT revealed no evidence of abscess punctate submandibular gland calcification suggests sialolithiasis. Acute on chronic left maxillary sinusitis. Please see full report in the chart. Chest x-ray revealed no pneumonia Antimicrobials: Merrem Physical examination: Well-developed elderly woman who is alert in no distress. Head atraumatic normocephalic sclera nonicteric neck is obese chest rise symmetrical breath sounds diminished bases heart S1-S2 abdomen soft bowel sounds present extremities without cyanosis Assessment: 1. Acute on chronic sinusitis with facial and neck swelling==> resolving 2. Acute on chronic kidney disease 3. Diabetes 4. Hypertension Plan: Remains stable, continue abx, f/u renal rec-s Consultation Date/Type/Reason Admit Date/Time Jul 10, 2018 at 19:45 Initial Consult Date Type of Consult id Date/Time of Note DATE: 07/23/18 TIME: 15:05 Exam/Review of Systems Exam Vitals Vital Signs Date Temp Pulse Resp B/P (MAP) Pulse Ox O2 O2 Flow FiO2 Time Delivery Rate 07/23/18 92 21 13:53 07/23/18 72 16 Nasal 2.0 13:52 Cannula 07/23/18 98.0 153/67 12:01 (95) Intake and Output 07/22/18 07/22/18 07/23/18 1515:00 23:00 07:00 IntakeIntake Total 750 ml 240 ml OutputOutput Total 250 ml 200 ml BalanceBalance 500 ml 40 ml Results Result Diagram: 07/23/18 0550 07/23/18 0550 Results 24hrs Laboratory Tests Test 07/22/18 17:02 07/22/18 20:32 07/23/18 03:06 07/23/18 05:50 Bedside Glucose 179 204 107 White Blood Count 10.0 Red Blood Count 2.75 L Hemoglobin 7.9 L Hematocrit 24.7 L Mean Corpuscular 89.8 Volume Mean Corpuscular 28.7 L Hemoglobin Mean Corpuscular 32.0 Hemoglobin Concent Red Cell 14.3 Distribution Width Platelet Count 297 Mean Platelet Volume 9.5 Immature 0.300 Granulocytes % Neutrophils % 77.2 H Lymphocytes % 11.5 L Monocytes % 8.8 Eosinophils % 1.7 Basophils % 0.5 Nucleated Red Blood 0.0 Cells % Immature 0.030 Granulocytes # Neutrophils # 7.7 H Lymphocytes # 1.2 Monocytes # 0.9 Eosinophils # 0.2 Basophils # 0.1 Nucleated Red Blood 0.0 Cells # Sodium Level 135 Potassium Level 4.3 Chloride Level 101 Carbon Dioxide Level 24 Anion Gap 10 Blood Urea Nitrogen 61 H Creatinine 3.17 H Est Glomerular 15 L Filtrat Rate mL/min Glucose Level 76 Calcium Level 8.1 L Phosphorus Level 6.6 H Magnesium Level 3.5 H Test 07/23/18 07:57 07/23/18 12:11 Bedside Glucose 73 222 H Medications Medication Current Medications IV Flush (NS 3 ml) 3 ml PER PROTOCOL IV ; Start 07/10/18 at 21:30 Ondansetron HCl (Zofran Tab) 4 mg Q6H PRN PO NAUSEA/VOMITING; Start 07/10/18 at 21:30 Acetaminophen (Tylenol Tab) 650 mg Q6H PRN PO .PAIN 1-3 OR TEMP Last administered on 07/16/18at 02:06; Admin Dose 650 MG; Start 07/10/18 at 21:30 Docusate Sodium (Colace) 100 mg Q12H PRN PO .CONSTIPATION; Start 07/10/18 at 21:30 Bisacodyl (Dulcolax) 5 mg DAILY PRN PO .CONSTIPATION Last administered on 07/13/18at 17:40; Admin Dose 5 MG; Start 07/10/18 at 21:30 Miscellaneous Information 1 ea NOTE XX ; Start 07/10/18 at 22:30 Glucose (Glutose) 15 gm Q15M PRN PO DECREASED GLUCOSE; Start 07/10/18 at 22:30 Glucose (Glutose) 22.5 gm Q15M PRN PO DECREASED GLUCOSE; Start 07/10/18 at 22:30 Dextrose (D50w Syringe) 25 ml Q15M PRN IV DECREASED GLUCOSE; Start 07/10/18 at 22:30 Dextrose (D50w Syringe) 50 ml Q15M PRN IV DECREASED GLUCOSE; Start 07/10/18 at 22:30 Glucagon (Glucagen) 1 mg Q15M PRN IM DECREASED GLUCOSE; Start 07/10/18 at 22:30 Glucose (Glutose) 15 gm Q15M PRN BUCCAL DECREASED GLUCOSE; Start 07/10/18 at 22:30 Docusate Sodium (Colace) 200 mg BID PO Last administered on 07/22/18 08:38; Admin Dose 200 MG; Start 07/11/18 at 09:00 Insulin Aspart (Novolog Insulin Pen) NOVOLOG *MILD* ALGORITHM WITH MEALS BEDTIME SC Last administered on 07/23/18 12:15; Admin Dose 3 UNIT; Start 07/11/18 at 11:50 Hydralazine HCl (Apresoline) 10 mg Q6H PRN IV SBP>160 Last administered on 07/20/18 11:58; Admin Dose 10 MG; Start 07/11/18 at 16:30 Insulin Glargine (Lantus) 10 units DAILY@2000 SC Last administered on 07/22/18 20:55; Admin Dose 10 UNITS; Start 07/12/18 at 20:00 Ferric Sodium Gluconate Complex 125 mg/Sodium Chloride 100 ml @ 100 mls/hr DAILY@1300 IVPB Last administered on 07/13/18 13:26; Admin Dose 100 MLS/HR; Start 07/13/18 at 13:00; Status Hold Phenol (Cepastat Lozenge) 1 lozenge Q2H PRN MT SORE THROAT; Start 07/14/18 at 09:00 Lactulose (Enulose) 20 gm DAILY PRN PO CONSTIPATION Last administered on 07/15/18 20:57; Admin Dose 20 GM; Start 07/15/18 at 09:30 Nifedipine (Procardia Xl) 60 mg BID PO Last administered on 07/23/18 08:25; Admin Dose 60 MG; Start 07/18/18 at 09:00 Cholecalciferol (Vitamin D) 1,000 unit DAILY PO Last administered on 07/23/18 08:16; Admin Dose 1,000 UNIT; Start 07/18/18 at 09:00 Carvedilol (Coreg) 6.25 mg BID PO Last administered on 07/23/18 08:18; Admin Dose 6.25 MG; Start 07/20/18 at 09:30 Albuterol/ Ipratropium (Duoneb) 3 ml Q6HWA RESP THERAPY HHN Last administered on 07/23/18 13:48; Admin Dose 3 ML; Start 07/20/18 at 14:00 Albuterol/ Ipratropium (Duoneb) 3 ml Q2H RESP THERAPY PRN HHN shortness of breath; Start 07/20/18 at 11:00 Budesonide (Pulmicort (Neb)) 0.5 mg BID RESP THERAPY HHN Last administered on 07/23/18 10:24; Admin Dose 0.5 MG; Start 07/20/18 at 11:00 Fluticasone Propionate (Flonase 0.05% Nasal) 1 spray BID NASAL Last administered on 07/23/18 08:29; Admin Dose 1 SPRAY; Start 07/20/18 at 21:00 Meropenem/Sodium Chloride 50 ml @ 100 mls/hr Q12 IVPB Last administered on 07/23/18 08:26; Admin Dose 100 MLS/HR; Start 07/22/18 at 13:30 Sevelamer Carbonate (Renvela) 800 mg WITH MEALS PO Last administered on 12:11; Admin Dose 800 MG; Start 07/23/18 at 11:50 ANGELICA ENGEL NP July 23, 2018 15:06
[2018-07-23] MEDS: INSULIN GLARGINE [LANTus] (100 UNITS/ML) SYG SC SCH (20:49)
[2018-07-24] VITALS (12 sets, daily range): BP systolic 135–162; BP diastolic 57–75; PULSE 62–78; RESP 18–20
[2018-07-24] MEDS: hydrALAzine 20 MG INJ IV PRN (04:24)
[2018-07-24] MEDS: INSULIN ASPART [NOVOLOG] 3 ML PEN SC SCH ×4 (07:55→20:37)
[2018-07-24] MEDS: MEROPENEM 1 GM/50ML(PMX) 50 ML IVPB SCH (08:09)
[2018-07-24] MEDS: NIFEdipine (XL) 60 MG TAB PO SCH ×2 (08:12→20:36)
[2018-07-24] MEDS: CHOLECALCIFEROL 1,000 UNIT TAB PO SCH (08:12)
[2018-07-24] MEDS: SEVELAMER CARBONATE 800 MG TABLET PO SCH ×3 (08:12→17:20)
[2018-07-24] MEDS: DOCUSATE SODIUM 100 MG CAP PO SCH ×2 (08:13→20:35)
[2018-07-24] MEDS: FLUTICASONE 0.05% 16 GM NAS SPRAY NASAL SCH ×2 (08:17→20:37)
--- NOTE | 2018-07-24 09:13 | PN ---
DATE: 07/24/2018 SUBJECTIVE: The patient is stable, no events overnight. No fevers, chills, nausea, or vomiting. OBJECTIVE: VITAL SIGNS: Blood pressure is 158/70, respirations 20, pulse 70, temperature 98.0. HEENT: Head is normocephalic. NECK: Supple. HEART: Regular rate. LUNGS: Show diminished breath sounds at the base. ABDOMEN: Soft, nontender to palpation without rebound or guarding. EXTREMITIES: Negative for clubbing, cyanosis. Trace edema. DERMATOLOGIC: No rashes. MUSCULOSKELETAL: No joint effusion. NEUROLOGIC: No change in exam. MEDICATIONS: Reviewed. LABORATORY DATA: Reviewed. ASSESSMENT AND PLAN: 1. Nonoliguric acute kidney injury with previous baseline creatinine of 1.3 to 1.5 mg/dL. Etiology of acute kidney injury is secondary to hemodynamics, possibly due to diuretic therapy, questionable t ubular injury. The patient's renal function appears to have stabilized in last 24 hours. At this po int, continue current treatment plan, supportive care, renally dose all medications. We will hold di uretic therapy. 2. Chronic kidney disease, stage III, with diabetic nephropathy. The patient is currently in acute kidney injury as stated above. Continue current treatment plan. Continue disease factor modificatio n. 3. Hypernatremia secondary to acute kidney injury, improved. 4. Anemia. Monitor hemoglobin and hematocrit levels. 5. Mineral bone disorder, monitor calcium and phosphorus levels. Continue phosphate binders. 6. Hypermagnesemia secondary to acute kidney injury. Continue to monitor. 7. Hypertension. Continue current blood pressure regimen. 8. Diabetes. Continue current insulin regimen. 9. Facial swelling, improved. 10. Acute encephalopathy, etiology is unclear. Continue to monitor, continue treating underlying si nusitis. Dictated By: MILLY GARZA DO NR/NTS Conf#: [id number] DID#: [id number] CC: CARLOS MALCOLM MD; TESS RUIZ MD;*End*
[2018-07-24] MEDS: ALBUTEROL/IPRATROPIUM (NEB) 3 ML AMP HHN SCH ×3 (09:21→20:08)
[2018-07-24] MEDS: BUDESONIDE (NEB) 0.5MG/2ML AMP HHN SCH ×2 (09:22→20:08)
--- NOTE | 2018-07-24 15:15 | CONS ---
Assessment/Plan Assessment/Plan Hospital Course (Demo Recall) Alert, feels good, no fevers Microbiology: Blood cultures negative CT of the brain on admission revealed no acute intracranial findings. Ethmoid and left ethmoid sinus fluid. Facial CT revealed no evidence of abscess punctate submandibular gland calcification suggests sialolithiasis. Acute on chronic left maxillary sinusitis. Please see full report in the chart. Chest x-ray revealed no pneumonia Antimicrobials: Merrem Physical examination: Well-developed elderly woman who is alert in no distress. Head atraumatic normocephalic sclera nonicteric neck is obese chest rise symmetrical breath sounds diminished bases heart S1-S2 abdomen soft bowel sounds present extremities without cyanosis Assessment: 1. Acute on chronic sinusitis with facial and neck swelling==> resolving 2. Acute on chronic kidney disease 3. Diabetes 4. Hypertension Plan: Remains stable, change abx to Augmentin, f/u renal rec-s Consultation Date/Type/Reason Admit Date/Time Jul 10, 2018 at 19:45 Initial Consult Date Type of Consult id Date/Time of Note DATE: 07/24/18 TIME: 15:14 Exam/Review of Systems Exam Vitals Vital Signs Date Temp Pulse Resp B/P (MAP) Pulse Ox O2 O2 Flow FiO2 Time Delivery Rate 07/24/18 75 16 95 Nasal 2.0 14:33 Cannula 07/24/18 98.0 153/75 12:21 (101) 07/23/18 21 13:53 Intake and Output 07/23/18 07/23/18 07/24/18 1414:59 22:59 06:59 IntakeIntake Total 50 ml 700 ml 150 ml OutputOutput Total 750 ml BalanceBalance 50 ml -50 ml 150 ml Results Result Diagram: 07/24/18 0558 07/24/18 0558 Results 24hrs Laboratory Tests Test 07/23/18 17:41 07/23/18 20:34 07/24/18 05:58 07/24/18 07:55 Bedside Glucose 144 131 75 White Blood Count 11.6 H Red Blood Count 3.02 L Hemoglobin 8.5 L Hematocrit 26.8 L Mean Corpuscular 88.7 Volume Mean Corpuscular 28.1 L Hemoglobin Mean Corpuscular 31.7 L Hemoglobin Concent Red Cell 14.4 Distribution Width Platelet Count 321 Mean Platelet Volume 9.7 Immature 0.300 Granulocytes % Neutrophils % 78.6 H Lymphocytes % 11.4 L Monocytes % 8.1 Eosinophils % 1.3 Basophils % 0.3 Nucleated Red Blood 0.0 Cells % Immature 0.040 H Granulocytes # Neutrophils # 9.1 H Lymphocytes # 1.3 Monocytes # 0.9 Eosinophils # 0.2 Basophils # 0.0 Nucleated Red Blood 0.0 Cells # Sodium Level 137 Potassium Level 4.3 Chloride Level 101 Carbon Dioxide Level 26 Anion Gap 10 Blood Urea Nitrogen 58 H Creatinine 2.59 H Est Glomerular 18 L Filtrat Rate mL/min Glucose Level 83 Calcium Level 8.5 Phosphorus Level 5.6 H Magnesium Level 3.6 H Test 07/24/18 12:01 Bedside Glucose 96 Medications Medication Current Medications IV Flush (NS 3 ml) 3 ml PER PROTOCOL IV ; Start 07/10/18 at 21:30 Ondansetron HCl (Zofran Tab) 4 mg Q6H PRN PO NAUSEA/VOMITING; Start 07/10/18 at 21:30 Acetaminophen (Tylenol Tab) 650 mg Q6H PRN PO .PAIN 1-3 OR TEMP Last administered on 07/16/18at 02:06; Admin Dose 650 MG; Start 07/10/18 at 21:30 Docusate Sodium (Colace) 100 mg Q12H PRN PO .CONSTIPATION; Start 07/10/18 at 21:30 Bisacodyl (Dulcolax) 5 mg DAILY PRN PO .CONSTIPATION Last administered on 07/13/18at 17:40; Admin Dose 5 MG; Start 07/10/18 at 21:30 Miscellaneous Information 1 ea NOTE XX ; Start 07/10/18 at 22:30 Glucose (Glutose) 15 gm Q15M PRN PO DECREASED GLUCOSE; Start 07/10/18 at 22:30 Glucose (Glutose) 22.5 gm Q15M PRN PO DECREASED GLUCOSE; Start 07/10/18 at 22:30 Dextrose (D50w Syringe) 25 ml Q15M PRN IV DECREASED GLUCOSE; Start 07/10/18 at 22:30 Dextrose (D50w Syringe) 50 ml Q15M PRN IV DECREASED GLUCOSE; Start 07/10/18 at 22:30 Glucagon (Glucagen) 1 mg Q15M PRN IM DECREASED GLUCOSE; Start 07/10/18 at 22:30 Glucose (Glutose) 15 gm Q15M PRN BUCCAL DECREASED GLUCOSE; Start 07/10/18 at 22:30 Docusate Sodium (Colace) 200 mg BID PO Last administered on 07/24/18 08:13; Admin Dose 200 MG; Start 07/11/18 at 09:00 Insulin Aspart (Novolog Insulin Pen) NOVOLOG *MILD* ALGORITHM WITH MEALS BEDTIME SC Last administered on 07/23/18 17:47; Admin Dose 1 UNIT; Start 07/11/18 at 11:50 Hydralazine HCl (Apresoline) 10 mg Q6H PRN IV SBP>160 Last administered on 07/24/18 04:24; Admin Dose 10 MG; Start 07/11/18 at 16:30 Insulin Glargine (Lantus) 10 units DAILY@2000 SC Last administered on 07/23/18 20:49; Admin Dose 10 UNITS; Start 07/12/18 at 20:00 Ferric Sodium Gluconate Complex 125 mg/Sodium Chloride 100 ml @ 100 mls/hr DAILY@1300 IVPB Last administered on 07/13/18 13:26; Admin Dose 100 MLS/HR; Start 07/13/18 at 13:00; Status Hold Phenol (Cepastat Lozenge) 1 lozenge Q2H PRN MT SORE THROAT; Start 07/14/18 at 09:00 Lactulose (Enulose) 20 gm DAILY PRN PO CONSTIPATION Last administered on 07/15/18 20:57; Admin Dose 20 GM; Start 07/15/18 at 09:30 Nifedipine (Procardia Xl) 60 mg BID PO Last administered on 07/24/18 08:12; Admin Dose 60 MG; Start 07/18/18 at 09:00 Cholecalciferol (Vitamin D) 1,000 unit DAILY PO Last administered on 07/24/18 08:12; Admin Dose 1,000 UNIT; Start 07/18/18 at 09:00 Carvedilol (Coreg) 6.25 mg BID PO Last administered on 07/24/18 08:13; Admin Dose 6.25 MG; Start 07/20/18 at 09:30 Albuterol/ Ipratropium (Duoneb) 3 ml Q6HWA RESP THERAPY HHN Last administered on 07/24/18 14:32; Admin Dose 3 ML; Start 07/20/18 at 14:00 Albuterol/ Ipratropium (Duoneb) 3 ml Q2H RESP THERAPY PRN HHN shortness of breath; Start 07/20/18 at 11:00 Budesonide (Pulmicort (Neb)) 0.5 mg BID RESP THERAPY HHN Last administered on 07/24/18 09:22; Admin Dose 0.5 MG; Start 07/20/18 at 11:00 Fluticasone Propionate (Flonase 0.05% Nasal) 1 spray BID NASAL Last administered on 07/24/18 08:17; Admin Dose 1 SPRAY; Start 07/20/18 at 21:00 Meropenem/Sodium Chloride 50 ml @ 100 mls/hr Q12 IVPB Last administered on 07/24/18 08:09; Admin Dose 100 MLS/HR; Start 07/22/18 at 13:30 Sevelamer Carbonate (Renvela) 800 mg WITH MEALS PO Last administered on 12:43; Admin Dose 800 MG; Start 07/23/18 at 11:50 ANGELICA ENGEL NP July 24, 2018 15:15
--- NOTE | 2018-07-24 15:54 | PN ---
Date/Time of Note Date/Time of Note DATE: 07/24/18 TIME: 15:54 Assessment/Plan VTE Prophylaxis Risk score (from Nsg)>0 risk: 2 SCD applied (from Nsg): Yes Pharmacological prophylaxis: heparin Lines/Catheters IV Catheter Type (from Nrsg): Saline Lock Urinary Cath still in place: No Assessment/Plan Hospital Course bjective Physical exam General: Patient is laying in bed and answers questions appropriately, however there is some hallucinating Mentation: Patient is alert and oriented x 3 with hallucinations Head: Normocephalic atraumatic Eyes: EOMI, pupils reactive to light, Face: Mild swelling Neck: Supple, nontender, midline, Respiratory: Clear to auscultation bilaterally Cardiovascular: regular rate, no obvious murmurs Gastrointestinal: non-tender to palpation, bowel sounds heard.mildly distended, nontender Neurological: Moves all extremities spontaneously Skin: No new skin lesions ASSESSMENT & PLAN This is a 68-year-old female with comorbidities including diabetes mellitus, chronic kidney disease, and hypertension who came to the emergency room with chief complaint of constipation. The patient was noticed to have underlying hyperkalemia (potassium was 6.6) in the emergency room. The patient underwent a KUB that was showing fecal filled colon. The patient was admitted to inpatient setting for further treatment and evaluation. Acute hypoxic respiratory distress, resolving -Likely secondary to volume overload, patient received IV fluids for recent acute kidney injury -BNP has increased -Chest x-ray noted for edema -Lasix given x1, hold off on further Lasix for now due to elevated creatinine -DuoNeb's, budesonide -ABG done, noted Altered mental status with hallucinations, improving significantly -Possibly due to worsening sinusitis, infection and elderly patients may be causing altered mental status, change Augmentin back to IV antibiotic. -CT head noted, worsening sinusitis -ABG noted -Monitor Facial and neck swelling 2/2 facial cellulitis, resolved -No respiratory compromise, monitor closely -CT showing salivary stones in the submandibular gland bilaterally and cellulitis with possible retropharyngeal abscess which likely is the cause of patient's facial swelling, -Antibiotic per infectious disease -Follow-up with MRI, noted, very small fluid collection -Ear nose and throat physician, Dr. Wylie also consulted, upon scope ear nose a nd throat physician did not see any retropharyngeal fullness to indicate abscess or even a target if abscess is present. Notified ENT about MRI, no need for further intervention per ear nose and throat physician, continue antibiotics. salivary stones -conservative tx per ENT -abx -very small and calcifications not obstructive per ENT Carotid stenosis abnormality, only on ultrasound -Found on ultrasound, -MRA not showing any carotid stenosis Hyperkalemia. -Resolved. -Etiology probably secondary to worsening renal function. -Status post potassium exchange resin and insulin IV. -Being followed by nephrology. Acute on chronic kidney disease., -Being followed by nephrology. -Avoid nephrotoxic medications. -Arterial study noted, no stenosis -worsening, will take off any medications inadequately cleared by the kidney, will also insert Taylor catheter, patient urinating but there may be some component of retention Constipation. -KUB showed fecal filled colon. -Continue bowel regimen. -Largely resolved. Continue bowel regimen Diabetes mellitus. -Hemoglobin A1c 8.3. -Continue sliding scale insulin. -Add basal insulin. Hypertension. -Continue antihypertensives. Diabetic neuropathy. -Continue gabapentin. Normocytic anemia. -Most probably anemia of chronic kidney disease. -Monitor H&H closely. -Continue iron supplements. -Epogen as per nephrology. -Transfuse as needed, 1 unit transfused so far Questionable anasarca. -Patient has no lower extremity swelling and abdominal distention has improved after large bowel movement, swelling is mostly limited to the face which is s econdary to above cellulitis. Fluids, electrolytes, and nutrition. -Carbohydrate controlled diet. DVT prophylaxis. -Bilateral SCDs. Plan. -cont abx. -Patient's renal function continues to worsen, avoid nephrotoxic drugs, nephrology recommendations appreciated. Result Diagram: 07/24/18 0558 07/24/18 0558 Results 24hrs Laboratory Tests Test 07/23/18 17:41 07/23/18 20:34 07/24/18 05:58 07/24/18 07:55 Bedside Glucose 144 131 75 White Blood Count 11.6 H Red Blood Count 3.02 L Hemoglobin 8.5 L Hematocrit 26.8 L Mean Corpuscular 88.7 Volume Mean Corpuscular 28.1 L Hemoglobin Mean Corpuscular 31.7 L Hemoglobin Concent Red Cell 14.4 Distribution Width Platelet Count 321 Mean Platelet Volume 9.7 Immature 0.300 Granulocytes % Neutrophils % 78.6 H Lymphocytes % 11.4 L Monocytes % 8.1 Eosinophils % 1.3 Basophils % 0.3 Nucleated Red Blood 0.0 Cells % Immature 0.040 H Granulocytes # Neutrophils # 9.1 H Lymphocytes # 1.3 Monocytes # 0.9 Eosinophils # 0.2 Basophils # 0.0 Nucleated Red Blood 0.0 Cells # Sodium Level 137 Potassium Level 4.3 Chloride Level 101 Carbon Dioxide Level 26 Anion Gap 10 Blood Urea Nitrogen 58 H Creatinine 2.59 H Est Glomerular 18 L Filtrat Rate mL/min Glucose Level 83 Calcium Level 8.5 Phosphorus Level 5.6 H Magnesium Level 3.6 H Test 07/24/18 12:01 Bedside Glucose 96 Subjective 24 Hr Interval Summary Free Text/Dictation Renal function is improving Feels well Exam/Review of Systems Exam Vitals Vital Signs Date Temp Pulse Resp B/P (MAP) Pulse Ox O2 O2 Flow FiO2 Time Delivery Rate 07/24/18 75 16 95 Nasal 2.0 14:33 Cannula 07/24/18 98.0 153/75 12:21 (101) 07/23/18 21 13:53 Intake and Output 07/23/18 07/23/18 07/24/18 1515:00 23:00 07:00 IntakeIntake Total 50 ml 700 ml 150 ml OutputOutput Total 750 ml BalanceBalance 50 ml -50 ml 150 ml Results Results 24hrs Laboratory Tests Test 07/23/18 17:41 07/23/18 20:34 07/24/18 05:58 07/24/18 07:55 Bedside Glucose 144 131 75 White Blood Count 11.6 H Red Blood Count 3.02 L Hemoglobin 8.5 L Hematocrit 26.8 L Mean Corpuscular 88.7 Volume Mean Corpuscular 28.1 L Hemoglobin Mean Corpuscular 31.7 L Hemoglobin Concent Red Cell 14.4 Distribution Width Platelet Count 321 Mean Platelet Volume 9.7 Immature 0.300 Granulocytes % Neutrophils % 78.6 H Lymphocytes % 11.4 L Monocytes % 8.1 Eosinophils % 1.3 Basophils % 0.3 Nucleated Red Blood 0.0 Cells % Immature 0.040 H Granulocytes # Neutrophils # 9.1 H Lymphocytes # 1.3 Monocytes # 0.9 Eosinophils # 0.2 Basophils # 0.0 Nucleated Red Blood 0.0 Cells # Sodium Level 137 Potassium Level 4.3 Chloride Level 101 Carbon Dioxide Level 26 Anion Gap 10 Blood Urea Nitrogen 58 H Creatinine 2.59 H Est Glomerular 18 L Filtrat Rate mL/min Glucose Level 83 Calcium Level 8.5 Phosphorus Level 5.6 H Magnesium Level 3.6 H Test 07/24/18 12:01 Bedside Glucose 96 Medications Medication Current Medications IV Flush (NS 3 ml) 3 ml PER PROTOCOL IV ; Start 07/10/18 at 21:30 Ondansetron HCl (Zofran Tab) 4 mg Q6H PRN PO NAUSEA/VOMITING; Start 07/10/18 at 21:30 Acetaminophen (Tylenol Tab) 650 mg Q6H PRN PO .PAIN 1-3 OR TEMP Last admin istered on 07/16/18at 02:06; Admin Dose 650 MG; Start 07/10/18 at 21:30 Docusate Sodium (Colace) 100 mg Q12H PRN PO .CONSTIPATION; Start 07/10/18 at 21:30 Bisacodyl (Dulcolax) 5 mg DAILY PRN PO .CONSTIPATION Last administered on 07/13/18at 17:40; Admin Dose 5 MG; Start 07/10/18 at 21:30 Miscellaneous Information 1 ea NOTE XX ; Start 07/10/18 at 22:30 Glucose (Glutose) 15 gm Q15M PRN PO DECREASED GLUCOSE; Start 07/10/18 at 22:30 Glucose (Glutose) 22.5 gm Q15M PRN PO DECREASED GLUCOSE; Start 07/10/18 at 22:30 Dextrose (D50w Syringe) 25 ml Q15M PRN IV DECREASED GLUCOSE; Start 07/10/18 at 22:30 Dextrose (D50w Syringe) 50 ml Q15M PRN IV DECREASED GLUCOSE; Start 07/10/18 at 22:30 Glucagon (Glucagen) 1 mg Q15M PRN IM DECREASED GLUCOSE; Start 07/10/18 at 22:30 Glucose (Glutose) 15 gm Q15M PRN BUCCAL DECREASED GLUCOSE; Start 07/10/18 at 22:30 Docusate Sodium (Colace) 200 mg BID PO Last administered on 07/24/18at 08:13; Admin Dose 200 MG; Start 07/11/18 at 09:00 Insulin Aspart (Novolog Insulin Pen) NOVOLOG *MILD* ALGORITHM WITH MEALS BEDTIME SC Last administered on 07/23/18at 17:47; Admin Dose 1 UNIT; Start 07/11/18 at 11:50 Hydralazine HCl (Apresoline) 10 mg Q6H PRN IV SBP>160 Last administered on 07/24/18 04:24; Admin Dose 10 MG; Start 07/11/18 at 16:30 Insulin Glargine (Lantus) 10 units DAILY@2000 SC Last administered on 07/23/18 20:49; Admin Dose 10 UNITS; Start 07/12/18 at 20:00 Ferric Sodium Gluconate Complex 125 mg/Sodium Chloride 100 ml @ 100 mls/hr DAILY@1300 IVPB Last administered on 07/13/18 13:26; Admin Dose 100 MLS/HR; Start 07/13/18 at 13:00; Status Hold Phenol (Cepastat Lozenge) 1 lozenge Q2H PRN MT SORE THROAT; Start 07/14/18 at 09:00 Lactulose (Enulose) 20 gm DAILY PRN PO CONSTIPATION Last administered on 07/15/18 20:57; Admin Dose 20 GM; Start 07/15/18 at 09:30 Nifedipine (Procardia Xl) 60 mg BID PO Last administered on 07/24/18 08:12; Admin Dose 60 MG; Start 07/18/18 at 09:00 Cholecalciferol (Vitamin D) 1,000 unit DAILY PO Last administered on 07/24/18 08:12; Admin Dose 1,000 UNIT; Start 07/18/18 at 09:00 Carvedilol (Coreg) 6.25 mg BID PO Last administered on 07/24/18 08:13; Admin Dose 6.25 MG; Start 07/20/18 at 09:30 Albuterol/ Ipratropium (Duoneb) 3 ml Q6HWA RESP THERAPY HHN Last administered on 07/24/18 14:32; Admin Dose 3 ML; Start 07/20/18 at 14:00 Albuterol/ Ipratropium (Duoneb) 3 ml Q2H RESP THERAPY PRN HHN shortness of breath; Start 07/20/18 at 11:00 Budesonide (Pulmicort (Neb)) 0.5 mg BID RESP THERAPY HHN Last administered on 07/24/18 09:22; Admin Dose 0.5 MG; Start 07/20/18 at 11:00 Fluticasone Propionate (Flonase 0.05% Nasal) 1 spray BID NASAL Last administered on 07/24/18at 08:17; Admin Dose 1 SPRAY; Start 07/20/18 at 21:00 Sevelamer Carbonate (Renvela) 800 mg WITH MEALS PO Last administered on 07/24/18at 12:43; Admin Dose 800 MG; Start 07/23/18 at 11:50 Amoxicillin/ Clavulanate Potassium (Augmentin) 250 mg Q8 PO ; Start 07/24/18 at 22:00 TESS RUIZ MD July 24, 2018 15:54
[2018-07-24] MEDS: INSULIN GLARGINE [LANTus] (100 UNITS/ML) SYG SC SCH (21:23)
[2018-07-24] MEDS: AMOXICILLIN/CLAV 250 MG TAB PO SCH (21:57)
[2018-07-25 00:25] VITALS: BP 157/70; PULSE 70; RESP 18
[2018-07-25 02:24] VITALS: BP 159/67; PULSE 66; RESP 18
[2018-07-25] MEDS ORDERED: AMOXICILLIN/CLAV 500 MG TAB ONE (05:32)
[2018-07-25] MEDS: AMOXICILLIN/CLAV 250 MG TAB PO SCH ×2 (06:40→15:02)
[2018-07-25] MEDS: ALBUTEROL/IPRATROPIUM (NEB) 3 ML AMP HHN SCH ×2 (07:58→14:00)
[2018-07-25] MEDS: BUDESONIDE (NEB) 0.5MG/2ML AMP HHN SCH (08:00)
[2018-07-25] MEDS: INSULIN ASPART [NOVOLOG] 3 ML PEN SC SCH ×2 (08:00→12:26)
[2018-07-25] MEDS: SEVELAMER CARBONATE 800 MG TABLET PO SCH ×2 (08:17→12:24)
[2018-07-25] MEDS: FLUTICASONE 0.05% 16 GM NAS SPRAY NASAL SCH (08:17)
[2018-07-25] MEDS: CHOLECALCIFEROL 1,000 UNIT TAB PO SCH (08:17)
[2018-07-25] MEDS: DOCUSATE SODIUM 100 MG CAP PO SCH (08:18)
[2018-07-25] MEDS: NIFEdipine (XL) 60 MG TAB PO SCH (08:19)
[2018-07-25 09:13] VITALS: BP 158/68; PULSE 66; RESP 18
--- NOTE | 2018-07-25 10:08 | PN ---
DATE: 07/25/2018 SUBJECTIVE: The patient was transferred from telemetry to med/surg. The patient is stable, no event s overnight. OBJECTIVE: VITAL SIGNS: Blood pressure is 159/67, respirations 18, pulse 66, temperature 98.4. HEENT: Head is normocephalic. NECK: Supple. HEART: Regular rate. LUNGS: Show diminished breath sounds at the base. ABDOMEN: Soft, nontender to palpation without rebound or guarding. EXTREMITIES: Negative for clubbing, cyanosis. Trace edema. DERMATOLOGIC: No rashes. MUSCULOSKELETAL: No joint effusion. NEUROLOGIC: No change in exam. MEDICATIONS: Reviewed. LABORATORY DATA: Reviewed. ASSESSMENT AND PLAN: 1. Nonoliguric acute kidney injury with previous baseline creatinine of around 1.5 mg/dL. Etiology of acute kidney injury is secondary to hemodynamics, tubular injury. The patient's renal function coronado s slowly been improving. Continue current treatment plan, supportive care, renally dose all medicati ons. 2. Chronic kidney disease, stage III secondary to diabetic nephropathy. The patient is currently in acute kidney injury as stated above. Continue current treatment plan. Continue disease factor mounika fication. 3. Hypernatremia secondary to acute kidney injury, improved. 4. Anemia. Continue to monitor hemoglobin and hematocrit levels. 5. Mineral bone disorder, monitor calcium and phosphorus levels. 6. Hypermagnesemia secondary to acute kidney injury. Continue to monitor. 7. Hypertension. Continue current blood pressure regimen. 8. Diabetes. Continue current insulin regimen. 9. Facial swelling, improved. 10. Encephalopathy, improving. 11. Sinusitis. The patient is completing antibiotic course. Dictated By: MILLY GARZA DO NR/NTS Conf#: [id number] DID#: [id number] CC: CARLOS MALCOLM MD; TESS RUIZ MD;*EndCC*
[2018-07-25] MEDS ORDERED: METF-849 PO (12:47)
--- NOTE | 2018-07-25 14:14 | CONS ---
Assessment/Plan Assessment/Plan Hospital Course (Demo Recall) Alert, denies pain, denies swallowing difficulties, no fevers, looks comfortable Microbiology: Blood cultures negative CT of the brain on admission revealed no acute intracranial findings. Ethmoid and left ethmoid sinus fluid. Facial CT revealed no evidence of abscess punctate submandibular gland calcification suggests sialolithiasis. Acute on chronic left maxillary sinusitis. Please see full report in the chart. Chest x-ray revealed no pneumonia Antimicrobials: Augmentin Physical examination: Well-developed elderly woman who is alert in no distress. Head atraumatic normocephalic sclera nonicteric neck is obese chest rise symmetrical breath sounds diminished bases heart S1-S2 abdomen soft bowel sounds present extremities without cyanosis Assessment: 1. Acute on chronic sinusitis with facial and neck swelling==> resolving 2. Acute on chronic kidney disease 3. Diabetes 4. Hypertension Plan: Remains stable, continue present care, antibiotics for 5 more days, follow nephrology recommendations Consultation Date/Type/Reason Admit Date/Time Jul 10, 2018 at 19:45 Initial Consult Date Type of Consult id Date/Time of Note DATE: 07/25/18 TIME: 14:14 Exam/Review of Systems Exam Vitals Vital Signs Date Temp Pulse Resp B/P (MAP) Pulse Ox O2 O2 Flow FiO2 Time Delivery Rate 07/25/18 Nasal 2.0 10:04 Cannula 07/25/18 97.8 66 18 158/68 91 09:13 (98) 07/23/18 21 13:53 Intake and Output 07/24/18 07/24/18 07/25/18 1515:00 23:00 07:00 IntakeIntake Total 500 ml BalanceBalance 500 ml Results Result Diagram: 07/25/1851807/25/18518 Results 24hrs Laboratory Tests Test 07/24/18 17:18 07/24/18 20:14 07/25/18 05:19 07/25/18 06:54 Bedside Glucose 110 121 107 White Blood Count 11.2 H Red Blood Count 2.99 L Hemoglobin 8.5 L Hematocrit 26.9 L Mean Corpuscular 90.0 Volume Mean Corpuscular 28.4 L Hemoglobin Mean Corpuscular 31.6 L Hemoglobin Concent Red Cell 14.1 Distribution Width Platelet Count 339 Mean Platelet Volume 9.8 Immature 0.300 Granulocytes % Neutrophils % 81.3 H Lymphocytes % 8.8 L Monocytes % 7.9 Eosinophils % 1.2 Basophils % 0.5 Nucleated Red Blood 0.0 Cells % Immature 0.030 Granulocytes # Neutrophils # 9.1 H Lymphocytes # 1.0 Monocytes # 0.9 Eosinophils # 0.1 Basophils # 0.1 Nucleated Red Blood 0.0 Cells # Sodium Level 139 Potassium Level 3.9 Chloride Level 103 Carbon Dioxide Level 28 Anion Gap 8 Blood Urea Nitrogen 52 H Creatinine 2.26 H Est Glomerular 22 L Filtrat Rate mL/min Glucose Level 59 #L Calcium Level 8.6 Phosphorus Level 4.7 Magnesium Level 3.7 H Test 07/25/18 08:15 07/25/18 12:22 Bedside Glucose 113 210 Medications Medication Current Medications IV Flush (NS 3 ml) 3 ml PER PROTOCOL IV ; Start 07/10/18 at 21:30 Ondansetron HCl (Zofran Tab) 4 mg Q6H PRN PO NAUSEA/VOMITING; Start 07/10/18 at 21:30 Acetaminophen (Tylenol Tab) 650 mg Q6H PRN PO .PAIN 1-3 OR TEMP Last administered on 07/16/18at 02:06; Admin Dose 650 MG; Start 07/10/18 at 21:30 Docusate Sodium (Colace) 100 mg Q12H PRN PO .CONSTIPATION; Start 07/10/18 at 21:30 Bisacodyl (Dulcolax) 5 mg DAILY PRN PO .CONSTIPATION Last administered on 07/13/18at 17:40; Admin Dose 5 MG; Start 07/10/18 at 21:30 Miscellaneous Information 1 ea NOTE XX ; Start 07/10/18 at 22:30 Glucose (Glutose) 15 gm Q15M PRN PO DECREASED GLUCOSE; Start 07/10/18 at 22:30 Glucose (Glutose) 22.5 gm Q15M PRN PO DECREASED GLUCOSE; Start 07/10/18 at 22:30 Dextrose (D50w Syringe) 25 ml Q15M PRN IV DECREASED GLUCOSE; Start 07/10/18 at 22:30 Dextrose (D50w Syringe) 50 ml Q15M PRN IV DECREASED GLUCOSE; Start 07/10/18 at 22:30 Glucagon (Glucagen) 1 mg Q15M PRN IM DECREASED GLUCOSE; Start 07/10/18 at 22:30 Glucose (Glutose) 15 gm Q15M PRN BUCCAL DECREASED GLUCOSE; Start 07/10/18 at 22:30 Docusate Sodium (Colace) 200 mg BID PO Last administered on 07/25/18 08:18; Admin Dose 200 MG; Start 07/11/18 at 09:00 Insulin Aspart (Novolog Insulin Pen) NOVOLOG *MILD* ALGORITHM WITH MEALS BEDTIME SC Last administered on 07/25/18 12:26; Admin Dose 2 UNIT; Start 07/11/18 at 11:50 Hydralazine HCl (Apresoline) 10 mg Q6H PRN IV SBP>160 Last administered on 07/24/18 04:24; Admin Dose 10 MG; Start 07/11/18 at 16:30 Insulin Glargine (Lantus) 10 units DAILY@2000 SC Last administered on 07/24/18 21:23; Admin Dose 10 UNITS; Start 07/12/18 at 20:00 Ferric Sodium Gluconate Complex 125 mg/Sodium Chloride 100 ml @ 100 mls/hr DAILY@1300 IVPB Last administered on 07/13/18 13:26; Admin Dose 100 MLS/HR; St art 07/13/18 at 13:00; Status Hold Phenol (Cepastat Lozenge) 1 lozenge Q2H PRN MT SORE THROAT; Start 07/14/18 at 09:00 Lactulose (Enulose) 20 gm DAILY PRN PO CONSTIPATION Last administered on 07/15/18 20:57; Admin Dose 20 GM; Start 07/15/18 at 09:30 Nifedipine (Procardia Xl) 60 mg BID PO Last administered on 07/25/18 08:19; Admin Dose 60 MG; Start 07/18/18 at 09:00 Cholecalciferol (Vitamin D) 1,000 unit DAILY PO Last administered on 07/25/18 08:17; Admin Dose 1,000 UNIT; Start 07/18/18 at 09:00 Carvedilol (Coreg) 6.25 mg BID PO Last administered on 07/25/18 08:20; Admin Dose 6.25 MG; Start 07/20/18 at 09:30 Albuterol/ Ipratropium (Duoneb) 3 ml Q6HWA RESP THERAPY HHN Last administered on 07/25/18 07:58; Admin Dose 3 ML; Start 07/20/18 at 14:00 Albuterol/ Ipratropium (Duoneb) 3 ml Q2H RESP THERAPY PRN HHN shortness of breath; Start 07/20/18 at 11:00 Budesonide (Pulmicort (Neb)) 0.5 mg BID RESP THERAPY HHN Last administered on 07/25/18 08:00; Admin Dose 0.5 MG; Start 07/20/18 at 11:00 Fluticasone Propionate (Flonase 0.05% Nasal) 1 spray BID NASAL Last administered on 07/25/18 08:17; Admin Dose 1 SPRAY; Start 07/20/18 at 21:00 Sevelamer Carbonate (Renvela) 800 mg WITH MEALS PO Last administered on 07/25/18 12:24; Admin Dose 800 MG; Start 07/23/18 at 11:50 Amoxicillin/ Clavulanate Potassium (Augmentin) 250 mg Q8 PO Last administered on 07/25/18 06:40; Admin Dose 250 MG; Start 07/24/18 at 22:00 Simethicone (Mylicon) 80 mg Q6H PRN GTB DISTENSION/GAS/BLOATING Last a dministered on 07/24/18at 20:35; Admin Dose 80 MG; Start 07/24/18 at 19:00 ANGELICA ENGEL NP July 25, 2018 14:14
[2018-07-25 14:21] VITALS: BP 169/74; PULSE 68; RESP 18
[2018-07-25 14:54] VITALS: BP 157/79; PULSE 66; RESP 18
--- NOTE | 2018-07-25 15:52 | DS ---
Date/Time of Note Date/Time of Note DATE: 07/25/18 TIME: 15:52 Discharge Summary Admission/Discharge Info Admit Date/Time Jul 10, 2018 at 19:45 Discharge Date/Time Discharge Diagnosis Sinusitis IBRAHIMA DMII CKD Patient Condition: Stable Hospital Course bjective Physical exam General: Patient is laying in bed and answers questions appropriately, however there is some hallucinating Mentation: Patient is alert and oriented x 3 with hallucinations Head: Normocephalic atraumatic Eyes: EOMI, pupils reactive to light, Face: Mild swelling Neck: Supple, nontender, midline, Respiratory: Clear to auscultation bilaterally Cardiovascular: regular rate, no obvious murmurs Gastrointestinal: non-tender to palpation, bowel sounds heard.mildly distended, nontender Neurological: Moves all extremities spontaneously Skin: No new skin lesions ASSESSMENT & PLAN This is a 68-year-old female with comorbidities including diabetes mellitus, chronic kidney disease, and hypertension who came to the emergency room with chief complaint of constipation. The patient was noticed to have underlying hyperkalemia (potassium was 6.6) in the emergency room. The patient underwent a KUB that was showing fecal filled colon. The patient was admitted to inpatient setting for further treatment and evaluation. Acute hypoxic respiratory distress, resolving -Likely secondary to volume overload, patient received IV fluids for recent acute kidney injury -BNP has increased -Chest x-ray noted for edema -Lasix given x1, hold off on further Lasix for now due to elevated creatinine -DuoNeb's, budesonide -ABG done, noted Altered mental status with hallucinations, improving significantly -Possibly due to worsening sinusitis, infection and elderly patients may be causing altered mental status, change Augmentin back to IV antibiotic. -CT head noted, worsening sinusitis -ABG noted -Monitor Facial and neck swelling 2/2 facial cellulitis, resolved -No respiratory compromise, monitor closely -CT showing salivary stones in the submandibular gland bilaterally and cellulitis with possible retropharyngeal abscess which likely is the cause of patient's facial swelling, -Antibiotic per infectious disease -Follow-up with MRI, noted, very small fluid collection -Ear nose and throat physician, Dr. Wylie also consulted, upon scope ear nose and throat physician did not see any retropharyngeal fullness to indicate abscess or even a target if abscess is present. Notified ENT about MRI, no need for further intervention per ear nose and throat physician, continue antibiotics. salivary stones -conservative tx per ENT -abx -very small and calcifications not obstructive per ENT Carotid stenosis abnormality, only on ultrasound -Found on ultrasound, -MRA not showing any carotid stenosis Hyperkalemia. -Resolved. -Etiology probably secondary to worsening renal function. -Status post potassium exchange resin and insulin IV. -Being followed by nephrology. Acute on chronic kidney disease., -Being followed by nephrology. -Avoid nephrotoxic medications. -Arterial study noted, no stenosis -worsening, will take off any medications inadequately cleared by the kidney, will also insert Taylor catheter, patient urinating but there may be some component of retention Constipation. -KUB showed fecal filled colon. -Continue bowel regimen. -Largely resolved. Continue bowel regimen Diabetes mellitus. -Hemoglobin A1c 8.3. -Continue sliding scale insulin. -Add basal insulin. Hypertension. -Continue antihypertensives. Diabetic neuropathy. -Continue gabapentin. Normocytic anemia. -Most probably anemia of chronic kidney disease. -Monitor H&H closely. -Continue iron supplements. -Epogen as per nephrology. -Transfuse as needed, 1 unit transfused so far Questionable anasarca. -Patient has no lower extremity swelling and abdominal distention has improved after large bowel movement, swelling is mostly limited to the face which is secondary to above cellulitis. Fluids, electrolytes, and nutrition. -Carbohydrate controlled diet. DVT prophylaxis. -Bilateral SCDs. Plan. -cont abx. -Patient's renal function continues to worsen, avoid nephrotoxic drugs, nephrology recommendations appreciated. Home Meds Active Scripts Metformin* (Glucophage*) 500 Mg Tab, 500 MG PO WITH LUNCH DINNER for 30 Days, #60 TAB 5 Refills Prov:TESS RUIZ MD 07/25/18 [Insulin Glargine] 100 UNITS/ML SOLN No Conflict Check, 12 UNITS SC DAILY@1999 for 30 Days Prov:JIMMIE KLEIN MD 07/06/18 Carvedilol* (Carvedilol*) 12.5 Mg Tablet, 12.5 MG PO BID for 30 Days, TAB Prov:JIMMIE KLEIN MD 07/06/18 Gabapentin* (Gabapentin*) 300 Mg Capsule, 300 MG PO TID, #90 CAP Prov:ROYAL HADLEY MD 03/14/16 Reported Medications Amlodipine Besylate* (Amlodipine Besylate*) 10 Mg Tablet, 10 MG PO DAILY, #30 TAB 07/01/18 Primary Care Provider Care Physician No Primary Pending Labs Laboratory Tests Test 07/24/18 17:18 07/24/18 20:14 07/25/18 05:19 07/25/18 06:54 Bedside 110 121 107 Glucose mg/dL (70-220) mg/dL (70-220) mg/dL (70-220) White Blood 11.2 Count 10^3/ul (4.8-1 0.8) Red Blood 2.99 Count 10^6/ul (4.20- 5.40) Hemoglobin 8.5 g/dl (12.0-16. 0) Hematocrit 26.9 % (37.0-47.0) Mean 90.0 Corpuscular fl (82.0-101.0 Volume ) Mean 28.4 Corpuscular pg (29.0-33.0) Hemoglobin Mean 31.6 Corpuscular g/dl (32.0-37. Hemoglobin Conc 0) ent Red Cell 14.1 Distribution % (11.5-14.5) Width Platelet Count 339 10^3/UL (140-4 15) Mean Platelet 9.8 Volume fl (7.4-10.4) Immature 0.300 Granulocytes % % (0.001-0.429 ) Neutrophils % 81.3 % (39.0-77.0) Lymphocytes % 8.8 % (15.0-51.0) Monocytes % 7.9 % (0.0-11.0) Eosinophils % 1.2 % (0.0-7.0) Basophils % 0.5 % (0.0-2.0) Nucleated Red 0.0 Blood Cells % /100WBC (0.0-0 .0) Immature 0.030 Granulocytes # 10^3/ul (0.0-0 .031) Neutrophils # 9.1 10^3/ul (1.6-7 .5) Lymphocytes # 1.0 10^3/ul (0.8-2 .9) Monocytes # 0.9 10^3/ul (0.3-0 .9) Eosinophils # 0.1 10^3/ul (0.0-0 .5) Basophils # 0.1 10^3/ul (0.0-0 .1) Nucleated Red 0.0 Blood Cells # 10^3/ul (0.0-0 .0) Sodium Level 139 mmol/L (135-14 4) Potassium 3.9 Level mmol/L (3.5-5. 1) Chloride Level 103 mmol/L (97-110 ) Carbon Dioxide 28 Level mmol/L (21-31) Anion Gap 8 (5-13) Blood Urea 52 Nitrogen mg/dl (7-20) Creatinine 2.26 mg/dl (0.44-1. 00) Est Glomerular 22 Filtrat mL/min (>60) Rate mL/min Glucose Level 59 mg/dl (70-220) Calcium Level 8.6 mg/dl (8.4-10. 2) Phosphorus 4.7 Level mg/dl (2.5-4.9 ) Magnesium 3.7 Level mg/dl (1.7-2.5 ) Test 07/25/18 08:15 07/25/18 12:22 Bedside 113 210 Glucose mg/dL (70-220) mg/dL (70-220) TESS RUIZ MD July 25, 2018 15:52
== END 2018-07-25 16:01 | disposition home or self-care (01) | DRG 641 ==
LOC: E/R 16:13 → TEL 19:45 → PP2 07-13 15:55 → TEL 07-16 13:12 → PP2 07-25 00:13
PROVIDERS: ADMIT Family Medicine; ATTEND Internal Medicine
PROC: 0CJY8ZZ Inspection of Mouth and Throat, Via Natural or Artificial Opening Endoscopic (ICD-10-PCS; 2018-07-10)
PROC: 30233N1 Transfusion of Nonautologous Red Blood Cells into Peripheral Vein, Percutaneous Approach (ICD-10-PCS; principal; 2018-07-14)
DX: E87.5 Hyperkalemia (principal); N17.9 Acute kidney failure, unspecified; G93.40 Encephalopathy, unspecified; L03.211 Cellulitis of face; R06.03 Acute respiratory distress; E87.0 Hyperosmolality and hypernatremia; E87.1 Hypo-osmolality and hyponatremia; E11.40 Type 2 diabetes mellitus with diabetic neuropathy, unspecified; E87.70 Fluid overload, unspecified; E11.649 Type 2 diabetes mellitus with hypoglycemia without coma; N18.3 Chronic kidney disease, stage 3 (moderate); K59.00 Constipation, unspecified; R09.02 Hypoxemia; K11.5 Sialolithiasis; J32.9 Chronic sinusitis, unspecified; I12.9 Hypertensive chronic kidney disease with stage 1 through stage 4 chronic kidney disease, or unspecified chronic kidney disease; E11.22 Type 2 diabetes mellitus with diabetic chronic kidney disease; E11.21 Type 2 diabetes mellitus with diabetic nephropathy; J01.00 Acute maxillary sinusitis, unspecified; J32.0 Chronic maxillary sinusitis; E83.41 Hypermagnesemia; D63.1 Anemia in chronic kidney disease
CPT/HCPCS: 36415; 36430; 36600; 70450; 70486; 70490; 70540; 70549; 71045; 74018; 80048; 80053; 80061; 81001; 81003; 82043; 82088; 82270; 82728; 82803; 82962; 83036; 83540; 83605; 83735; 83880; 83930; 83935; 84100; 84133; 84155; 84300; 84443; 85025; 86850; 86900; 86901; 86920; 93005; 93880; 93976; 94640; 94664; 96374; 96375; 97110; 97116; 97161; 97530; J0360; J1815; J1940; J2060; J2185; J2543; J2916; J7030; J7040; P9016; Q5106